=== PATIENT | female | born 1970 | race Caucasian/White ===

== ENCOUNTER → 2016-02-28 | Outpatient (CLI) | payer OTHER ==
[~2016-02-28] MED LIST: /ATOR40TA OR; /AUGM875TA OR; ALBU17IN INH; AMIT8CAP4 PO; ASPI325T OR; ASPI325T PO; ASPI81TA45 OR; B COTAB6 PO; COLA100C PO; COLACE PO; DOXE75CA2 PO; FLEXERIL PO; IPRASOL4 INH; KLON1TAB OR; KLON1TAB PO; LEVA750T PO; LEVO125T3 PO; LINZ290C PO; LIPI10TA PO; LISI-538 PO; LISI10TA4 PO; METH10TA2 PO; MIRA3350 PO; MORP15TA2 PO; MS CONTIN PO; MUCI600T34 PO; NICO14DI3 TD; NICO21DI4 TD; NICO7DIS4 TD; NYQUIL PO; OXYB10TA OR; OXYB10TA PO; OXYC-517 PO; OXYC15TA76 PO; PAXI20TA OR; PERCOCET PO; POTA20TA2 OR; PRIN10TA PO; PROAAER IN; PROM25TA3 PO; STOOTAB PO; SYNT125T OR; TESS200C OR; TIZA4TAB3 PO; TRAZ100T4 PO; TRAZ50TA2 PO; TYLETAB3 OR; VIBRYD PO; VIIB20TA PO; VITA500047 PO; ZOLP-187 PO; [UNRECOGNIZED DRUG - CODE] PO
--- NOTE | 2016-03-18 00:38 | ECWPNPC ---
PATIENT NAME: LORRIE CHAVEZ : 1970 GENDER: FEMALE VISIT DATE: 02/28/2016 DISCHARGE DATE: 02/28/16 1506 VISIT LOCKED DATE TIME: PHYSICIAN: ANÍBAL LANDA RESOURCE: ANÍBAL LANDA REASON FOR APPOINTMENT 1. CHRONIC PAIN HISTORY OF PRESENT ILLNESS HISTORY OF PRESENT ILLNESS: HERE FOR F/U AND MANAGEMENT OF CHRONIC GENERALIZED PAIN W HX OF POST STROKE SYNDROME.RATING PAIN LEVEL 8/10.REPORTS POOR QUALITY OF LIFE SINCE DECREASE IN NARCOTIC PAIN MEDICATION A FEW MONTHS AGO.FINDS IT DIFFICULT TO GET OUT OF BED AND SHE HAS BEEN IN BED MOST OF THE TIME.ASKING FOR INCREASE IN METHADONE.CHIEF AREA OF PAIN IS SHOULDERS ,CLAVICLE,AND NECK.GENERALLY HURTS ALL OVER WITH LEFT SIDE BEING WORSE. PAIN THE PATIENT DESCRIBES THE PAIN... THE PATIENT DESCRIBES THE PAIN... THE PATIENT DESCRIBES THE PAIN... THE PATIENT DESCRIBES THE PAIN... FALL RISK SCREENING: SCREENING :NO FALLS IN THE PAST YEAR CURRENT MEDICATIONS TAKING VENTOLIN HFA 108 (90 BASE) MCG/ACT AEROSOL SOLUTION 2 PUFFS NEEDED INHALATION EVERY 4 HRS TAKING ALBUTEROL-IPRATROPIUM 1 DOSE 1 SOLUTION INHALED EVERY 2 HOURS NEEDED TAKING ASPIRIN 325 MG TABLET 1 TABLET ORALLY ONCE A DAY TAKING ATORVASTATIN CALCIUM 10 MG TABLET 1 TABLET ORALLY ONCE A DAY TAKING KLONOPIN 1 MG TABLET 1 TABLET ORALLY DAILY TAKING SYNTHROID 125 MCG TABLET 1 TABLET ORALLY ONCE A DAY TAKING LINZESS 290 MCG CAPSULE 1 CAPSULE ORALLY ONCE A DAY TAKING OXYBUTYNIN CHLORIDE ER 10 MG TABLET EXTENDED RELEASE 24 HOUR 1 TABLET ORALLY ONCE A DAY TAKING STOOL SOFTENER 100 MG CAPSULE 1 CAPSULE NEEDED ORALLY ONCE A DAY TAKING TRAZODONE HCL 150 MG TABLET 1 TABLET AT BEDTIME ORALLY ONCE A DAY TAKING PROZAC 10 MG CAPSULE 1 CAPSULE IN THE MORNING ORALLY ONCE A DAY TAKING METHADONE HCL 10 MG TABLET 2 ORALLY Q8H TID MDD6 TAKING OXYCODONE HCL 5 MG TABLET 1-2 ORALLY Q8H PRN PAIN MDD3 NOT-TAKING MUCINEX 600 MG TABLET EXTENDED RELEASE 12 HOUR 1 TABLET NEEDED ORALLY TWICE DAILY NEEDED NOT-TAKING UNISOM 25 MG TABLET 1 TABLET AT BEDTIME NEEDED ORALLY ONCE A DAY NOT-TAKING LISINOPRIL 10 MG TABLET 1 TABLET ORALLY ONCE A DAY NOT-TAKING VIIBRYD 40 MG TABLET 1 TABLETS WITH FOOD ORALLY ONCE A DAY NOT-TAKING METHADONE HCL 10 MG TABLET 2 TABLET ORALLY 2 TAB Q6H MDD8 MEDICATION LIST REVIEWED AND RECONCILED WITH THE PATIENT PAST MEDICAL HISTORY ASTROCYTOMA STROKES 2008 TIAS [id number] OSTEO ARTHRITIS (DEGENERATIVE) DDD FIBROMYALGIA [place] CARPAL SOHA HYPERTENSION ANXIETY/DEPRESSION NUMEROUS HEAD TRAUMAS ALLERGIES VIIBRYD: MANIC BEHAVIOR: SIDE EFFECTS SOCIAL HISTORY GENERAL: TOBACCO USE ARE YOU A:NONSMOKER LEARNING BARRIERS / SPECIAL NEEDS ORIENTED TO PLAN OF CARE: PATIENT, PAIN MANAGEMENT PATIENT, ORIENTED TO PLAN OF CARE: PATIENT, PAIN MANAGEMENT PATIENT. NEW PATIENT PAIN DIARY TODAY'S VISITNOTES FROM 0-10, WHAT LEVEL IS YOUR PAIN TODAY?0 PAIN CLINIC PFS, CLERGY, PUBLIC HEALTH REFERRALS PFS REFERRAL NEEDED?NO CLERGY REFERRAL NEEDED?NO PUBLIC HEALTH REFERRAL NEEDED?NO WAS THE PROVIDER NOTIFIED OF ANY PERTINENT INFO?NO PFS REFERRAL NEEDED?NO CLERGY REFERRAL NEEDED?NO PUBLIC HEALTH REFERRAL NEEDED?NO WAS THE PROVIDER NOTIFIED OF ANY PERTINENT INFO?NO REVIEW OF SYSTEMS CONSTITUTIONAL: ANY CHANGE IN YOUR MEDICAL CONDITION? NO . CHILLS NO . FEVER NO . INFECTION: DO YOU HAVE NEW INFECTIONS? NO . DO YOU HAVE HISTORY OF MRSA? NO . MUSCULOSKELETAL: ANY NEW PATTERNS OF PAIN OR NUMBNESS? NO . GASTROENTEROLOGY: ANY NEW CHANGE IN BOWEL CONTROL? NO . GENITOURINARY: ANY NEW CHANGE IN BLADDER CONTROL? NO . IS THERE A CHANCE YOU COULD BE ? NO . HEMATOLOGY/LYMPH: DO YOU TAKE ANY BLOOD THINNERS? (FOR EXAMPLE- COUMADIN, PLAVIX, AGGRENOX, PLATEL, PRADAXA, OR XARELTO) NO . WHEN WAS YOUR LAST DOSE? DATE: TIME: . NEUROLOGY: HAVE YOU FALLEN IN THE PAST 6 MONTHS? NO . ANY NEW EXTREMITY NUMBNESS OR WEAKNESS? NO . CARDIOLOGY: DO YOU HAVE A PACEMAKER OR DEFIBRILLATOR? NO . RESPIRATORY: HAVE YOU BEEN SICK IN THE PAST WEEK? NO . FEVER NO . FLU LIKE SYMPTOMS? NO . COUGH NO . INTEGUMENTARY: DO YOU HAVE ANY RASHES OR OPEN SORES? NO . ALLERGIC/IMMUNO: ARE YOU ALLERGIC TO SHELLFISH OR IV DYE? NO . ANY NEW ALLERGIES? NO . PSYCHIATRIC: DO YOU HAVE THOUGHTS OF HURTING YOURSELF OR SOMEONE ELSE? NO . ARE YOU ABUSED, NEGLECTED, OR IN AN UNSAFE ENVIRONMENT? NO . ENDOCRINOLOGY: ARE YOU DIABETIC? NO . OTHER: DO YOU NEED ANY PRESCRIPTIONS? NO . IF YES, PLEASE LIST: ____ . ANY NEW PROBLEMS WITH YOUR MEDICATIONS? NO . WHEN DID YOU LAST EAT? ____ . WHEN DID YOU LAST DRINK? ____ . WHAT DID YOU LAST DRINK? ____ . NAME OF PERSON DRIVING YOU HOME? ____ . DO YOU HAVE ANY OTHER QUESTIONS OR CONCERNS NO . REVIEWED BY: PROVIDER: ANÍBAL FLORES . VITAL SIGNS WT 154 LBS, HT 70 IN, BMI 22.09 INDEX, BP 117/69 MM HG, HR 110 /MIN, RR 16 /MIN, TEMP 97.5 F, OXYGEN SAT % 94, NA INITIALS TL 1429. EXAMINATION GENERAL EXAMINATION: LUNGS:LUNG SOUNDS ARE CLEAR. HEART:HEART RATE REGULAR. MUSCULOSKELETAL:TENDER W PALPATION OVER CERVICAL AND L/S AXIS., MUSCLE STRENGTH TESTING 3/5 BILATERAL LOWER EXTREMITIES.. ASSESSMENTS CENTRAL PAIN SYNDROME - G89.0 (PRIMARY) CHRONIC PRESCRIPTION OPIATE USE - Z79.891 TREATMENT CENTRAL PAIN SYNDROME REFILL METHADONE HCL TABLET, 10 MG, 2, ORALLY, Q8H TID MDD6, 30 DAY(S), 180, REFILLS 0 NOTES: 12 LEAD EKG, ISTOP REGISTRY REVIEWED AND DEMNOSTRATES COMPLLIANCE. BRINGS IN MEDICATIONS WHICH IS APPROPRIATE FOR WHAT WAS DISPENSED. RECENT URINE TOXICOLOGY REVIEWED. NO UNAUTHORIZED MEDICATIONS. NO ILLICIT SUBSTANCES AND PRESCRIBED MEDICATIONS WERE PRESENT. , RISKS AND BENEFITS OF NARCOTIC/OPIOD MEDICATIONS WERE REVIEWED WITH PATIENT - THIS INCLUDES BUT IS NOT LIMITED TO RISK OF DEPENDANCE/DEVELOPMENT OF ADDICTION, MOOD DISTURBANCE AND DEPRESSION, OSTEOPOROSIS, HORMONAL AND LABIDAL CHANGES, RESPIRATORY DEPRESSION AND . PATIENT IS ADVISED NOT TO DRIVE WHILE ON THESE MEDICATIONS. PROCEDURE CODES FA211 ESTABILISHED PATIENT [facility] CHARGE FOLLOW UP 4 WEEKS ELECTRONICALLY SIGNED BY SANDRA HICKS ON 03/17/2016 AT 04:41 PM EST DISCLAIMER : THIS IS A VISIT SUMMARY EXTRACTED FROM THE [employer] CHART. IT IS NOT A COPY OF THE [employer] PROGRESS NOTE. MTDD
== END ==
LOC: M PAIN 14:20
PROVIDERS: ATTEND Nurse Practitioner Family
DX: Z09 Encounter for follow-up examination after completed treatment for conditions other than malignant neoplasm (principal); G89.29 Other chronic pain; G89.0 Central pain syndrome; I10 Essential (primary) hypertension; M19.90 Unspecified osteoarthritis, unspecified site; M51.9 Unspecified thoracic, thoracolumbar and lumbosacral intervertebral disc disorder; M79.7 Fibromyalgia; F32.9 Major depressive disorder, single episode, unspecified; F41.9 Anxiety disorder, unspecified; Z88.8 Allergy status to other drugs, medicaments and biological substances; Z79.82 Long term (current) use of aspirin; Z79.891 Long term (current) use of opiate analgesic; Z85.841 Personal history of malignant neoplasm of brain; Z87.820 Personal history of traumatic brain injury

== ENCOUNTER → 2016-03-27 | Outpatient (CLI) | payer OTHER ==
--- NOTE | 2016-04-03 02:08 | ECWPNPC ---
PATIENT NAME: LORRIE CHAVEZ : 1970 GENDER: FEMALE VISIT DATE: 03/27/2016 DISCHARGE DATE: 03/27/16 1507 VISIT LOCKED DATE TIME: PHYSICIAN: ANÍBAL LANDA RESOURCE: ANÍBAL LANDA REASON FOR APPOINTMENT 1. CHRONIC PAIN HISTORY OF PRESENT ILLNESS HISTORY OF PRESENT ILLNESS: HERE FOR F/U AND MANAGEMENT OF CHRONIC GENERALIZED PAIN W HX OF POST STROKE SYNDROME.RATING PAIN LEVEL 9/10.REPORTS POOR QUALITY OF LIFE SINCE DECREASE IN NARCOTIC PAIN MEDICATION A FEW MONTHS AGO.FINDS IT DIFFICULT TO GET OUT OF BED AND SHE HAS BEEN IN BED MOST OF THE TIME.CHIEF AREA OF PAIN IS SHOULDERS ,CLAVICLE,AND NECK.GENERALLY HURTS ALL OVER WITH LEFT SIDE BEING WORSE.HX OF LARGE OCCIPITAL TUMOR EXCISION ON RIGHT IN 1994.STATES SHE WAS DIAGNOSED WITH STROKE IN 1997. PAIN THE PATIENT DESCRIBES THE PAIN... THE PATIENT DESCRIBES THE PAIN... THE PATIENT DESCRIBES THE PAIN... THE PATIENT DESCRIBES THE PAIN... THE PATIENT DESCRIBES THE PAIN... FALL RISK SCREENING: SCREENING :NO FALLS IN THE PAST YEAR CURRENT MEDICATIONS TAKING VENTOLIN HFA 108 (90 BASE) MCG/ACT AEROSOL SOLUTION 2 PUFFS NEEDED INHALATION EVERY 4 HRS TAKING ALBUTEROL-IPRATROPIUM 1 DOSE 1 SOLUTION INHALED EVERY 2 HOURS NEEDED TAKING ASPIRIN 325 MG TABLET 1 TABLET ORALLY ONCE A DAY TAKING ATORVASTATIN CALCIUM 10 MG TABLET 1 TABLET ORALLY ONCE A DAY TAKING KLONOPIN 1 MG TABLET 1 TABLET ORALLY DAILY TAKING SYNTHROID 125 MCG TABLET 1 TABLET ORALLY ONCE A DAY TAKING LINZESS 290 MCG CAPSULE 1 CAPSULE ORALLY ONCE A DAY TAKING OXYBUTYNIN CHLORIDE ER 10 MG TABLET EXTENDED RELEASE 24 HOUR 1 TABLET ORALLY ONCE A DAY TAKING STOOL SOFTENER 100 MG CAPSULE 1 CAPSULE NEEDED ORALLY ONCE A DAY TAKING TRAZODONE HCL 150 MG TABLET 1 TABLET AT BEDTIME ORALLY ONCE A DAY TAKING PROZAC 20 MG CAPSULE 1 CAPSULE IN THE MORNING ORALLY ONCE A DAY TAKING METHADONE HCL 10 MG TABLET 2 ORALLY Q8H TID MDD6 NOT-TAKING OXYCODONE HCL 5 MG TABLET 1-2 ORALLY Q8H PRN PAIN MDD3 NOT-TAKING MUCINEX 600 MG TABLET EXTENDED RELEASE 12 HOUR 1 TABLET NEEDED ORALLY TWICE DAILY NEEDED NOT-TAKING UNISOM 25 MG TABLET 1 TABLET AT BEDTIME NEEDED ORALLY ONCE A DAY NOT-TAKING LISINOPRIL 10 MG TABLET 1 TABLET ORALLY ONCE A DAY NOT-TAKING VIIBRYD 40 MG TABLET 1 TABLETS WITH FOOD ORALLY ONCE A DAY NOT-TAKING METHADONE HCL 10 MG TABLET 2 TABLET ORALLY 2 TAB Q6H MDD8 MEDICATION LIST REVIEWED AND RECONCILED WITH THE PATIENT PAST MEDICAL HISTORY ASTROCYTOMA STROKES 2008 TIAS [id number] OSTEO ARTHRITIS (DEGENERATIVE) DDD FIBROMYALGIA [place] CARPAL SOHA HYPERTENSION ANXIETY/DEPRESSION NUMEROUS HEAD TRAUMAS ALLERGIES VIIBRYD: MANIC BEHAVIOR: SIDE EFFECTS SOCIAL HISTORY GENERAL: TOBACCO USE ARE YOU A:NONSMOKER LEARNING BARRIERS / SPECIAL NEEDS ORIENTED TO PLAN OF CARE: PATIENT, PAIN MANAGEMENT PATIENT, ORIENTED TO PLAN OF CARE: PATIENT, PAIN MANAGEMENT PATIENT. NEW PATIENT PAIN DIARY TODAY'S VISITNOTES FROM 0-10, WHAT LEVEL IS YOUR PAIN TODAY?0 PAIN CLINIC PFS, CLERGY, PUBLIC HEALTH REFERRALS PFS REFERRAL NEEDED?NO CLERGY REFERRAL NEEDED?NO PUBLIC HEALTH REFERRAL NEEDED?NO WAS THE PROVIDER NOTIFIED OF ANY PERTINENT INFO?NO PFS REFERRAL NEEDED?NO CLERGY REFERRAL NEEDED?NO PUBLIC HEALTH REFERRAL NEEDED?NO WAS THE PROVIDER NOTIFIED OF ANY PERTINENT INFO?NO REVIEW OF SYSTEMS CONSTITUTIONAL: ANY CHANGE IN YOUR MEDICAL CONDITION? NO . CHILLS NO . FEVER NO . INFECTION: DO YOU HAVE NEW INFECTIONS? NO . DO YOU HAVE HISTORY OF MRSA? NO . MUSCULOSKELETAL: ANY NEW PATTERNS OF PAIN OR NUMBNESS? YES PT REPORTS A GENERALIZED INCREASE IN HER PAIN LEVEL, AND HER HEELS HURTS BECAUSE SHE IS IN BED SO MUCH ALSO REPORTS A BURNING IN THE BACK OF HER HEAD . GASTROENTEROLOGY: ANY NEW CHANGE IN BOWEL CONTROL? NO . GENITOURINARY: ANY NEW CHANGE IN BLADDER CONTROL? NO . IS THERE A CHANCE YOU COULD BE ? NO . HEMATOLOGY/LYMPH: DO YOU TAKE ANY BLOOD THINNERS? (FOR EXAMPLE- COUMADIN, PLAVIX, AGGRENOX, PLATEL, PRADAXA, OR XARELTO) NO . WHEN WAS YOUR LAST DOSE? DATE: TIME: . NEUROLOGY: HAVE YOU FALLEN IN THE PAST 6 MONTHS? YES PT REPORTS SHE LOSES HER BALANCE A LOT AND STUMBLES . ANY NEW EXTREMITY NUMBNESS OR WEAKNESS? NO . CARDIOLOGY: DO YOU HAVE A PACEMAKER OR DEFIBRILLATOR? NO . RESPIRATORY: HAVE YOU BEEN SICK IN THE PAST WEEK? NO . FEVER NO . FLU LIKE SYMPTOMS? NO . COUGH NO . INTEGUMENTARY: DO YOU HAVE ANY RASHES OR OPEN SORES? NO . ALLERGIC/IMMUNO: ARE YOU ALLERGIC TO SHELLFISH OR IV DYE? NO . ANY NEW ALLERGIES? NO . PSYCHIATRIC: DO YOU HAVE THOUGHTS OF HURTING YOURSELF OR SOMEONE ELSE? NO . ARE YOU ABUSED, NEGLECTED, OR IN AN UNSAFE ENVIRONMENT? NO . ENDOCRINOLOGY: ARE YOU DIABETIC? NO . OTHER: DO YOU NEED ANY PRESCRIPTIONS? NO . IF YES, PLEASE LIST: ____ . ANY NEW PROBLEMS WITH YOUR MEDICATIONS? NO . WHEN DID YOU LAST EAT? ____ . WHEN DID YOU LAST DRINK? ____ . WHAT DID YOU LAST DRINK? ____ . NAME OF PERSON DRIVING YOU HOME? ____ . DO YOU HAVE ANY OTHER QUESTIONS OR CONCERNS YES PT WOULD LIKE TO GO BACK ON HYDROCODONE . REVIEWED BY: PROVIDER: ANÍBAL FLORES . VITAL SIGNS WT 159.8 LBS, HT 70 IN, BMI 22.93 INDEX, BP 118/65 MM HG, HR 70 /MIN, RR 16 /MIN, TEMP 97.7 F, OXYGEN SAT % 92, SAFE IN ENV? (Y/N) YES, NA INITIALS TL 1412, REVIEWED BY: EDWARD WEIGHED ON SCALE- TL. EXAMINATION GENERAL EXAMINATION: LUNGS:LUNG SOUNDS ARE CLEAR. HEART:HEART RATE REGULAR. MUSCULOSKELETAL:TENDER W PALPATION OVER CERVICAL AND L/S AXIS., MUSCLE STRENGTH TESTING 3/5 BILATERAL LOWER EXTREMITIES.. ASSESSMENTS CENTRAL PAIN SYNDROME - G89.0 (PRIMARY) CHRONIC PRESCRIPTION OPIATE USE - Z79.891 TREATMENT CENTRAL PAIN SYNDROME REFILL METHADONE HCL TABLET, 10 MG, 2, ORALLY, Q8H TID MDD6, 30 DAY(S), 180, REFILLS 0 REFILL OXYCODONE HCL TABLET, 5 MG, 1, ORALLY, Q6H PRN MDD4, 30 DAY(S), 120, REFILLS 0 PROCEDURE CODES FA211 ESTABILISHED PATIENT [facility] CHARGE FOLLOW UP 3 WEEKS ELECTRONICALLY SIGNED BY SANDRA HICKS ON 03/31/2016 AT 08:40 AM EST DISCLAIMER : THIS IS A VISIT SUMMARY EXTRACTED FROM THE [employer] CHART. IT IS NOT A COPY OF THE [employer] PROGRESS NOTE. [facility]
== END ==
LOC: M PAIN 14:00
PROVIDERS: ATTEND Nurse Practitioner Family
DX: Z09 Encounter for follow-up examination after completed treatment for conditions other than malignant neoplasm (principal); G89.0 Central pain syndrome; M19.90 Unspecified osteoarthritis, unspecified site; M51.9 Unspecified thoracic, thoracolumbar and lumbosacral intervertebral disc disorder; M79.7 Fibromyalgia; I10 Essential (primary) hypertension; F32.9 Major depressive disorder, single episode, unspecified; F41.9 Anxiety disorder, unspecified; Z88.8 Allergy status to other drugs, medicaments and biological substances; Z79.82 Long term (current) use of aspirin; Z79.891 Long term (current) use of opiate analgesic; Z79.899 Other long term (current) drug therapy; Z87.820 Personal history of traumatic brain injury; Z85.841 Personal history of malignant neoplasm of brain

== ENCOUNTER → 2016-04-22 | Outpatient (CLI) | payer OTHER | LOC: M PAIN 14:20 | PROVIDERS: ATTEND Nurse Practitioner Family | DX: Z09 Encounter for follow-up examination after completed treatment for conditions other than malignant neoplasm (principal); G89.29 Other chronic pain; G89.0 Central pain syndrome; M19.90 Unspecified osteoarthritis, unspecified site; M79.7 Fibromyalgia; I10 Essential (primary) hypertension; F41.9 Anxiety disorder, unspecified; F32.9 Major depressive disorder, single episode, unspecified; F17.200 Nicotine dependence, unspecified, uncomplicated; F11.20 Opioid dependence, uncomplicated; Z79.82 Long term (current) use of aspirin; Z79.891 Long term (current) use of opiate analgesic; Z79.899 Other long term (current) drug therapy; Z85.841 Personal history of malignant neoplasm of brain; Z86.73 Personal history of transient ischemic attack (TIA), and cerebral infarction without residual deficits; Z87.820 Personal history of traumatic brain injury ==

== ENCOUNTER → 2016-05-29 | Outpatient (CLI) | payer OTHER ==
[~2016-05-29] MED LIST changes: -COLA100C PO; +COLA100C3 PO
--- NOTE | 2016-05-29 16:58 | REP ---
MRI brain without contrast: History: History of brain tumor. Recent fall. Comparison MRI study is from November 22, 2010. Comparison CT brain study is from November 16, 2014. Technique: Axial and sagittal imaging planes are utilized for T1 and T2-weighted scans. Sequences include spin-echo, fast spin echo, FLAIR, and diffusion weighted sequences. MRI findings: The patient is status post right temporal craniotomy. No other bony calvarial defect is seen. No intraorbital abnormality is seen. There is mucosal thickening and a small quantity of fluid in the left maxillary sinus. There is mild mucosal thickening and fluid in the sphenoid sinuses as well. There is diffuse cerebral atrophy. This is unchanged. There is concordant ventricular enlargement. There is a focal well-circumscribed 1.8 cm area of encephalomalacia in the posterior temporal lobe on the right side consistent with postoperative change. There is no evidence of residual or recurrent mass. FLAIR images demonstrate periventricular white matter changes consistent with small vessel changes. These are unchanged when compared with the 2010 prior study as well. No extra-axial fluid collection is seen. Diffusion weighted scans show no evidence to suggest acute ischemia. There is no evidence of intracranial hemorrhage. Impression: Status post right temporal craniotomy with small stable area of encephalomalacia in the right temporal lobe. Diffuse atrophic change and some small vessel changes. No acute intracranial lesion. Signed by Rupert Cole MD 05/29/2016 06:01 P
== END ==
LOC: M RAD 14:53
PROVIDERS: ATTEND Nurse Practitioner Adult Health
DX: S09.90XD Unspecified injury of head, subsequent encounter (principal); X58.XXXD Exposure to other specified factors, subsequent encounter; Y99.8 Other external cause status

== ENCOUNTER → 2016-06-24 | Outpatient (CLI) | payer OTHER ==
--- NOTE | 2016-07-10 00:51 | ECWPNPC ---
PATIENT NAME: LORRIE CHAVEZ : 1970 GENDER: FEMALE VISIT DATE: 06/24/2016 DISCHARGE DATE: 06/24/16 1537 VISIT LOCKED DATE TIME: PHYSICIAN: ANÍBAL LANDA RESOURCE: ANÍBAL LANDA REASON FOR APPOINTMENT 1. CHRONIC PAIN HISTORY OF PRESENT ILLNESS HISTORY OF PRESENT ILLNESS: HERE FOR F/U AND MANAGEMENT OF CHRONIC GENERALIZED PAIN W HX OF POST STROKE SYNDROME.RATING PAIN LEVEL 4/10.REPORTS IMPROVED PAIN CONTROL AND MORE TIME OUT OF BED AND ACTIVE SINCE WE RESTARTED PAIN MEDICATION A FEW MONTHS AGO.CHIEF AREA OF PAIN IS SHOULDERS ,CLAVICLE,AND NECK.GENERALLY HURTS ALL OVER WITH LEFT SIDE BEING WORSE.HX OF LARGE OCCIPITAL TUMOR EXCISION ON RIGHT IN 1994.STATES SHE WAS DIAGNOSED WITH STROKE IN 1997.DENIES SIDE EFFECTS W MEDICATION.TODAY SHE IS DESCRIBING AN INCREASE IN LOW BACK PAIN ECSPECIALLY WHEN STANDING TO DO DISHES. PAIN THE PATIENT DESCRIBES THE PAIN... THE PATIENT DESCRIBES THE PAIN... THE PATIENT DESCRIBES THE PAIN... THE PATIENT DESCRIBES THE PAIN... THE PATIENT DESCRIBES THE PAIN... THE PATIENT DESCRIBES THE PAIN... THE PATIENT DESCRIBES THE PAIN... FALL RISK SCREENING: SCREENING :NO FALLS IN THE PAST YEAR CURRENT MEDICATIONS TAKING VENTOLIN HFA 108 (90 BASE) MCG/ACT AEROSOL SOLUTION 2 PUFFS NEEDED INHALATION EVERY 4 HRS TAKING ALBUTEROL-IPRATROPIUM 1 DOSE 1 SOLUTION INHALED EVERY 2 HOURS NEEDED TAKING ASPIRIN 325 MG TABLET 1 TABLET ORALLY ONCE A DAY TAKING ATORVASTATIN CALCIUM 10 MG TABLET 1 TABLET ORALLY ONCE A DAY TAKING KLONOPIN 1 MG TABLET 1 TABLET ORALLY DAILY TAKING SYNTHROID 125 MCG TABLET 1 TABLET ORALLY ONCE A DAY TAKING LINZESS 290 MCG CAPSULE 1 CAPSULE ORALLY ONCE A DAY TAKING OXYBUTYNIN CHLORIDE ER 10 MG TABLET EXTENDED RELEASE 24 HOUR 1 TABLET ORALLY ONCE A DAY TAKING STOOL SOFTENER 100 MG CAPSULE 1 CAPSULE NEEDED ORALLY ONCE A DAY TAKING TRAZODONE HCL 150 MG TABLET 1 TABLET AT BEDTIME ORALLY ONCE A DAY TAKING PROZAC 20 MG CAPSULE 1 CAPSULE IN THE MORNING ORALLY ONCE A DAY TAKING METHADONE HCL 10 MG TABLET 2 ORALLY Q8H TID MDD6 TAKING OXYCODONE HCL 5 MG TABLET 1 ORALLY Q6H PRN MDD4 NOT-TAKING MUCINEX 600 MG TABLET EXTENDED RELEASE 12 HOUR 1 TABLET NEEDED ORALLY TWICE DAILY NEEDED NOT-TAKING UNISOM 25 MG TABLET 1 TABLET AT BEDTIME NEEDED ORALLY ONCE A DAY NOT-TAKING LISINOPRIL 10 MG TABLET 1 TABLET ORALLY ONCE A DAY NOT-TAKING VIIBRYD 40 MG TABLET 1 TABLETS WITH FOOD ORALLY ONCE A DAY NOT-TAKING METHADONE HCL 10 MG TABLET 2 TABLET ORALLY 2 TAB Q6H MDD8 MEDICATION LIST REVIEWED AND RECONCILED WITH THE PATIENT PAST MEDICAL HISTORY ASTROCYTOMA STROKES 2008 TIAS [id number] OSTEO ARTHRITIS (DEGENERATIVE) DDD FIBROMYALGIA [place] CARPAL SOHA HYPERTENSION ANXIETY/DEPRESSION NUMEROUS HEAD TRAUMAS ALLERGIES VIIBRYD: MANIC BEHAVIOR: SIDE EFFECTS REVIEW OF SYSTEMS CONSTITUTIONAL: ANY CHANGE IN YOUR MEDICAL CONDITION? NO. PT STATES SHE STARTED TAKING GABAPENTIN WHICH GAVE PT SEVERE MIGRAINES. PT STOPPED GABAPENTIN. . CHILLS NO . FEVER NO . INFECTION: DO YOU HAVE NEW INFECTIONS? NO . DO YOU HAVE HISTORY OF MRSA? NO . MUSCULOSKELETAL: ANY NEW PATTERNS OF PAIN OR NUMBNESS? NO . GASTROENTEROLOGY: ANY NEW CHANGE IN BOWEL CONTROL? NO . GENITOURINARY: ANY NEW CHANGE IN BLADDER CONTROL? NO . IS THERE A CHANCE YOU COULD BE ? NO . HEMATOLOGY/LYMPH: DO YOU TAKE ANY BLOOD THINNERS? (FOR EXAMPLE- COUMADIN, PLAVIX, AGGRENOX, PLATEL, PRADAXA, OR XARELTO) NO . WHEN WAS YOUR LAST DOSE? DATE: TIME: . NEUROLOGY: HAVE YOU FALLEN IN THE PAST 6 MONTHS? YES, PT STATES SHE LOSES BALANCE FROM PREVIOUS STROKE . ANY NEW EXTREMITY NUMBNESS OR WEAKNESS? NO . CARDIOLOGY: DO YOU HAVE A PACEMAKER OR DEFIBRILLATOR? NO . RESPIRATORY: HAVE YOU BEEN SICK IN THE PAST WEEK? NO . FEVER NO . FLU LIKE SYMPTOMS? NO . COUGH NO . INTEGUMENTARY: DO YOU HAVE ANY RASHES OR OPEN SORES? NO . ALLERGIC/IMMUNO: ARE YOU ALLERGIC TO SHELLFISH OR IV DYE? NO . ANY NEW ALLERGIES? NO . PSYCHIATRIC: DO YOU HAVE THOUGHTS OF HURTING YOURSELF OR SOMEONE ELSE? NO . ARE YOU ABUSED, NEGLECTED, OR IN AN UNSAFE ENVIRONMENT? NO . ENDOCRINOLOGY: ARE YOU DIABETIC? NO . OTHER: DO YOU NEED ANY PRESCRIPTIONS? NO . IF YES, PLEASE LIST: ____ . ANY NEW PROBLEMS WITH YOUR MEDICATIONS? NO . WHEN DID YOU LAST EAT? ____ . WHEN DID YOU LAST DRINK? ____ . WHAT DID YOU LAST DRINK? ____ . NAME OF PERSON DRIVING YOU HOME? ____ . DO YOU HAVE ANY OTHER QUESTIONS OR CONCERNS NO . REVIEWED BY: PROVIDER: ANÍBAL FLORES . VITAL SIGNS WT 165.8 LBS, HT 70 IN, BMI 23.79 INDEX, BP 123/74 MM HG, HR 81 /MIN, RR 16 /MIN, TEMP 97.6 F, OXYGEN SAT % 96%, SAFE IN ENV? (Y/N) Y, NA INITIALS TL 1435, REVIEWED BY: EM. EXAMINATION GENERAL EXAMINATION: LUNGS:LUNG SOUNDS ARE CLEAR. HEART:HEART RATE REGULAR. MUSCULOSKELETAL:TENDER W PALPATION OVER CERVICAL AND L/S AXIS., MUSCLE STRENGTH TESTING 3/5 BILATERAL LOWER EXTREMITIES.. 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 BRINGS IN MEDICATIONS WHICH IS APPROPRIATE FOR WHAT WAS DISPENSED. RECENT URINE TOXICOLOGY REVIEWED. NO UNAUTHORIZED MEDICATIONS. NO ILLICIT SUBSTANCES AND PRESCRIBED MEDICATIONS WERE PRESENT. , RISKS AND BENEFITS OF NARCOTIC/OPIOD MEDICATIONS WERE REVIEWED WITH PATIENT - THIS INCLUDES BUT IS NOT LIMITED TO RISK OF DEPENDANCE/DEVELOPMENT OF ADDICTION, MOOD DISTURBANCE AND DEPRESSION, OSTEOPOROSIS, HORMONAL AND LABIDAL CHANGES, RESPIRATORY DEPRESSION AND . PATIENT IS ADVISED NOT TO DRIVE WHILE ON THESE MEDICATIONS.URINE FOR TOX TODAY. REFERRAL TO:[facility] REASON:PLEASE EVALUATE FOR MEDICAL MARIJUANA/DX POST STROKE-CENTRALPAIN SYNDROME/CHRONIC PAIN PROCEDURE CODES FA211 ESTABILISHED PATIENT [facility] FACILITY CHARGE DISPOSITION & COMMUNICATION FOLLOW UP 2 MONTHS ELECTRONICALLY SIGNED BY SANDRA HICKS ON 07/08/2016 AT 10:07 AM EDT DISCLAIMER : THIS IS A VISIT SUMMARY EXTRACTED FROM THE [employer] CHART. IT IS NOT A COPY OF THE [employer] PROGRESS NOTE. [facility]
== END ==
LOC: M PAIN 14:00
PROVIDERS: ATTEND Nurse Practitioner Family
DX: G89.0 Central pain syndrome (principal); M54.40 Lumbago with sciatica, unspecified side; I25.2 Old myocardial infarction; M19.90 Unspecified osteoarthritis, unspecified site; M51.9 Unspecified thoracic, thoracolumbar and lumbosacral intervertebral disc disorder; I10 Essential (primary) hypertension; F41.9 Anxiety disorder, unspecified; F32.9 Major depressive disorder, single episode, unspecified; Z88.8 Allergy status to other drugs, medicaments and biological substances; F11.20 Opioid dependence, uncomplicated; Z79.82 Long term (current) use of aspirin; Z79.891 Long term (current) use of opiate analgesic; Z79.899 Other long term (current) drug therapy; Z87.820 Personal history of traumatic brain injury

== ENCOUNTER → 2016-08-25 | Outpatient (CLI) | payer OTHER ==
[~2016-08-25] MED LIST changes: -COLA100C3 PO; +COLA100C5 PO; -LEVA750T PO; +LEVA750T7 PO; -LEVO125T3 PO; +LEVO125T4 PO; -MUCI600T34 PO; +MUCI600T37 PO; +TRAZ-136 PO; -TRAZ100T4 PO
--- NOTE | 2016-09-10 01:14 | ECWPNPC ---
PATIENT NAME: LORRIE CHAVEZ : 1970 GENDER: FEMALE VISIT DATE: 08/25/2016 DISCHARGE DATE: 08/25/16 1444 VISIT LOCKED DATE TIME: PHYSICIAN: ANÍBAL LANDA RESOURCE: ANÍBAL LANDA REASON FOR APPOINTMENT 1. FOLLOWUP HISTORY OF PRESENT ILLNESS HISTORY OF PRESENT ILLNESS: HERE FOR F/U AND MANAGEMENT OF CHRONIC GENERALIZED BODY PAIN.RATING PAIN VAS 6/10.RECENTLY STARTED ON MEDICAL MARIJUANA A FEW DAYS AGO.CURRENTLY USING METHADONE 10MG TWO TAB. TID AND OXYCODONE 5MG UP TO 4X DAILY .FEELS MEDICATION IS EFFECTIVE WITHOUT SIDE EFFECTS.RATING PAIN VAS 6/10. PAIN THE PATIENT DESCRIBES THE PAIN... FALL RISK SCREENING: SCREENING :NO FALLS IN THE PAST YEAR CURRENT MEDICATIONS TAKING VENTOLIN HFA 108 (90 BASE) MCG/ACT AEROSOL SOLUTION 2 PUFFS NEEDED INHALATION EVERY 4 HRS TAKING ALBUTEROL-IPRATROPIUM 1 DOSE 1 SOLUTION INHALED EVERY 2 HOURS NEEDED TAKING ASPIRIN 325 MG TABLET 1 TABLET ORALLY ONCE A DAY TAKING ATORVASTATIN CALCIUM 10 MG TABLET 1 TABLET ORALLY ONCE A DAY TAKING KLONOPIN 1 MG TABLET 1 TABLET ORALLY DAILY TAKING SYNTHROID 125 MCG TABLET 1 TABLET ORALLY ONCE A DAY TAKING LINZESS 290 MCG CAPSULE 1 CAPSULE ORALLY ONCE A DAY TAKING OXYBUTYNIN CHLORIDE ER 10 MG TABLET EXTENDED RELEASE 24 HOUR 1 TABLET ORALLY ONCE A DAY TAKING STOOL SOFTENER 100 MG CAPSULE 1 CAPSULE NEEDED ORALLY ONCE A DAY TAKING TRAZODONE HCL 150 MG TABLET 1 TABLET AT BEDTIME ORALLY ONCE A DAY TAKING PROZAC 20 MG CAPSULE 1 CAPSULE IN THE MORNING ORALLY ONCE A DAY TAKING METHADONE HCL 10 MG TABLET 2 ORALLY Q8H TID MDD6 TAKING OXYCODONE HCL 5 MG TABLET 1 ORALLY Q6H PRN MDD4 NOT-TAKING MUCINEX 600 MG TABLET EXTENDED RELEASE 12 HOUR 1 TABLET NEEDED ORALLY TWICE DAILY NEEDED NOT-TAKING UNISOM 25 MG TABLET 1 TABLET AT BEDTIME NEEDED ORALLY ONCE A DAY NOT-TAKING LISINOPRIL 10 MG TABLET 1 TABLET ORALLY ONCE A DAY NOT-TAKING VIIBRYD 40 MG TABLET 1 TABLETS WITH FOOD ORALLY ONCE A DAY NOT-TAKING METHADONE HCL 10 MG TABLET 2 TABLET ORALLY 2 TAB Q6H MDD8 MEDICATION LIST REVIEWED AND RECONCILED WITH THE PATIENT PAST MEDICAL HISTORY ASTROCYTOMA STROKES 2008 TIAS [id number] OSTEO ARTHRITIS (DEGENERATIVE) DDD FIBROMYALGIA [place] CARPAL SOHA HYPERTENSION ANXIETY/DEPRESSION NUMEROUS HEAD TRAUMAS ALLERGIES VIIBRYD: MANIC BEHAVIOR: SIDE EFFECTS SURGICAL HISTORY OSTEO CHONDROMA 1980 LEFT KNEE REPAIR D&C PARTIAL CRANIOTOMY RECONSRTUCTION OF LEFT ANKLE FOOT SURGERY 08/13/15 HOSPITALIZATION/MAJOR DIAGNOSTIC PROCEDURE MENINGITIS 1996 REVIEW OF SYSTEMS REVIEWED BY: PROVIDER: ANÍBAL FLORES . CONSTITUTIONAL: ANY CHANGE IN YOUR MEDICAL CONDITION? NO . CHILLS NO . FEVER NO . INFECTION: DO YOU HAVE NEW INFECTIONS? NO . DO YOU HAVE HISTORY OF MRSA? NO . MUSCULOSKELETAL: ANY NEW PATTERNS OF PAIN OR NUMBNESS? YES, LEFT CHEST WALL USED TO BE NUMB. PT STATES A FEW WEEKS AGO SHE STARTED HAVING A TUGGING FEELING ON LEFT CHEST WALL. . GASTROENTEROLOGY: ANY NEW CHANGE IN BOWEL CONTROL? NO . GENITOURINARY: ANY NEW CHANGE IN BLADDER CONTROL? NO . IS THERE A CHANCE YOU COULD BE ? NO . HEMATOLOGY/LYMPH: DO YOU TAKE ANY BLOOD THINNERS? (FOR EXAMPLE- COUMADIN, PLAVIX, AGGRENOX, PLATEL, PRADAXA, OR XARELTO) NO . WHEN WAS YOUR LAST DOSE? DATE: TIME: . NEUROLOGY: HAVE YOU FALLEN IN THE PAST 6 MONTHS? YES, PT STATES 3 MONTHS AGO PT GOT UP IN MIDDLE OF NIGHT IN THE DARK TO GO TO BATHROOM, PT STATES SHE FELL LANDING ON HEAD. MRI OF BRAIN DONE PT STATES NO CHANGES. . ANY NEW EXTREMITY NUMBNESS OR WEAKNESS? NO . CARDIOLOGY: DO YOU HAVE A PACEMAKER OR DEFIBRILLATOR? NO . RESPIRATORY: HAVE YOU BEEN SICK IN THE PAST WEEK? NO . FEVER NO . FLU LIKE SYMPTOMS? NO . COUGH NO . INTEGUMENTARY: DO YOU HAVE ANY RASHES OR OPEN SORES? NO . ALLERGIC/IMMUNO: ARE YOU ALLERGIC TO SHELLFISH OR IV DYE? NO . ANY NEW ALLERGIES? NO . PSYCHIATRIC: DO YOU HAVE THOUGHTS OF HURTING YOURSELF OR SOMEONE ELSE? NO . ARE YOU ABUSED, NEGLECTED, OR IN AN UNSAFE ENVIRONMENT? NO . ENDOCRINOLOGY: ARE YOU DIABETIC? NO . OTHER: DO YOU NEED ANY PRESCRIPTIONS? NO . IF YES, PLEASE LIST: ____ . ANY NEW PROBLEMS WITH YOUR MEDICATIONS? NO . WHEN DID YOU LAST EAT? ____ . WHEN DID YOU LAST DRINK? ____ . WHAT DID YOU LAST DRINK? ____ . NAME OF PERSON DRIVING YOU HOME? ____ . DO YOU HAVE ANY OTHER QUESTIONS OR CONCERNS NO . VITAL SIGNS WT 160.0 LBS, HT 70 IN, BMI 22.96 INDEX, BP 118/77 MM HG, HR 98 /MIN, RR 16 /MIN, TEMP 99.2 F, OXYGEN SAT % 95%, SAFE IN ENV? (Y/N) Y, NA INITIALS TL 1405, REVIEWED BY: NEAL. EXAMINATION GENERAL EXAMINATION: LUNGS:LUNG SOUNDS ARE CLEAR. HEART:HEART RATE REGULAR. MUSCULOSKELETAL:TENDER W PALPATION OVER CERVICAL AND L/S AXIS., MUSCLE STRENGTH TESTING 3/5 BILATERAL LOWER EXTREMITIES.. ASSESSMENTS CENTRAL PAIN SYNDROME - G89.0 (PRIMARY) CHRONIC PRESCRIPTION OPIATE USE - Z79.891 TREATMENT CENTRAL PAIN SYNDROME REFILL METHADONE HCL TABLET, 10 MG, 2, ORALLY, Q8H TID MDD6, 30 DAY(S), 180, REFILLS 0 REFILL OXYCODONE HCL TABLET, 5 MG, 1, ORALLY, Q6H PRN MDD4, 30 DAY(S), 120, REFILLS 0 NOTES: ISTOP REGISTRY REVIEWED AND DEMNOSTRATES COMPLLIANCE. BRINGS IN MEDICATIONS WHICH IS APPROPRIATE FOR WHAT WAS DISPENSED. RECENT URINE TOXICOLOGY REVIEWED. NO UNAUTHORIZED MEDICATIONS. NO ILLICIT SUBSTANCES AND PRESCRIBED MEDICATIONS WERE PRESENT. , RISKS AND BENEFITS OF NARCOTIC/OPIOD MEDICATIONS WERE REVIEWED WITH PATIENT - THIS INCLUDES BUT IS NOT LIMITED TO RISK OF DEPENDANCE/DEVELOPMENT OF ADDICTION, MOOD DISTURBANCE AND DEPRESSION, OSTEOPOROSIS, HORMONAL AND LABIDAL CHANGES, RESPIRATORY DEPRESSION AND . PATIENT IS ADVISED NOT TO DRIVE WHILE ON THESE MEDICATIONS. PROCEDURE CODES FA211 ESTABILISHED PATIENT [facility] CHARGE DISPOSITION & COMMUNICATION FOLLOW UP 2 MONTHS ELECTRONICALLY SIGNED BY SANDRA HICKS ON 09/09/2016 AT 09:54 AM EDT DISCLAIMER : THIS IS A VISIT SUMMARY EXTRACTED FROM THE [employer] CHART. IT IS NOT A COPY OF THE [employer] PROGRESS NOTE. MTDD
== END ==
LOC: M PAIN 14:00
PROVIDERS: ATTEND Nurse Practitioner Family
DX: G89.0 Central pain syndrome (principal); M79.7 Fibromyalgia; I10 Essential (primary) hypertension; F41.9 Anxiety disorder, unspecified; F32.9 Major depressive disorder, single episode, unspecified; I25.2 Old myocardial infarction; R07.89 Other chest pain; Z88.8 Allergy status to other drugs, medicaments and biological substances; Z79.82 Long term (current) use of aspirin; F11.20 Opioid dependence, uncomplicated; Z79.891 Long term (current) use of opiate analgesic; Z79.899 Other long term (current) drug therapy; Z87.820 Personal history of traumatic brain injury

== ENCOUNTER → 2016-10-28 | Outpatient (CLI) | payer OTHER ==
--- NOTE | 2016-11-08 23:47 | ECWPNPC ---
PATIENT NAME: LORRIE CHAVEZ : 1970 GENDER: FEMALE VISIT DATE: 10/28/2016 DISCHARGE DATE: 10/28/16 1528 VISIT LOCKED DATE TIME: PHYSICIAN: ANÍBAL LANDA RESOURCE: ANÍBAL LANDA REASON FOR APPOINTMENT 1. CHRONIC BODY PAIN HISTORY OF PRESENT ILLNESS HISTORY OF PRESENT ILLNESS: HERE FOR F/U AND MANAGEMENT OF CHRONIC GENERALIZED BODY PAIN.RATING PAIN VAS 6/10.RECENTLY STARTED ON MEDICAL MARIJUANA ONE MONTH AGO.CURRENTLY USING METHADONE 10MG TWO TAB. TID AND OXYCODONE 5MG UP TO 4X DAILY .FEELS MEDICATION IS EFFECTIVE WITHOUT SIDE EFFECTS.RATING PAIN VAS 6/10.CONTINUES TO USE MEDICAL MARIJUANA BUT IS HAVING TROUBLE AFFORDING. PAIN THE PATIENT DESCRIBES THE PAIN... THE PATIENT DESCRIBES THE PAIN... FALL RISK SCREENING: SCREENING :NO FALLS IN THE PAST YEAR CURRENT MEDICATIONS TAKING VENTOLIN HFA 108 (90 BASE) MCG/ACT AEROSOL SOLUTION 2 PUFFS NEEDED INHALATION EVERY 4 HRS TAKING ALBUTEROL-IPRATROPIUM 1 DOSE 1 SOLUTION INHALED EVERY 2 HOURS NEEDED TAKING ASPIRIN 325 MG TABLET 1 TABLET ORALLY ONCE A DAY TAKING ATORVASTATIN CALCIUM 10 MG TABLET 1 TABLET ORALLY ONCE A DAY TAKING KLONOPIN 1 MG TABLET 1 TABLET ORALLY DAILY TAKING SYNTHROID 125 MCG TABLET 1 TABLET ORALLY ONCE A DAY TAKING LINZESS 290 MCG CAPSULE 1 CAPSULE ORALLY ONCE A DAY TAKING OXYBUTYNIN CHLORIDE ER 10 MG TABLET EXTENDED RELEASE 24 HOUR 1 TABLET ORALLY ONCE A DAY TAKING STOOL SOFTENER 100 MG CAPSULE 1 CAPSULE NEEDED ORALLY ONCE A DAY TAKING TRAZODONE HCL 150 MG TABLET 1 TABLET AT BEDTIME ORALLY ONCE A DAY TAKING PROZAC 20 MG CAPSULE 1 CAPSULE IN THE MORNING ORALLY ONCE A DAY TAKING METHADONE HCL 10 MG TABLET 2 ORALLY Q8H TID MDD6 TAKING OXYCODONE HCL 5 MG TABLET 1 ORALLY Q6H PRN MDD4 NOT-TAKING MUCINEX 600 MG TABLET EXTENDED RELEASE 12 HOUR 1 TABLET NEEDED ORALLY TWICE DAILY NEEDED NOT-TAKING UNISOM 25 MG TABLET 1 TABLET AT BEDTIME NEEDED ORALLY ONCE A DAY NOT-TAKING LISINOPRIL 10 MG TABLET 1 TABLET ORALLY ONCE A DAY NOT-TAKING VIIBRYD 40 MG TABLET 1 TABLETS WITH FOOD ORALLY ONCE A DAY NOT-TAKING METHADONE HCL 10 MG TABLET 2 TABLET ORALLY 2 TAB Q6H MDD8 PAST MEDICAL HISTORY ASTROCYTOMA STROKES 2008 TIAS [id number] OSTEO ARTHRITIS (DEGENERATIVE) DDD FIBROMYALGIA [place] CARPAL SOHA HYPERTENSION ANXIETY/DEPRESSION NUMEROUS HEAD TRAUMAS ALLERGIES VIIBRYD: MANIC BEHAVIOR: SIDE EFFECTS SURGICAL HISTORY OSTEO CHONDROMA 1981 LEFT KNEE REPAIR D&C PARTIAL CRANIOTOMY RECONSRTUCTION OF LEFT ANKLE FOOT SURGERY 08/13/15 HOSPITALIZATION/MAJOR DIAGNOSTIC PROCEDURE MENINGITIS 1996 REVIEW OF SYSTEMS REVIEWED BY: PROVIDER: ANÍBAL FLORES . CONSTITUTIONAL: ANY CHANGE IN YOUR MEDICAL CONDITION? NO . CHILLS NO . FEVER NO . INFECTION: DO YOU HAVE NEW INFECTIONS? NO . DO YOU HAVE HISTORY OF MRSA? NO . MUSCULOSKELETAL: ANY NEW PATTERNS OF PAIN OR NUMBNESS? YES, PT STATES PAIN PATTERNS CHANGE REGULARLY, WORSE PAIN NOW IN TAILBONE. . GASTROENTEROLOGY: ANY NEW CHANGE IN BOWEL CONTROL? NO . GENITOURINARY: ANY NEW CHANGE IN BLADDER CONTROL? NO . IS THERE A CHANCE YOU COULD BE ? NO . HEMATOLOGY/LYMPH: DO YOU TAKE ANY BLOOD THINNERS? (FOR EXAMPLE- COUMADIN, PLAVIX, AGGRENOX, PLATEL, PRADAXA, OR XARELTO) NO . WHEN WAS YOUR LAST DOSE? DATE: TIME: . NEUROLOGY: HAVE YOU FALLEN IN THE PAST 6 MONTHS? YES, PT STATES SHE FELL FOR LOSS OF BALANCE, PT DENIES MAJOR INJURIED REQUIRING MEDICAL ATTENTION . ANY NEW EXTREMITY NUMBNESS OR WEAKNESS? NO . CARDIOLOGY: DO YOU HAVE A PACEMAKER OR DEFIBRILLATOR? NO . RESPIRATORY: HAVE YOU BEEN SICK IN THE PAST WEEK? NO . FEVER NO . FLU LIKE SYMPTOMS? NO . COUGH NO . INTEGUMENTARY: DO YOU HAVE ANY RASHES OR OPEN SORES? NO . ALLERGIC/IMMUNO: ARE YOU ALLERGIC TO SHELLFISH OR IV DYE? NO . ANY NEW ALLERGIES? NO . PSYCHIATRIC: DO YOU HAVE THOUGHTS OF HURTING YOURSELF OR SOMEONE ELSE? NO . ARE YOU ABUSED, NEGLECTED, OR IN AN UNSAFE ENVIRONMENT? NO . ENDOCRINOLOGY: ARE YOU DIABETIC? NO . OTHER: DO YOU NEED ANY PRESCRIPTIONS? NO . IF YES, PLEASE LIST: ____ . ANY NEW PROBLEMS WITH YOUR MEDICATIONS? NO . WHEN DID YOU LAST EAT? ____ . WHEN DID YOU LAST DRINK? ____ . WHAT DID YOU LAST DRINK? ____ . NAME OF PERSON DRIVING YOU HOME? ____ . DO YOU HAVE ANY OTHER QUESTIONS OR CONCERNS NO . VITAL SIGNS WT 160 LBS, HT 70 IN, BMI 22.96 INDEX, BP 125/70 MM HG, HR 98 /MIN, RR 16 /MIN, TEMP 97.3 F, OXYGEN SAT % 91%, NA INITIALS AW 1431, REVIEWED BY: EM. EXAMINATION GENERAL EXAMINATION: LUNGS:LUNG SOUNDS ARE CLEAR. HEART:HEART RATE REGULAR. MUSCULOSKELETAL:TENDER W PALPATION OVER CERVICAL AND L/S AXIS., MUSCLE STRENGTH TESTING 3/5 BILATERAL LOWER EXTREMITIES.. ASSESSMENTS CENTRAL PAIN SYNDROME - G89.0 (PRIMARY) CHRONIC PRESCRIPTION OPIATE USE - Z79.891 TREATMENT CENTRAL PAIN SYNDROME CONTINUE METHADONE HCL TABLET, 10 MG, 2, ORALLY, Q8H TID MDD6, 30 DAY(S), 180, REFILLS 0 CONTINUE OXYCODONE HCL TABLET, 5 MG, 1, ORALLY, Q6H PRN MDD4, 30 DAY(S), 120, REFILLS 0 NOTES: ISTOP REGISTRY REVIEWED [id number] AND DEMNOSTRATES COMPLLIANCE. BRINGS IN MEDICATIONS WHICH IS APPROPRIATE FOR WHAT WAS DISPENSED. RECENT URINE TOXICOLOGY REVIEWED. NO UNAUTHORIZED MEDICATIONS. NO ILLICIT SUBSTANCES AND PRESCRIBED MEDICATIONS WERE PRESENT. , RISKS AND BENEFITS OF NARCOTIC/OPIOD MEDICATIONS WERE REVIEWED WITH PATIENT - THIS INCLUDES BUT IS NOT LIMITED TO RISK OF DEPENDANCE/DEVELOPMENT OF ADDICTION, MOOD DISTURBANCE AND DEPRESSION, OSTEOPOROSIS, HORMONAL AND LABIDAL CHANGES, RESPIRATORY DEPRESSION AND . PATIENT IS ADVISED NOT TO DRIVE WHILE ON THESE MEDICATIONS. PROCEDURE CODES FA211 ESTABILISHED PATIENT [facility] CHARGE DISPOSITION & COMMUNICATION FOLLOW UP 2 MONTHS ELECTRONICALLY SIGNED BY SANDRA HICKS ON 11/08/2016 AT 06:42 PM EDT DISCLAIMER : THIS IS A VISIT SUMMARY EXTRACTED FROM THE [employer] CHART. IT IS NOT A COPY OF THE [employer] PROGRESS NOTE. MTDD
== END ==
LOC: M PAIN 14:15
PROVIDERS: ATTEND Nurse Practitioner Family
DX: G89.0 Central pain syndrome (principal); I25.2 Old myocardial infarction; M19.90 Unspecified osteoarthritis, unspecified site; I10 Essential (primary) hypertension; F41.9 Anxiety disorder, unspecified; F32.9 Major depressive disorder, single episode, unspecified; Z88.8 Allergy status to other drugs, medicaments and biological substances; Z79.82 Long term (current) use of aspirin; Z79.891 Long term (current) use of opiate analgesic; F11.20 Opioid dependence, uncomplicated

== ENCOUNTER → 2017-02-24 | Outpatient (CLI) | payer OTHER | LOC: M PAIN 14:30 | DX: G89.0 Central pain syndrome (principal); M19.90 Unspecified osteoarthritis, unspecified site; M79.7 Fibromyalgia; I10 Essential (primary) hypertension; F41.9 Anxiety disorder, unspecified; F32.9 Major depressive disorder, single episode, unspecified; F17.200 Nicotine dependence, unspecified, uncomplicated; Z79.82 Long term (current) use of aspirin; Z79.891 Long term (current) use of opiate analgesic; Z79.899 Other long term (current) drug therapy; Z86.73 Personal history of transient ischemic attack (TIA), and cerebral infarction without residual deficits | CPT/HCPCS: G0463 ==

== ENCOUNTER → 2017-04-20 | Outpatient (REF) | payer OTHER | LOC: M LAB REF 09:01 | DX: N39.0 Urinary tract infection, site not specified (principal) ==

== ENCOUNTER → 2017-04-26 | Outpatient (CLI) | payer OTHER | LOC: M PAIN 14:00 | DX: G89.0 Central pain syndrome (principal); M79.7 Fibromyalgia; I10 Essential (primary) hypertension; F41.9 Anxiety disorder, unspecified; F32.9 Major depressive disorder, single episode, unspecified; Z79.82 Long term (current) use of aspirin; Z79.891 Long term (current) use of opiate analgesic; Z79.899 Other long term (current) drug therapy; Z88.8 Allergy status to other drugs, medicaments and biological substances; Z86.73 Personal history of transient ischemic attack (TIA), and cerebral infarction without residual deficits | CPT/HCPCS: G0463 ==

== ENCOUNTER → 2017-05-17 | Outpatient (CLI) | payer OTHER | LOC: M PAIN 14:15 | DX: G89.0 Central pain syndrome (principal); I10 Essential (primary) hypertension; F41.9 Anxiety disorder, unspecified; F32.9 Major depressive disorder, single episode, unspecified; M19.90 Unspecified osteoarthritis, unspecified site; M79.7 Fibromyalgia; F17.200 Nicotine dependence, unspecified, uncomplicated; Z79.891 Long term (current) use of opiate analgesic; Z79.82 Long term (current) use of aspirin; Z79.899 Other long term (current) drug therapy; Z88.8 Allergy status to other drugs, medicaments and biological substances; Z86.73 Personal history of transient ischemic attack (TIA), and cerebral infarction without residual deficits | CPT/HCPCS: G0463 ==

== ENCOUNTER → 2017-07-29 | Outpatient (CLI) | payer OTHER | LOC: M PAIN 11:45 | DX: G89.0 Central pain syndrome (principal); M54.2 Cervicalgia; R29.898 Other symptoms and signs involving the musculoskeletal system; M25.511 Pain in right shoulder; M25.512 Pain in left shoulder; M19.90 Unspecified osteoarthritis, unspecified site; M79.7 Fibromyalgia; I10 Essential (primary) hypertension; F41.9 Anxiety disorder, unspecified; F32.9 Major depressive disorder, single episode, unspecified; F17.210 Nicotine dependence, cigarettes, uncomplicated; G56.03 Carpal tunnel syndrome, bilateral upper limbs; Z79.891 Long term (current) use of opiate analgesic; Z79.899 Other long term (current) drug therapy; Z79.82 Long term (current) use of aspirin; Z88.8 Allergy status to other drugs, medicaments and biological substances | CPT/HCPCS: G0463 ==

== ENCOUNTER → 2017-08-16 | Outpatient (CLI) | payer OTHER | LOC: M RAD 14:55 | DX: M47.812 Spondylosis without myelopathy or radiculopathy, cervical region (principal); M50.221 Other cervical disc displacement at C4-C5 level; G89.0 Central pain syndrome | CPT/HCPCS: 72141 ==

== ENCOUNTER → 2017-09-16 | Outpatient (CLI) | payer OTHER | LOC: M PAIN 13:15 | DX: G89.0 Central pain syndrome (principal); M50.20 Other cervical disc displacement, unspecified cervical region; M79.7 Fibromyalgia; I10 Essential (primary) hypertension; F41.9 Anxiety disorder, unspecified; F32.9 Major depressive disorder, single episode, unspecified; G56.03 Carpal tunnel syndrome, bilateral upper limbs; Z86.73 Personal history of transient ischemic attack (TIA), and cerebral infarction without residual deficits; M15.0 Primary generalized (osteo)arthritis; F17.210 Nicotine dependence, cigarettes, uncomplicated; Z79.82 Long term (current) use of aspirin; Z79.891 Long term (current) use of opiate analgesic; Z79.899 Other long term (current) drug therapy; Z88.8 Allergy status to other drugs, medicaments and biological substances | CPT/HCPCS: G0463 ==

== ENCOUNTER → 2017-10-12 | Outpatient (CLI) | payer OTHER ==
[~2017-10-12] MED LIST changes: -/ATOR40TA OR; -/AUGM875TA OR; -ALBU17IN INH; -AMIT8CAP4 PO; -ASPI325T OR; -ASPI325T PO; -ASPI81TA45 OR; -B COTAB6 PO; -COLA100C5 PO; -COLACE PO; -DOXE75CA2 PO; -FLEXERIL PO; -IPRASOL4 INH; +ISOVUE-M 300 61% 15ML VIAL (Q9967) As Ordered; -KLON1TAB OR; -KLON1TAB PO; -LEVA750T7 PO; -LEVO125T4 PO; +LIDOCAINE 1% SDV INJ 30 ML VIAL As Ordered; -LINZ290C PO; -LIPI10TA PO; -LISI-538 PO; -LISI10TA4 PO; -METH10TA2 PO; -MIRA3350 PO; -MORP15TA2 PO; -MS CONTIN PO; -MUCI600T37 PO; -NICO14DI3 TD; -NICO21DI4 TD; -NICO7DIS4 TD; -NYQUIL PO; -OXYB10TA OR; -OXYB10TA PO; -OXYC-517 PO; -OXYC15TA76 PO; -PAXI20TA OR; -PERCOCET PO; -POTA20TA2 OR; -PRIN10TA PO; -PROAAER IN; -PROM25TA3 PO; -STOOTAB PO; -SYNT125T OR; -TESS200C OR; -TIZA4TAB3 PO; -TRAZ-136 PO; -TRAZ50TA2 PO; -TYLETAB3 OR; -VIBRYD PO; -VIIB20TA PO; -VITA500047 PO; -ZOLP-187 PO; -[UNRECOGNIZED DRUG - CODE] PO; +diazePAM 5 MG TAB As Ordered; +diphenhydrAMINE 25 MG CAP As Ordered; +methylPREDNISolone SUSP 40 MG/ML (DEPO-medrol) VIAL (J1030) As Ordered
== END ==
LOC: M PAIN 11:00
DX: M50.10 Cervical disc disorder with radiculopathy, unspecified cervical region (principal); M79.7 Fibromyalgia; G56.03 Carpal tunnel syndrome, bilateral upper limbs; I10 Essential (primary) hypertension; F41.9 Anxiety disorder, unspecified; F32.9 Major depressive disorder, single episode, unspecified; Z86.73 Personal history of transient ischemic attack (TIA), and cerebral infarction without residual deficits; F17.210 Nicotine dependence, cigarettes, uncomplicated; Z79.82 Long term (current) use of aspirin; Z79.891 Long term (current) use of opiate analgesic; Z79.899 Other long term (current) drug therapy; Z88.8 Allergy status to other drugs, medicaments and biological substances
CPT/HCPCS: J1030

== ENCOUNTER → 2017-10-21 | Outpatient (CLI) | payer OTHER | LOC: M PAIN 13:15 | DX: G89.0 Central pain syndrome (principal); F32.9 Major depressive disorder, single episode, unspecified; F17.210 Nicotine dependence, cigarettes, uncomplicated; M79.7 Fibromyalgia; G56.03 Carpal tunnel syndrome, bilateral upper limbs; I10 Essential (primary) hypertension; F41.9 Anxiety disorder, unspecified; Z86.73 Personal history of transient ischemic attack (TIA), and cerebral infarction without residual deficits; Z79.891 Long term (current) use of opiate analgesic; Z88.8 Allergy status to other drugs, medicaments and biological substances; Z79.82 Long term (current) use of aspirin; Z79.899 Other long term (current) drug therapy | CPT/HCPCS: G0463 ==

== ENCOUNTER → 2017-11-12 | Outpatient (CLI) | payer OTHER | LOC: M PAIN 10:15 | DX: G89.0 Central pain syndrome (principal); M79.7 Fibromyalgia; I10 Essential (primary) hypertension; F41.9 Anxiety disorder, unspecified; F32.9 Major depressive disorder, single episode, unspecified; M19.90 Unspecified osteoarthritis, unspecified site; F17.200 Nicotine dependence, unspecified, uncomplicated; Z79.82 Long term (current) use of aspirin; Z79.891 Long term (current) use of opiate analgesic; Z79.899 Other long term (current) drug therapy; Z88.8 Allergy status to other drugs, medicaments and biological substances; Z86.73 Personal history of transient ischemic attack (TIA), and cerebral infarction without residual deficits; Z85.841 Personal history of malignant neoplasm of brain | CPT/HCPCS: G0463 ==

== ENCOUNTER 2017-12-03 13:50 | Emergency (ER) | payer OTHER | END 2017-12-03 15:36 | disposition left against medical advice (07) | LOC: M ED 13:50 | DX: S99.929A Unspecified injury of unspecified foot, initial encounter (principal); Z53.21 Procedure and treatment not carried out due to patient leaving prior to being seen by health care provider ==

== ENCOUNTER → 2017-12-10 | Outpatient (CLI) | payer OTHER | LOC: M PAIN 14:00 | DX: M50.20 Other cervical disc displacement, unspecified cervical region (principal); M19.90 Unspecified osteoarthritis, unspecified site; M79.7 Fibromyalgia; I10 Essential (primary) hypertension; F41.9 Anxiety disorder, unspecified; F32.9 Major depressive disorder, single episode, unspecified; Z72.0 Tobacco use; Z79.82 Long term (current) use of aspirin; Z79.891 Long term (current) use of opiate analgesic; Z79.899 Other long term (current) drug therapy; Z88.8 Allergy status to other drugs, medicaments and biological substances; Z87.820 Personal history of traumatic brain injury; Z86.79 Personal history of other diseases of the circulatory system | CPT/HCPCS: G0463 ==

== ENCOUNTER → 2017-12-20 | Outpatient (CLI) | payer OTHER ==
[2017-12-20 16:35] LABS: BASO # 0.1 10^3/uL (0.0-0.2); BASO % 1.4 % (0.0-1.0); EOS # 0.2 10^3/uL (0.0-0.50); EOS % 2.7 % (0.0-3.0); HEMATOCRIT 45.3 % (36.0-47.0); HEMOGLOBIN 14.8 g/dl (12.0-15.5); IMMATURE GRANULOCYTE % 0.5 % (0-3.0); LYMPH # 1.7 10^3/uL (1.5-4.5); LYMPH % 25.5 % (24.0-44.0); MEAN CORPUSCULAR HEMOGLOBIN 30.3 pg (27.0-33.0); MEAN CORPUSCULAR HGB CONC 32.7 g/dl (32.0-36.5); MEAN CORPUSCULAR VOLUME 92.8 fl (80.0-96.0); MONO # 0.3 10^3/uL (0.0-0.8); MONO % 4.6 % (0.0-5.0); NEUTROPHILS # 4.3 10^3/uL (1.8-7.7); NEUTROPHILS % 65.3 % (36.0-66.0); PLATELET COUNT, AUTOMATED 259 10^3/uL (150-450); RED BLOOD COUNT 4.88 10^6/uL (4.00-5.40); RED CELL DISTRIBUTION WIDTH 13.5 % (11.5-14.5); WHITE BLOOD COUNT 6.6 10^3/uL (4.0-10.0)
[2017-12-20 16:49] LABS: ALBUMIN 4.3 GM/DL (3.2-5.2); ALKALINE PHOSPHATASE 85 U/L (45-117); ALT/SGPT 21 U/L (12-78); ANION GAP 7 MEQ/L (8-16); AST/SGOT 16 U/L (7-37); BILIRUBIN,TOTAL 0.4 MG/DL (0.2-1.0); BLOOD UREA NITROGEN 15 MG/DL (7-18); CALCIUM LEVEL 9.7 MG/DL (8.5-10.1); CARBON DIOXIDE LEVEL 30 MEQ/L (21-32); CHLORIDE LEVEL 101 MEQ/L (98-107); CREATININE FOR GFR 0.94 MG/DL (0.55-1.30); GLOMERULAR FILTRATION RATE > 60.0 (>58); GLUCOSE, FASTING 111 MG/DL (70-100); POTASSIUM SERUM 4.3 MEQ/L (3.5-5.1); SODIUM LEVEL 138 MEQ/L (136-145); TOTAL PROTEIN 9.1 GM/DL (6.4-8.2)
[2017-12-20 16:59] LABS: INR 1.04; PROTHROMBIN TIME 13.8 SECONDS (12.1-14.4)
[2017-12-20 17:00] LABS: PARTIAL THROMBOPLASTIN TIME 26.5 SECONDS (25.4-37.6)
== END ==
LOC: M LAB 15:03
DX: Z01.818 Encounter for other preprocedural examination (principal); R91.8 Other nonspecific abnormal finding of lung field
CPT/HCPCS: 71046

== ENCOUNTER → 2017-12-30 | Outpatient (CLI) | payer OTHER | LOC: M PAIN 11:45 | DX: G89.29 Other chronic pain (principal); M50.10 Cervical disc disorder with radiculopathy, unspecified cervical region; M19.90 Unspecified osteoarthritis, unspecified site; M79.7 Fibromyalgia; I10 Essential (primary) hypertension; F41.9 Anxiety disorder, unspecified; F32.9 Major depressive disorder, single episode, unspecified; Z72.0 Tobacco use; Z79.82 Long term (current) use of aspirin; Z79.891 Long term (current) use of opiate analgesic; Z79.899 Other long term (current) drug therapy; Z88.8 Allergy status to other drugs, medicaments and biological substances; Z86.79 Personal history of other diseases of the circulatory system; Z86.73 Personal history of transient ischemic attack (TIA), and cerebral infarction without residual deficits | CPT/HCPCS: J1030 ==

== ENCOUNTER → 2018-01-10 | Outpatient (CLI) | payer OTHER ==
[~2018-01-10] MED LIST changes: +ISOVUE-370 76% 100ML VIAL (Q9967) As Ordered; -ISOVUE-M 300 61% 15ML VIAL (Q9967) As Ordered; -LIDOCAINE 1% SDV INJ 30 ML VIAL As Ordered; -diazePAM 5 MG TAB As Ordered; -diphenhydrAMINE 25 MG CAP As Ordered; -methylPREDNISolone SUSP 40 MG/ML (DEPO-medrol) VIAL (J1030) As Ordered
== END ==
LOC: M RAD 15:32
DX: J44.9 Chronic obstructive pulmonary disease, unspecified (principal); R91.8 Other nonspecific abnormal finding of lung field
CPT/HCPCS: Q9967

== ENCOUNTER → 2018-01-13 | Outpatient (CLI) | payer OTHER | LOC: M PAIN 13:30 | DX: G89.0 Central pain syndrome (principal); I10 Essential (primary) hypertension; F32.9 Major depressive disorder, single episode, unspecified; F41.9 Anxiety disorder, unspecified; M79.7 Fibromyalgia; M19.90 Unspecified osteoarthritis, unspecified site; F11.20 Opioid dependence, uncomplicated; Z72.0 Tobacco use; Z79.82 Long term (current) use of aspirin; Z79.891 Long term (current) use of opiate analgesic; Z79.899 Other long term (current) drug therapy; Z88.8 Allergy status to other drugs, medicaments and biological substances; Z87.820 Personal history of traumatic brain injury; Z85.841 Personal history of malignant neoplasm of brain | CPT/HCPCS: G0463 ==

== ENCOUNTER 2018-01-14 06:19 | Day surgery (SDC) | payer OTHER ==
[2018-01-14] MEDS: LR 1,000 ML IV (07:00)
[2018-01-14] MEDS ORDERED: ROCURONIUM BROMIDE 50 MG/5 ML VIAL As Ordered (08:02)
[2018-01-14] MEDS ORDERED: dexameTHASONE 4 MG/ML 1ML VIAL (J1100) As Ordered (08:02)
[2018-01-14] MEDS ORDERED: PROPOFOL 200 MG/20 ML VIAL As Ordered (08:02)
[2018-01-14] MEDS ORDERED: NEOSTIGMINE 10 MG/10 ML VIAL (J2710) As Ordered (08:02)
[2018-01-14] MEDS ORDERED: MIDAZOLAM INJ 2 MG/2 ML VIAL (J2250) As Ordered (08:02)
[2018-01-14] MEDS ORDERED: fentaNYL 250 MCG/5 ML INJECTION (J3010) As Ordered (08:02)
[2018-01-14] MEDS ORDERED: GLYCOPYRROLATE INJ 0.2 MG/ML 2 ML VIAL As Ordered (08:02)
[2018-01-14] MEDS ORDERED: LIDOCAINE 2% INJ 100 MG/5 ML SDV (FOR ANES.) As Ordered (08:02)
[2018-01-14] MEDS ORDERED: ONDANSETRON 4MG/2ML VIAL (J2405) As Ordered (08:02)
[2018-01-14] MEDS: LIDOCAINE W/EPINEPHRINE 1% 20ML VIAL As Ordered (08:09)
[2018-01-14] MEDS ORDERED: ePHEDrine SULFATE 25 MG/5 ML(5MG/ML) SYRINGE As Ordered (08:14)
[2018-01-14] MEDS ORDERED: PHENYLephrine HCL 500 MCG/5 ML (100MCG/ML) SYRINGE (J2370) As Ordered (08:14)
[2018-01-14] MEDS ORDERED: LR 1,000 ML IV ×2 (08:30)
[2018-01-14] MEDS ORDERED: ONDANSETRON 4MG/2ML VIAL (J2405) IV (08:30)
[2018-01-14] MEDS ORDERED: fentaNYL 100 MCG/2 ML INJECTION (J3010) IV (08:30)
[2018-01-14] MEDS ORDERED: NORCO, ANEXSIA 5/325MG TABLET (HYDROcodone/ACETAMINOPHEN) PO (08:30)
== END 2018-01-14 09:52 | disposition home or self-care (01) ==
LOC: M SDC 06:19
DX: K02.9 Dental caries, unspecified (principal); E05.00 Thyrotoxicosis with diffuse goiter without thyrotoxic crisis or storm; I12.9 Hypertensive chronic kidney disease with stage 1 through stage 4 chronic kidney disease, or unspecified chronic kidney disease; E03.9 Hypothyroidism, unspecified; E78.49 Other hyperlipidemia; M79.7 Fibromyalgia; G89.4 Chronic pain syndrome; K58.1 Irritable bowel syndrome with constipation; K21.9 Gastro-esophageal reflux disease without esophagitis; M15.0 Primary generalized (osteo)arthritis; M51.36 Other intervertebral disc degeneration, lumbar region; I49.9 Cardiac arrhythmia, unspecified; N18.3 Chronic kidney disease, stage 3 (moderate); E78.00 Pure hypercholesterolemia, unspecified; R01.1 Cardiac murmur, unspecified; R29.898 Other symptoms and signs involving the musculoskeletal system; F41.9 Anxiety disorder, unspecified; F32.9 Major depressive disorder, single episode, unspecified; G40.909 Epilepsy, unspecified, not intractable, without status epilepticus; J45.909 Unspecified asthma, uncomplicated; G93.41 Metabolic encephalopathy; N32.81 Overactive bladder; R32 Unspecified urinary incontinence; R91.1 Solitary pulmonary nodule; Z79.899 Other long term (current) drug therapy; Z79.82 Long term (current) use of aspirin; Z86.73 Personal history of transient ischemic attack (TIA), and cerebral infarction without residual deficits; Z85.841 Personal history of malignant neoplasm of brain; Z72.0 Tobacco use; Z78.0 Asymptomatic menopausal state; Z92.3 Personal history of irradiation
CPT/HCPCS: D9223

== ENCOUNTER → 2018-01-31 | Outpatient (CLI) | payer OTHER ==
[~2018-01-31] MED LIST changes: +/ATOR40TA OR; +/AUGM875TA OR; +ALBU17IN INH; +AMIT8CAP4 PO; +ASPI325T OR; +ASPI325T PO; +ASPI81TA45 OR; +B COTAB6 PO; +BUPIVACAINE HCL 0.25% 10 ML VIAL As Ordered ONE; +BUPIVACAINE HCL 0.25% 30 ML VIAL As Ordered ONE; +COLA100C5 PO; +COLACE PO; +DOXE75CA2 PO; +FLEXERIL PO; +IPRA0.00 INH; -ISOVUE-370 76% 100ML VIAL (Q9967) As Ordered; +KLON1TAB OR; +KLON1TAB PO; +LEVA750T7 PO; +LEVO125T4 PO; +LINZ290C PO; +LIPI10TA PO; +LISI-538 PO; +LISI10TA4 PO; +METH10TA2 PO; +MIRA3350 PO; +MORP15TA2 PO; +MS CONTIN PO; +MUCI600T37 PO; +NICO14DI3 TD; +NICO21DI4 TD; +NICO7DIS4 TD; +NYQUIL PO; +OXYB10TA OR; +OXYB10TA PO; +OXYC-517 PO; +OXYC15TA76 PO; +PARO1TAB33 PO; +PAXI20TA OR; +PERCOCET PO; +POTA20TA2 OR; +PRIN10TA PO; +PROAAER IN; +PROM25TA PO; +PROM25TA3 PO; +SOMA350T PO; +STOOTAB PO; +SYNT125T OR; +TESS200C OR; +TIZA4TAB3 PO; +TRAZ-163 PO; +TRAZ50TA2 PO; +TRIAMCINOLONE ACETONIDE SUSP 40 MG/ML VIAL (J3301) As Ordered ONE; +TYLETAB3 OR; +VENTAER INH; +VIBRYD PO; +VIIB20TA PO; +VITA500047 PO; +ZOLP-187 PO; +[UNRECOGNIZED DRUG - CODE] PO; +diazePAM 5 MG TAB As Ordered ONE; +diphenhydrAMINE 25 MG CAP As Ordered ONE
--- NOTE | 2018-02-15 23:34 | ECWPNPC ---
PATIENT NAME: LORRIE CHAVEZ : 1970 GENDER: FEMALE VISIT DATE: 01/31/2018 DISCHARGE DATE: 01/31/18 1543 VISIT LOCKED DATE TIME: PHYSICIAN: DOROTHY SQUIRES MD RESOURCE: DOROTHY SQUIRES MD REASON FOR APPOINTMENT 1. TPI HISTORY OF PRESENT ILLNESS HISTORY OF PRESENT ILLNESS: PAIN THE PATIENT DESCRIBES THE PAIN... FALL RISK SCREENING: SCREENING :NO FALLS IN THE PAST YEAR CURRENT MEDICATIONS TAKING VENTOLIN HFA 108 (90 BASE) MCG/ACT AEROSOL SOLUTION 2 PUFFS NEEDED INHALATION EVERY 4 HRS, NOTES: 0800 TAKING ALBUTEROL-IPRATROPIUM 1 DOSE 1 SOLUTION INHALED EVERY 2 HOURS NEEDED, NOTES: 1230 TAKING ASPIRIN 325 MG TABLET 1 TABLET ORALLY ONCE A DAY, NOTES: 01/30/18 1000 TAKING ATORVASTATIN CALCIUM 10 MG TABLET 1 TABLET ORALLY ONCE A DAY, NOTES: 01/30/18 1000 TAKING SYNTHROID 125 MCG TABLET 1 TABLET ORALLY ONCE A DAY, NOTES: 01/30/18 1000 TAKING LINZESS 290 MCG CAPSULE 1 CAPSULE ORALLY ONCE A DAY, NOTES: 01/30/18 1000 TAKING OXYBUTYNIN CHLORIDE ER 10 MG TABLET EXTENDED RELEASE 24 HOUR 1 TABLET ORALLY ONCE A DAY, NOTES: 01/30/18 1000 TAKING MELATONIN 3 MG TABLET 2 CAPSULE IN THE EVENING NEEDED WITH FOOD ORALLY ONCE A DAY, NOTES: COUPLE DAYS AGO TAKING KLONOPIN 1 MG TABLET 1 TABLET ORALLY DAILY PRN, NOTES: 01/30/18 2100 TAKING MUCINEX 600 MG TABLET EXTENDED RELEASE 12 HOUR 1 TABLET NEEDED ORALLY TWICE DAILY NEEDED, NOTES: WEEKS AGO TAKING UNISOM 25 MG TABLET 1 TABLET AT BEDTIME NEEDED ORALLY ONCE A DAY, NOTES: 01/30/18 2100 TAKING PAXIL 30 MG TABLET 1 TABLET IN THE MORNING ORALLY ONCE A DAY, NOTES: 01/31/16 1000 TAKING PROMETHAZINE HCL 25 MG TABLET 1 TABLET NEEDED ORALLY EVERY 12 HRS, NOTES: COUPLE DAYS AGO TAKING OXYCODONE HCL 5 MG TABLET 1 ORALLY Q6H PRN MDD4, NOTES: 1000 TAKING SOMA 350 MG TABLET 1 TABLET NEEDED ORALLY AT NIGHT NEEDED FOR SEVERE PAIN, NOTES: 01/30/18 1800 TAKING METHADONE HCL 10 MG TABLET 2 ORALLY 2 TAB Q8H MDD6, NOTES: 1000 NOT-TAKING PROCHLORPERAZINE MALEATE 10 MG TABLET 1 TABLET ORALLY NEEDED ONCE PER DAY FOR NAUSEA #15 TAB SHOULD LAST 30 DAYS MEDICATION LIST REVIEWED AND RECONCILED WITH THE PATIENT PAST MEDICAL HISTORY ASTROCYTOMA STROKES 2008 TIAS [id number] OSTEO ARTHRITIS (DEGENERATIVE) DDD FIBROMYALGIA [place] CARPAL SOHA HYPERTENSION ANXIETY/DEPRESSION NUMEROUS HEAD TRAUMAS BROKEN TEETH ALLERGIES VIIBRYD: MANIC BEHAVIOR: SIDE EFFECTS LYRICA: LOSS OF BALANCE: SIDE EFFECTS GABAPENTIN: LOSS OF BALANCE: SIDE EFFECTS BUSPAR: LOSS OF BALANCE: SIDE EFFECTS SURGICAL HISTORY OSTEO CHONDROMA 1981 LEFT KNEE REPAIR D&C PARTIAL CRANIOTOMY RECONSRTUCTION OF LEFT ANKLE HARDWARE REMOVED FROM LEFT ANKLE 08/13/15 UPPER TEETH REMOVAL 12/2017 FAMILY HISTORY FATHER: , DIAGNOSED WITH HEART DISEASE, OTHER MOTHER: ALIVE, DIAGNOSED WITH DIABETES, STROKE 3 SON(S) - HEALTHY. [id number] DEPENDING ON HER WT1 SON AFIB. SOCIAL HISTORY GENERAL: TOBACCO USE ARE YOU A:CURRENT SMOKER ARE YOU INTERESTED IN QUITTING?THINKING ABOUT QUITTING PATIENT STATES THAT SHE WANTS TO QUIT BUT "JUST CAN'T". STATES NICOTINE PATCHES DON'T WORK. STATES SHE HAS CUT DOWN. IS NOT INTERESTED IN QUIT SKMOKING CLASSES. WANTS MEDS TO STOP_ _WILL DISCUSS WITH PCP COUNSELED THE PATIENT ON SMOKING CESSATION, EDUCATION [id number]/17/2018 PATIENT COUNSELED ON THE DANGERS OF TOBACCO USE AND URGED TO QUIT:01/31/2018 ALCOHOL SCREENING DID YOU HAVE A DRINK CONTAINING ALCOHOL IN THE PAST YEAR?NO POINTS0 INTERPRETATIONNEGATIVE RECREATIONAL DRUG USE DRUG USE?NO CAFFEINE CAFFEINE USE?YES HOW OFTEN AND HOW MUCH? 1 POT OF COFFEE AND 6 SODA/DAY LATTER DAY [id number] BUDDHIST LANGUAGE LANGUAGES SPOKEN:WOLOF LEARNING BARRIERS / SPECIAL NEEDS CHANGE FROM LAST VISIT? PT STATES THAT SHE FELL AT HOME, GETTING OUT OF BED IN MIDDLE OF NIGHT, JAMMED NECK. BARRIERS TO LEARNING?YES COMMENTS HAS TROULBLE REMEMBER THINGS AT TIMES DUE TO NEIL TUMOR, STROKE AND TIA ALONG WITH MENINGITIS HEARING IMPAIRED?NO VISION IMPAIRED?YES :CORRECTIVE LENSES COGNITIVELY IMPAIRED?YES HAS TROUBLE REMEMBERING THINGS AT TIMES STATED ABOVE READINESS TO LEARN?YES LEARNING PREFERENCES?NO LEARNING CAPABILITIES PRESENT?YES EMOTIONAL BARRIERS?NO SPECIAL DEVICES?NO SALES MANAGER [place] NEEDED?NO DOMESTIC VIOLENCE DO YOU FEEL SAFE IN YOUR ENVIRONMENT?YES NEW PATIENT PAIN DIARY TODAY'S VISITNOTES FROM 0-10, WHAT LEVEL IS YOUR PAIN TODAY?9 PAIN CLINIC PFS, CLERGY, PUBLIC HEALTH REFERRALS PFS REFERRAL NEEDED?NO CLERGY REFERRAL NEEDED?NO PUBLIC HEALTH REFERRAL NEEDED?NO WAS THE PROVIDER NOTIFIED OF ANY PERTINENT INFO? N/A HAS THE PATIENT BEEN EDUCATED REGARDING HIS/HER PLAN OF CARE?YES HAS THE PATIENT BEEN EDUCATED REGARDING PAIN, THE RISK FOR PAIN, THE IMPORTANCE OF EFFECTIVE PAIN MANAGEMENT, AND THE PAIN ASSESSMENT PROCESS?YES ADVANCE DIRECTIVE ADVANCE DIRECTIVE DISCUSSED WITH PATIENT:YES HCP - SHERITA SHARPE 10/12/17 1150 REVIEWED WITH PT. RYAN WITH PT 11/12/17 1044 BVREVIEWED WITH PATIENT 12/10/17 1418 JS01/13/18 1354 REVIEWED WITH PT. RYAN WITH PATIENT 01/31/18 1412 JS. HOSPITALIZATION/MAJOR DIAGNOSTIC PROCEDURE MENINGITIS 1997 CVA 2008 SURGERIES PNEUMONIA REVIEW OF SYSTEMS REVIEWED BY: PROVIDER: . CONSTITUTIONAL: ANY CHANGE IN YOUR MEDICAL CONDITION? YES, STATES SURGERY AT THE END OF DECEMBER, UPPER TEETH REMOVED . CHILLS NO . FEVER NO . INFECTION: DO YOU HAVE NEW INFECTIONS? NO . DO YOU HAVE HISTORY OF MRSA? NO . MUSCULOSKELETAL: ANY NEW PATTERNS OF PAIN OR NUMBNESS? YES, STATES WORSENING ON PAIN IN MID-BACK THAT IS CONSTANT . GASTROENTEROLOGY: ANY NEW CHANGE IN BOWEL CONTROL? NO . GENITOURINARY: ANY NEW CHANGE IN BLADDER CONTROL? NO . IS THERE A CHANCE YOU COULD BE ? NO . HEMATOLOGY/LYMPH: DO YOU TAKE ANY BLOOD THINNERS? (FOR EXAMPLE- COUMADIN, PLAVIX, AGGRENOX, PLATEL, PRADAXA, OR XARELTO) NO . WHEN WAS YOUR LAST DOSE? DATE: TIME: . NEUROLOGY: HAVE YOU FALLEN IN THE PAST 6 MONTHS? NO . ANY NEW EXTREMITY NUMBNESS OR WEAKNESS? NO . CARDIOLOGY: DO YOU HAVE A PACEMAKER OR DEFIBRILLATOR? NO . RESPIRATORY: HAVE YOU BEEN SICK IN THE PAST WEEK? NO . FEVER NO . FLU LIKE SYMPTOMS? NO . COUGH NO . INTEGUMENTARY: DO YOU HAVE ANY RASHES OR OPEN SORES? YES, STATES STITCHES TO UPPER GUM LINE IN MOUTH, TEETH REMOVED A COUPLE OF WEEKS AGO . ALLERGIC/IMMUNO: ARE YOU ALLERGIC TO SHELLFISH OR IV DYE? NO . ANY NEW ALLERGIES? NO . PSYCHIATRIC: DO YOU HAVE THOUGHTS OF HURTING YOURSELF OR SOMEONE ELSE? NO . ARE YOU ABUSED, NEGLECTED, OR IN AN UNSAFE ENVIRONMENT? NO . ENDOCRINOLOGY: ARE YOU DIABETIC? NO . OTHER: DO YOU NEED ANY PRESCRIPTIONS? NO . IF YES, PLEASE LIST: ____ . ANY NEW PROBLEMS WITH YOUR MEDICATIONS? NO . WHEN DID YOU LAST EAT? ____01/30/18 2100 . WHEN DID YOU LAST DRINK? ____01/31/18 1000 . WHAT DID YOU LAST DRINK? ____WATER . NAME OF PERSON DRIVING YOU HOME? ____HARKRAIG WHITE . DO YOU HAVE ANY OTHER QUESTIONS OR CONCERNS NO . VITAL SIGNS WT 163.4 LBS, HT 70 IN, BMI 23.44 INDEX, BP 125/71 MM HG, HR 107 /MIN, RR 16 /MIN, TEMP 97.4 F, OXYGEN SAT % 94%, SAFE IN ENV? (Y/N) YES, NA INITIALS GA 13:43, REVIEWED BY: TOMY. ASSESSMENTS MYALGIA, OTHER SITE - M79.18 (PRIMARY) PROCEDURES PN TRIGGER POINT INJECTION WITH STEROIDS PRE PROCEDURE DIAGNOSIS 1. MYALGIA 2. PAIN AT RIGHT NECK AREA AND BILATERAL THORACIC AREA POST PROCEDURE DIAGNOSIS 1. MYALGIA 2. PAIN AT RIGHT NECK AREA AND BILATERAL THORACIC AREA PROCEDURE TRIGGER POINT INJECTION AT RIGHT NECK AREA AND BILATERAL THORACIC AREA SURGEON DR. DOROTHY SQUIRES FELLED SEAM OPERATOR NONE ANESTHESIA LOCAL PRE PROCEDURE NOTE THE PATIENT HAS A HISTORY OF CHRONIC PAIN AT THE RIGHT NECK AREA AND RIGHT AND LEFT THORACIC AREA. I EVALUATE THE PATIENT AND REVIEWED THE CHART. THERE IS EVIDENCE OF BANDS OF TISSUE WITH RESTRICTION OF MOVEMENT AND PRESENCE OF TRIGGER POINT AT THE AFFECTED AREA. I WENT OVER THE RISKS, ALTERNATIVES, AND BENEFITS ASSOCIATED WITH THIS PROCEDURE. THE PATIENT WOULD LIKE TO PROCEED AND GIVE CONSENT TO PERFORMED THE PROCEDURE. THE PATIENT DENIES UNEXPLAINABLE WEIGHT LOSS, FEVER, CHILLS, OR NEW CHANGES IN URINARY OR BOWEL CONTROL DESCRIPTION OF PROCEDURE THE PATIENT WAS BROUGHT TO THE PROCEDURE ROOM AND PLACED IN THE SITTING POSITION. THE AREA WAS CLEANED WITH ALCOHOL. THE PROCEDURE WAS DONE USING ASEPTIC STERILE TECHNIQUE. I CHECKED LATERALITY AND THE LEVEL WHERE THE PROCEDURE WAS GOING TO BE PERFORMED WITH THE PATIENT AND THE SUPPORTING STAFF AT THE MOMENT OF THE TIME OUT IN THE PROCEDURE ROOM. USING A 25-GAUGE NEEDLE, TRIGGER POINTS WERE INJECTED AT THE RIGHT NECK AREA AND RIGHT AND LEFT THORACIC AREA WITH A TOTAL OF 40 ML OF BUPIVACAINE 0.25% AND KENALOG 40 MG. THERE WAS NO EVIDENCE OF BLOOD, PARESTHESIA OR CEREBROSPINAL FLUID DURING THE PROCEDURE. THE PATIENT WAS SENT TO THE RECOVERY ROOM. THE PATIENT WAS MOVING THE EXTREMITIES AND DOING WELL. THERE WAS NO COMPLICATION DURING THE PROCEDURE POST PROCEDURE NOTE THE PATIENT WILL BE SEEN IN A FOLLOW UP IN THE NEXT FEW WEEKS. INSTRUCTIONS WERE GIVEN, QUESTIONS WERE ANSWERED, AND THE PATIENT EXPRESSED UNDERSTANDING AND AGREES WITH THE PLAN. I, JOHN VALLES, DOCUMENTED THE ABOVE INFORMATION ACTING A SCRIBE FOR DR. SQUIRES. I HAVE REVIEWED THE ABOVE DOCUMENT, WRITTEN BY JOHN VALLES SCRIBE AND I VERIFY THAT IT IS ACCURATE. PROCEDURE CODES 09327 INJECT TRIGGER POINTS 3/> DISPOSITION & COMMUNICATION FOLLOW UP 3 WEEKS ELECTRONICALLY SIGNED BY DOROTHY SQUIRES MD, MD ON 02/15/2018 AT 07:25 PM EST DISCLAIMER : THIS IS A VISIT SUMMARY EXTRACTED FROM THE [employer] CHART. IT IS NOT A COPY OF THE [employer] PROGRESS NOTE. FANNIE
== END ==
LOC: M PAIN 13:30
PROVIDERS: ATTEND Anesthesiology
DX: M79.18 Myalgia, other site (principal); M19.90 Unspecified osteoarthritis, unspecified site; M79.7 Fibromyalgia; G56.03 Carpal tunnel syndrome, bilateral upper limbs; I10 Essential (primary) hypertension; F41.9 Anxiety disorder, unspecified; F32.9 Major depressive disorder, single episode, unspecified; F17.210 Nicotine dependence, cigarettes, uncomplicated; Z86.73 Personal history of transient ischemic attack (TIA), and cerebral infarction without residual deficits; Z79.82 Long term (current) use of aspirin; Z79.891 Long term (current) use of opiate analgesic; Z79.899 Other long term (current) drug therapy; Z88.8 Allergy status to other drugs, medicaments and biological substances
CPT/HCPCS: 20553; J3301

== ENCOUNTER → 2018-03-22 | Outpatient (CLI) | payer OTHER ==
[~2018-03-22] MED LIST changes: -BUPIVACAINE HCL 0.25% 10 ML VIAL As Ordered ONE; -BUPIVACAINE HCL 0.25% 30 ML VIAL As Ordered ONE; -PROM25TA PO; +PROM25TA12 PO; -TRIAMCINOLONE ACETONIDE SUSP 40 MG/ML VIAL (J3301) As Ordered ONE; -diazePAM 5 MG TAB As Ordered ONE; -diphenhydrAMINE 25 MG CAP As Ordered ONE
--- NOTE | 2018-04-07 00:21 | ECWPNPC ---
PATIENT NAME: LORRIE CHAVEZ : 1970 GENDER: FEMALE VISIT DATE: 03/22/2018 DISCHARGE DATE: 03/22/18 1555 VISIT LOCKED DATE TIME: PHYSICIAN: ANÍBAL LANDA RESOURCE: ANÍBAL LANDA REASON FOR APPOINTMENT 1. POST TPI HISTORY OF PRESENT ILLNESS HISTORY OF PRESENT ILLNESS: HERE FOR POST PROCEDURE F/U.HAD TPI ON 01-31-18.REPORTING NO IMPROVEMENT IN PAIN POST PROCEDURE.RATING PAIN VAS 9/10.DISCUSSED MEDICATION AND TREATMENT OPTIONS. PAIN THE PATIENT DESCRIBES THE PAIN... THE PATIENT DESCRIBES THE PAIN... FALL RISK SCREENING: SCREENING :NO FALLS IN THE PAST YEAR CURRENT MEDICATIONS TAKING VENTOLIN HFA 108 (90 BASE) MCG/ACT AEROSOL SOLUTION 2 PUFFS NEEDED INHALATION EVERY 4 HRS, NOTES: 0800 TAKING ALBUTEROL-IPRATROPIUM 1 DOSE 1 SOLUTION INHALED EVERY 2 HOURS NEEDED, NOTES: 1230 TAKING ASPIRIN 325 MG TABLET 1 TABLET ORALLY ONCE A DAY, NOTES: 01/30/18 1000 TAKING ATORVASTATIN CALCIUM 10 MG TABLET 1 TABLET ORALLY ONCE A DAY, NOTES: 01/30/18 1000 TAKING SYNTHROID 125 MCG TABLET 1 TABLET ORALLY ONCE A DAY, NOTES: 01/30/18 1000 TAKING LINZESS 290 MCG CAPSULE 1 CAPSULE ORALLY ONCE A DAY, NOTES: 01/30/18 1000 TAKING OXYBUTYNIN CHLORIDE ER 10 MG TABLET EXTENDED RELEASE 24 HOUR 1 TABLET ORALLY ONCE A DAY, NOTES: 01/30/18 1000 TAKING KLONOPIN 1 MG TABLET 1 TABLET ORALLY DAILY PRN, NOTES: 01/30/18 2100 TAKING MUCINEX 600 MG TABLET EXTENDED RELEASE 12 HOUR 1 TABLET NEEDED ORALLY TWICE DAILY NEEDED, NOTES: WEEKS AGO TAKING UNISOM 25 MG TABLET 1 TABLET AT BEDTIME NEEDED ORALLY ONCE A DAY, NOTES: 01/30/18 2100 TAKING PAXIL 30 MG TABLET 1 TABLET IN THE MORNING ORALLY ONCE A DAY, NOTES: 01/31/16 1000 TAKING PROMETHAZINE HCL 25 MG TABLET 1 TABLET NEEDED ORALLY EVERY 12 HRS, NOTES: COUPLE DAYS AGO TAKING OXYCODONE HCL 5 MG TABLET 1 ORALLY Q6H PRN MDD4, NOTES: 1000 TAKING SOMA 350 MG TABLET 1 TABLET NEEDED ORALLY AT NIGHT NEEDED FOR SEVERE PAIN, NOTES: 01/30/18 1800 TAKING METHADONE HCL 10 MG TABLET 2 ORALLY 2 TAB Q8H MDD6, NOTES: 1000 NOT-TAKING MELATONIN 3 MG TABLET 2 CAPSULE IN THE EVENING NEEDED WITH FOOD ORALLY ONCE A DAY, NOTES: COUPLE DAYS AGO NOT-TAKING PROCHLORPERAZINE MALEATE 10 MG TABLET 1 TABLET ORALLY NEEDED ONCE PER DAY FOR NAUSEA #15 TAB SHOULD LAST 30 DAYS MEDICATION LIST REVIEWED AND RECONCILED WITH THE PATIENT PAST MEDICAL HISTORY ASTROCYTOMA STROKES 2008 TIAS [id number] OSTEO ARTHRITIS (DEGENERATIVE) DDD FIBROMYALGIA [place] CARPAL SOHA HYPERTENSION ANXIETY/DEPRESSION NUMEROUS HEAD TRAUMAS BROKEN TEETH ALLERGIES [id number]: MANIC BEHAVIOR: SIDE EFFECTS LYRICA: LOSS OF BALANCE: SIDE EFFECTS GABAPENTIN: LOSS OF BALANCE: SIDE EFFECTS BUSPAR: LOSS OF BALANCE: SIDE EFFECTS SURGICAL HISTORY OSTEO CHONDROMA 1980 LEFT KNEE REPAIR D&C PARTIAL CRANIOTOMY RECONSRTUCTION OF LEFT ANKLE HARDWARE REMOVED FROM LEFT ANKLE 08/13/15 UPPER TEETH REMOVAL 12/2017 FAMILY HISTORY FATHER: , DIAGNOSED WITH HEART DISEASE, OTHER MOTHER: ALIVE, DIAGNOSED WITH DIABETES, STROKE 3 SON(S) - HEALTHY. [id number] DEPENDING ON HER WT1 SON AFIB. SOCIAL HISTORY GENERAL: TOBACCO USE ARE YOU A:CURRENT SMOKER ARE YOU INTERESTED IN QUITTING?THINKING ABOUT QUITTING PATIENT STATES THAT SHE WANTS TO QUIT BUT "JUST CAN'T". STATES NICOTINE PATCHES DON'T WORK. STATES SHE HAS CUT DOWN. IS NOT INTERESTED IN QUIT SKMOKING CLASSES. WANTS MEDS TO STOP_ _WILL DISCUSS WITH PCP, PER PT, PRIMARY SAYS SHE IS UNABLE TO TAKE CHANTIX R/T SEIZURE HISTORY. COUNSELED THE PATIENT ON SMOKING CESSATION, EDUCATION [id number]/05/2019 HOW MANY CIGARETTES A DAY DO YOU SMOKE?11-20 PATIENT COUNSELED ON THE DANGERS OF TOBACCO USE AND URGED TO QUIT:03/22/2018 ALCOHOL SCREENING DID YOU HAVE A DRINK CONTAINING ALCOHOL IN THE PAST YEAR?NO POINTS0 INTERPRETATIONNEGATIVE RECREATIONAL DRUG USE DRUG USE?NO CAFFEINE CAFFEINE USE?YES HOW OFTEN AND HOW MUCH? 1 POT OF COFFEE AND 6 SODA/DAY CHRISTIAN [id number] SCIENTOLOGY LANGUAGE LANGUAGES SPOKEN:MALTESE LEARNING BARRIERS / SPECIAL NEEDS CHANGE FROM LAST VISIT? PT STATES THAT SHE FELL AT HOME, GETTING OUT OF BED IN MIDDLE OF NIGHT, JAMMED NECK. BARRIERS TO LEARNING?YES COMMENTS HAS TROULBLE REMEMBER THINGS AT TIMES DUE TO NEIL TUMOR, STROKE AND TIA ALONG WITH MENINGITIS HEARING IMPAIRED?NO VISION IMPAIRED?YES :CORRECTIVE LENSES COGNITIVELY IMPAIRED?YES HAS TROUBLE REMEMBERING THINGS AT TIMES STATED ABOVE READINESS TO LEARN?YES LEARNING PREFERENCES?NO LEARNING CAPABILITIES PRESENT?YES EMOTIONAL BARRIERS?NO SPECIAL DEVICES?NO CRUSHER SCREEN REPAIRER NEEDED?NO DOMESTIC VIOLENCE DO YOU FEEL SAFE IN YOUR ENVIRONMENT?YES NEW PATIENT PAIN DIARY TODAY'S VISITNOTES FROM 0-10, WHAT LEVEL IS YOUR PAIN TODAY?9 PAIN CLINIC PFS, CLERGY, PUBLIC HEALTH REFERRALS PFS REFERRAL NEEDED?NO CLERGY REFERRAL NEEDED?NO PUBLIC HEALTH REFERRAL NEEDED?NO WAS THE PROVIDER NOTIFIED OF ANY PERTINENT INFO? N/A HAS THE PATIENT BEEN EDUCATED REGARDING HIS/HER PLAN OF CARE?YES HAS THE PATIENT BEEN EDUCATED REGARDING PAIN, THE RISK FOR PAIN, THE IMPORTANCE OF EFFECTIVE PAIN MANAGEMENT, AND THE PAIN ASSESSMENT PROCESS?YES ADVANCE DIRECTIVE ADVANCE DIRECTIVE DISCUSSED WITH PATIENT:YES HCP - SHERITA SHARPE 10/12/17 1150 REVIEWED WITH PT. BELENIEWED WITH PT 11/12/17 1044 BVREVIEWED WITH PATIENT 12/10/17 1418 JS01/13/18 1354 REVIEWED WITH PT. ADREVIEWED WITH PATIENT 01/31/18 1412 JSREVIEWED WITH PATIENT 03/22/18 1515 LAS. HOSPITALIZATION/MAJOR DIAGNOSTIC PROCEDURE MENINGITIS 1996 CVA 2007 SURGERIES PNEUMONIA REVIEW OF SYSTEMS REVIEWED BY: PROVIDER: ANÍBAL FLORES . CONSTITUTIONAL: ANY CHANGE IN YOUR MEDICAL CONDITION? NO . CHILLS NO . FEVER NO . INFECTION: DO YOU HAVE NEW INFECTIONS? NO . DO YOU HAVE HISTORY OF MRSA? NO . MUSCULOSKELETAL: ANY NEW PATTERNS OF PAIN OR NUMBNESS? YES PT REPORTS THAT LATELY HER BALANCE/SHAKINESS HAS INCREASED OVER THE PAST WEEK. . GASTROENTEROLOGY: ANY NEW CHANGE IN BOWEL CONTROL? NO . GENITOURINARY: ANY NEW CHANGE IN BLADDER CONTROL? NO . IS THERE A CHANCE YOU COULD BE ? NO . HEMATOLOGY/LYMPH: DO YOU TAKE ANY BLOOD THINNERS? (FOR EXAMPLE- COUMADIN, PLAVIX, AGGRENOX, PLATEL, PRADAXA, OR XARELTO) NO . WHEN WAS YOUR LAST DOSE? DATE: TIME: . NEUROLOGY: HAVE YOU FALLEN IN THE PAST 12 MONTHS? NO . ANY NEW EXTREMITY NUMBNESS OR WEAKNESS? YES PT REPORTS INCREASE IN PAIN/NUMBNESS IN HER LEFT LEG, FEELS IT IS STROKE RELATED. . CARDIOLOGY: DO YOU HAVE A PACEMAKER OR DEFIBRILLATOR? NO . RESPIRATORY: HAVE YOU BEEN SICK IN THE PAST WEEK? NO . FEVER NO . FLU LIKE SYMPTOMS? NO . COUGH NO . INTEGUMENTARY: DO YOU HAVE ANY RASHES OR OPEN SORES? NO . ALLERGIC/IMMUNO: ARE YOU ALLERGIC TO IV DYE? NO . ANY NEW ALLERGIES? NO . PSYCHIATRIC: DO YOU HAVE THOUGHTS OF HURTING YOURSELF OR SOMEONE ELSE? NO . ARE YOU ABUSED, NEGLECTED, OR IN AN UNSAFE ENVIRONMENT? NO . ENDOCRINOLOGY: ARE YOU DIABETIC? NO . OTHER: DO YOU NEED ANY PRESCRIPTIONS? YES . IF YES, PLEASE LIST: ____WILL NEED METHADONE, OXYCODONE, SOMA IN A WEEK. . ANY NEW PROBLEMS WITH YOUR MEDICATIONS? NO . WHEN DID YOU LAST EAT? ____ . WHEN DID YOU LAST DRINK? ____ . WHAT DID YOU LAST DRINK? ____ . NAME OF PERSON DRIVING YOU HOME? ____ . DO YOU HAVE ANY OTHER QUESTIONS OR CONCERNS NO . VITAL SIGNS WT 158 LBS, HT 70 IN, BMI 22.67 INDEX, BP 128/78 MM HG, HR 94 /MIN, RR 16 /MIN, TEMP 98.7 F, OXYGEN SAT % 94%, SAFE IN ENV? (Y/N) YES, NA INITIALS IL 14:53, REVIEWED BY: JENNIFFER. EXAMINATION GENERAL EXAMINATION: LUNGS:LUNG SOUNDS ARE CLEAR . HEART:HEART RATE REGULAR . MUSCULOSKELETAL:*, MUSCLE STRENGTH TESTING 5/5 BILATERAL UPPER EXTREMITIES. . CERVICAL+ FOR PAIN WITH PALPATION OF CERVICAL SPINE. + FOR PAIN WITH PALPATION OF CERVICAL PARASPINALS. . DIAGNOSTIC TESTS REVIEWEDCERVICAL MRI -08/16/17. ASSESSMENTS CERVICALGIA - M54.2 (PRIMARY) CENTRAL PAIN SYNDROME - G89.0 TREATMENT CERVICALGIA REFILL OXYCODONE HCL TABLET, 5 MG, 1, ORALLY, Q6H PRN MDD4, 30 DAY(S), 120, REFILLS 0, NOTES: 1000 REFILL SOMA TABLET, 350 MG, 1 TABLET NEEDED, ORALLY, AT NIGHT NEEDED FOR SEVERE PAIN, 30 DAY(S), 30, REFILLS 3, NOTES: 01/30/18 1800 REFILL METHADONE HCL TABLET, 10 MG, 2, ORALLY, 2 TAB Q8H MDD6, 30 DAY(S), 180, REFILLS 0, NOTES: 1000 NOTES: FAUSTINO, ISTOP REGISTRY REVIEWED AND DEMONSTRATES COMPLLIANCE. BRINGS IN MEDICATIONS WHICH IS APPROPRIATE FOR WHAT WAS DISPENSED. RECENT URINE TOXICOLOGY REVIEWED. NO UNAUTHORIZED MEDICATIONS. NO ILLICIT SUBSTANCES AND PRESCRIBED MEDICATIONS WERE PRESENT. , RISKS AND BENEFITS OF NARCOTIC/OPIOD MEDICATIONS WERE REVIEWED WITH PATIENT - THIS INCLUDES BUT IS NOT LIMITED TO RISK OF DEPENDANCE/DEVELOPMENT OF ADDICTION, MOOD DISTURBANCE AND DEPRESSION, OSTEOPOROSIS, HORMONAL AND LABIDAL CHANGES, RESPIRATORY DEPRESSION AND . PATIENT IS ADVISED NOT TO DRIVE OR DRINK ALCOHOL WHILE ON THESE MEDICATIONS. DISPOSITION & COMMUNICATION FOLLOW UP POST (REASON: FAUSTINO) ELECTRONICALLY SIGNED BY SANDRA RED ON 04/06/2018 AT 01:34 PM EST DISCLAIMER : THIS IS A VISIT SUMMARY EXTRACTED FROM THE [employer] CHART. IT IS NOT A COPY OF THE [employer] PROGRESS NOTE. FANNIE
== END ==
LOC: M PAIN 14:30
PROVIDERS: ATTEND Nurse Practitioner Family
DX: G89.0 Central pain syndrome (principal); M54.2 Cervicalgia; M79.7 Fibromyalgia; I10 Essential (primary) hypertension; F41.9 Anxiety disorder, unspecified; G56.03 Carpal tunnel syndrome, bilateral upper limbs; F17.210 Nicotine dependence, cigarettes, uncomplicated; F32.9 Major depressive disorder, single episode, unspecified; Z86.73 Personal history of transient ischemic attack (TIA), and cerebral infarction without residual deficits; Z79.82 Long term (current) use of aspirin; Z79.891 Long term (current) use of opiate analgesic; Z79.899 Other long term (current) drug therapy; Z88.8 Allergy status to other drugs, medicaments and biological substances

== ENCOUNTER → 2018-03-31 | Outpatient (CLI) | payer OTHER ==
[~2018-03-31] MED LIST changes: +ISOVUE-M 300 61% 15ML VIAL (Q9967) As Ordered ONE; +LIDOCAINE 1% SDV INJ 30 ML VIAL As Ordered ONE; +diazePAM 5 MG TAB As Ordered ONE; +diphenhydrAMINE 25 MG CAP As Ordered ONE; +methylPREDNISolone SUSP 40 MG/ML (DEPO-medrol) VIAL (J1030) As Ordered ONE
--- NOTE | 2018-04-01 11:52 | REP ---
C-ARM VIEWS CERVICAL SPINE: CLINICAL HISTORY: Pain. Three C-arm views cervical spine region performed during injection by Dr. Mccray. A needle is seen at the C7 level. Contrast is injected. 14 seconds fluoroscopy time utilized. Electronically Signed by Juliocesar Mcmillan MD 04/01/2018 04:00 P
--- NOTE | 2018-04-18 00:20 | ECWPNPC ---
PATIENT NAME: LORRIE CHAVEZ : 1970 GENDER: FEMALE VISIT DATE: 03/31/2018 DISCHARGE DATE: 03/31/18 1600 VISIT LOCKED DATE TIME: PHYSICIAN: DOROTHY SQUIRES MD RESOURCE: DOROTHY SQUIRES MD REASON FOR APPOINTMENT 1. FAUSTINO HISTORY OF PRESENT ILLNESS HISTORY OF PRESENT ILLNESS: PAIN THE PATIENT DESCRIBES THE PAIN... FALL RISK SCREENING: SCREENING : NO FALLS IN THE PAST YEAR. CURRENT MEDICATIONS TAKING VENTOLIN HFA 108 (90 BASE) MCG/ACT AEROSOL SOLUTION 2 PUFFS NEEDED INHALATION EVERY 4 HRS, NOTES: FEW DAYS AGO TAKING ALBUTEROL-IPRATROPIUM 1 DOSE 1 SOLUTION INHALED EVERY 2 HOURS NEEDED, NOTES: COUPLE WEEKS AGO TAKING ASPIRIN 325 MG TABLET 1 TABLET ORALLY ONCE A DAY, NOTES: 03/30/18 TAKING ATORVASTATIN CALCIUM 10 MG TABLET 1 TABLET ORALLY ONCE A DAY, NOTES: 2 DAYS AGO TAKING SYNTHROID 125 MCG TABLET 1 TABLET ORALLY ONCE A DAY, NOTES: 03/30/18 AM TAKING LINZESS 290 MCG CAPSULE 1 CAPSULE ORALLY ONCE A DAY, NOTES: A WEEK AGO TAKING OXYBUTYNIN CHLORIDE ER 10 MG TABLET EXTENDED RELEASE 24 HOUR 1 TABLET ORALLY ONCE A DAY, NOTES: A COUPLE DAYS AGO TAKING KLONOPIN 1 MG TABLET 1 TABLET ORALLY DAILY PRN, NOTES: 03/30/18 TAKING MUCINEX 600 MG TABLET EXTENDED RELEASE 12 HOUR 1 TABLET NEEDED ORALLY TWICE DAILY NEEDED, NOTES: WEEKS AGO TAKING UNISOM 25 MG TABLET 1 TABLET AT BEDTIME NEEDED ORALLY ONCE A DAY, NOTES: 3-4 DAYS AGO TAKING PAXIL 30 MG TABLET 1 TABLET IN THE MORNING ORALLY ONCE A DAY, NOTES: 03/30/18 AM TAKING PROMETHAZINE HCL 25 MG TABLET 1 TABLET NEEDED ORALLY EVERY 12 HRS, NOTES: 03/30/18 TAKING OXYCODONE HCL 5 MG TABLET 1 ORALLY Q6H PRN MDD4, NOTES: 03/30/18 TAKING METHADONE HCL 10 MG TABLET 2 ORALLY 2 TAB Q8H MDD6, NOTES: 03/31/18 1100 NOT-TAKING SOMA 350 MG TABLET 1 TABLET NEEDED ORALLY AT NIGHT NEEDED FOR SEVERE PAIN NOT-TAKING MELATONIN 3 MG TABLET 2 CAPSULE IN THE EVENING NEEDED WITH FOOD ORALLY ONCE A DAY, NOTES: COUPLE DAYS AGO NOT-TAKING PROCHLORPERAZINE MALEATE 10 MG TABLET 1 TABLET ORALLY NEEDED ONCE PER DAY FOR NAUSEA #15 TAB SHOULD LAST 30 DAYS MEDICATION LIST REVIEWED AND RECONCILED WITH THE PATIENT PAST MEDICAL HISTORY ASTROCYTOMA STROKES 2008 TIAS [id number] OSTEO ARTHRITIS (DEGENERATIVE) DDD FIBROMYALGIA [place] CARPAL SOHA HYPERTENSION ANXIETY/DEPRESSION NUMEROUS HEAD TRAUMAS BROKEN TEETH ALLERGIES VIIBRYD: MANIC BEHAVIOR: SIDE EFFECTS LYRICA: LOSS OF BALANCE: SIDE EFFECTS GABAPENTIN: LOSS OF BALANCE: SIDE EFFECTS BUSPAR: LOSS OF BALANCE: SIDE EFFECTS SURGICAL HISTORY OSTEO CHONDROMA 1981 LEFT KNEE REPAIR D&C PARTIAL CRANIOTOMY RECONSRTUCTION OF LEFT ANKLE HARDWARE REMOVED FROM LEFT ANKLE 08/13/15 UPPER TEETH REMOVAL 12/2017 FAMILY HISTORY FATHER: , DIAGNOSED WITH HEART DISEASE, OTHER MOTHER: ALIVE, DIAGNOSED WITH DIABETES, STROKE 3 SON(S) - HEALTHY. GMTTED-[id number] DEPENDING ON HER WT1 SON AFIB. SOCIAL HISTORY GENERAL: TOBACCO USE ARE YOU A:CURRENT SMOKER ARE YOU INTERESTED IN QUITTING?THINKING ABOUT QUITTING PATIENT STATES THAT SHE WANTS TO QUIT BUT "JUST CAN'T". STATES NICOTINE PATCHES DON'T WORK. STATES SHE HAS CUT DOWN. IS NOT INTERESTED IN QUIT SKMOKING CLASSES. WANTS MEDS TO STOP_ _WILL DISCUSS WITH PCP, PER PT, PRIMARY SAYS SHE IS UNABLE TO TAKE CHANTIX R/T SEIZURE HISTORY. COUNSELED THE PATIENT ON SMOKING CESSATION, EDUCATION [id number]/05/2019 HOW MANY CIGARETTES A DAY DO YOU SMOKE?11-20 PATIENT COUNSELED ON THE DANGERS OF TOBACCO USE AND URGED TO QUIT:03/22/2018 ALCOHOL SCREENING DID YOU HAVE A DRINK CONTAINING ALCOHOL IN THE PAST YEAR?NO POINTS0 INTERPRETATIONNEGATIVE RECREATIONAL DRUG USE DRUG USE?NO CAFFEINE CAFFEINE USE?YES HOW OFTEN AND HOW MUCH? 1 POT OF COFFEE AND 6 SODA/DAY CONGREGATION [id number] SABIANISM LANGUAGE LANGUAGES SPOKEN:THAI LEARNING BARRIERS / SPECIAL NEEDS CHANGE FROM LAST VISIT? PT STATES THAT SHE FELL AT HOME, GETTING OUT OF BED IN MIDDLE OF NIGHT, JAMMED NECK. BARRIERS TO LEARNING?YES COMMENTS HAS TROULBLE REMEMBER THINGS AT TIMES DUE TO NEIL TUMOR, STROKE AND TIA ALONG WITH MENINGITIS HEARING IMPAIRED?NO VISION IMPAIRED?YES :CORRECTIVE LENSES COGNITIVELY IMPAIRED?YES HAS TROUBLE REMEMBERING THINGS AT TIMES STATED ABOVE READINESS TO LEARN?YES LEARNING PREFERENCES?NO LEARNING CAPABILITIES PRESENT?YES EMOTIONAL BARRIERS?NO SPECIAL DEVICES?NO CUSTOM CLOTHIER NEEDED?NO DOMESTIC VIOLENCE DO YOU FEEL SAFE IN YOUR ENVIRONMENT?YES NEW PATIENT PAIN DIARY TODAY'S VISITNOTES FROM 0-10, WHAT LEVEL IS YOUR PAIN TODAY?9 PAIN CLINIC PFS, CLERGY, PUBLIC HEALTH REFERRALS PFS REFERRAL NEEDED?NO CLERGY REFERRAL NEEDED?NO PUBLIC HEALTH REFERRAL NEEDED?NO WAS THE PROVIDER NOTIFIED OF ANY PERTINENT INFO? N/A HAS THE PATIENT BEEN EDUCATED REGARDING HIS/HER PLAN OF CARE?YES HAS THE PATIENT BEEN EDUCATED REGARDING PAIN, THE RISK FOR PAIN, THE IMPORTANCE OF EFFECTIVE PAIN MANAGEMENT, AND THE PAIN ASSESSMENT PROCESS?YES ADVANCE DIRECTIVE ADVANCE DIRECTIVE DISCUSSED WITH PATIENT:YES HCP - SHERITA SHARPE 10/12/17 1150 REVIEWED WITH PT. HARLAND WITH PT 11/12/17 1044 BVREVIEWED WITH PATIENT 12/10/17 1418 JS01/13/18 1354 REVIEWED WITH PT. HARLAND WITH PATIENT 01/31/18 1412 JSREVIEWED WITH PT 03/31/18 1417 BVREVIEWED WITH PATIENT 03/22/18 1515 LAS. HOSPITALIZATION/MAJOR DIAGNOSTIC PROCEDURE MENINGITIS 1996 CVA 2007 SURGERIES PNEUMONIA REVIEW OF SYSTEMS REVIEWED BY: PROVIDER: . CONSTITUTIONAL: ANY CHANGE IN YOUR MEDICAL CONDITION? NO . CHILLS NO . FEVER NO . INFECTION: DO YOU HAVE NEW INFECTIONS? NO . DO YOU HAVE HISTORY OF MRSA? NO . MUSCULOSKELETAL: ANY NEW PATTERNS OF PAIN OR NUMBNESS? NO . GASTROENTEROLOGY: ANY NEW CHANGE IN BOWEL CONTROL? NO . GENITOURINARY: ANY NEW CHANGE IN BLADDER CONTROL? NO . IS THERE A CHANCE YOU COULD BE ? NO . HEMATOLOGY/LYMPH: DO YOU TAKE ANY BLOOD THINNERS? (FOR EXAMPLE- COUMADIN, PLAVIX, AGGRENOX, PLATEL, PRADAXA, OR XARELTO) NO . WHEN WAS YOUR LAST DOSE? DATE: TIME: . NEUROLOGY: HAVE YOU FALLEN IN THE PAST 12 MONTHS? NO . ANY NEW EXTREMITY NUMBNESS OR WEAKNESS? NO . CARDIOLOGY: DO YOU HAVE A PACEMAKER OR DEFIBRILLATOR? NO . RESPIRATORY: HAVE YOU BEEN SICK IN THE PAST WEEK? NO . FEVER NO . FLU LIKE SYMPTOMS? NO . COUGH NO . INTEGUMENTARY: DO YOU HAVE ANY RASHES OR OPEN SORES? NO . ALLERGIC/IMMUNO: ARE YOU ALLERGIC TO IV DYE? NO . ANY NEW ALLERGIES? NO . PSYCHIATRIC: DO YOU HAVE THOUGHTS OF HURTING YOURSELF OR SOMEONE ELSE? NO . ARE YOU ABUSED, NEGLECTED, OR IN AN UNSAFE ENVIRONMENT? NO . ENDOCRINOLOGY: ARE YOU DIABETIC? NO . OTHER: DO YOU NEED ANY PRESCRIPTIONS? NO . IF YES, PLEASE LIST: ____ . ANY NEW PROBLEMS WITH YOUR MEDICATIONS? NO . WHEN DID YOU LAST EAT? ____ . WHEN DID YOU LAST DRINK? ____ . WHAT DID YOU LAST DRINK? ____ . NAME OF PERSON DRIVING YOU HOME? ____ . DO YOU HAVE ANY OTHER QUESTIONS OR CONCERNS NO . VITAL SIGNS WT 158 LBS, HT 70 IN, BMI 22.67 INDEX, BP 122/65 MM HG, HR 86 /MIN, RR 16 /MIN, TEMP 99.1 F, OXYGEN SAT % 97%, NA INITIALS SC 14:11, REVIEWED BY: BV. ASSESSMENTS CERVICAL DISC DISORDER WITH RADICULOPATHY OF CERVICAL REGION - M50.10 (PRIMARY) PROCEDURES PN CERVICAL EPIDURAL PRE PROCEDURE DIAGNOSIS CERVICAL DISC DISORDER WITH RADICULOPATHY POST PROCEDURE DIAGNOSIS CERVICAL DISC DISORDER WITH RADICULOPATHY PROCEDURE CERVICAL EPIDURAL STEROID INJECTION UNDER FLUOROSCOPIC GUIDANCE SURGEON DR. DOROTHY SQUIRES DESIGN TECHNICIAN NONE ANESTHESIA LOCAL PRE PROCEDURE NOTE THE PATIENT HAS A HISTORY OF CHRONIC CERVICAL PAIN. I EVALUATE THE PATIENT AND REVIEWED THE CHART. I WENT OVER THE RISKS, ALTERNATIVES, AND BENEFITS ASSOCIATED WITH THIS PROCEDURE. THE PATIENT WOULD LIKE TO PROCEED AND GIVE CONSENT TO PERFORMED THE PROCEDURE. THE PATIENT DENIES UNEXPLAINABLE WEIGHT LOSS, FEVER, CHILLS, OR NEW CHANGES IN URINARY OR BOWEL CONTROL DESCRIPTION OF PROCEDURE THE PATIENT WAS BROUGHT TO THE PROCEDURE ROOM AND PLACED IN THE PRONE POSITION. THE CERVICOTHORACIC AREA WAS CLEANED WITH BETADINE SOLUTION AND DRAPED ASEPTICALLY. THE PROCEDURE WAS DONE UNDER STERILE CONDITIONS. I CHECKED LATERALITY AND THE LEVEL WHERE THE PROCEDURE WAS GOING TO BE PERFORMED WITH THE PATIENT AND THE SUPPORTING STAFF AT THE MOMENT OF THE TIME OUT IN THE PROCEDURE ROOM. UNDER FLUOROSCOPIC GUIDANCE, THE TARGET WAS SELECTED AT THE INTERLAMINAR LEVEL OF C7-T1. LIDOCAINE WAS USED TO NUMB THE SKIN AND THE SUBCUTANEOUS TISSUE BELOW IT. EPIDURAL TUOHY NEEDLE 17-GAUGE WAS ADVANCED UNDER FLUOROSCOPIC GUIDANCE AND FOLLOWING PATIENT FEEDBACK UNTIL THE EPIDURAL SPACE WAS REACHED 6 CM DEEP INTO THE SKIN BY THE LOSS OF RESISTANCE TECHNIQUE. ISOVUE M DYE 30%, 0.25 ML, WAS INJECTED SHOWING ADEQUATE SPREAD OF THE DYE. THEN, A SOLUTION OF 3 ML OF NORMAL SALINE WITH DEPO-MEDROL 60 MG WAS INJECTED SLOWLY FOLLOWING PATIENT FEEDBACK. THERE WAS NO EVIDENCE OF BLOOD, PARESTHESIA OR CEREBROSPINAL FLUID DURING THE PROCEDURE. THE PATIENT WAS SENT TO THE RECOVERY ROOM. THE PATIENT WAS MOVING THE EXTREMITIES AND DOING WELL. THERE WAS NO COMPLICATION DURING THE PROCEDURE. FLUOROSCOPY TIME WAS 14 SECONDS POST PROCEDURE NOTE THE PATIENT WILL BE SEEN IN A FOLLOW UP IN THE NEXT FEW WEEKS. INSTRUCTIONS WERE GIVEN, QUESTIONS WERE ANSWERED, AND THE PATIENT EXPRESSED UNDERSTANDING AND AGREES WITH THE PLAN. I, JOHN VALLES, DOCUMENTED THE ABOVE INFORMATION ACTING A SCRIBE FOR DR. SQUIRES. I HAVE REVIEWED THE ABOVE DOCUMENT, WRITTEN BY JOHN ORDOÑEZIBTera AND I VERIFY THAT IT IS ACCURATE. DIAGNOSTIC IMAGING [facility] FLUORO GUIDE SPINE INJECTION (PAIN)[id number] PROCEDURE CODES 6045F RADXPS IN END [id number] PXD [id number] CERVICAL/THORACIC W/ IMAGING DISPOSITION & COMMUNICATION FOLLOW UP 3 WEEKS ELECTRONICALLY SIGNED BY DOROTHY SQUIRES MD, MD ON 04/17/2018 AT 01:28 PM EST DISCLAIMER : THIS IS A VISIT SUMMARY EXTRACTED FROM THE [employer] CHART. IT IS NOT A COPY OF THE [employer] PROGRESS NOTE. MTDD
== END ==
LOC: M PAIN 13:45
PROVIDERS: ATTEND Anesthesiology
DX: G89.29 Other chronic pain (principal); M50.10 Cervical disc disorder with radiculopathy, unspecified cervical region; M19.90 Unspecified osteoarthritis, unspecified site; M79.7 Fibromyalgia; I10 Essential (primary) hypertension; F41.9 Anxiety disorder, unspecified; F32.9 Major depressive disorder, single episode, unspecified; F17.210 Nicotine dependence, cigarettes, uncomplicated; Z79.82 Long term (current) use of aspirin; Z79.891 Long term (current) use of opiate analgesic; Z79.899 Other long term (current) drug therapy; Z88.8 Allergy status to other drugs, medicaments and biological substances; Z86.73 Personal history of transient ischemic attack (TIA), and cerebral infarction without residual deficits
CPT/HCPCS: 62321; J1030; Q9967

== ENCOUNTER → 2018-04-19 | Outpatient (CLI) | payer OTHER ==
[~2018-04-19] MED LIST changes: -ISOVUE-M 300 61% 15ML VIAL (Q9967) As Ordered ONE; -LIDOCAINE 1% SDV INJ 30 ML VIAL As Ordered ONE; -diazePAM 5 MG TAB As Ordered ONE; -diphenhydrAMINE 25 MG CAP As Ordered ONE; -methylPREDNISolone SUSP 40 MG/ML (DEPO-medrol) VIAL (J1030) As Ordered ONE
--- NOTE | 2018-05-04 01:44 | ECWPNPC ---
PATIENT NAME: LORRIE CHAVEZ : 1970 GENDER: FEMALE VISIT DATE: 04/19/2018 DISCHARGE DATE: 04/19/18 1555 VISIT LOCKED DATE TIME: PHYSICIAN: ANÍBAL LANDA RESOURCE: ANÍBAL LANDA REASON FOR APPOINTMENT 1. POST FAUSTINO HISTORY OF PRESENT ILLNESS HISTORY OF PRESENT ILLNESS: HERE FOR POST PROCEDURE F/U.HAD FAUSTINO 03/31/18.REPORTING SIGNIFICANT REDUCTION IN PAIN FOR 3 WEEKS POST PROCEDURE THEN PAIN ABRUPTLY RETURNED TO BASELINE.RATING PAIN VAS 8/10. PAIN THE PATIENT DESCRIBES THE PAIN... FALL RISK SCREENING: SCREENING : NO FALLS IN THE PAST YEAR. CURRENT MEDICATIONS TAKING VENTOLIN HFA 108 (90 BASE) MCG/ACT AEROSOL SOLUTION 2 PUFFS NEEDED INHALATION EVERY 4 HRS TAKING ALBUTEROL-IPRATROPIUM 1 DOSE 1 SOLUTION INHALED EVERY 2 HOURS NEEDED TAKING ASPIRIN 325 MG TABLET 1 TABLET ORALLY ONCE A DAY TAKING ATORVASTATIN CALCIUM 10 MG TABLET 1 TABLET ORALLY ONCE A DAY TAKING SYNTHROID 125 MCG TABLET 1 TABLET ORALLY ONCE A DAY TAKING LINZESS 290 MCG CAPSULE 1 CAPSULE ORALLY ONCE A DAY TAKING OXYBUTYNIN CHLORIDE ER 10 MG TABLET EXTENDED RELEASE 24 HOUR 1 TABLET ORALLY ONCE A DAY TAKING KLONOPIN 1 MG TABLET 1 TABLET ORALLY DAILY PRN TAKING MUCINEX 600 MG TABLET EXTENDED RELEASE 12 HOUR 1 TABLET NEEDED ORALLY TWICE DAILY NEEDED TAKING UNISOM 25 MG TABLET 1 TABLET AT BEDTIME NEEDED ORALLY ONCE A DAY TAKING PAXIL 30 MG TABLET 1 TABLET IN THE MORNING ORALLY ONCE A DAY TAKING PROMETHAZINE HCL 25 MG TABLET 1 TABLET NEEDED ORALLY EVERY 12 HRS TAKING OXYCODONE HCL 5 MG TABLET 1 ORALLY Q6H PRN MDD4 TAKING METHADONE HCL 10 MG TABLET 2 ORALLY 2 TAB Q8H MDD6 NOT-TAKING SOMA 350 MG TABLET 1 TABLET NEEDED ORALLY AT NIGHT NEEDED FOR SEVERE PAIN, NOTES: NOT TAKING NOT-TAKING MELATONIN 3 MG TABLET 2 CAPSULE IN THE EVENING NEEDED WITH FOOD ORALLY ONCE A DAY, NOTES: COUPLE DAYS AGO NOT-TAKING PROCHLORPERAZINE MALEATE 10 MG TABLET 1 TABLET ORALLY NEEDED ONCE PER DAY FOR NAUSEA #15 TAB SHOULD LAST 30 DAYS MEDICATION LIST REVIEWED AND RECONCILED WITH THE PATIENT PAST MEDICAL HISTORY ASTROCYTOMA STROKES 2008 TIAS [id number] OSTEO ARTHRITIS (DEGENERATIVE) DDD FIBROMYALGIA [place] CARPAL SOHA HYPERTENSION ANXIETY/DEPRESSION NUMEROUS HEAD TRAUMAS BROKEN TEETH ALLERGIES [id number]: MANIC BEHAVIOR - SIDE EFFECTS LYRICA: LOSS OF BALANCE - SIDE EFFECTS GABAPENTIN: LOSS OF BALANCE - SIDE EFFECTS BUSPAR: LOSS OF BALANCE - SIDE EFFECTS SURGICAL HISTORY OSTEO CHONDROMA 1981 LEFT KNEE REPAIR D&C PARTIAL CRANIOTOMY RECONSRTUCTION OF LEFT ANKLE HARDWARE REMOVED FROM LEFT ANKLE 08/13/15 UPPER TEETH REMOVAL 12/2017 FAMILY HISTORY FATHER: , DIAGNOSED WITH HEART DISEASE, OTHER MOTHER: ALIVE, DIABETES, STROKE 3 SON(S) - HEALTHY. [id number] DEPENDING ON HER WT1 SON AFIB. SOCIAL HISTORY GENERAL: TOBACCO USE ARE YOU A:CURRENT SMOKER ARE YOU INTERESTED IN QUITTING?THINKING ABOUT QUITTING STATES SHE IS DOWN TO HALF A PACK A DAY. COUNSELED THE PATIENT ON SMOKING CESSATION, EDUCATION [id number]/05/2019 HOW MANY CIGARETTES A DAY DO YOU SMOKE?6-10 PATIENT COUNSELED ON THE DANGERS OF TOBACCO USE AND URGED TO QUIT:04/19/2018 ALCOHOL SCREENING DID YOU HAVE A DRINK CONTAINING ALCOHOL IN THE PAST YEAR?NO POINTS0 INTERPRETATIONNEGATIVE RECREATIONAL DRUG USE DRUG USE?NO CAFFEINE CAFFEINE USE?YES HOW OFTEN AND HOW MUCH? 1 POT OF COFFEE AND 6 SODA/DAY LATTER DAY [id number] LATTER-DAY LANGUAGE LANGUAGES SPOKEN:PALAUAN LEARNING BARRIERS / SPECIAL NEEDS CHANGE FROM LAST VISIT? PT STATES THAT SHE FELL AT HOME, GETTING OUT OF BED IN MIDDLE OF NIGHT, JAMMED NECK. BARRIERS TO LEARNING?YES COMMENTS HAS TROULBLE REMEMBER THINGS AT TIMES DUE TO NEIL TUMOR, STROKE AND TIA ALONG WITH MENINGITIS HEARING IMPAIRED?NO VISION IMPAIRED?YES :CORRECTIVE LENSES COGNITIVELY IMPAIRED?YES HAS TROUBLE REMEMBERING THINGS AT TIMES STATED ABOVE READINESS TO LEARN?YES LEARNING PREFERENCES?NO LEARNING CAPABILITIES PRESENT?YES EMOTIONAL BARRIERS?NO SPECIAL DEVICES?NO DISABILITY SPECIALIST NEEDED?NO DOMESTIC VIOLENCE DO YOU FEEL SAFE IN YOUR ENVIRONMENT?YES NEW PATIENT PAIN DIARY TODAY'S VISITNOTES FROM 0-10, WHAT LEVEL IS YOUR PAIN TODAY?9 PAIN CLINIC PFS, CLERGY, PUBLIC HEALTH REFERRALS PFS REFERRAL NEEDED?NO CLERGY REFERRAL NEEDED?NO PUBLIC HEALTH REFERRAL NEEDED?NO WAS THE PROVIDER NOTIFIED OF ANY PERTINENT INFO? N/A HAS THE PATIENT BEEN EDUCATED REGARDING HIS/HER PLAN OF CARE?YES HAS THE PATIENT BEEN EDUCATED REGARDING PAIN, THE RISK FOR PAIN, THE IMPORTANCE OF EFFECTIVE PAIN MANAGEMENT, AND THE PAIN ASSESSMENT PROCESS?YES ADVANCE DIRECTIVE ADVANCE DIRECTIVE DISCUSSED WITH PATIENT:YES HCP - SHERITA SHARPE 10/12/17 1150 REVIEWED WITH PT. IRAIDAWED WITH PT 11/12/17 1044 BVREVIEWED WITH PATIENT 12/10/17 1418 JS01/13/18 1354 REVIEWED WITH PT. RYAN WITH PATIENT 01/31/18 1412 JSREVIEWED WITH PATIENT 04/19/18 1518 JSREVIEWED WITH PT 03/31/18 1417 BVREVIEWED WITH PATIENT 03/22/18 1515 LAS. HOSPITALIZATION/MAJOR DIAGNOSTIC PROCEDURE MENINGITIS 1996 CVA 2008 SURGERIES PNEUMONIA REVIEW OF SYSTEMS REVIEWED BY: PROVIDER: ANÍBAL FLORES . CONSTITUTIONAL: ANY CHANGE IN YOUR MEDICAL CONDITION? NO . CHILLS NO . FEVER NO . INFECTION: DO YOU HAVE NEW INFECTIONS? NO . DO YOU HAVE HISTORY OF MRSA? NO . MUSCULOSKELETAL: ANY NEW PATTERNS OF PAIN OR NUMBNESS? YES, STATES NECK PAIN IS STARTING TO COME BACK . GASTROENTEROLOGY: ANY NEW CHANGE IN BOWEL CONTROL? NO . GENITOURINARY: ANY NEW CHANGE IN BLADDER CONTROL? NO . IS THERE A CHANCE YOU COULD BE ? NO . HEMATOLOGY/LYMPH: DO YOU TAKE ANY BLOOD THINNERS? (FOR EXAMPLE- COUMADIN, PLAVIX, AGGRENOX, PLATEL, PRADAXA, OR XARELTO) NO . WHEN WAS YOUR LAST DOSE? DATE: TIME: . NEUROLOGY: HAVE YOU FALLEN IN THE PAST 12 MONTHS? NO . ANY NEW EXTREMITY NUMBNESS OR WEAKNESS? NO . CARDIOLOGY: DO YOU HAVE A PACEMAKER OR DEFIBRILLATOR? NO . RESPIRATORY: HAVE YOU BEEN SICK IN THE PAST WEEK? NO . FEVER NO . FLU LIKE SYMPTOMS? NO . COUGH NO . INTEGUMENTARY: DO YOU HAVE ANY RASHES OR OPEN SORES? NO . ALLERGIC/IMMUNO: ARE YOU ALLERGIC TO IV DYE? NO . ANY NEW ALLERGIES? NO . PSYCHIATRIC: DO YOU HAVE THOUGHTS OF HURTING YOURSELF OR SOMEONE ELSE? NO . ARE YOU ABUSED, NEGLECTED, OR IN AN UNSAFE ENVIRONMENT? NO . ENDOCRINOLOGY: ARE YOU DIABETIC? NO . OTHER: DO YOU NEED ANY PRESCRIPTIONS? YES . IF YES, PLEASE LIST: ____METHADONE, OXYCODONE . ANY NEW PROBLEMS WITH YOUR MEDICATIONS? PATIENT IS NO LONGER TAKING THE SOMA AT ANOTHER DOCTOR'S REQUEST . WHEN DID YOU LAST EAT? ____ . WHEN DID YOU LAST DRINK? ____ . WHAT DID YOU LAST DRINK? ____ . NAME OF PERSON DRIVING YOU HOME? ____ . DO YOU HAVE ANY OTHER QUESTIONS OR CONCERNS NO . VITAL SIGNS WT 158 LBS, HT 70 IN, BMI 22.67 INDEX, BP 152/88 MM HG, HR 91 /MIN, RR 16 /MIN, TEMP 97.2 F, OXYGEN SAT % 96%, SAFE IN ENV? (Y/N) YES, NA INITIALS AW 1503, REVIEWED BY: TOMY. EXAMINATION GENERAL EXAMINATION: LUNGS:LUNG SOUNDS ARE CLEAR . HEART:HEART RATE REGULAR . MUSCULOSKELETAL:*, MUSCLE STRENGTH TESTING 5/5 BILATERAL UPPER EXTREMITIES. . CERVICAL+ FOR PAIN WITH PALPATION OF CERVICAL SPINE. + FOR PAIN WITH PALPATION OF CERVICAL PARASPINALS. . DIAGNOSTIC TESTS REVIEWEDCERVICAL MRI -08/16/17. ASSESSMENTS CERVICALGIA - M54.2 (PRIMARY) CENTRAL PAIN SYNDROME - G89.0 TREATMENT CERVICALGIA STOP SOMA TABLET, 350 MG, 1 TABLET NEEDED, ORALLY, AT NIGHT NEEDED FOR SEVERE PAIN, NOTES: NOT TAKING REFILL METHADONE HCL TABLET, 10 MG, 2, ORALLY, 2 TAB Q8H MDD6, 30 DAY(S), 180, REFILLS 0 REFILL OXYCODONE HCL TABLET, 5 MG, 1, ORALLY, Q6H PRN MDD4, 30 DAY(S), 120, REFILLS 0 NOTES: C7/T1 FAUSTINO, ISTOP REGISTRY REVIEWED AND DEMONSTRATES COMPLLIANCE. BRINGS IN MEDICATIONS WHICH IS APPROPRIATE FOR WHAT WAS DISPENSED. RECENT URINE TOXICOLOGY REVIEWED. NO UNAUTHORIZED MEDICATIONS. NO ILLICIT SUBSTANCES AND PRESCRIBED MEDICATIONS WERE PRESENT. , RISKS AND BENEFITS OF NARCOTIC/OPIOD MEDICATIONS WERE REVIEWED WITH PATIENT - THIS INCLUDES BUT IS NOT LIMITED TO RISK OF DEPENDANCE/DEVELOPMENT OF ADDICTION, MOOD DISTURBANCE AND DEPRESSION, OSTEOPOROSIS, HORMONAL AND LABIDAL CHANGES, RESPIRATORY DEPRESSION AND . PATIENT IS ADVISED NOT TO DRIVE OR DRINK ALCOHOL WHILE ON THESE MEDICATIONS, [facility] NARCOTIC AGREEMENT WAS UPDATED REVIEWED AND SIGNED TODAY BY THE PATIENT. SEE ATTACHED DOCUMENT FOR FULL DETAILS; SPECIFIC ISSUES WERE REVIEWED: 1) KEEP PAIN MEDS IN THEIR ORIGINAL BOTTLES AND ANY WEEKLY PLANNERS ARE TO BE BROUGHT TO THE PAIN CENTER AT EVERY VISIT. 2) THE PATIENT IS NOT TO INCREASE DOSING OR TIMING OF THEIR PAIN MEDICATION WITHOUT SPECIFIC DIRECTION OF THEIR PAIN CENTERPROVIDER (NOT ER OR OTHER PROVIDERS). 3) ALL PAIN MEDS ARE TO BE KEPT SECURED, IN A LOCKED BOX. 4) NO PAIN MEDS ARE TO BE SHARED WITH ANY OTHER PERSON FOR ANY REASON. 5) NO PAIN MEDS MAY BE TAKEN FROM ANY FRIENDS OR RELATIVES FOR ANY REASON 6) NO MEDS OR SUBSTANCES WHICH ARE NOT LEGAL ARE TO BE USED- NO MARIJUANA, NO COCAINE, AMPHETAMINES, HEROIN, OR OTHERS ARE EVER TO BE USED. 7)URINE TESTING IS DONE TO ACCOUNT FOR MEDS AND SUBSTANCES BEING TAKEN AND WILL BE DONE RANDOMLY.. PROCEDURE CODES FA211 ESTABILISHED PATIENT [facility] CHARGE DISPOSITION & COMMUNICATION FOLLOW UP POST (REASON: C7/T1 FAUSTINO) ELECTRONICALLY SIGNED BY SANDRA RED ON 05/03/2018 AT 08:48 AM EDT DISCLAIMER : THIS IS A VISIT SUMMARY EXTRACTED FROM THE [employer] CHART. IT IS NOT A COPY OF THE [employer] PROGRESS NOTE. FANNIE
== END ==
LOC: M PAIN 14:45
PROVIDERS: ATTEND Nurse Practitioner Family
DX: M54.2 Cervicalgia (principal); G89.0 Central pain syndrome; Z85.841 Personal history of malignant neoplasm of brain; Z86.73 Personal history of transient ischemic attack (TIA), and cerebral infarction without residual deficits; M19.90 Unspecified osteoarthritis, unspecified site; M79.7 Fibromyalgia; G56.03 Carpal tunnel syndrome, bilateral upper limbs; I10 Essential (primary) hypertension; Z86.59 Personal history of other mental and behavioral disorders; Z87.828 Personal history of other (healed) physical injury and trauma; F17.210 Nicotine dependence, cigarettes, uncomplicated; Z88.8 Allergy status to other drugs, medicaments and biological substances; Z86.19 Personal history of other infectious and parasitic diseases; Z79.82 Long term (current) use of aspirin; Z79.891 Long term (current) use of opiate analgesic; Z79.899 Other long term (current) drug therapy

== ENCOUNTER → 2018-05-25 | Outpatient (CLI) | payer OTHER ==
[~2018-05-25] MED LIST changes: -/ATOR40TA OR; +ASPI-1 PO; -ASPI325T PO; +ISOVUE-M 300 61% 15ML VIAL (Q9967) As Ordered ONE; +LIDOCAINE 1% SDV INJ 30 ML VIAL As Ordered ONE; +LIPI1TAB2 OR; +OXYC1TAB23 PO; -PERCOCET PO; +diazePAM 5 MG TAB As Ordered ONE; +diphenhydrAMINE 25 MG CAP As Ordered ONE; +methylPREDNISolone SUSP 40 MG/ML (DEPO-medrol) VIAL (J1030) As Ordered ONE
--- NOTE | 2018-06-13 00:56 | ECWPNPC ---
PATIENT NAME: LORRIE CHAVEZ : 1970 GENDER: FEMALE VISIT DATE: 05/25/2018 DISCHARGE DATE: 05/25/18 1503 VISIT LOCKED DATE TIME: PHYSICIAN: DOROTHY SQUIRES MD RESOURCE: DOROTHY SQUIRES MD REASON FOR APPOINTMENT 1. PT IS ILL- HAD A FOLLOW UP HISTORY OF PRESENT ILLNESS HISTORY OF PRESENT ILLNESS: PAIN THE PATIENT DESCRIBES THE PAIN... 48 YEAR OLD FEMALE PATIENT WITH A HISTORY OF CHRONIC NECK PAIN. THE PATIENT DESCRIBES THE PAIN ACHING, BURNING, SORE, TENDER, SHARP, STABBING, SHOOTING, AND CONTINUOUS WITH A PAIN SCORE OF 7-10/10 DEPENDING ON PHYSICAL ACTIVITY. THE PATIENT SAYS HER PAIN STARTS IN HER NECK AND RADIATES DOWN HER RIGHT ARM. THE PATIENT HAS RECEIVED CERVICAL EPIDURAL STEROID INJECTIONS IN THE PAST AND REPORTS HAVING ADEQUATE PAIN RELIEF. THE PATIENT SAYS THAT SHE HAS HAD FEVERS AND A PRODUCTIVE COUGH RECENTLY. PATIENT DENIES UNEXPLAINABLE WEIGHT LOSS, CHILLS, NEW CHANGES ON HER URINARY OR BOWEL CONTROL. FALL RISK SCREENING: SCREENING :NO FALLS REPORTED IN THE LAST YEAR CURRENT MEDICATIONS TAKING VENTOLIN HFA 108 (90 BASE) MCG/ACT AEROSOL SOLUTION 2 PUFFS NEEDED INHALATION EVERY 4 HRS, NOTES: 05/24/18 PM TAKING ALBUTEROL-IPRATROPIUM 1 DOSE 1 SOLUTION INHALED EVERY 2 HOURS NEEDED, NOTES: 05/24/18 TAKING ASPIRIN 325 MG TABLET 1 TABLET ORALLY ONCE A DAY, NOTES: 05/24/18 TAKING ATORVASTATIN CALCIUM 10 MG TABLET 1 TABLET ORALLY ONCE A DAY, NOTES: 05/24/18 PM TAKING SYNTHROID 125 MCG TABLET 1 TABLET ORALLY ONCE A DAY, NOTES: 05/24/18 AM TAKING LINZESS 290 MCG CAPSULE 1 CAPSULE ORALLY ONCE A DAY, NOTES: 05/24/18 AM TAKING OXYBUTYNIN CHLORIDE ER 10 MG TABLET EXTENDED RELEASE 24 HOUR 1 TABLET ORALLY ONCE A DAY, NOTES: 05/24/18 AM TAKING KLONOPIN 1 MG TABLET 1 TABLET ORALLY DAILY PRN, NOTES: 3 DAYS AGO TAKING MUCINEX 600 MG TABLET EXTENDED RELEASE 12 HOUR 1 TABLET NEEDED ORALLY TWICE DAILY NEEDED, NOTES: NONE RECENT TAKING UNISOM 25 MG TABLET 1 TABLET AT BEDTIME NEEDED ORALLY ONCE A DAY, NOTES: 05/24/18 PM TAKING PAXIL 40 MG TABLET 1 TABLET IN THE MORNING ORALLY ONCE A DAY, NOTES: 05/24/18 AM TAKING PROMETHAZINE HCL 25 MG TABLET 1 TABLET NEEDED ORALLY EVERY 12 HRS, NOTES: 05/24/18 PM TAKING METHADONE HCL 10 MG TABLET 2 ORALLY 2 TAB Q8H MDD6, NOTES: 05/24/18 PM TAKING OXYCODONE HCL 5 MG TABLET 1 ORALLY Q6H PRN MDD4, NOTES: 05/24/18 PM TAKING TRAZODONE HCL 100 MG TABLET 2 TABLET AT BEDTIME ORALLY ONCE A DAY, NOTES: 2-3 DAYS AGO NOT-TAKING MELATONIN 3 MG TABLET 2 CAPSULE IN THE EVENING NEEDED WITH FOOD ORALLY ONCE A DAY, NOTES: COUPLE DAYS AGO NOT-TAKING PROCHLORPERAZINE MALEATE 10 MG TABLET 1 TABLET ORALLY NEEDED ONCE PER DAY FOR NAUSEA #15 TAB SHOULD LAST 30 DAYS MEDICATION LIST REVIEWED AND RECONCILED WITH THE PATIENT PAST MEDICAL HISTORY ASTROCYTOMA STROKES 2008 TIAS [id number] OSTEO ARTHRITIS (DEGENERATIVE) DDD FIBROMYALGIA [place] CARPAL SOHA HYPERTENSION ANXIETY/DEPRESSION NUMEROUS HEAD TRAUMAS BROKEN TEETH ALLERGIES VIIBRYD: MANIC BEHAVIOR - SIDE EFFECTS LYRICA: LOSS OF BALANCE - SIDE EFFECTS GABAPENTIN: LOSS OF BALANCE - SIDE EFFECTS BUSPAR: LOSS OF BALANCE - SIDE EFFECTS SURGICAL HISTORY OSTEO CHONDROMA 1981 LEFT KNEE REPAIR D&C PARTIAL CRANIOTOMY RECONSRTUCTION OF LEFT ANKLE HARDWARE REMOVED FROM LEFT ANKLE 08/13/15 UPPER TEETH REMOVAL 12/2017 FAMILY HISTORY FATHER: , DIAGNOSED WITH HEART DISEASE, OTHER MOTHER: ALIVE, DIABETES, STROKE 3 SON(S) - HEALTHY. FATHER-PARKINSON\NMOM-DIABETIC DEPENDING ON HER WT\N1 SON AFIB. SOCIAL HISTORY GENERAL: TOBACCO USE ARE YOU A:CURRENT SMOKER ARE YOU INTERESTED IN QUITTING?THINKING ABOUT QUITTING STATES SHE IS DOWN TO HALF A PACK A DAY. COUNSELED THE PATIENT ON SMOKING CESSATION, EDUCATION [id number]/05/2019 HOW MANY CIGARETTES A DAY DO YOU SMOKE?6-10 PATIENT COUNSELED ON THE DANGERS OF TOBACCO USE AND URGED TO QUIT:04/19/2018 LATEX QUESTIONNAIRE LATEX ALLERGY : HAVE YOU EVER DEVELOPED ANY TYPE OF REACTION AFTER HANDLING LATEX PRODUCTS SUCH RUBBER GLOVES, CONDOMS, DIAPHRAGMS, BALLOONS, SOCKS, OR UNDERWEAR?NO LATEX ALLERGY : HAVE YOU EVER DEVELOPED ANY TYPE OF REACTION DURING OR AFTER DENTAL APPOINTMENT, VAGINAL/RECTAL EXAMINATION, SURGICAL PROCEDURE, OR ANY OTHER EXPOSURE?NO LATEX RISK : HAVE YOU EVER HAD ANY DIFFICULTY BREATHING OR HIVES AFTER EATING OR HANDLING ANY FRUITS, OR VEGETABLES; SUCH KIWI, BANANAS, STONE FRUITS, OR CHESTNUTSNO LATEX RISK : DO YOU HAVE A PREVIOUS PERSONAL HISTORY OF MORE THAN NINE SURGERIES, SPINA BIFIDA, OR REPEATED CATHERTIZATIONS? NO LATEX RISK : ARE YOU FREQUENTLY EXPOSED TO LATEX PRODUCTS IN YOUR OCCUPATION?NO DATE ASKED : 05/25/2018 ALCOHOL SCREENING DID YOU HAVE A DRINK CONTAINING ALCOHOL IN THE PAST YEAR?NO POINTS0 INTERPRETATIONNEGATIVE RECREATIONAL DRUG USE DRUG USE?NO CAFFEINE CAFFEINE USE?YES HOW OFTEN AND HOW MUCH? 1 POT OF COFFEE AND 6 SODA/DAY ANGLICAN [id number] MOSQUE LANGUAGE LANGUAGES SPOKEN:NEPALI LEARNING BARRIERS / SPECIAL NEEDS CHANGE FROM LAST VISIT? PT STATES THAT SHE FELL AT HOME, GETTING OUT OF BED IN MIDDLE OF NIGHT, JAMMED NECK. BARRIERS TO LEARNING?YES COMMENTS HAS TROULBLE REMEMBER THINGS AT TIMES DUE TO NEIL TUMOR, STROKE AND TIA ALONG WITH MENINGITIS HEARING IMPAIRED?NO VISION IMPAIRED?YES :CORRECTIVE LENSES COGNITIVELY IMPAIRED?YES HAS TROUBLE REMEMBERING THINGS AT TIMES STATED ABOVE READINESS TO LEARN?YES LEARNING PREFERENCES?NO LEARNING CAPABILITIES PRESENT?YES EMOTIONAL BARRIERS?NO SPECIAL DEVICES?NO ZOOLOGY TECHNICAL OFFICER NEEDED?NO DOMESTIC VIOLENCE DO YOU FEEL SAFE IN YOUR ENVIRONMENT?YES NEW PATIENT PAIN DIARY TODAY'S VISITNOTES FROM 0-10, WHAT LEVEL IS YOUR PAIN TODAY?9 PAIN CLINIC PFS, CLERGY, PUBLIC HEALTH REFERRALS PFS REFERRAL NEEDED?NO CLERGY REFERRAL NEEDED?NO PUBLIC HEALTH REFERRAL NEEDED?NO WAS THE PROVIDER NOTIFIED OF ANY PERTINENT INFO? N/A HAS THE PATIENT BEEN EDUCATED REGARDING HIS/HER PLAN OF CARE?YES HAS THE PATIENT BEEN EDUCATED REGARDING PAIN, THE RISK FOR PAIN, THE IMPORTANCE OF EFFECTIVE PAIN MANAGEMENT, AND THE PAIN ASSESSMENT PROCESS?YES ADVANCE DIRECTIVE ADVANCE DIRECTIVE DISCUSSED WITH PATIENT:YES HCP - SHERITA SHARPE 10/12/17 1150 REVIEWED WITH PT. ADREVIEWED WITH PT 11/12/17 1044 BVREVIEWED WITH PATIENT 12/10/17 1418 JS01/13/18 1354 REVIEWED WITH PT. ADREVIEWED WITH PATIENT 01/31/18 1412 JSREVIEWED WITH PATIENT 04/19/18 1518 JSREVEIWED WITH PATIENT 05/25/18 1326 BVREVIEWED WITH PT 03/31/18 1417 BVREVIEWED WITH PATIENT 03/22/18 1515 LAS. HOSPITALIZATION/MAJOR DIAGNOSTIC PROCEDURE MENINGITIS 1996 CVA 2008 SURGERIES PNEUMONIA REVIEW OF SYSTEMS REVIEWED BY: PROVIDER: DOROTHY SQUIRES MD . CONSTITUTIONAL: ANY CHANGE IN YOUR MEDICAL CONDITION? NO . CHILLS NO . FEVER NO . INFECTION: DO YOU HAVE NEW INFECTIONS? NO . DO YOU HAVE HISTORY OF MRSA? NO . MUSCULOSKELETAL: ANY NEW PATTERNS OF PAIN OR NUMBNESS? YES, PT STATES INCREASED PAIN IN NECK OVER THE PAST COUPLE WEEKS . GASTROENTEROLOGY: ANY NEW CHANGE IN BOWEL CONTROL? NO . GENITOURINARY: ANY NEW CHANGE IN BLADDER CONTROL? NO . IS THERE A CHANCE YOU COULD BE ? NO . HEMATOLOGY/LYMPH: DO YOU TAKE ANY BLOOD THINNERS? (FOR EXAMPLE- COUMADIN, PLAVIX, AGGRENOX, PLATEL, PRADAXA, OR XARELTO) NO . WHEN WAS YOUR LAST DOSE? DATE: TIME: . NEUROLOGY: HAVE YOU FALLEN IN THE PAST 12 MONTHS? NO . ANY NEW EXTREMITY NUMBNESS OR WEAKNESS? NO . CARDIOLOGY: DO YOU HAVE A PACEMAKER OR DEFIBRILLATOR? NO . RESPIRATORY: HAVE YOU BEEN SICK IN THE PAST WEEK? NO . FEVER NO . FLU LIKE SYMPTOMS? NO . COUGH NO . INTEGUMENTARY: DO YOU HAVE ANY RASHES OR OPEN SORES? NO . ALLERGIC/IMMUNO: ARE YOU ALLERGIC TO IV DYE? NO . ANY NEW ALLERGIES? NO . PSYCHIATRIC: DO YOU HAVE THOUGHTS OF HURTING YOURSELF OR SOMEONE ELSE? NO . ARE YOU ABUSED, NEGLECTED, OR IN AN UNSAFE ENVIRONMENT? NO . ENDOCRINOLOGY: ARE YOU DIABETIC? NO . OTHER: DO YOU NEED ANY PRESCRIPTIONS? NO . IF YES, PLEASE LIST: ____ . ANY NEW PROBLEMS WITH YOUR MEDICATIONS? NO . WHEN DID YOU LAST EAT? YES, 05/24/18 PM . WHEN DID YOU LAST DRINK? 05/25/18 1200 . WHAT DID YOU LAST DRINK? WATER . NAME OF PERSON DRIVING YOU HOME? SHERITA SHARPE . DO YOU HAVE ANY OTHER QUESTIONS OR CONCERNS NO . VITAL SIGNS WT 158.8 LBS, HT 70 IN, BMI 22.78 INDEX, BP 104/70 MM HG, HR 93 /MIN, RR 16 /MIN, TEMP 98.0 F, OXYGEN SAT % 95%, NA INITIALS AW 1310, REVIEWED BY: BV. EXAMINATION GENERAL EXAMINATION: PATIENT IS ALERT O X 3 AND COOPERATIVE. PATIENT HAS A PRODUCTIVE COUGH. RIGHT ARM IS WEAKER AT EXTENSION AND FLEXION. MRI OF THE CERVICAL SPINE DONE ON 08/16/2017 SHOWS BULGING DISCS AT MULTIPLE LEVELS. ASSESSMENTS CERVICAL DISC DISORDER WITH RADICULOPATHY OF CERVICAL REGION - M50.10 (PRIMARY) TREATMENT CERVICAL DISC DISORDER WITH RADICULOPATHY OF CERVICAL REGION CLINICAL NOTES: WE DISCUSSED SEVERAL ISSUES WITH MRS. CHAVEZ'S PAIN MANAGEMENT CASE. THE PATIENT HAS SYMPTOMS OF A RESPIRATORY ILLNESS SO SHE WILL FOLLOW THIS UP WITH HER PRIMARY CARE PHYSICIAN. THE PATIENT MAY BE BOOKED FOR A CERVICAL EPIDURAL STEROID INJECTION AFTER SHE IS FEELING BETTER AND IS PHYSICALLY UP TO THE INJECTION. INSTRUCTIONS WERE GIVEN, QUESTIONS WERE ANSWERED, PATIENT REPORTS UNDERSTANDING AND AGREES WITH THE PLAN. I, JOHN VALLES, DOCUMENTED THE ABOVE INFORMATION ACTING A SCRIBE FOR DR. SQUIRES. I HAVE REVIEWED THE ABOVE DOCUMENT, WRITTEN BY JOHN ORDOÑEZIBTera AND I VERIFY THAT IT IS ACCURATE. . DIAGNOSTIC IMAGING [facility] GUIDE SPINE INJECTION (PAIN)[id number] PROCEDURE CODES G8427 CURRENT MEDS W/DOSAGES DOCUMENTED G8730 PAIN ASSESS POS TOOL F/U PLAN DOC FA211 ESTABILISHED PATIENT [facility]AC[facility] CHARGE DISPOSITION & COMMUNICATION FOLLOW UP 3 WEEKS ELECTRONICALLY SIGNED BY DOROTHY SQUIRES MD, ON 06/12/2018 AT 06:59 PM EDT DISCLAIMER : THIS IS A VISIT SUMMARY EXTRACTED FROM THE [employer] CHART. IT IS NOT A COPY OF THE [employer] PROGRESS NOTE. MTDD
== END ==
LOC: M PAIN 13:00
PROVIDERS: ATTEND Anesthesiology
DX: M50.10 Cervical disc disorder with radiculopathy, unspecified cervical region (principal); G89.29 Other chronic pain; M19.90 Unspecified osteoarthritis, unspecified site; M79.7 Fibromyalgia; I10 Essential (primary) hypertension; F32.9 Major depressive disorder, single episode, unspecified; F41.9 Anxiety disorder, unspecified; F17.210 Nicotine dependence, cigarettes, uncomplicated; Z79.82 Long term (current) use of aspirin; Z79.891 Long term (current) use of opiate analgesic; Z79.899 Other long term (current) drug therapy; Z88.8 Allergy status to other drugs, medicaments and biological substances; Z86.73 Personal history of transient ischemic attack (TIA), and cerebral infarction without residual deficits

== ENCOUNTER → 2018-08-16 | Outpatient (CLI) | payer OTHER ==
--- NOTE | 2018-08-16 17:35 | REP ---
C-ARM VIEWS CERVICAL SPINE: CLINICAL HISTORY: Pain. Two C-ARM views of the lower cervical spine region were performed during injection by Dr. Mccray. Needle was seen at the C7 level and contrast is injected. 9 seconds of fluoroscopy time was utilized. Electronically Signed by Juliocesar Mcmillan MD 08/17/2018 04:16 P
--- NOTE | 2018-08-26 00:55 | ECWPNPC ---
PATIENT NAME: LORRIE CHAVEZ : 1970 GENDER: FEMALE VISIT DATE: 08/16/2018 DISCHARGE DATE: 08/16/18 1329 VISIT LOCKED DATE TIME: PHYSICIAN: DOROTHY SQUIRES MD RESOURCE: DOROTHY SQUIRES MD REASON FOR APPOINTMENT 1. CERVICAL EPIDURAL STEROID INJECTION HISTORY OF PRESENT ILLNESS HISTORY OF PRESENT ILLNESS: PAIN THE PATIENT DESCRIBES THE PAIN... FALL RISK SCREENING: SCREENING :NO FALLS REPORTED IN THE LAST YEAR CURRENT MEDICATIONS TAKING VENTOLIN HFA 108 (90 BASE) MCG/ACT AEROSOL SOLUTION 2 PUFFS NEEDED INHALATION EVERY 4 HRS, NOTES: NONE RECENT TAKING ALBUTEROL-IPRATROPIUM 1 DOSE 1 SOLUTION INHALED EVERY 2 HOURS NEEDED, NOTES: NONE RECENT TAKING ASPIRIN 325 MG TABLET 1 TABLET ORALLY ONCE A DAY, NOTES: 08/16 799 TAKING ATORVASTATIN CALCIUM 10 MG TABLET 1 TABLET ORALLY ONCE A DAY, NOTES: 08/15 1899 TAKING SYNTHROID 125 MCG TABLET 1 TABLET ORALLY ONCE A DAY, NOTES: 08/16 799 TAKING LINZESS 290 MCG CAPSULE 1 CAPSULE ORALLY ONCE A DAY, NOTES: 1 WEEK AGO TAKING OXYBUTYNIN CHLORIDE ER 10 MG TABLET EXTENDED RELEASE 24 HOUR 1 TABLET ORALLY ONCE A DAY, NOTES: 08/16 799 TAKING KLONOPIN 1 MG TABLET 1 TABLET ORALLY DAILY PRN, NOTES: NONE RECENT TAKING MUCINEX 600 MG TABLET EXTENDED RELEASE 12 HOUR 1 TABLET NEEDED ORALLY TWICE DAILY NEEDED, NOTES: NONE RECENT TAKING UNISOM 25 MG TABLET 1 TABLET AT BEDTIME NEEDED ORALLY ONCE A DAY, NOTES: 1 WEEK AGO TAKING PAXIL 40 MG TABLET 1 TABLET IN THE MORNING ORALLY ONCE A DAY, NOTES: 08/16 799 TAKING PROMETHAZINE HCL 25 MG TABLET 1 TABLET NEEDED ORALLY EVERY 12 HRS, NOTES: 1 WEEK AGO TAKING TRAZODONE HCL 100 MG TABLET 2 TABLET AT BEDTIME ORALLY ONCE A DAY, NOTES: 08/15 TAB 0 TAKING METHADONE HCL 10 MG TABLET 2 ORALLY 2 TAB Q8H MDD6, NOTES: 08/17 799 TAKING OXYCODONE HCL 5 MG TABLET 1 ORALLY Q6H PRN MDD4, NOTES: 08/15 2129 NOT-TAKING PROCHLORPERAZINE MALEATE 10 MG TABLET 1 TABLET ORALLY NEEDED ONCE PER DAY FOR NAUSEA #15 TAB SHOULD LAST 30 DAYS NOT-TAKING MELATONIN 3 MG TABLET 2 CAPSULE IN THE EVENING NEEDED WITH FOOD ORALLY ONCE A DAY MEDICATION LIST REVIEWED AND RECONCILED WITH THE PATIENT PAST MEDICAL HISTORY ASTROCYTOMA STROKES 2008 TIAS [id number] OSTEO ARTHRITIS (DEGENERATIVE) DDD FIBROMYALGIA [place] CARPAL SOHA HYPERTENSION ANXIETY/DEPRESSION NUMEROUS HEAD TRAUMAS BROKEN TEETH FLU-TYPE A MENINGITIS-TYPE B ALLERGIES VIIBRYD: MANIC BEHAVIOR - SIDE EFFECTS LYRICA: LOSS OF BALANCE - SIDE EFFECTS GABAPENTIN: LOSS OF BALANCE - SIDE EFFECTS BUSPAR: LOSS OF BALANCE - SIDE EFFECTS SURGICAL HISTORY OSTEO CHONDROMA 1981 LEFT KNEE REPAIR D&C PARTIAL CRANIOTOMY RECONSRTUCTION OF LEFT ANKLE HARDWARE REMOVED FROM LEFT ANKLE 08/13/15 UPPER TEETH REMOVAL 12/2017 FAMILY HISTORY FATHER: , DIAGNOSED WITH HEART DISEASE, OTHER MOTHER: ALIVE, DIABETES, STROKE 3 SON(S) - HEALTHY. FATHER-PARKINSON\NMOM-DIABETIC DEPENDING ON HER WT\N1 SON AFIB. SOCIAL HISTORY GENERAL: TOBACCO USE ARE YOU A:CURRENT SMOKER ARE YOU INTERESTED IN QUITTING?THINKING ABOUT QUITTING STATES SHE IS DOWN TO HALF A PACK A DAY. COUNSELED THE PATIENT ON SMOKING CESSATION, EDUCATION [id number]/02/2019 HOW MANY CIGARETTES A DAY DO YOU SMOKE?6-10 PATIENT COUNSELED ON THE DANGERS OF TOBACCO USE AND URGED TO QUIT:08/16/2018 EDUCATION LEVEL OF EDUCATION:NOT FINISHED HIGH SCHOOL GED LANGUAGE LANGUAGES SPOKEN:BULGARIAN DOMESTIC VIOLENCE DO YOU FEEL SAFE IN YOUR ENVIRONMENT?YES NEW PATIENT PAIN DIARY TODAY'S VISITNOTES RECREATIONAL DRUG USE DRUG USE?NO LEARNING BARRIERS / SPECIAL NEEDS CHANGE FROM LAST VISIT? PT STATES THAT SHE FELL AT HOME, GETTING OUT OF BED IN MIDDLE OF NIGHT, JAMMED NECK. BARRIERS TO LEARNING?YES COMMENTS HAS TROULBLE REMEMBER THINGS AT TIMES DUE TO NEIL TUMOR, STROKE AND TIA ALONG WITH MENINGITIS HEARING IMPAIRED?NO VISION IMPAIRED?YES :CORRECTIVE LENSES COGNITIVELY IMPAIRED?YES HAS TROUBLE REMEMBERING THINGS AT TIMES STATED ABOVE READINESS TO LEARN?YES LEARNING PREFERENCES?NO LEARNING CAPABILITIES PRESENT?YES EMOTIONAL BARRIERS?NO SPECIAL DEVICES?YES :CANE, WALKER, OTHER ASSISTANCE OF ANOTHER PERSON, NEEDED FINANCIAL SUPERVISOR NEEDED?NO PAIN CLINIC PFS, CLERGY, PUBLIC HEALTH REFERRALS PFS REFERRAL NEEDED?NO CLERGY REFERRAL NEEDED?NO PUBLIC HEALTH REFERRAL NEEDED?NO WAS THE PROVIDER NOTIFIED OF ANY PERTINENT INFO? N/A HAS THE PATIENT BEEN EDUCATED REGARDING HIS/HER PLAN OF CARE?YES HAS THE PATIENT BEEN EDUCATED REGARDING PAIN, THE RISK FOR PAIN, THE IMPORTANCE OF EFFECTIVE PAIN MANAGEMENT, AND THE PAIN ASSESSMENT PROCESS?YES LATEX QUESTIONNAIRE LATEX ALLERGY : HAVE YOU EVER DEVELOPED ANY TYPE OF REACTION AFTER HANDLING LATEX PRODUCTS SUCH RUBBER GLOVES, CONDOMS, DIAPHRAGMS, BALLOONS, SOCKS, OR UNDERWEAR?NO LATEX ALLERGY : HAVE YOU EVER DEVELOPED ANY TYPE OF REACTION DURING OR AFTER DENTAL APPOINTMENT, VAGINAL/RECTAL EXAMINATION, SURGICAL PROCEDURE, OR ANY OTHER EXPOSURE?NO LATEX RISK : HAVE YOU EVER HAD ANY DIFFICULTY BREATHING OR HIVES AFTER EATING OR HANDLING ANY FRUITS, OR VEGETABLES; SUCH KIWI, BANANAS, STONE FRUITS, OR CHESTNUTSNO LATEX RISK : DO YOU HAVE A PREVIOUS PERSONAL HISTORY OF MORE THAN NINE SURGERIES, SPINA BIFIDA, OR REPEATED CATHERTIZATIONS? NO LATEX RISK : ARE YOU FREQUENTLY EXPOSED TO LATEX PRODUCTS IN YOUR OCCUPATION?NO DATE ASKED : 05/25/2018 CAFFEINE CAFFEINE USE?YES HOW OFTEN AND HOW MUCH? 1 POT OF COFFEE AND 6 SODA/DAY ADVANCE DIRECTIVE ADVANCE DIRECTIVE DISCUSSED WITH PATIENT:YES HCP - SHERITA SHARPE ISLAM [id number] ALCOHOL SCREENING DID YOU HAVE A DRINK CONTAINING ALCOHOL IN THE PAST YEAR?NO POINTS0 INTERPRETATIONNEGATIVE 10/12/17 1150 REVIEWED WITH PT. ADREVIEWED WITH PT 11/12/17 1044 BVREVIEWED WITH PATIENT 12/10/17 1418 JS01/13/18 1354 REVIEWED WITH PT. ADREVIEWED WITH PATIENT 01/31/18 1412 JSREVIEWED WITH PT. 08/16/18 ADREVIEWED WITH PATIENT 04/19/18 1518 JSREVEIWED WITH PATIENT 05/25/18 1326 BVREVIEWED WITH PT 03/31/18 1417 BVREVIEWED WITH PATIENT 03/22/18 1515 LAS. HOSPITALIZATION/MAJOR DIAGNOSTIC PROCEDURE MENINGITIS 1996 CVA 2008 SURGERIES PNEUMONIA REVIEW OF SYSTEMS REVIEWED BY: PROVIDER: . CONSTITUTIONAL: ANY CHANGE IN YOUR MEDICAL CONDITION? NO . CHILLS NO . FEVER NO . INFECTION: DO YOU HAVE NEW INFECTIONS? NO . DO YOU HAVE HISTORY OF MRSA? NO . MUSCULOSKELETAL: ANY NEW PATTERNS OF PAIN OR NUMBNESS? YES, PAIN HAS INCREASED SINCE FALLING X 2 LAST WEEK . GASTROENTEROLOGY: ANY NEW CHANGE IN BOWEL CONTROL? NO . GENITOURINARY: ANY NEW CHANGE IN BLADDER CONTROL? NO . IS THERE A CHANCE YOU COULD BE ? NO . HEMATOLOGY/LYMPH: DO YOU TAKE ANY BLOOD THINNERS? (FOR EXAMPLE- COUMADIN, PLAVIX, AGGRENOX, PLATEL, PRADAXA, OR XARELTO) NO . WHEN WAS YOUR LAST DOSE? DATE: TIME: . NEUROLOGY: HAVE YOU FALLEN IN THE PAST 12 MONTHS? YES, X 2 LAST WEEK-ONCE DOWN THE STAIRS AND ONCE OUT OF A CHAIR . ANY NEW EXTREMITY NUMBNESS OR WEAKNESS? NO . CARDIOLOGY: DO YOU HAVE A PACEMAKER OR DEFIBRILLATOR? NO . RESPIRATORY: HAVE YOU BEEN SICK IN THE PAST WEEK? NO . FEVER NO . FLU LIKE SYMPTOMS? NO . COUGH NO . INTEGUMENTARY: DO YOU HAVE ANY RASHES OR OPEN SORES? NO . ALLERGIC/IMMUNO: ARE YOU ALLERGIC TO IV DYE? NO . ANY NEW ALLERGIES? NO . PSYCHIATRIC: DO YOU HAVE THOUGHTS OF HURTING YOURSELF OR SOMEONE ELSE? NO . ARE YOU ABUSED, NEGLECTED, OR IN AN UNSAFE ENVIRONMENT? NO . ENDOCRINOLOGY: ARE YOU DIABETIC? NO . OTHER: DO YOU NEED ANY PRESCRIPTIONS? NO . IF YES, PLEASE LIST: ____ . ANY NEW PROBLEMS WITH YOUR MEDICATIONS? NO . WHEN DID YOU LAST EAT? 08/16 1999 . WHEN DID YOU LAST DRINK? 08/16 899 . WHAT DID YOU LAST DRINK? BLACK COFFEE(DR. SQUIRES AWARE) . NAME OF PERSON DRIVING YOU HOME? O.J. . DO YOU HAVE ANY OTHER QUESTIONS OR CONCERNS NO PT. HAS NOT HAD ANY VACCINES IN THE PAST 30 DAYS . VITAL SIGNS WT 151.2 LBS, HT 70 IN, BMI 21.69 INDEX, BP 133/62 MM HG, HR 100 /MIN, RR 16 /MIN, TEMP 98.7 F, OXYGEN SAT % 92-95%, SAFE IN ENV? (Y/N) Y, NA INITIALS [place] , REVIEWED BY: AD. ASSESSMENTS CERVICAL DISC DISORDER WITH RADICULOPATHY OF CERVICAL REGION - M50.10 (PRIMARY) PROCEDURES PN CERVICAL EPIDURAL PRE PROCEDURE DIAGNOSIS CERVICAL DISC DISORDER WITH RADICULOPATHY POST PROCEDURE DIAGNOSIS CERVICAL DISC DISORDER WITH RADICULOPATHY PROCEDURE CERVICAL EPIDURAL STEROID INJECTION UNDER FLUOROSCOPIC GUIDANCE SURGEON DR. DOROTHY SQUIRES SWIMMING PROFESSOR NONE ANESTHESIA LOCAL PRE PROCEDURE NOTE THE PATIENT HAS A HISTORY OF CHRONIC CERVICAL PAIN. I EVALUATE THE PATIENT AND REVIEWED THE CHART. I WENT OVER THE RISKS, ALTERNATIVES, AND BENEFITS ASSOCIATED WITH THIS PROCEDURE. THE PATIENT WOULD LIKE TO PROCEED AND GIVE CONSENT TO PERFORMED THE PROCEDURE. THE PATIENT DENIES UNEXPLAINABLE WEIGHT LOSS, FEVER, CHILLS, OR NEW CHANGES IN URINARY OR BOWEL CONTROL DESCRIPTION OF PROCEDURE THE PATIENT WAS BROUGHT TO THE PROCEDURE ROOM AND PLACED IN THE PRONE POSITION. THE CERVICOTHORACIC AREA WAS CLEANED WITH BETADINE SOLUTION AND DRAPED ASEPTICALLY. THE PROCEDURE WAS DONE UNDER STERILE CONDITIONS. I CHECKED LATERALITY AND THE LEVEL WHERE THE PROCEDURE WAS GOING TO BE PERFORMED WITH THE PATIENT AND THE SUPPORTING STAFF AT THE MOMENT OF THE TIME OUT IN THE PROCEDURE ROOM. UNDER FLUOROSCOPIC GUIDANCE, THE TARGET WAS SELECTED AT THE INTERLAMINAR LEVEL OF C7-T1. LIDOCAINE WAS USED TO NUMB THE SKIN AND THE SUBCUTANEOUS TISSUE BELOW IT. EPIDURAL TUOHY NEEDLE 17-GAUGE WAS ADVANCED UNDER FLUOROSCOPIC GUIDANCE AND FOLLOWING PATIENT FEEDBACK UNTIL THE EPIDURAL SPACE WAS REACHED 6 CM DEEP INTO THE SKIN BY THE LOSS OF RESISTANCE TECHNIQUE. ISOVUE M DYE 30%, 0.25 ML, WAS INJECTED SHOWING ADEQUATE SPREAD OF THE DYE. THEN, A SOLUTION OF 3 ML OF NORMAL SALINE WITH DEPO-MEDROL 60 MG WAS INJECTED SLOWLY FOLLOWING PATIENT FEEDBACK. THERE WAS NO EVIDENCE OF BLOOD, PARESTHESIA OR CEREBROSPINAL FLUID DURING THE PROCEDURE. THE PATIENT WAS SENT TO THE RECOVERY ROOM. THE PATIENT WAS MOVING THE EXTREMITIES AND DOING WELL. THERE WAS NO COMPLICATION DURING THE PROCEDURE. FLUOROSCOPY TIME WAS 9 SECONDS POST PROCEDURE NOTE THE PATIENT WILL BE SEEN IN A FOLLOW UP IN THE NEXT FEW WEEKS. INSTRUCTIONS WERE GIVEN, QUESTIONS WERE ANSWERED, AND THE PATIENT EXPRESSED UNDERSTANDING AND AGREES WITH THE PLAN. I, JOHN VALLES, DOCUMENTED THE ABOVE INFORMATION ACTING A SCRIBE FOR DR. SQUIRES. I HAVE REVIEWED THE ABOVE DOCUMENT, WRITTEN BY JOHN JOHNSON AND I VERIFY THAT IT IS ACCURATE. DIAGNOSTIC IMAGING [facility] FLUORO GUIDE SPINE INJECTION (PAIN)[id number] PROCEDURE CODES 6045F RADXPS IN END [id number] PXD [id number] CERVICAL/THORACIC W/ IMAGING DISPOSITION & COMMUNICATION FOLLOW UP 3 WEEKS ELECTRONICALLY SIGNED BY DOROTHY SQUIRES MD, MD ON 08/25/2018 AT 01:47 PM EDT DISCLAIMER : THIS IS A VISIT SUMMARY EXTRACTED FROM THE [employer] CHART. IT IS NOT A COPY OF THE [employer] PROGRESS NOTE. MTDD
== END ==
LOC: M PAIN 10:45
PROVIDERS: ATTEND Anesthesiology
DX: M50.10 Cervical disc disorder with radiculopathy, unspecified cervical region (principal); M79.7 Fibromyalgia; G56.03 Carpal tunnel syndrome, bilateral upper limbs; I10 Essential (primary) hypertension; F41.9 Anxiety disorder, unspecified; D32.9 Benign neoplasm of meninges, unspecified; F17.210 Nicotine dependence, cigarettes, uncomplicated; Z86.73 Personal history of transient ischemic attack (TIA), and cerebral infarction without residual deficits; Z79.82 Long term (current) use of aspirin; Z79.891 Long term (current) use of opiate analgesic; Z79.899 Other long term (current) drug therapy; Z88.8 Allergy status to other drugs, medicaments and biological substances
CPT/HCPCS: 62321; J1030; Q9967

== ENCOUNTER → 2018-08-24 | Outpatient (CLI) | payer OTHER ==
[~2018-08-24] MED LIST changes: -ISOVUE-M 300 61% 15ML VIAL (Q9967) As Ordered ONE; -LIDOCAINE 1% SDV INJ 30 ML VIAL As Ordered ONE; -diazePAM 5 MG TAB As Ordered ONE; -diphenhydrAMINE 25 MG CAP As Ordered ONE; -methylPREDNISolone SUSP 40 MG/ML (DEPO-medrol) VIAL (J1030) As Ordered ONE
--- NOTE | 2018-09-06 02:39 | ECWPNPC ---
PATIENT NAME: LORRIE CHAVEZ : 1970 GENDER: FEMALE VISIT DATE: 08/24/2018 DISCHARGE DATE: 08/24/18 1510 VISIT LOCKED DATE TIME: PHYSICIAN: ANÍBAL LANDA RESOURCE: ANÍBAL LANDA REASON FOR APPOINTMENT 1. POST FAUSTINO HISTORY OF PRESENT ILLNESS HISTORY OF PRESENT ILLNESS: HERE FOR F/U OF CHRONIC GENERALIZED BACK PAIN.HAD FAUSTINO ON08/16/18.REPORTING SOME IMPROVEMENT POST PROCEDURE.RATING PAIN VAS 9/10. PAIN THE PATIENT DESCRIBES THE PAIN... FALL RISK SCREENING: SCREENING :NO FALLS REPORTED IN THE LAST YEAR CURRENT MEDICATIONS TAKING VENTOLIN HFA 108 (90 BASE) MCG/ACT AEROSOL SOLUTION 2 PUFFS NEEDED INHALATION EVERY 4 HRS TAKING ALBUTEROL-IPRATROPIUM 1 DOSE 1 SOLUTION INHALED EVERY 2 HOURS NEEDED TAKING ASPIRIN 325 MG TABLET 1 TABLET ORALLY ONCE A DAY TAKING ATORVASTATIN CALCIUM 10 MG TABLET 1 TABLET ORALLY ONCE A DAY TAKING SYNTHROID 125 MCG TABLET 1 TABLET ORALLY ONCE A DAY TAKING LINZESS 290 MCG CAPSULE 1 CAPSULE ORALLY ONCE A DAY TAKING OXYBUTYNIN CHLORIDE ER 10 MG TABLET EXTENDED RELEASE 24 HOUR 1 TABLET ORALLY ONCE A DAY TAKING KLONOPIN 1 MG TABLET 1 TABLET ORALLY DAILY PRN TAKING MUCINEX 600 MG TABLET EXTENDED RELEASE 12 HOUR 1 TABLET NEEDED ORALLY TWICE DAILY NEEDED TAKING UNISOM 25 MG TABLET 1 TABLET AT BEDTIME NEEDED ORALLY ONCE A DAY TAKING PAXIL 40 MG TABLET 1 TABLET IN THE MORNING ORALLY ONCE A DAY TAKING PROMETHAZINE HCL 25 MG TABLET 1 TABLET NEEDED ORALLY EVERY 12 HRS TAKING TRAZODONE HCL 100 MG TABLET 2 TABLET AT BEDTIME ORALLY ONCE A DAY TAKING METHADONE HCL 10 MG TABLET 2 ORALLY 2 TAB Q8H MDD6 TAKING OXYCODONE HCL 5 MG TABLET 1 ORALLY Q6H PRN MDD4 NOT-TAKING PROCHLORPERAZINE MALEATE 10 MG TABLET 1 TABLET ORALLY NEEDED ONCE PER DAY FOR NAUSEA #15 TAB SHOULD LAST 30 DAYS NOT-TAKING MELATONIN 3 MG TABLET 2 CAPSULE IN THE EVENING NEEDED WITH FOOD ORALLY ONCE A DAY MEDICATION LIST REVIEWED AND RECONCILED WITH THE PATIENT PAST MEDICAL HISTORY ASTROCYTOMA STROKES 2008 TIAS [id number] OSTEO ARTHRITIS (DEGENERATIVE) DDD FIBROMYALGIA [place] CARPAL SOHA HYPERTENSION ANXIETY/DEPRESSION NUMEROUS HEAD TRAUMAS BROKEN TEETH FLU-TYPE A MENINGITIS-TYPE B ALLERGIES VIIBRYD: MANIC BEHAVIOR - SIDE EFFECTS LYRICA: LOSS OF BALANCE - SIDE EFFECTS GABAPENTIN: LOSS OF BALANCE - SIDE EFFECTS BUSPAR: LOSS OF BALANCE - SIDE EFFECTS SURGICAL HISTORY OSTEO CHONDROMA 1981 LEFT KNEE REPAIR D&C PARTIAL CRANIOTOMY RECONSRTUCTION OF LEFT ANKLE HARDWARE REMOVED FROM LEFT ANKLE 08/13/15 UPPER TEETH REMOVAL 12/2017 FAMILY HISTORY FATHER: , DIAGNOSED WITH HEART DISEASE, OTHER MOTHER: ALIVE, DIABETES, STROKE 3 SON(S) - HEALTHY. FATHER-PARKINSON\NMOM-DIABETIC DEPENDING ON HER WT\N1 SON AFIB. SOCIAL HISTORY GENERAL: TOBACCO USE ARE YOU A:CURRENT SMOKER ARE YOU INTERESTED IN QUITTING?THINKING ABOUT QUITTING STATES SHE IS DOWN TO HALF A PACK A DAY. COUNSELED THE PATIENT ON SMOKING CESSATION, EDUCATION [id number]/10/2019 HOW MANY CIGARETTES A DAY DO YOU SMOKE?6- PATIENT COUNSELED ON THE DANGERS OF TOBACCO USE AND URGED TO QUIT:08/16/2018 EDUCATION LEVEL OF EDUCATION:NOT FINISHED HIGH SCHOOL GED LANGUAGE LANGUAGES SPOKEN:SERBIAN DOMESTIC VIOLENCE DO YOU FEEL SAFE IN YOUR ENVIRONMENT?YES NEW PATIENT PAIN DIARY TODAY'S VISITNOTES RECREATIONAL DRUG USE DRUG USE?NO LEARNING BARRIERS / SPECIAL NEEDS CHANGE FROM LAST VISIT? PT STATES THAT SHE FELL AT HOME, GETTING OUT OF BED IN MIDDLE OF NIGHT, JAMMED NECK. BARRIERS TO LEARNING?YES COMMENTS HAS TROULBLE REMEMBER THINGS AT TIMES DUE TO NEIL TUMOR, STROKE AND TIA ALONG WITH MENINGITIS HEARING IMPAIRED?NO VISION IMPAIRED?YES :CORRECTIVE LENSES COGNITIVELY IMPAIRED?YES HAS TROUBLE REMEMBERING THINGS AT TIMES STATED ABOVE READINESS TO LEARN?YES LEARNING PREFERENCES?NO LEARNING CAPABILITIES PRESENT?YES EMOTIONAL BARRIERS?NO SPECIAL DEVICES?YES :CANE, WALKER, OTHER ASSISTANCE OF ANOTHER PERSON, NEEDED FIELD TALENT QUALIFICATION SPECIALIST NEEDED?NO PAIN CLINIC PFS, CLERGY, PUBLIC HEALTH REFERRALS PFS REFERRAL NEEDED?NO CLERGY REFERRAL NEEDED?NO PUBLIC HEALTH REFERRAL NEEDED?NO WAS THE PROVIDER NOTIFIED OF ANY PERTINENT INFO? N/A HAS THE PATIENT BEEN EDUCATED REGARDING HIS/HER PLAN OF CARE?YES HAS THE PATIENT BEEN EDUCATED REGARDING PAIN, THE RISK FOR PAIN, THE IMPORTANCE OF EFFECTIVE PAIN MANAGEMENT, AND THE PAIN ASSESSMENT PROCESS?YES LATEX QUESTIONNAIRE LATEX ALLERGY : HAVE YOU EVER DEVELOPED ANY TYPE OF REACTION AFTER HANDLING LATEX PRODUCTS SUCH RUBBER GLOVES, CONDOMS, DIAPHRAGMS, BALLOONS, SOCKS, OR UNDERWEAR?NO LATEX ALLERGY : HAVE YOU EVER DEVELOPED ANY TYPE OF REACTION DURING OR AFTER DENTAL APPOINTMENT, VAGINAL/RECTAL EXAMINATION, SURGICAL PROCEDURE, OR ANY OTHER EXPOSURE?NO LATEX RISK : HAVE YOU EVER HAD ANY DIFFICULTY BREATHING OR HIVES AFTER EATING OR HANDLING ANY FRUITS, OR VEGETABLES; SUCH KIWI, BANANAS, STONE FRUITS, OR CHESTNUTSNO LATEX RISK : DO YOU HAVE A PREVIOUS PERSONAL HISTORY OF MORE THAN NINE SURGERIES, SPINA BIFIDA, OR REPEATED CATHERIZATIONS? NO LATEX RISK : ARE YOU FREQUENTLY EXPOSED TO LATEX PRODUCTS IN YOUR OCCUPATION?NO DATE ASKED : 05/25/2018 CAFFEINE CAFFEINE USE?YES HOW OFTEN AND HOW MUCH? 1 POT OF COFFEE AND 6 SODA/DAY ADVANCE DIRECTIVE ADVANCE DIRECTIVE DISCUSSED WITH PATIENT:YES HCP - SHERITA SHARPE HINDUISM [id number] QUAKER ALCOHOL SCREENING DID YOU HAVE A DRINK CONTAINING ALCOHOL IN THE PAST YEAR?NO POINTS0 INTERPRETATIONNEGATIVE 10/12/17 1150 REVIEWED WITH PT. ADREVIEWED WITH PT 11/12/17 1044 BVREVIEWED WITH PATIENT 12/10/17 1418 JS01/13/18 1354 REVIEWED WITH PT. ADREVIEWED WITH PATIENT 01/31/18 1412 JSREVIEWED WITH PT. 08/16/18 ADREVIEWED WITH PATIENT 04/19/18 1518 JSREVEIWED WITH PATIENT 05/25/18 1326 BVREVIEWED WITH PT 03/31/18 1417 BVREVIEWED WITH PATIENT 03/22/18 1515 LAS. HOSPITALIZATION/MAJOR DIAGNOSTIC PROCEDURE MENINGITIS 1996 CVA 2008 SURGERIES PNEUMONIA REVIEW OF SYSTEMS REVIEWED BY: PROVIDER: ANÍBAL FLORES . CONSTITUTIONAL: ANY CHANGE IN YOUR MEDICAL CONDITION? NO . CHILLS NO . FEVER NO . INFECTION: DO YOU HAVE NEW INFECTIONS? NO . DO YOU HAVE HISTORY OF MRSA? NO . MUSCULOSKELETAL: ANY NEW PATTERNS OF PAIN OR NUMBNESS? YES, UPPER BACK PAIN . GASTROENTEROLOGY: ANY NEW CHANGE IN BOWEL CONTROL? NO . GENITOURINARY: ANY NEW CHANGE IN BLADDER CONTROL? NO . IS THERE A CHANCE YOU COULD BE ? NO . HEMATOLOGY/LYMPH: DO YOU TAKE ANY BLOOD THINNERS? (FOR EXAMPLE- COUMADIN, PLAVIX, AGGRENOX, PLATEL, PRADAXA, OR XARELTO) NO . WHEN WAS YOUR LAST DOSE? DATE: TIME: . NEUROLOGY: HAVE YOU FALLEN IN THE PAST 12 MONTHS? YES, FELL X2 LAST WEEK FELL WHILE POWER WENT OUT, COULN'D SEE AND FELL . ANY NEW EXTREMITY NUMBNESS OR WEAKNESS? NO . CARDIOLOGY: DO YOU HAVE A PACEMAKER OR DEFIBRILLATOR? NO . RESPIRATORY: HAVE YOU BEEN SICK IN THE PAST WEEK? NO . FEVER NO . FLU LIKE SYMPTOMS? NO . COUGH NO . INTEGUMENTARY: DO YOU HAVE ANY RASHES OR OPEN SORES? NO . ALLERGIC/IMMUNO: ARE YOU ALLERGIC TO IV DYE? NO . ANY NEW ALLERGIES? NO . PSYCHIATRIC: DO YOU HAVE THOUGHTS OF HURTING YOURSELF OR SOMEONE ELSE? NO . ARE YOU ABUSED, NEGLECTED, OR IN AN UNSAFE ENVIRONMENT? NO . ENDOCRINOLOGY: ARE YOU DIABETIC? NO . OTHER: DO YOU NEED ANY PRESCRIPTIONS? NO . IF YES, PLEASE LIST: ____ . ANY NEW PROBLEMS WITH YOUR MEDICATIONS? NO . WHEN DID YOU LAST EAT? ____ . WHEN DID YOU LAST DRINK? ____ . WHAT DID YOU LAST DRINK? ____ . NAME OF PERSON DRIVING YOU HOME? ____ . DO YOU HAVE ANY OTHER QUESTIONS OR CONCERNS NO . VITAL SIGNS WT 151.2 LBS, HT 70 IN, BMI 21.69 INDEX, BP 121/84 MM HG, HR 63 /MIN, RR 16 /MIN, TEMP 97.6 F, OXYGEN SAT % 92%, NA INITIALS AW 1411, REVIEWED BY: EM. EXAMINATION GENERAL EXAMINATION: GENERALAWAKE,ALERT ,PLEAASANT . PSYCHAFFECT NORMAL . LUNGS:LUNG MARTINEZ ARE CLEAR TO AUSCULTATION BILATERALLY. GOOD MOVEMENT OF AIR . HEART:S1, S2 IN A REGULAR RATE AND RHYTHM. NO SIGNIFICANT MURMURS, RUBS OR GALLOPS NOTED . ASSESSMENTS CERVICAL DISC DISORDER WITH RADICULOPATHY OF CERVICAL REGION - M50.10 (PRIMARY) TREATMENT CERVICAL DISC DISORDER WITH RADICULOPATHY OF CERVICAL REGION REFILL METHADONE HCL TABLET, 10 MG, 2, ORALLY, 2 TAB Q8H MDD6, 30 DAY(S), 180, REFILLS 0 REFILL OXYCODONE HCL TABLET, 5 MG, 1, ORALLY, Q6H PRN MDD4, 30 DAY(S), 120, REFILLS 0 NOTES: ISTOP REGISTRY REVIEWED AND DEMONSTRATES COMPLLIANCE. (REF # ) BRINGS IN MEDICATIONS WHICH IS APPROPRIATE FOR WHAT WAS DISPENSED. RECENT URINE TOXICOLOGY REVIEWED. NO UNAUTHORIZED MEDICATIONS. NO ILLICIT SUBSTANCES AND PRESCRIBED MEDICATIONS WERE PRESENT. , RISKS AND BENEFITS OF NARCOTIC/OPIOD MEDICATIONS WERE REVIEWED WITH PATIENT - THIS INCLUDES BUT IS NOT LIMITED TO RISK OF DEPENDANCE/DEVELOPMENT OF ADDICTION, MOOD DISTURBANCE AND DEPRESSION, OSTEOPOROSIS, HORMONAL AND LABIDAL CHANGES, RESPIRATORY DEPRESSION AND . PATIENT IS ADVISED NOT TO DRIVE OR DRINK ALCOHOL WHILE ON THESE MEDICATIONS. PROCEDURE CODES [id number] ESTABILISHED PATIENT [facility] CHARGE DISPOSITION & COMMUNICATION FOLLOW UP 6 WEEKS ELECTRONICALLY SIGNED BY SANDRA RED ON 09/05/2018 AT 10:55 AM EDT DISCLAIMER : THIS IS A VISIT SUMMARY EXTRACTED FROM THE [employer] CHART. IT IS NOT A COPY OF THE [employer] PROGRESS NOTE. FANNIE
== END ==
LOC: M PAIN 13:30
PROVIDERS: ATTEND Nurse Practitioner Family
DX: M50.10 Cervical disc disorder with radiculopathy, unspecified cervical region (principal); M79.7 Fibromyalgia; M19.90 Unspecified osteoarthritis, unspecified site; I10 Essential (primary) hypertension; F41.9 Anxiety disorder, unspecified; F32.9 Major depressive disorder, single episode, unspecified; F17.210 Nicotine dependence, cigarettes, uncomplicated; Z79.891 Long term (current) use of opiate analgesic; Z79.899 Other long term (current) drug therapy; Z79.82 Long term (current) use of aspirin; Z88.8 Allergy status to other drugs, medicaments and biological substances

== ENCOUNTER → 2018-10-04 | Outpatient (CLI) | payer OTHER ==
[~2018-10-04] MED LIST changes: -OXYB10TA PO; +OXYB10TA2 PO
--- NOTE | 2018-10-26 02:37 | ECWPNPC ---
PATIENT NAME: LORRIE CHAVEZ : 1970 GENDER: FEMALE VISIT DATE: 10/04/2018 DISCHARGE DATE: 10/04/18 1441 VISIT LOCKED DATE TIME: PHYSICIAN: ANÍBAL LANDA RESOURCE: ANÍBAL LANDA REASON FOR APPOINTMENT 1. 6 WEEKS HISTORY OF PRESENT ILLNESS HISTORY OF PRESENT ILLNESS: HERE FOR F/U OF CHRONIC GENERALIZED PAIN.SHE IS VERY TREMULOUS TODAY.HAS HAD CHRONIC BALANCE ISSUES SINCE CVA MANY YEARS AGO.HX OF FREQUENT FALLS AT HOME,LAST FALL 2 WEEKS AGO.REPORTING INCREASE IN GENERALIZED PAIN SINCE FALL.DOESNT REMEBER FALLING AND MAY HAVE LOC PROR TO.RATING PAIN VAS 8-10/10VAS. PAIN THE PATIENT DESCRIBES THE PAIN... FALL RISK SCREENING: SCREENING :NO FALLS REPORTED IN THE LAST YEAR CURRENT MEDICATIONS TAKING VENTOLIN HFA 108 (90 BASE) MCG/ACT AEROSOL SOLUTION 2 PUFFS NEEDED INHALATION EVERY 4 HRS TAKING ALBUTEROL-IPRATROPIUM 1 DOSE 1 SOLUTION INHALED EVERY 2 HOURS NEEDED TAKING ASPIRIN 325 MG TABLET 1 TABLET ORALLY ONCE A DAY TAKING ATORVASTATIN CALCIUM 10 MG TABLET 1 TABLET ORALLY ONCE A DAY TAKING SYNTHROID 125 MCG TABLET 1 TABLET ORALLY ONCE A DAY TAKING LINZESS 290 MCG CAPSULE 1 CAPSULE ORALLY ONCE A DAY TAKING OXYBUTYNIN CHLORIDE ER 10 MG TABLET EXTENDED RELEASE 24 HOUR 1 TABLET ORALLY ONCE A DAY TAKING KLONOPIN 1 MG TABLET 1 TABLET ORALLY DAILY PRN TAKING MUCINEX 600 MG TABLET EXTENDED RELEASE 12 HOUR 1 TABLET NEEDED ORALLY TWICE DAILY NEEDED TAKING UNISOM 25 MG TABLET 1 TABLET AT BEDTIME NEEDED ORALLY ONCE A DAY TAKING PAXIL 40 MG TABLET 1 TABLET IN THE MORNING ORALLY ONCE A DAY TAKING PROMETHAZINE HCL 25 MG TABLET 1 TABLET NEEDED ORALLY EVERY 12 HRS TAKING TRAZODONE HCL 100 MG TABLET 2 TABLET AT BEDTIME ORALLY ONCE A DAY TAKING METHADONE HCL 10 MG TABLET 2 ORALLY 2 TAB Q8H MDD6 TAKING OXYCODONE HCL 5 MG TABLET 1 ORALLY Q6H PRN MDD4 TAKING MENTHOL (TOPICAL ANALGESIC) 7.5 % (ROLL) MISCELLANEOUS 1 APPLICATION TO AFFECTED AREA NEEDED EXTERNALLY THREE TIMES A DAY NOT-TAKING PROCHLORPERAZINE MALEATE 10 MG TABLET 1 TABLET ORALLY NEEDED ONCE PER DAY FOR NAUSEA #15 TAB SHOULD LAST 30 DAYS NOT-TAKING MELATONIN 3 MG TABLET 2 CAPSULE IN THE EVENING NEEDED WITH FOOD ORALLY ONCE A DAY MEDICATION LIST REVIEWED AND RECONCILED WITH THE PATIENT PAST MEDICAL HISTORY ASTROCYTOMA STROKES 2008 TIAS [id number] OSTEO ARTHRITIS (DEGENERATIVE) DDD FIBROMYALGIA [place] CARPAL SOHA HYPERTENSION ANXIETY/DEPRESSION NUMEROUS HEAD TRAUMAS BROKEN TEETH FLU-TYPE A MENINGITIS-TYPE B ALLERGIES VIIBRYD: MANIC BEHAVIOR - SIDE EFFECTS LYRICA: LOSS OF BALANCE - SIDE EFFECTS GABAPENTIN: LOSS OF BALANCE - SIDE EFFECTS BUSPAR: LOSS OF BALANCE - SIDE EFFECTS SURGICAL HISTORY OSTEO CHONDROMA 1981 LEFT KNEE REPAIR D&C PARTIAL CRANIOTOMY RECONSRTUCTION OF LEFT ANKLE HARDWARE REMOVED FROM LEFT ANKLE 08/13/15 UPPER TEETH REMOVAL 12/2017 FAMILY HISTORY FATHER: , DIAGNOSED WITH UNSPECIFIED HEART DISEASE, OTHER SPECIFIED CONDITIONS INFLUENCING HEALTH STATUS MOTHER: ALIVE, DIABETES, UNSPECIFIED CEREBRAL ARTERY OCCLUSION WITH CEREBRAL INFARCTION 3 SON(S) - HEALTHY. FATHER-PARKINSON\NMOM-DIABETIC DEPENDING ON HER WT\N1 SON AFIB. SOCIAL HISTORY GENERAL: TOBACCO USE ARE YOU A:CURRENT SMOKER HOW MANY CIGARETTES A DAY DO YOU SMOKE?6-10 ARE YOU INTERESTED IN QUITTING?THINKING ABOUT QUITTING STATES SHE IS DOWN TO HALF A PACK A DAY. PATIENT COUNSELED ON THE DANGERS OF TOBACCO USE AND URGED TO QUIT:08/16/2018 COUNSELED THE PATIENT ON SMOKING CESSATION, EDUCATION [id number]/10/2019 EDUCATION LEVEL OF EDUCATION:NOT FINISHED HIGH SCHOOL GED LANGUAGE LANGUAGES SPOKEN:BENGAL[place] DOMESTIC VIOLENCE DO YOU FEEL SAFE IN YOUR ENVIRONMENT?YES NEW PATIENT PAIN DIARY TODAY'S VISITNOTES RECREATIONAL DRUG USE DRUG USE?NO LEARNING BARRIERS / SPECIAL NEEDS CHANGE FROM LAST VISIT? PT STATES THAT SHE FELL AT HOME, GETTING OUT OF BED IN MIDDLE OF NIGHT, JAMMED NECK. BARRIERS TO LEARNING?YES COMMENTS HAS TROULBLE REMEMBER THINGS AT TIMES DUE TO NEIL TUMOR, STROKE AND TIA ALONG WITH MENINGITIS HEARING IMPAIRED?NO VISION IMPAIRED?YES COGNITIVELY IMPAIRED?YES HAS TROUBLE REMEMBERING THINGS AT TIMES STATED ABOVE :CORRECTIVE LENSES READINESS TO LEARN?YES LEARNING PREFERENCES?NO LEARNING CAPABILITIES PRESENT?YES EMOTIONAL BARRIERS?NO SPECIAL DEVICES?YES :CANE, WALKER, OTHER ASSISTANCE OF ANOTHER PERSON, NEEDED OYSTER CULTIVATOR NEEDED?NO PAIN CLINIC PFS, CLERGY, PUBLIC HEALTH REFERRALS PFS REFERRAL NEEDED?NO CLERGY REFERRAL NEEDED?NO PUBLIC HEALTH REFERRAL NEEDED?NO WAS THE PROVIDER NOTIFIED OF ANY PERTINENT INFO? N/A HAS THE PATIENT BEEN EDUCATED REGARDING HIS/HER PLAN OF CARE?YES HAS THE PATIENT BEEN EDUCATED REGARDING PAIN, THE RISK FOR PAIN, THE IMPORTANCE OF EFFECTIVE PAIN MANAGEMENT, AND THE PAIN ASSESSMENT PROCESS?YES LATEX QUESTIONNAIRE LATEX ALLERGY : HAVE YOU EVER DEVELOPED ANY TYPE OF REACTION AFTER HANDLING LATEX PRODUCTS SUCH RUBBER GLOVES, CONDOMS, DIAPHRAGMS, BALLOONS, SOCKS, OR UNDERWEAR?NO LATEX ALLERGY : HAVE YOU EVER DEVELOPED ANY TYPE OF REACTION DURING OR AFTER DENTAL APPOINTMENT, VAGINAL/RECTAL EXAMINATION, SURGICAL PROCEDURE, OR ANY OTHER EXPOSURE?NO DATE ASKED : 05/25/2018 LATEX RISK : HAVE YOU EVER HAD ANY DIFFICULTY BREATHING OR HIVES AFTER EATING OR HANDLING ANY FRUITS, OR VEGETABLES; SUCH KIWI, BANANAS, STONE FRUITS, OR CHESTNUTSNO LATEX RISK : DO YOU HAVE A PREVIOUS PERSONAL HISTORY OF MORE THAN NINE SURGERIES, SPINA BIFIDA, OR REPEATED CATHERIZATIONS? NO LATEX RISK : ARE YOU FREQUENTLY EXPOSED TO LATEX PRODUCTS IN YOUR OCCUPATION?NO CAFFEINE CAFFEINE USE?YES HOW OFTEN AND HOW MUCH? 1 POT OF COFFEE AND 6 SODA/DAY ADVANCE DIRECTIVE ADVANCE DIRECTIVE DISCUSSED WITH PATIENT:YES HCP - SHERITA SHARPE AMISH [address] ALCOHOL SCREENING DID YOU HAVE A DRINK CONTAINING ALCOHOL IN THE PAST YEAR?NO POINTS0 INTERPRETATIONNEGATIVE 10/12/17 1150 REVIEWED WITH PT. ADREVIEWED WITH PT 11/12/17 1044 BVREVIEWED WITH PATIENT 12/10/17 1418 JS01/13/18 1354 REVIEWED WITH PT. ADREVIEWED WITH PATIENT 01/31/18 1412 JSREVIEWED WITH PT. 08/16/18 ADREVIEWED WITH PATIENT 04/19/18 1518 JSREVEIWED WITH PATIENT 05/25/18 1326 BVREVIEWED WITH PT 03/31/18 1417 BVREVIEWED WITH PATIENT 03/22/18 1515 LAS. HOSPITALIZATION/MAJOR DIAGNOSTIC PROCEDURE MENINGITIS 1996 CVA 2008 SURGERIES PNEUMONIA REVIEW OF SYSTEMS REVIEWED BY: PROVIDER: ANÍBAL FLORES . CONSTITUTIONAL: ANY CHANGE IN YOUR MEDICAL CONDITION? NO . CHILLS NO . FEVER NO . INFECTION: DO YOU HAVE NEW INFECTIONS? NO . DO YOU HAVE HISTORY OF MRSA? NO . MUSCULOSKELETAL: ANY NEW PATTERNS OF PAIN OR NUMBNESS? YES - PAIN WORSE. . GASTROENTEROLOGY: ANY NEW CHANGE IN BOWEL CONTROL? NO . GENITOURINARY: ANY NEW CHANGE IN BLADDER CONTROL? NO . IS THERE A CHANCE YOU COULD BE ? NO . HEMATOLOGY/LYMPH: DO YOU TAKE ANY BLOOD THINNERS? (FOR EXAMPLE- COUMADIN, PLAVIX, AGGRENOX, PLATEL, PRADAXA, OR XARELTO) NO . WHEN WAS YOUR LAST DOSE? DATE: TIME: . NEUROLOGY: HAVE YOU FALLEN IN THE PAST 12 MONTHS? YES - TWICE RECENTLY . ANY NEW EXTREMITY NUMBNESS OR WEAKNESS? NO . CARDIOLOGY: DO YOU HAVE A PACEMAKER OR DEFIBRILLATOR? NO . RESPIRATORY: HAVE YOU BEEN SICK IN THE PAST WEEK? NO . FEVER NO . FLU LIKE SYMPTOMS? NO . COUGH NO . INTEGUMENTARY: DO YOU HAVE ANY RASHES OR OPEN SORES? NO . ALLERGIC/IMMUNO: ARE YOU ALLERGIC TO IV DYE? NO . ANY NEW ALLERGIES? NO . PSYCHIATRIC: DO YOU HAVE THOUGHTS OF HURTING YOURSELF OR SOMEONE ELSE? NO . ARE YOU ABUSED, NEGLECTED, OR IN AN UNSAFE ENVIRONMENT? NO . ENDOCRINOLOGY: ARE YOU DIABETIC? NO . OTHER: DO YOU NEED ANY PRESCRIPTIONS? YES - BIOFREEZE, OXYCODONE, METHADONE . IF YES, PLEASE LIST: ____ . ANY NEW PROBLEMS WITH YOUR MEDICATIONS? NO . WHEN DID YOU LAST EAT? ____ . WHEN DID YOU LAST DRINK? ____ . WHAT DID YOU LAST DRINK? ____ . NAME OF PERSON DRIVING YOU HOME? ____ . DO YOU HAVE ANY OTHER QUESTIONS OR CONCERNS NO . VITAL SIGNS WT 160.8 LBS, HT 70 IN, BMI 23.07 INDEX, BP 124/81 MM HG, HR 80 /MIN, RR 16 /MIN, TEMP 97.5 F, OXYGEN SAT % 94%, NA INITIALS AW 1337, REVIEWED BY: JANNET. EXAMINATION GENERAL EXAMINATION: LUNGS:LUNG SOUNDS ARE CLEAR . HEART:HEART RATE REGULAR . MUSCULOSKELETAL:*, MUSCLE STRENGTH TESTING 5/5 BILATERAL UPPER EXTREMITIES. . CERVICAL+ FOR PAIN WITH PALPATION OF CERVICAL SPINE. + FOR PAIN WITH PALPATION OF CERVICAL PARASPINALS. . DIAGNOSTIC TESTS REVIEWEDCERVICAL MRI -08/16/17. ASSESSMENTS CERVICAL DISC DISORDER WITH RADICULOPATHY OF CERVICAL REGION - M50.10 (PRIMARY) NEUROPATHY - G62.9 TREATMENT CERVICAL DISC DISORDER WITH RADICULOPATHY OF CERVICAL REGION START TIZANIDINE HCL TABLET, 4 MG, 1 TABLET NEEDED, ORALLY, THREE TIMES A DAY IF NEEDED FOR MUSCLE SPASM PAIN IN NECK, 30 DAYS, 45, REFILLS 1 NOTES: ISTOP REGISTRY REVIEWED AND DEMONSTRATES COMPLLIANCE. DID NOT BRING IN MEDICATION TODAY. RECENT URINE TOXICOLOGY REVIEWED. NO UNAUTHORIZED MEDICATIONS. NO ILLICIT SUBSTANCES AND PRESCRIBED MEDICATIONS WERE PRESENT. URINE TOX TODAY, RISKS AND BENEFITS OF NARCOTIC/OPIOD MEDICATIONS WERE REVIEWED WITH PATIENT - THIS INCLUDES BUT IS NOT LIMITED TO RISK OF DEPENDANCE/DEVELOPMENT OF ADDICTION, MOOD DISTURBANCE AND DEPRESSION, OSTEOPOROSIS, HORMONAL AND LABIDAL CHANGES, RESPIRATORY DEPRESSION AND . PATIENT IS ADVISED NOT TO DRIVE OR DRINK ALCOHOL WHILE ON THESE MEDICATIONS. REFERRAL TO:[facility] REASON:TREMORS,NEUROPATHY HX OF STROKE-FREQUENT FALLS ?SEIZURES PREVENTIVE MEDICINE PAIN CLINIC TEACHING: MEDITATION TIZANIDINE INFORMATION PRINTED AND REVIEWED WITH PATIENT 10/04/18 1424 NLJ. PROCEDURE CODES FA211 ESTABILISHED PATIENT [facility] CHARGE DISPOSITION & COMMUNICATION FOLLOW UP 10/12/18 830 AM NURSING MED COUNT/2/MOS F/U ANÍBAL (REASON: MED MGMNT) ELECTRONICALLY SIGNED BY SANDRA RED ON 10/24/2018 AT 04:00 PM EDT DISCLAIMER : THIS IS A VISIT SUMMARY EXTRACTED FROM THE [employer] CHART. IT IS NOT A COPY OF THE [employer] PROGRESS NOTE. PRATIKD
== END ==
LOC: M PAIN 13:15
PROVIDERS: ATTEND Nurse Practitioner Family
DX: M50.10 Cervical disc disorder with radiculopathy, unspecified cervical region (principal); G62.9 Polyneuropathy, unspecified; G89.29 Other chronic pain; M79.7 Fibromyalgia; I10 Essential (primary) hypertension; Z86.59 Personal history of other mental and behavioral disorders; Z86.73 Personal history of transient ischemic attack (TIA), and cerebral infarction without residual deficits; F17.210 Nicotine dependence, cigarettes, uncomplicated; Z88.8 Allergy status to other drugs, medicaments and biological substances; Z91.81 History of falling; Z79.82 Long term (current) use of aspirin; Z79.891 Long term (current) use of opiate analgesic; Z79.899 Other long term (current) drug therapy

== ENCOUNTER → 2018-10-12 | Outpatient (CLI) | payer OTHER | LOC: M PAIN 13:00 | PROVIDERS: ATTEND Nurse Practitioner Family | DX: M50.10 Cervical disc disorder with radiculopathy, unspecified cervical region (principal); Z53.21 Procedure and treatment not carried out due to patient leaving prior to being seen by health care provider ==

== ENCOUNTER → 2018-12-08 | Outpatient (CLI) | payer OTHER ==
--- NOTE | 2018-12-21 02:30 | ECWPNPC ---
PATIENT NAME: LORRIE CHAVEZ : 1970 GENDER: FEMALE VISIT DATE: 12/08/2018 DISCHARGE DATE: 12/08/18 1518 VISIT LOCKED DATE TIME: PHYSICIAN: ANÍBAL LANDA RESOURCE: ANÍBAL LANDA REASON FOR APPOINTMENT 1. MED MGMT HISTORY OF PRESENT ILLNESS HISTORY OF PRESENT ILLNESS: HERE FOR F/U OF CHRONIC NECK AND LBP.HISTORY OF FREQUENT FALLING.REPORTING INCREASE IN NECK PAIN AND HEADACHES.WILL BE SEEING NEUROLOGY PER OUR REFERRAL NEXT WEEK.RATING PAIN VAS 6-7/10.TIZANIDINE STARTED AT LAST VISIT IS CAUSING SIDE EFECTS OF ANXIETY AND YU INSTRUCTED HER TO STOP THAT TODAY. PAIN THE PATIENT DESCRIBES THE PAIN... FALL RISK SCREENING: SCREENING :NO FALLS REPORTED IN THE LAST YEAR CURRENT MEDICATIONS TAKING TIZANIDINE HCL 4 MG TABLET 1 TABLET NEEDED ORALLY THREE TIMES A DAY IF NEEDED FOR MUSCLE SPASM PAIN IN NECK TAKING METHADONE HCL 10 MG TABLET 2 ORALLY 2 TAB Q8H MDD6 TAKING OXYCODONE HCL 5 MG TABLET 1 ORALLY Q6H PRN MDD4 TAKING VENTOLIN HFA 108 (90 BASE) MCG/ACT AEROSOL SOLUTION 2 PUFFS NEEDED INHALATION EVERY 4 HRS TAKING ALBUTEROL-IPRATROPIUM 1 DOSE 1 SOLUTION INHALED EVERY 2 HOURS NEEDED, NOTES: WHEN NEEDED TAKING ASPIRIN 325 MG TABLET 1 TABLET ORALLY ONCE A DAY TAKING ATORVASTATIN CALCIUM 10 MG TABLET 1 TABLET ORALLY ONCE A DAY TAKING SYNTHROID 125 MCG TABLET 1 TABLET ORALLY ONCE A DAY TAKING LINZESS 290 MCG CAPSULE 1 CAPSULE ORALLY ONCE A DAY TAKING OXYBUTYNIN CHLORIDE ER 10 MG TABLET EXTENDED RELEASE 24 HOUR 1 TABLET ORALLY ONCE A DAY TAKING KLONOPIN 1 MG TABLET 1 TABLET ORALLY DAILY PRN TAKING MUCINEX 600 MG TABLET EXTENDED RELEASE 12 HOUR 1 TABLET NEEDED ORALLY TWICE DAILY NEEDED TAKING UNISOM 25 MG TABLET 1 TABLET AT BEDTIME NEEDED ORALLY ONCE A DAY TAKING PAXIL 40 MG TABLET 1 TABLET IN THE MORNING ORALLY ONCE A DAY TAKING PROMETHAZINE HCL 25 MG TABLET 1 TABLET NEEDED ORALLY EVERY 12 HRS TAKING TRAZODONE HCL 100 MG TABLET 2 TABLET AT BEDTIME ORALLY ONCE A DAY TAKING MENTHOL (TOPICAL ANALGESIC) 7.5 % (ROLL) MISCELLANEOUS 1 APPLICATION TO AFFECTED AREA NEEDED EXTERNALLY THREE TIMES A DAY TAKING PROCHLORPERAZINE MALEATE 10 MG TABLET 1 TABLET ORALLY NEEDED ONCE PER DAY FOR NAUSEA #15 TAB SHOULD LAST 30 DAYS NOT-TAKING MELATONIN 3 MG TABLET 2 CAPSULE IN THE EVENING NEEDED WITH FOOD ORALLY ONCE A DAY MEDICATION LIST REVIEWED AND RECONCILED WITH THE PATIENT PAST MEDICAL HISTORY ASTROCYTOMA STROKES 2008 TIAS [id number] OSTEO ARTHRITIS (DEGENERATIVE) DDD FIBROMYALGIA [place] CARPAL SOHA HYPERTENSION ANXIETY/DEPRESSION NUMEROUS HEAD TRAUMAS BROKEN TEETH FLU-TYPE A MENINGITIS-TYPE B COPD ALLERGIES VIIBRYD: MANIC BEHAVIOR - SIDE EFFECTS LYRICA: LOSS OF BALANCE - SIDE EFFECTS GABAPENTIN: LOSS OF BALANCE - SIDE EFFECTS BUSPAR: LOSS OF BALANCE - SIDE EFFECTS SURGICAL HISTORY OSTEO CHONDROMA 1981 LEFT KNEE REPAIR D&C PARTIAL CRANIOTOMY RECONSRTUCTION OF LEFT ANKLE HARDWARE REMOVED FROM LEFT ANKLE 08/13/15 UPPER TEETH REMOVAL 12/2017 FAMILY HISTORY FATHER: , DIAGNOSED WITH UNSPECIFIED HEART DISEASE, OTHER SPECIFIED CONDITIONS INFLUENCING HEALTH STATUS MOTHER: ALIVE, DIABETES, UNSPECIFIED CEREBRAL ARTERY OCCLUSION WITH CEREBRAL INFARCTION 3 SON(S) - HEALTHY. FATHER-PARKINSON\NMOM-DIABETIC DEPENDING ON HER WT\N1 SON AFIB. SOCIAL HISTORY GENERAL: TOBACCO USE ARE YOU A:CURRENT SMOKER ARE YOU INTERESTED IN QUITTING?THINKING ABOUT QUITTING STATES SHE IS DOWN TO HALF A PACK A DAY. COUNSELED THE PATIENT ON SMOKING CESSATION, EDUCATION [id number]/10/2019 HOW MANY CIGARETTES A DAY DO YOU SMOKE?6-10 PATIENT COUNSELED ON THE DANGERS OF TOBACCO USE AND URGED TO QUIT:08/16/2018 EDUCATION LEVEL OF EDUCATION:NOT FINISHED HIGH SCHOOL GED LANGUAGE LANGUAGES SPOKEN:[place]URKISH DOMESTIC VIOLENCE DO YOU FEEL SAFE IN YOUR ENVIRONMENT?YES NEW PATIENT PAIN DIARY TODAY'S VISITNOTES RECREATIONAL DRUG USE DRUG USE?NO LEARNING BARRIERS / SPECIAL NEEDS CHANGE FROM LAST VISIT? PT STATES THAT SHE FELL AT HOME, GETTING OUT OF BED IN MIDDLE OF NIGHT, JAMMED NECK. BARRIERS TO LEARNING?YES COMMENTS HAS TROULBLE REMEMBER THINGS AT TIMES DUE TO NEIL TUMOR, STROKE AND TIA ALONG WITH MENINGITIS HEARING IMPAIRED?NO VISION IMPAIRED?YES COGNITIVELY IMPAIRED?YES HAS TROUBLE REMEMBERING THINGS AT TIMES STATED ABOVE :CORRECTIVE LENSES READINESS TO LEARN?YES LEARNING PREFERENCES?NO LEARNING CAPABILITIES PRESENT?YES EMOTIONAL BARRIERS?NO SPECIAL DEVICES?YES :CANE, WALKER, OTHER ASSISTANCE OF ANOTHER PERSON, NEEDED MAITRE D' NEEDED?NO PAIN CLINIC PFS, CLERGY, PUBLIC HEALTH REFERRALS PFS REFERRAL NEEDED?NO CLERGY REFERRAL NEEDED?NO PUBLIC HEALTH REFERRAL NEEDED?NO WAS THE PROVIDER NOTIFIED OF ANY PERTINENT INFO? N/A HAS THE PATIENT BEEN EDUCATED REGARDING HIS/HER PLAN OF CARE?YES HAS THE PATIENT BEEN EDUCATED REGARDING PAIN, THE RISK FOR PAIN, THE IMPORTANCE OF EFFECTIVE PAIN MANAGEMENT, AND THE PAIN ASSESSMENT PROCESS?YES LATEX QUESTIONNAIRE LATEX ALLERGY : HAVE YOU EVER DEVELOPED ANY TYPE OF REACTION AFTER HANDLING LATEX PRODUCTS SUCH RUBBER GLOVES, CONDOMS, DIAPHRAGMS, BALLOONS, SOCKS, OR UNDERWEAR?NO LATEX ALLERGY : HAVE YOU EVER DEVELOPED ANY TYPE OF REACTION DURING OR AFTER DENTAL APPOINTMENT, VAGINAL/RECTAL EXAMINATION, SURGICAL PROCEDURE, OR ANY OTHER EXPOSURE?NO LATEX RISK : HAVE YOU EVER HAD ANY DIFFICULTY BREATHING OR HIVES AFTER EATING OR HANDLING ANY FRUITS, OR VEGETABLES; SUCH KIWI, BANANAS, STONE FRUITS, OR CHESTNUTSNO LATEX RISK : DO YOU HAVE A PREVIOUS PERSONAL HISTORY OF MORE THAN NINE SURGERIES, SPINA BIFIDA, OR REPEATED CATHERIZATIONS? NO LATEX RISK : ARE YOU FREQUENTLY EXPOSED TO LATEX PRODUCTS IN YOUR OCCUPATION?NO DATE ASKED : 05/25/2018 CAFFEINE CAFFEINE USE?YES HOW OFTEN AND HOW MUCH? 1 POT OF COFFEE AND 6 SODA/DAY ADVANCE DIRECTIVE ADVANCE DIRECTIVE DISCUSSED WITH PATIENT:YES HCP - SHERITA SHARPE [id number] [place] [id number] ALCOHOL SCREENING DID YOU HAVE A DRINK CONTAINING ALCOHOL IN THE PAST YEAR?NO POINTS0 INTERPRETATIONNEGATIVE 10/12/17 1150 REVIEWED WITH PT. BELENIEWED WITH PT 11/12/17 1044 BVREVIEWED WITH PATIENT 12/10/17 1418 JS01/13/18 1354 REVIEWED WITH PT. ADREVIEWED WITH PATIENT 01/31/18 1412 JSREVIEWED WITH PT. 08/16/18 ADREVIEWED WITH PATIENT 04/19/18 1518 JSREVEIWED WITH PATIENT 05/25/18 1326 BVREVIEWED WITH PT 03/31/18 1417 BVREVIEWED WITH PATIENT 03/22/18 1515 LAS. HOSPITALIZATION/MAJOR DIAGNOSTIC PROCEDURE MENINGITIS 1996 CVA 2008 SURGERIES PNEUMONIA REVIEW OF SYSTEMS REVIEWED BY: PROVIDER: ANÍBAL FLORES . CONSTITUTIONAL: ANY CHANGE IN YOUR MEDICAL CONDITION? YES DX OF COPD . CHILLS NO . FEVER NO . INFECTION: DO YOU HAVE NEW INFECTIONS? NO . DO YOU HAVE HISTORY OF MRSA? NO . MUSCULOSKELETAL: ANY NEW PATTERNS OF PAIN OR NUMBNESS? YES . GASTROENTEROLOGY: ANY NEW CHANGE IN BOWEL CONTROL? NO . GENITOURINARY: ANY NEW CHANGE IN BLADDER CONTROL? NO . IS THERE A CHANCE YOU COULD BE ? NO . HEMATOLOGY/LYMPH: DO YOU TAKE ANY BLOOD THINNERS? (FOR EXAMPLE- COUMADIN, PLAVIX, AGGRENOX, PLATEL, PRADAXA, OR XARELTO) NO . WHEN WAS YOUR LAST DOSE? DATE: TIME: . NEUROLOGY: HAVE YOU FALLEN IN THE PAST 12 MONTHS? YES . ANY NEW EXTREMITY NUMBNESS OR WEAKNESS? NO . CARDIOLOGY: DO YOU HAVE A PACEMAKER OR DEFIBRILLATOR? NO . RESPIRATORY: HAVE YOU BEEN SICK IN THE PAST WEEK? NO . FEVER NO . FLU LIKE SYMPTOMS? NO . COUGH NO . INTEGUMENTARY: DO YOU HAVE ANY RASHES OR OPEN SORES? NO . ALLERGIC/IMMUNO: ARE YOU ALLERGIC TO IV DYE? NO . ANY NEW ALLERGIES? NO . PSYCHIATRIC: DO YOU HAVE THOUGHTS OF HURTING YOURSELF OR SOMEONE ELSE? NO . ARE YOU ABUSED, NEGLECTED, OR IN AN UNSAFE ENVIRONMENT? NO . ENDOCRINOLOGY: ARE YOU DIABETIC? NO . OTHER: DO YOU NEED ANY PRESCRIPTIONS? NO . IF YES, PLEASE LIST: ____ . ANY NEW PROBLEMS WITH YOUR MEDICATIONS? NO . WHEN DID YOU LAST EAT? ____ . WHEN DID YOU LAST DRINK? ____ . WHAT DID YOU LAST DRINK? ____ . NAME OF PERSON DRIVING YOU HOME? ____ . DO YOU HAVE ANY OTHER QUESTIONS OR CONCERNS NO . VITAL SIGNS WT 154 LBS, HT 70 IN, BMI 22.09 INDEX, BP 115/66 MM HG, HR 77 /MIN, RR 16 /MIN, TEMP 99.3 F, OXYGEN SAT % 95%, SAFE IN ENV? (Y/N) YES, NA INITIALS SC 14:28, REVIEWED BY: KG. EXAMINATION GENERAL EXAMINATION: GENERAL AWAKE,ALERT ,PLEASANT . PSYCH AFFECT NORMAL . LUNGS: LUNG MARTINEZ ARE CLEAR TO AUSCULTATION BILATERALLY. GOOD MOVEMENT OF AIR . HEART: S1, S2 IN A REGULAR RATE AND RHYTHM. NO SIGNIFICANT MURMURS, RUBS OR GALLOPS NOTED . ASSESSMENTS CENTRAL PAIN SYNDROME - G89.0 (PRIMARY) TREATMENT CENTRAL PAIN SYNDROME CONTINUE METHADONE HCL TABLET, 10 MG, 2, ORALLY, 2 TAB Q8H MDD6 STOP TIZANIDINE HCL TABLET, 4 MG, 1 TABLET NEEDED, ORALLY, THREE TIMES A DAY IF NEEDED FOR MUSCLE SPASM PAIN IN NECK CONTINUE OXYCODONE HCL TABLET, 5 MG, 1, ORALLY, Q6H PRN MDD4 NOTES: ISTOP REGISTRY REVIEWED AND DEMONSTRATES COMPLLIANCE. BRINGS IN MEDICATIONS WHICH IS APPROPRIATE FOR WHAT WAS DISPENSED. RECENT URINE TOXICOLOGY REVIEWED. NO UNAUTHORIZED MEDICATIONS. NO ILLICIT SUBSTANCES AND PRESCRIBED MEDICATIONS WERE PRESENT. , RISKS OF NARCOTIC/OPIOD MEDICATIONS INCLUDES BUT IS NOT LIMITED TO RISK OF DEPENDANCE/DEVELOPMENT OF ADDICTION, MOOD DISTURBANCE AND DEPRESSION, OSTEOPOROSIS, HORMONAL AND LABIDAL CHANGES, RESPIRATORY DEPRESSION AND . PATIENT IS ADVISED NOT TO DRIVE OR DRINK ALCOHOL WHILE ON THESE MEDICATIONS. PROCEDURE CODES FA211 ESTABILISHED PATIENT [facility] CHARGE DISPOSITION & COMMUNICATION FOLLOW UP 4-6WKS F/U ELECTRONICALLY SIGNED BY SANDRA RED ON 12/20/2018 AT 03:51 PM EST DISCLAIMER : THIS IS A VISIT SUMMARY EXTRACTED FROM THE [employer] CHART. IT IS NOT A COPY OF THE [employer] PROGRESS NOTE. FANNIE
== END ==
LOC: M PAIN 14:15
PROVIDERS: ATTEND Nurse Practitioner Family
DX: G89.0 Central pain syndrome (principal); G89.29 Other chronic pain; Z86.73 Personal history of transient ischemic attack (TIA), and cerebral infarction without residual deficits; M79.7 Fibromyalgia; I10 Essential (primary) hypertension; Z86.59 Personal history of other mental and behavioral disorders; J44.9 Chronic obstructive pulmonary disease, unspecified; F17.210 Nicotine dependence, cigarettes, uncomplicated; Z88.8 Allergy status to other drugs, medicaments and biological substances; Z79.891 Long term (current) use of opiate analgesic; Z79.899 Other long term (current) drug therapy

== ENCOUNTER → 2019-01-19 | Outpatient (CLI) | payer OTHER ==
[~2019-01-19] MED LIST changes: +CLON0.5T2 PO; +INCR1INH INH; +PARO40TA2 PO; +PRED10TA2 PO; +TIZA4TAB4 PO
--- NOTE | 2019-02-07 04:12 | ECWPNPC ---
PATIENT NAME: LORRIE CHAVEZ : 1970 GENDER: FEMALE VISIT DATE: 01/19/2019 DISCHARGE DATE: 01/19/19 1521 VISIT LOCKED DATE TIME: PHYSICIAN: ANÍBAL LANDA RESOURCE: ANÍBAL LANDA REASON FOR APPOINTMENT 1. CHRONIC PAIN HISTORY OF PRESENT ILLNESS HISTORY OF PRESENT ILLNESS: HERE FOR F/U OF CHRONIC GENERALIZED BACK PAIN.RATING PAIN VAS 7/10.DIDNT GO TO NEUROLOGY PER OUR REFERRAL .STATES SHE DIDNT FEEL LIKE IT.I HAD SENT HER THERE DUE TO HER HX OF FREQUENT FALLING.ABNORMAL UTOX IS REVIEWED.HYDROCODONE IS PRESENT IN URINE AND SHE IS NOT PRESCRIBED THIS.STATES SHE HAD OLD PRESCRIPTION AT HOME AND TOOK SOME FOR TOOTH PAIN.INFORMED HER THIS WAS A VIOLATION OF OUR NARCOTIC AGREEMENT.I TOLD HER THAT WE WOULD BE REPEATING UTOX AND IF ABNORMAL IN FUTURE WE WOULD BE DISCONTINUING NARCOTIC MEDICATION. PAIN THE PATIENT DESCRIBES THE PAIN... FALL RISK SCREENING: SCREENING :NO FALLS REPORTED IN THE LAST YEAR CURRENT MEDICATIONS TAKING VENTOLIN HFA 108 (90 BASE) MCG/ACT AEROSOL SOLUTION 2 PUFFS NEEDED INHALATION EVERY 4 HRS TAKING ALBUTEROL-IPRATROPIUM 1 DOSE 1 SOLUTION INHALED EVERY 2 HOURS NEEDED, NOTES: WHEN NEEDED TAKING ASPIRIN 325 MG TABLET 1 TABLET ORALLY ONCE A DAY TAKING ATORVASTATIN CALCIUM 10 MG TABLET 1 TABLET ORALLY ONCE A DAY TAKING SYNTHROID 125 MCG TABLET 1 TABLET ORALLY ONCE A DAY TAKING LINZESS 290 MCG CAPSULE 1 CAPSULE ORALLY ONCE A DAY TAKING OXYBUTYNIN CHLORIDE ER 10 MG TABLET EXTENDED RELEASE 24 HOUR 1 TABLET ORALLY ONCE A DAY TAKING KLONOPIN 1 MG TABLET 1 TABLET ORALLY DAILY PRN TAKING MUCINEX 600 MG TABLET EXTENDED RELEASE 12 HOUR 1 TABLET NEEDED ORALLY TWICE DAILY NEEDED TAKING UNISOM 25 MG TABLET 1 TABLET AT BEDTIME NEEDED ORALLY ONCE A DAY TAKING PAXIL 40 MG TABLET 1 TABLET IN THE MORNING ORALLY ONCE A DAY TAKING PROMETHAZINE HCL 25 MG TABLET 1 TABLET NEEDED ORALLY EVERY 12 HRS TAKING TRAZODONE HCL 100 MG TABLET 2 TABLET AT BEDTIME ORALLY ONCE A DAY TAKING MENTHOL (TOPICAL ANALGESIC) 7.5 % (ROLL) MISCELLANEOUS 1 APPLICATION TO AFFECTED AREA NEEDED EXTERNALLY THREE TIMES A DAY TAKING METHADONE HCL 10 MG TABLET 2 ORALLY 2 TAB Q8H MDD6 TAKING OXYCODONE HCL 5 MG TABLET 1 ORALLY Q6H PRN MDD4 TAKING TIZANIDINE HCL 4 MG TABLET 1 TABLET NEEDED ORALLY THREE TIMES A DAY IF NEEDED FOR MUSCLE SPASM PAIN IN NECK NOT-TAKING PROCHLORPERAZINE MALEATE 10 MG TABLET 1 TABLET ORALLY NEEDED ONCE PER DAY FOR NAUSEA #15 TAB SHOULD LAST 30 DAYS NOT-TAKING MELATONIN 3 MG TABLET 2 CAPSULE IN THE EVENING NEEDED WITH FOOD ORALLY ONCE A DAY MEDICATION LIST REVIEWED AND RECONCILED WITH THE PATIENT PAST MEDICAL HISTORY ASTROCYTOMA STROKES 2008 TIAS [id number] OSTEO ARTHRITIS (DEGENERATIVE) DDD FIBROMYALGIA [place] CARPAL SOHA HYPERTENSION ANXIETY/DEPRESSION NUMEROUS HEAD TRAUMAS BROKEN TEETH FLU-TYPE A MENINGITIS-TYPE B COPD ALLERGIES [id number]: MANIC BEHAVIOR - SIDE EFFECTS LYRICA: LOSS OF BALANCE - SIDE EFFECTS GABAPENTIN: LOSS OF BALANCE - SIDE EFFECTS BUSPAR: LOSS OF BALANCE - SIDE EFFECTS SURGICAL HISTORY OSTEO CHONDROMA 1981 LEFT KNEE REPAIR D&C PARTIAL CRANIOTOMY RECONSRTUCTION OF LEFT ANKLE HARDWARE REMOVED FROM LEFT ANKLE 08/13/15 UPPER TEETH REMOVAL 12/2017 FAMILY HISTORY FATHER: , DIAGNOSED WITH UNSPECIFIED HEART DISEASE, OTHER SPECIFIED CONDITIONS INFLUENCING HEALTH STATUS MOTHER: ALIVE, DIABETES, UNSPECIFIED CEREBRAL ARTERY OCCLUSION WITH CEREBRAL INFARCTION 3 SON(S) - HEALTHY. FATHER-PARKINSON\NMOM-DIABETIC DEPENDING ON HER WT\N1 SON AFIB. SOCIAL HISTORY GENERAL: TOBACCO USE ARE YOU A:CURRENT SMOKER ARE YOU INTERESTED IN QUITTING?THINKING ABOUT QUITTING STATES SHE IS DOWN TO HALF A PACK A DAY. COUNSELED THE PATIENT ON SMOKING CESSATION, EDUCATION [id number]/05/2019 HOW MANY CIGARETTES A DAY DO YOU SMOKE?6-10 PATIENT COUNSELED ON THE DANGERS OF TOBACCO USE AND URGED TO QUIT:01/19/2019 EDUCATION LEVEL OF EDUCATION:NOT FINISHED HIGH SCHOOL GED LANGUAGE LANGUAGES SPOKEN:GREENLANDIC DOMESTIC VIOLENCE DO YOU FEEL SAFE IN YOUR ENVIRONMENT?YES NEW PATIENT PAIN DIARY TODAY'S VISITNOTES RECREATIONAL DRUG USE DRUG USE?NO LEARNING BARRIERS / SPECIAL NEEDS CHANGE FROM LAST VISIT? PT STATES THAT SHE FELL AT HOME, GETTING OUT OF BED IN MIDDLE OF NIGHT, JAMMED NECK. BARRIERS TO LEARNING?YES COMMENTS HAS TROULBLE REMEMBER THINGS AT TIMES DUE TO NEIL TUMOR, STROKE AND TIA ALONG WITH MENINGITIS HEARING IMPAIRED?NO VISION IMPAIRED?YES COGNITIVELY IMPAIRED?YES HAS TROUBLE REMEMBERING THINGS AT TIMES STATED ABOVE :CORRECTIVE LENSES READINESS TO LEARN?YES LEARNING PREFERENCES?NO LEARNING CAPABILITIES PRESENT?YES EMOTIONAL BARRIERS?NO SPECIAL DEVICES?YES :CANE, WALKER, OTHER ASSISTANCE OF ANOTHER PERSON, NEEDED LONGWALL SHEARER OPERATOR NEEDED?NO PAIN CLINIC PFS, CLERGY, PUBLIC HEALTH REFERRALS PFS REFERRAL NEEDED?NO CLERGY REFERRAL NEEDED?NO PUBLIC HEALTH REFERRAL NEEDED?NO WAS THE PROVIDER NOTIFIED OF ANY PERTINENT INFO? N/A HAS THE PATIENT BEEN EDUCATED REGARDING HIS/HER PLAN OF CARE?YES HAS THE PATIENT BEEN EDUCATED REGARDING PAIN, THE RISK FOR PAIN, THE IMPORTANCE OF EFFECTIVE PAIN MANAGEMENT, AND THE PAIN ASSESSMENT PROCESS?YES LATEX QUESTIONNAIRE LATEX ALLERGY : HAVE YOU EVER DEVELOPED ANY TYPE OF REACTION AFTER HANDLING LATEX PRODUCTS SUCH RUBBER GLOVES, CONDOMS, DIAPHRAGMS, BALLOONS, SOCKS, OR UNDERWEAR?NO LATEX ALLERGY : HAVE YOU EVER DEVELOPED ANY TYPE OF REACTION DURING OR AFTER DENTAL APPOINTMENT, VAGINAL/RECTAL EXAMINATION, SURGICAL PROCEDURE, OR ANY OTHER EXPOSURE?NO LATEX RISK : HAVE YOU EVER HAD ANY DIFFICULTY BREATHING OR HIVES AFTER EATING OR HANDLING ANY FRUITS, OR VEGETABLES; SUCH KIWI, BANANAS, STONE FRUITS, OR CHESTNUTSNO LATEX RISK : DO YOU HAVE A PREVIOUS PERSONAL HISTORY OF MORE THAN NINE SURGERIES, SPINA BIFIDA, OR REPEATED CATHERIZATIONS? NO LATEX RISK : ARE YOU FREQUENTLY EXPOSED TO LATEX PRODUCTS IN YOUR OCCUPATION?NO DATE ASKED : 05/25/2018 CAFFEINE CAFFEINE USE?YES HOW OFTEN AND HOW MUCH? 1 POT OF COFFEE AND 6 SODA/DAY ADVANCE DIRECTIVE ADVANCE DIRECTIVE DISCUSSED WITH PATIENT:YES HCP - SHERITA SHARPE [id number] [place] [address] ALCOHOL SCREENING DID YOU HAVE A DRINK CONTAINING ALCOHOL IN THE PAST YEAR?NO POINTS0 INTERPRETATIONNEGATIVE 10/12/17 1150 REVIEWED WITH PT. ADREVIEWED WITH PT 11/12/17 1044 BVREVIEWED WITH PATIENT 12/10/17 1418 JS01/13/18 1354 REVIEWED WITH PT. ADREVIEWED WITH PATIENT 01/31/18 1412 JSREVIEWED WITH PT. 08/16/18 ADREVIEWED WITH PATIENT 04/19/18 1518 JSREVEIWED WITH PATIENT 05/25/18 1326 BVREVIEWED WITH PT 03/31/18 1417 BVREVIEWED WITH PATIENT 03/22/18 1515 LASREVIEWED WITH PATIENT 01/19/19 1449 JS. HOSPITALIZATION/MAJOR DIAGNOSTIC PROCEDURE MENINGITIS 1996 CVA 2008 SURGERIES PNEUMONIA REVIEW OF SYSTEMS REVIEWED BY: PROVIDER: ANÍBAL FLORES . CONSTITUTIONAL: ANY CHANGE IN YOUR MEDICAL CONDITION? NO . CHILLS NO . FEVER NO . INFECTION: DO YOU HAVE NEW INFECTIONS? NO . DO YOU HAVE HISTORY OF MRSA? NO . MUSCULOSKELETAL: ANY NEW PATTERNS OF PAIN OR NUMBNESS? NO . GASTROENTEROLOGY: ANY NEW CHANGE IN BOWEL CONTROL? NO . GENITOURINARY: ANY NEW CHANGE IN BLADDER CONTROL? NO . IS THERE A CHANCE YOU COULD BE ? NO . HEMATOLOGY/LYMPH: DO YOU TAKE ANY BLOOD THINNERS? (FOR EXAMPLE- COUMADIN, PLAVIX, AGGRENOX, PLATEL, PRADAXA, OR XARELTO) NO . WHEN WAS YOUR LAST DOSE? DATE: TIME: . NEUROLOGY: HAVE YOU FALLEN IN THE PAST 12 MONTHS? YES, STATES PRIOR TO LAST VISIT, DISCUSSED A PREVIOUS VISIT . ANY NEW EXTREMITY NUMBNESS OR WEAKNESS? NO . CARDIOLOGY: DO YOU HAVE A PACEMAKER OR DEFIBRILLATOR? NO . RESPIRATORY: HAVE YOU BEEN SICK IN THE PAST WEEK? NO . FEVER NO . FLU LIKE SYMPTOMS? NO . COUGH NO . INTEGUMENTARY: DO YOU HAVE ANY RASHES OR OPEN SORES? NO . ALLERGIC/IMMUNO: ARE YOU ALLERGIC TO IV DYE? NO . ANY NEW ALLERGIES? NO . PSYCHIATRIC: DO YOU HAVE THOUGHTS OF HURTING YOURSELF OR SOMEONE ELSE? NO . ARE YOU ABUSED, NEGLECTED, OR IN AN UNSAFE ENVIRONMENT? NO . ENDOCRINOLOGY: ARE YOU DIABETIC? NO . OTHER: DO YOU NEED ANY PRESCRIPTIONS? YES, STATES LATER IN THE MONTH . IF YES, PLEASE LIST: ____ . ANY NEW PROBLEMS WITH YOUR MEDICATIONS? NO . WHEN DID YOU LAST EAT? ____ . WHEN DID YOU LAST DRINK? ____ . WHAT DID YOU LAST DRINK? ____ . NAME OF PERSON DRIVING YOU HOME? ____ . DO YOU HAVE ANY OTHER QUESTIONS OR CONCERNS YES, WOULD LIKE TO DISCUSS INJECTIONS FOR THE NECK, POSSIBLY AN EPIDURAL . VITAL SIGNS WT 156.4 LBS, HT 70 IN, BMI 22.44 INDEX, BP 122/61 MM HG, HR 78 /MIN, RR 16 /MIN, TEMP 99.0 F, OXYGEN SAT % 92%, SAFE IN ENV? (Y/N) YES, NA INITIALS TN 14:41, REVIEWED BY: TOMY. EXAMINATION GENERAL EXAMINATION: GENERAL AWAKE,ALERT ,PLEASANT . PSYCH AFFECT NORMAL . LUNGS: LUNG MARTINEZ ARE CLEAR TO AUSCULTATION BILATERALLY. GOOD MOVEMENT OF AIR . HEART: S1, S2 IN A REGULAR RATE AND RHYTHM. NO SIGNIFICANT MURMURS, RUBS OR GALLOPS NOTED . ASSESSMENTS CENTRAL PAIN SYNDROME - G89.0 (PRIMARY) TREATMENT CENTRAL PAIN SYNDROME REFILL METHADONE HCL TABLET, 10 MG, 2, ORALLY, 2 TAB Q8H MDD6, 30 DAYS, 180, REFILLS 0 REFILL OXYCODONE HCL TABLET, 5 MG, 1, ORALLY, Q6H PRN MDD4, 30 DAYS, 120, REFILLS 0 CONTINUE TIZANIDINE HCL TABLET, 4 MG, 1 TABLET NEEDED, ORALLY, THREE TIMES A DAY IF NEEDED FOR MUSCLE SPASM PAIN IN NECK NOTES: ISTOP REGISTRY REVIEWED AND DEMONSTRATES COMPLLIANCE. BRINGS IN MEDICATIONS WHICH IS APPROPRIATE FOR WHAT WAS DISPENSED. RECENT URINE TOXICOLOGY REVIEWED. SHOWING POSITIVE FOR HYDROCODONE WHICH PATIENT STATES SHE WAS TAKING FOR TOOTH PAIN, RISKS OF NARCOTIC/OPIOD MEDICATIONS INCLUDES BUT IS NOT LIMITED TO RISK OF DEPENDANCE/DEVELOPMENT OF ADDICTION, MOOD DISTURBANCE AND DEPRESSION, OSTEOPOROSIS, HORMONAL AND LABIDAL CHANGES, RESPIRATORY DEPRESSION AND . PATIENT IS ADVISED NOT TO DRIVE OR DRINK ALCOHOL WHILE ON THESE MEDICATIONS. PROCEDURE CODES FA211 ESTABILISHED PATIENT LOCATED WITHIN [facility] CHARGE DISPOSITION & COMMUNICATION FOLLOW UP 4-6 WKS ELECTRONICALLY SIGNED BY SANDRA RED ON 02/06/2019 AT 01:36 PM EST DISCLAIMER : THIS IS A VISIT SUMMARY EXTRACTED FROM THE [employer] CHART. IT IS NOT A COPY OF THE [employer] PROGRESS NOTE. FANNIE
== END ==
LOC: M PAIN 14:15
PROVIDERS: ATTEND Nurse Practitioner Family
DX: G89.0 Central pain syndrome (principal); G89.29 Other chronic pain; Z86.73 Personal history of transient ischemic attack (TIA), and cerebral infarction without residual deficits; M79.7 Fibromyalgia; I10 Essential (primary) hypertension; Z86.59 Personal history of other mental and behavioral disorders; J44.9 Chronic obstructive pulmonary disease, unspecified; F17.210 Nicotine dependence, cigarettes, uncomplicated; Z88.8 Allergy status to other drugs, medicaments and biological substances; Z79.82 Long term (current) use of aspirin; Z79.891 Long term (current) use of opiate analgesic; Z79.899 Other long term (current) drug therapy

== ENCOUNTER 2019-02-01 10:10 | Inpatient (IN) | payer OTHER ==
[~2019-02-01] VITALS: Ht 177.8 cm; Wt 68.0 kg
[2019-02-01] MEDS: LEVOTHYROXINE 125MCG TABLET (0.125MG) PO SCH (06:00)
[~2019-02-01 10:10] MED LIST changes: -CLON0.5T2 PO; -INCR1INH INH; -PARO40TA2 PO; -TIZA4TAB4 PO
[2019-02-01] MEDS ORDERED: methylPREDNISolone INJ 125 MG/2 ML VIAL (J2930) IV ONE (10:30)
[2019-02-01] MEDS ORDERED: TRAZ-163 PO (10:32)
[2019-02-01] MEDS ORDERED: INCR1INH INH (10:32)
[2019-02-01] MEDS ORDERED: TIZA4TAB4 PO (10:32)
[2019-02-01] MEDS ORDERED: NS 1,000 ML IV ONE (10:45)
[2019-02-01 10:48] LABS: VENOUS BASE EXCESS 7.4 (-2.0-2.0); VENOUS HCO3 33.3 MEQ/L (23.0-27.0); VENOUS O2 SATURATION 74.5 % (60.0-80.0); VENOUS PARTIAL PRESSURE CO2 51.2 mmHg (38.0-50.0); VENOUS PARTIAL PRESSURE O2 39.2 mmHg (30.0-50.0); VENOUS PH 7.431 UNITS (7.330-7.430); VENOUS STANDARD HCO3 30.5 MEQ/L; VENOUS TOTAL CO2 34.9 MEQ/L (24.0-28.0)
[2019-02-01 10:53] LABS: BASO % 0.3 % (0.0-1.0); HEMATOCRIT 46.6 % (36.0-47.0); LYMPH # 0.4 10^3/uL (1.5-5.0); LYMPH % 4.4 % (24.0-44.0); MEAN CORPUSCULAR HEMOGLOBIN 29.1 pg (27.0-33.0); MEAN CORPUSCULAR HGB CONC 32.2 g/dl (32.0-36.5); MEAN CORPUSCULAR VOLUME 90.5 fl (80.0-96.0); MONO # 0.3 10^3/uL (0.0-0.8); MONO % 3.3 % (0.0-5.0); NEUTROPHILS # 8.4 10^3/uL (1.5-8.5); NEUTROPHILS % 90.9 % (36.0-66.0); PLATELET COUNT, AUTOMATED 171 10^3/uL (150-450); RED BLOOD COUNT 5.15 10^6/uL (4.00-5.40); WHITE BLOOD COUNT 9.3 10^3/uL (4.0-10.0)
[2019-02-01] MEDS: IPRATROPIUM 0.5MG/ALBUTEROL 2.5MG INH SOL UD 3ML (DUONEB)(J7620) NEB PRN ×2 (10:53→12:33)
[2019-02-01] MEDS ORDERED: LevoFLOXacin IV 750 MG in IV 1 EA IV ONE (11:00)
[2019-02-01 11:10] LABS: INR 1.18; PROTHROMBIN TIME 14.7 SECONDS (11.8-14.0)
--- NOTE | 2019-02-01 11:21 | REP ---
Single view chest: 02/01/2019. Indication: Dyspnea. Comparison: 1 hour earlier. Findings: Compared to the most recent study and considering differences of technique, there are no significant changes. Increased interstitial markings and prominent vascularity are present. Possible superimposed basilar air space consolidations are considered. Cardiomediastinal silhouette is unchanged. Impression: Essentially stable examination compared to 1 hour earlier. Electronically Signed by Bk Box DO 02/01/2019 11:13 A
[2019-02-01 12:04] LABS: ALBUMIN 3.5 GM/DL (3.2-5.2); ALT/SGPT 24 U/L (12-78); BILIRUBIN,DIRECT 0.5 MG/DL (0.0-0.2); BILIRUBIN,TOTAL 1.1 MG/DL (0.2-1.0); BLOOD UREA NITROGEN 11 MG/DL (7-18); CALCIUM LEVEL 8.6 MG/DL (8.5-10.1); CARBON DIOXIDE LEVEL 33 MEQ/L (21-32); CHLORIDE LEVEL 88 MEQ/L (98-107); CK-MB VALUE MASS 2.6 NG/ML (<3.6); CPK CREATINE PHOSPHOKINASE 267 U/L (26-192); CREATININE FOR GFR 0.91 MG/DL (0.55-1.30); GLOMERULAR FILTRATION RATE > 60.0 (>58); GLUCOSE, FASTING 127 MG/DL (70-100); MB/CK RELATIVE INDEX 0.97 (< OR =4); NT-PRO BNP 40713 PG/ML (<125); SODIUM LEVEL 131 MEQ/L (136-145); TOTAL PROTEIN 8.7 GM/DL (6.4-8.2); TROPONIN I 0.11 NG/ML (< 0.10)
[2019-02-01] MEDS ORDERED: ISOVUE-370 76% 100ML VIAL (Q9967) As Ordered ONE (13:01)
--- NOTE | 2019-02-01 14:07 | REP ---
CT ANGIOGRAM OF THE CHEST: TECHNIQUE: Axial contrast enhanced images from the thoracic inlet to the upper abdomen using 100 mL Isovue 370 intravenous contrast material with multiplanar reformations. Comparison 01/10/2018. There is no CT evidence of pulmonary embolism. There is no thoracic aortic aneurysm or dissection. Heart is normal in size. There is no mediastinal, hilar, or chest wall lymphadenopathy. There is no pleural or pericardial effusion. Diffuse interstitial infiltrates are seen bilaterally, more so in throughout the left lung than the right. Visualized upper abdominal structures appear grossly unremarkable. IMPRESSION: Diffuse bilateral interstitial infiltrates left greater than right. No cardiomegaly or pulmonary embolism. Electronically Signed by Juliocesar Mcmillan MD 02/01/2019 08:01 P
[2019-02-01] MEDS ORDERED: MAALOX 30 ML SUSP *UDC PO PRN (14:45)
[2019-02-01] MEDS ORDERED: MOM 30ML SUSPENSION UDC PO PRN (14:45)
[2019-02-01] MEDS ORDERED: ACETAMINOPHEN TAB 650MG DOSE (2X325MG) PO PRN (14:45)
[2019-02-01] MEDS ORDERED: IPRATROPIUM 0.5MG/ALBUTEROL 2.5MG INH SOL UD 3ML (DUONEB)(J7620) NEB PRN (14:45)
[2019-02-01] MEDS ORDERED: CLON0.5T2 PO (14:48)
[2019-02-01] MEDS ORDERED: PARO40TA2 PO (14:48)
[2019-02-01] MEDS ORDERED: cefTRIAXone SOD 1 GM in D5W MINI-BAG PLUS 50 ML IV ONE (15:00)
[2019-02-01] MEDS ORDERED: POTASSIUM CHLORIDE 10 MEQ SR TABLET PO ONE (15:00)
[2019-02-01] MEDS ORDERED: ALBUTEROL 90 MCG/ACT 8GM HFA INHALER INH PRN (15:00)
--- NOTE | 2019-02-01 15:09 | HPEPDOC ---
[facility] Medical History & Physical Date of Admission Feb 01, 2019 Date of Service: Feb 01, 2019 History and Physical Chief complaint: Fever, cough and shortness of breath History of present illness: This is a 48-year-old female with past medical history of pain syndrome, history of brain tumor status post craniotomy, TIA, History of asthma, questionable COPD, history of hypothyroidism, on medications, presented to the emergency department because she has not been feeling well for the last couple of days and today she was having progressive cough and low-grade fever. The patient stated that her cough was progressive worsening to the extent that it was causing her having bilateral pain under her ribs. The patient states that she had such severe bouts of cough that she had to vomit couple of times. Patient denies any diarrhea. The patient denies any chest pain except for the discomfort in bilateral sides underneath the ribs while she is having these bouts of cost. Patient denies any loss of consciousness. Patient denies any syncopal episode. The patient denies any travel outside the country. Patient denies any sick contacts. In the ED, the patient got a chest x-ray which showed that the patient was having possible pulmonary congestion and an infective etiology could not be ruled out and for that reason, a CTA was done in the ER which showed that the patient was having bilateral interstitial pneumonias. The patient was also slightly hypoxic and later was started on 2 L of oxygen and is saturating 94. P atient was given 125 of Solu-Medrol along with that one dose of Levaquin was given in the ER. Family history. Noncontributory Social history. Smokes a pack per day for the last 15 years. No alcohol use. No recreational drug use Past medical history : Brain tumor, status post craniotomy, history of Graves' disease, history of fibromyalgia and chronic pain syndrome, history of asthma and COPD., History of seizure disorder, but the patient is not on any medication., History of TIA. Past surgical history: Left ankle reconstruction, dilatation and curettage, craniotomy, Review of systems. Pertinent positive findings as per HPI and is negative PHYSICAL EXAMINATION: General: The patient is awake, alert, oriented x3, sitting up in the bed in no apparent distress. Head and Neck Exam: Extraocular muscles intact. Pupils equally round and reactive to light. Mucous membranes are moist. Neck is supple. There is no jugular venous distention (JVD). Cardiovascular: S1 and S2, regular rate. No real edema Respiratory: The patient has bilateral expiratory wheezing with few rales on the right lower Abdomen: Soft. Positive bowel sounds. Nontender. No organomegaly. Genitourinary: Deferred Musculoskeletal: Clubbing of the fingernails, no cyanosis was noted. No pedal edema Central Nervous System (OPHTHALMIC SURGEON): No focal deficit. Power is 5/5 in all extremities. Medications reviewed Radiology reviewed Assessment and plan This is a 48-year-old female who has been admitted for possible interstitial pneumonia, likely related to a viral etiology with superimposed bacterial infection. Currently presenting with hypoxic respiratory failure. Start on 2 L and IV antibiotics. The patient was also found to have elevated BNP of 20,000. 1. Hypoxic respiratory failure. Likely secondary to interstitial pneumonia versus heart failure. We will treat the underlying cause . Continue supplemental oxygen to maintain saturation about 92 2. Viral Interstitial pneumonia. Viral PCR shows rhinovirus. The patient got us CTA which shows interstitial pneumonia, which could be viral. It could be a superimposed bacterial infection as well. The patient was given Levaquin in the ER and will be started on Rocephin and azithromycin. The patient will be getting a vaginal urine antigen, pneumococcal urine antigen and sputum culture. Lactate is normal and pro-calcitonin has been ordered. Will continue supplemental oxygen to maintain saturation about 92. Dual nebs will be continued along with that steroids 40 mg of Solu-Medrol will be continued. Supportive care 3. Elevated BNP. The patient hasn't had a 2-D echo done in 2010 which showed grade 1 diastolic failure. EF was normal at that time. Currently, the BNP is elevated. The patient does not look in any volume overload and on BMP has a low chloride as well. We will avoid giving any Lasix at this time. Repeat 2-D echo has been ordered. We will continue to monitor. 4. Elevated troponins. The troponin is 0.1. Could be because of the marked mismatch and elevated BNP. CTA did not show any pulmonary embolism but because of diffuse bilateral interstitial infiltrates could be leading to some ventricular strain, especially on the right side resulting in spelling of troponins and BNP. We will continue to trend her troponins and EKG. Initial EKG did not show us any ST interval changes. Sinus rhythm. We'll continue telemetry monitoring. Also, the patient is not complaining of any chest pain at this time 5.Astrocytoma: s/p craniotomy 6. Chronic pain syndrome. Will continue home medication not contraindicated. 7. Active smoking. We'll continue nicotine patch and counseled in detail regarding smoke cessation. DVT and GI prophylaxis Disposition unknown at this time The patient is high risk because of hypoxia and pneumonia and expected length of stay is greater than 2 midnights. Vital Signs Vital Signs Date Time Temp Pulse Resp B/P (MAP) Pulse Ox O2 Delivery O2 Flow Rate FiO2 02/01/19 10:27 Room Air 02/01/19 10:25 100.6 02/01/19 10:25 94 2.0 02/01/19 10:20 98 20 120/61 Laboratory Data Labs 24H Laboratory Tests 2 02/01/19 10:23: Immature Granulocyte % (Auto) 1.1, Neutrophils (%) (Auto) 90.9H, Lymphocytes (%) (Auto) 4.4L, Monocytes (%) (Auto) 3.3, Eosinophils (%) (Auto) 0.0, Basophils (%) (Auto) 0.3, Neutrophils # (Auto) 8.4, Lymphocytes # (Auto) 0.4L, Monocytes # (Auto) 0.3, Eosinophils # (Auto) 0.0, Basophils # (Auto) 0.0, Nucleated Red Blood Cells % (auto) 0.0, Prothrombin Time 14.7H, Prothromb Time International Ratio 1.18, Anion Gap 10, Glomerular Filtration Rate > 60.0, Lactic Acid Level 1.5, Calcium Level 8.6, Total Bilirubin 1.1H, Direct Bilirubin 0.5H, Aspartate Amino Transf (AST/SGOT) 28, Alanine Aminotransferase (ALT/SGPT) 24, Alkaline Phosphatase 70, Total Creatine Kinase 267H, Creatine Kinase MB 2.6, Creatine Kinase MB Relative Index 0.97, Troponin I 0.11H, LI-Qcs-L-Type Natriuretic Peptide 25015J, Total Protein 8.7H, Albumin 3.5, Albumin/Globulin Ratio 0.67L, Thyroid Stimulating Hormone (TSH) 11.600H 02/01/19 10:33: Blood Gas Bicarbonate Standard 30.5, Venous Blood pH 7.431H, Venous Blood Partial Pressure CO2 51.2H, Venous Blood Partial Pressure O2 39.2, Venous Blood Total Carbon Dioxide 34.9H, Venous Blood HCO3 33.3H, Venous Blood Oxygen Saturation 74.5, Venous Blood Base Excess 7.4H CBC/BMP Laboratory Tests 02/01/19 10:23 Microbiology Microbiology 02/01/19 Blood Culture, Received Pending 02/01/19 Respiratory Virus Panel (PCR) ([facility]) - Final, Complete Respiratory Syncytial Virus 02/01/19 Blood Culture, Received Pending Home Medications Scheduled Aspirin (Aspirin) 325 Mg Tab, 325 MG PO DAILY Atorvastatin Calcium (Lipitor) 10 Mg Tab, 10 MG PO DAILY Levothyroxine Sodium (Levothyroxine Sodium) 125 Mcg Tab, 125 MCG PO QAM Linaclotide (Linzess) 290 Mcg Cap, 290 MCG PO DAILY Methadone HCl (Methadone HCl) 10 Mg Tab, 20 MG PO Q6HP 10-20MG NEEDED Oxybutynin Chloride (Oxybutynin Chloride ER) 10 Mg Tab, 10 MG PO DAILY Paroxetine HCl (Paroxetine HCl) 40 Mg Tablet, 40 MG PO DAILY Tizanidine HCl (Tizanidine HCl) 4 Mg Tablet, 4 MG PO DAILY Trazodone HCl (Trazodone HCl) 100 Mg Tablet, 200 MG PO QHS Umeclidinium Palisade (Incruse Ellipta) 62.5 Mcg Blst.w.dev, 1 PUFF INH DAILY Scheduled PRN Albuterol Sulfate (Ventolin Hfa) 108 Mcg/Act Aer, 2 PUFFS INH Q4H PRN for SOB/WHEEZING Clonazepam (Clonazepam) 0.5 Mg Tablet, 0.5 MG PO BID PRN for ANXIETY Ipratropium/Albuterol Sulfate (Iprat-Albut 0.5-3(2.5) mg/3 ml) 1 Eleazar Eleazar, 1 ELEAZAR INH Q2HP PRN for SOB/WHEEZING Oxycodone HCl (Oxycodone HCl) 5 Mg Tab, 1-2 TABS PO BID PRN for PAIN TAKES BETWEEN METHADONE DOSING FOR BREAKTHROUGH PAIN Promethazine HCl (Promethazine HCl) 25 Mg Tab, 25 MG PO DAILYPRN PRN for NAUSEA Allergies Coded Allergies: No Known Allergies (Unverified , 02/01/19) A-FIB/CHADSVASC A-FIB History Current/History of A-Fib/PAF?: No ANNETTE ERNST MD Feb 01, 2019 15:09
[2019-02-01] MEDS: HEPARIN SOD (PORCINE) 5000 UNITS/ML VIAL SC SCH ×2 (15:15→21:15)
--- NOTE | 2019-02-01 15:36 | ECGEPIP ---
[facility] - ED Test Date: 2019-02-01 Pat Name: LORRIE CHAVEZ Department: Room: - Gender: Female Rose Grader: JMichael : 1970 Requested By: Yanira Mathis Order Number: [id number] Reading MD: Yanira Mathis Measurements Intervals [place] Rate: 91 P: 58 MT: 153 QRS: 66 QRSD: 99 T: 49 QT: 368 QTc: 454 Interpretive Statements SINUS RHYTHM NONSPECIFIC T-WAVE ABNORMALITY INCREASED RATE 12/20/17 Electronically Signed on 02-01-2019 15:35:53 EST by Yanira Mathis
[2019-02-01 15:40] VITALS: BP 119/79
[2019-02-01 15:58] LABS: CK-MB VALUE MASS 3.4 NG/ML (<3.6); FREE T3 0.9 PG/ML (2.2-4.0); FREE T4 0.97 NG/DL (0.76-1.46); MB/CK RELATIVE INDEX 1.17 (< OR =4); TROPONIN I 0.08 NG/ML (< 0.10)
[2019-02-01] MEDS: METHADONE 10 MG TAB (S0109) PO PRN (16:16)
[2019-02-01] MEDS: ASPIRIN 325 MG TAB PO SCH (16:17)
[2019-02-01] MEDS: ATORVASTATIN 10 MG TAB PO SCH (16:17)
[2019-02-01] MEDS: oxyBUTYnin *DITROPAN XL* 5 MG TABCR PO SCH (16:17)
[2019-02-01] MEDS: clonazePAM 0.5 MG TAB PO PRN (16:25)
[2019-02-01] MEDS: AZITHROMYCIN INJ 500 MG, VIAL MATE ADAPTER 1 EACH in D5W 250 ML IV SCH (16:25)
[2019-02-01 20:37] VITALS: BP 118/67
[2019-02-01] MEDS: IPRATROPIUM 0.5MG/ALBUTEROL 2.5MG INH SOL UD 3ML (DUONEB)(J7620) NEB SCH (20:55)
[2019-02-01] MEDS: DOCUSATE SODIUM 100 MG CAP PO SCH (21:15)
[2019-02-01] MEDS: ONDANSETRON 4MG/2ML VIAL (J2405) IV PRN (21:15)
[2019-02-01] MEDS: traZODone 100 MG TAB PO SCH (21:15)
[2019-02-01] MEDS ORDERED: NICOTINE 14 MG/24 HR TRANSDERMAL TD PRN (21:30)
[2019-02-01 22:00] VITALS: BP 107/56
[2019-02-02] VITALS (18 sets, daily range): BP systolic 70–120; BP diastolic 43–77; O2SAT 96
[2019-02-02] MEDS: IPRATROPIUM 0.5MG/ALBUTEROL 2.5MG INH SOL UD 3ML (DUONEB)(J7620) NEB SCH ×4 (03:02→21:15)
[2019-02-02] MEDS: HEPARIN SOD (PORCINE) 5000 UNITS/ML VIAL SC SCH ×3 (06:06→21:04)
[2019-02-02] MEDS: LEVOTHYROXINE 125MCG TABLET (0.125MG) PO SCH (06:08)
[2019-02-02 06:10] LABS: HEMATOCRIT 46.7 % (36.0-47.0); HEMOGLOBIN 14.6 g/dl (12.0-15.5); MEAN CORPUSCULAR HEMOGLOBIN 28.7 pg (27.0-33.0); MEAN CORPUSCULAR HGB CONC 31.3 g/dl (32.0-36.5); MEAN CORPUSCULAR VOLUME 91.7 fl (80.0-96.0); PLATELET COUNT, AUTOMATED 190 10^3/uL (150-450); RED BLOOD COUNT 5.09 10^6/uL (4.00-5.40); WHITE BLOOD COUNT 8.9 10^3/uL (4.0-10.0)
[2019-02-02] MEDS ORDERED: NS 1,000 ML IV ONE ×3 (06:30→11:15)
[2019-02-02 06:55] LABS: ALBUMIN 3.2 GM/DL (3.2-5.2); BILIRUBIN,TOTAL 0.6 MG/DL (0.2-1.0); CALCIUM LEVEL 8.6 MG/DL (8.5-10.1); CREATININE FOR GFR 1.38 MG/DL (0.55-1.30); GLOMERULAR FILTRATION RATE 43.3 (>58); POTASSIUM SERUM 3.4 MEQ/L (3.5-5.1)
[2019-02-02 07:59] LABS: ABG BASE EXCESS 3.3 (-2.0-2.0); ABG HCO3 30.2 MEQ/L (22.0-26.0); ABG O2 SATURATION 94.6 % (95.0-99.0); ABG PARTIAL PRESSURE CO2 56.7 mmHg (35.0-45.0); ABG PARTIAL PRESSURE O2 81.3 mmHg (75.0-100.0); ABG STANDARD HCO3 27.3 MEQ/L (22.0-26.0); ABG pH (ARTERIAL) 7.345 UNITS (7.350-7.450)
[2019-02-02 08:44] LABS: CK-MB VALUE MASS 3.7 NG/ML (<3.6); CPK CREATINE PHOSPHOKINASE 197 U/L (26-192); MB/CK RELATIVE INDEX 1.88 (< OR =4); TROPONIN I < 0.02 NG/ML (< 0.10)
[2019-02-02] MEDS: DOCUSATE SODIUM 100 MG CAP PO SCH ×2 (08:57→21:03)
[2019-02-02] MEDS: oxyBUTYnin *DITROPAN XL* 5 MG TABCR PO SCH (08:57)
[2019-02-02] MEDS: ATORVASTATIN 10 MG TAB PO SCH (08:57)
[2019-02-02] MEDS: ASPIRIN 325 MG TAB PO SCH (08:58)
[2019-02-02 09:02] LABS: MAGNESIUM LEVEL 2.4 MG/DL (1.8-2.4)
[2019-02-02] MEDS: METHADONE 10 MG TAB (S0109) PO PRN ×2 (09:50→16:37)
[2019-02-02] MEDS: methylPREDNISolone INJ 40 MG/1 ML VIAL (J2920) IV SCH (11:16)
[2019-02-02 13:26] LABS: ABG BASE EXCESS 3.8 (-2.0-2.0); ABG HCO3 30.3 MEQ/L (22.0-26.0); ABG O2 SATURATION 95.9 % (95.0-99.0); ABG PARTIAL PRESSURE CO2 54.9 mmHg (35.0-45.0); ABG STANDARD HCO3 27.8 MEQ/L (22.0-26.0)
[2019-02-02] MEDS: cefTRIAXone SOD 1 GM in D5W MINI-BAG PLUS 50 ML IV SCH (14:00)
[2019-02-02] MEDS: guaiFENesin ER 600 MG TAB PO SCH ×2 (14:01→21:03)
--- NOTE | 2019-02-02 15:07 | IPNPDOC ---
Date Seen The patient was seen on 02/02/19. Progress Note SUBJECTIVE: Patient was seen and examined this morning after being transferred to the ICU due to declining respiratory status. She states that she continues to feel some chest congestion and does not feel like she can cough up the mucus from her chest. She also states she is having some shortness of breath while lying in bed. She states her skin and lips feel very dry and that she feels hungry. OBJECTIVE PHYSICAL EXAMINATION: VITAL SIGNS: Please see below. GENERAL: Alert, lying in bed on nasal cannula in mild respiratory distress. HEENT: Normocephalic, atraumatic, EOMI, dry mucous membranes NECK: Supple, trachea midline, no lymphadenopathy, no JVD CARDIOVASCULAR: Regular rate and rhythm, normal S1 and S2. No murmurs, rubs, or gallops RESPIRATORY: Clear to auscultation bilaterally with equal air entry bilaterally. No wheezing, rhonchi, or rales. ABDOMEN: Soft, nontender, nondistended, bowel sounds present, no masses or hepatosplenomegaly appreciated EXTREMITIES: No cyanosis or edema. Clubbing noticed on bilateral fingernails. Pulses 2+/4 in bilateral upper and lower extremities SKIN: Cool and dry, somewhat pale. NEUROLOGIC: Alert and oriented 3 to person, place and time. Strength and sensation intact bilaterally. No focal deficits appreciated PSYCHIATRIC: Mood and affect appropriate LABORATORY DATA, IMAGING STUDIES, MICROBIOLOGY: Please see below. ASSESSMENT AND PLAN: 48-year-old female with past medical history of chronic pain syndrome, history of brain tumor status post craniotomy, TIA, history of asthma, questionable COPD, history of hypothyroidism, who is admitted to the hospital for treatment of hypoxic respiratory failure likely secondary to viral interstitial pneumonia with possible superimposed bacterial infection. #Hypoxic respiratory failure secondary to viral interstitial pneumonia, possible superimposed bacterial pneumonia Patient transferred to ICU this morning due to declining respiratory status. Patient currently on Vapotherm with saturations above 90% #Viral interstitial pneumonia. Respiratory PCR positive for RSV, CTA significant for interstitial pneumonia. Possible superimposed bacterial infection. Patient on antibiotic coverage with Rocephin and azithromycin, day #2 of 7. Urine antigen testing for Streptococcus and Legionella pending. Sputum culture pending. Blood cultures 2 pending. Continue treatment with DuoNeb's, Solu-Medrol, Mucinex, and Acapella. # Elevated BNP. Patient does not appear clinically fluid overloaded Possibly elevated due to right ventricular strain from bilateral interstitial infiltrates, CTA negative for PE Troponins slightly elevated on admission, trending down. EKG stable. Echocardiogram pending # Elevated troponins. On admission, troponin 0.1, now less than 0.02. Possibly related to right ventricular strain from the lateral interstitial infiltrates. Patient denies any chest pain #Astrocytoma - s/p craniotomy #Chronic pain syndrome - continue home medications # Current smoker Nicotine patch while inpatient DVT prophylaxis: Heparin DISPOSITION: ICU pending clinical improvement VS, I&O, 24H, Fishbone Vital Signs/I&O Vital Signs Date Time Temp Pulse Resp B/P (MAP) Pulse Ox O2 Delivery O2 Flow Rate FiO2 02/02/19 14:00 75 21 91/51 (64) 92 HVNI-Vapotherm 30.0 50 02/02/19 12:00 98.9 I&O- Last 24 Hours up to 6 AM 02/02/19 06:00 Intake Total 1070 ml Output Total 400 ml Balance 670 ml Laboratory Data 24H LABS Laboratory Tests 2 02/01/19 15:07: Total Creatine Kinase 290H, Creatine Kinase MB 3.4, Creatine Kinase MB Relative Index 1.17, Troponin I 0.08#, Procalcitonin 1.16, Free Thyroxine 0.97, Free Triiodothyronine 0.9L 02/01/19 16:40: Bedside Glucose (Misc Panel) 161H 02/01/19 21:21: Bedside Glucose (Misc Panel) 115H 02/02/19 05:25: 02/02/19 05:29: Nucleated Red Blood Cells % (auto) 0.0, Anion Gap 7L, Glomerular Filtration Rate 43.3L, Calcium Level 8.6, Total Bilirubin 0.6, Aspartate Amino Transf (AST/SGOT) 29, Alanine Aminotransferase (ALT/SGPT) 21, Alkaline Phosphatase 66, Total Protein 9.0H, Albumin 3.2, Albumin/Globulin Ratio 0.55L 02/02/19 07:43: Blood Gas Bicarbonate Standard 27.3H, Arterial Blood pH 7.345L, Arterial Blood Partial Pressure CO2 56.7H, Arterial Blood Partial Pressure O2 81.3, Arterial Blood Total CO2 32.0H, Arterial Blood HCO3 30.2H, Arterial Blood Base Excess 3.3H, Arterial Blood Oxygen Saturation 94.6L 02/02/19 07:52: Lactic Acid Level 1.5, Magnesium Level 2.4, Total Creatine Kinase 197H, Creatine Kinase MB 3.7H, Creatine Kinase MB Relative Index 1.88, Troponin I < 0.02# 02/02/19 13:10: Blood Gas Bicarbonate Standard 27.8H, Arterial Blood pH 7.360, Arterial Blood Partial Pressure CO2 54.9H, Arterial Blood Partial Pressure O2 89.0, Arterial Blood Total CO2 32.0H, Arterial Blood HCO3 30.3H, Arterial Blood Base Excess 3.8H, Arterial Blood Oxygen Saturation 95.9 CBC/BMP Laboratory Tests 02/02/19 05:29 Microbiology Microbiology 02/01/19 Blood Culture, Received Pending 02/01/19 Blood Culture - Preliminary, Resulted No growth after 24 hours . All specim... 02/01/19 Respiratory Virus Panel (PCR) ([facility]) - Final, Complete Respiratory Syncytial Virus 02/01/19 Blood Culture - Preliminary, Resulted No growth after 24 hours . All specim... GME ATTESTATION GME ATTESTATION My faculty preceptor for this patient encounter was physically present during the encounter and was fully available. All aspects of the patient interview, examination, medical decision making process, and medical care plan development were reviewed and approved by the faculty preceptor. The faculty preceptor is aware and concurs with the plan as stated in the body of this note and will attest to such by his/her cosignature. ATTENDING NOTE Patient was seen and examined by me this morning with the residents. Agree with the above assessment and plan PETRA GUTIERREZ D.O. Feb 02, 2019 15:07 ANNETTE ERNST MD Feb 03, 2019 10:54
[2019-02-02] MEDS: AZITHROMYCIN INJ 500 MG, VIAL MATE ADAPTER 1 EACH in D5W 250 ML IV SCH (16:37)
[2019-02-02] MEDS: traZODone 100 MG TAB PO SCH (21:04)
[2019-02-02] MEDS: ONDANSETRON 4MG/2ML VIAL (J2405) IV PRN (21:04)
[2019-02-02] MEDS: clonazePAM 0.5 MG TAB PO PRN (21:09)
[2019-02-03] VITALS (13 sets, daily range): BP systolic 99–131; BP diastolic 55–88; O2SAT 93–95
[2019-02-03] MEDS: IPRATROPIUM 0.5MG/ALBUTEROL 2.5MG INH SOL UD 3ML (DUONEB)(J7620) NEB SCH ×2 (01:58→07:26)
[2019-02-03 04:45] LABS: HEMATOCRIT 36.6 % (36.0-47.0); MEAN CORPUSCULAR HEMOGLOBIN 28.6 pg (27.0-33.0); MEAN CORPUSCULAR HGB CONC 30.6 g/dl (32.0-36.5); MEAN CORPUSCULAR VOLUME 93.6 fl (80.0-96.0); PLATELET COUNT, AUTOMATED 148 10^3/uL (150-450); RED BLOOD COUNT 3.91 10^6/uL (4.00-5.40); WHITE BLOOD COUNT 5.7 10^3/uL (4.0-10.0)
[2019-02-03 05:04] LABS: HEMOGLOBIN 11.2 g/dl (12.0-15.5)
[2019-02-03 05:09] LABS: BLOOD UREA NITROGEN 19 MG/DL (7-18); CALCIUM LEVEL 8.1 MG/DL (8.5-10.1); CARBON DIOXIDE LEVEL 33 MEQ/L (21-32); CHLORIDE LEVEL 101 MEQ/L (98-107); CREATININE FOR GFR 0.71 MG/DL (0.55-1.30); GLOMERULAR FILTRATION RATE > 60.0 (>58); GLUCOSE, FASTING 76 MG/DL (70-100); MAGNESIUM LEVEL 2.6 MG/DL (1.8-2.4); POTASSIUM SERUM 3.8 MEQ/L (3.5-5.1); SODIUM LEVEL 141 MEQ/L (136-145)
[2019-02-03] MEDS: HEPARIN SOD (PORCINE) 5000 UNITS/ML VIAL SC SCH ×3 (05:56→20:06)
[2019-02-03] MEDS: LEVOTHYROXINE 125MCG TABLET (0.125MG) PO SCH (05:56)
[2019-02-03] MEDS: METHADONE 10 MG TAB (S0109) PO PRN ×3 (06:24→18:31)
[2019-02-03] MEDS: TIOTROPIUM INHALER/CAPSULE (SPIRIVA) INH SCH (08:00)
[2019-02-03] MEDS: guaiFENesin ER 600 MG TAB PO SCH ×2 (08:25→20:06)
[2019-02-03] MEDS: ASPIRIN 325 MG TAB PO SCH (08:25)
[2019-02-03] MEDS: DOCUSATE SODIUM 100 MG CAP PO SCH ×2 (08:25→20:05)
[2019-02-03] MEDS: ATORVASTATIN 10 MG TAB PO SCH (08:25)
[2019-02-03] MEDS: oxyBUTYnin *DITROPAN XL* 5 MG TABCR PO SCH (08:25)
--- NOTE | 2019-02-03 09:17 | ECGEPIP ---
[facility] Test Date: 2019-02-03 Pat Name: LORRIE CHAVEZ Department: Room: [place] [address] Gender: Female Radio Dispatcher: ANDRÉS : 1970 Requested By: PETRA GUTIERREZ D.O. Order Number: [id number] Reading MD: Ryne Coleman Measurements Intervals [place] Rate: 72 P: 73 MA: 171 QRS: 73 QRSD: 88 T: 62 QT: 387 QTc: 425 Interpretive Statements SINUS RHYTHM WITH FREQUENT VENTRICULAR PREMATURE COMPLEXES NONSPECIFIC T-WAVE ABNORMALITY Similar to tracing done 02-01-19 but with ventricular ectopy Electronically Signed on 02-03-2019 9:17:46 EST by Ryne Coleman
--- NOTE | 2019-02-03 10:50 | IPNPDOC ---
Date Seen The patient was seen on 02/03/19. Progress Note SUBJECTIVE: Patient was seen and examined this morning laying comfortably in bed. She states she feels better than yesterday but still feels somewhat dry and dehydrated. She states she feels some improvement in her breathing and she is able to bring up some mucus this morning. She feels the chest congestion is starting to improve. She denies any chest pain or palpitations. OBJECTIVE PHYSICAL EXAMINATION: VITAL SIGNS: Please see below. GENERAL: Alert, lying in bed on Vapotherm in no acute respiratory distress. HEENT: Normocephalic, atraumatic, EOMI, dry mucous membranes NECK: Supple, trachea midline, no lymphadenopathy, no JVD CARDIOVASCULAR: Regular rate and rhythm, normal S1 and S2. No murmurs, rubs, or gallops RESPIRATORY: Clear to auscultation bilaterally with equal air entry bilaterally. No wheezing, rhonchi, or rales. ABDOMEN: Soft, nontender, nondistended, bowel sounds present, no masses or hepatosplenomegaly appreciated EXTREMITIES: No cyanosis or edema. Clubbing noticed on bilateral fingernails. Pulses 2+/4 in bilateral upper and lower extremities SKIN: Cool and dry NEUROLOGIC: Alert and oriented 3 to person, place and time. Strength and sensation intact bilaterally. No focal deficits appreciated PSYCHIATRIC: Mood and affect appropriate TELEMETRY MONITORING: Sinus rhythm with frequency PVCs LABORATORY DATA, IMAGING STUDIES, MICROBIOLOGY: Please see below. ASSESSMENT AND PLAN: 48-year-old female with past medical history of chronic pain syndrome, history of brain tumor status post craniotomy, TIA, history of asthma, questionable COPD, history of hypothyroidism, who is admitted to the hospital for treatment of hypoxic respiratory failure likely secondary to viral interstitial pneumonia with possible superimposed bacterial infection. #Hypoxic respiratory failure secondary to viral interstitial pneumonia, possible superimposed bacterial pneumonia Respiratory status appears stable, patient transferred to PCU this morning Titrate oxygen therapy to maintain saturations above 88% #Viral interstitial pneumonia. Respiratory PCR positive for RSV, CTA significant for interstitial pneumonia. Possible superimposed bacterial infection. Patient on antibiotic coverage with Rocephin and azithromycin, day #3 of 7. Urine antigen testing for Streptococcus and Legionella pending. Sputum culture pending. Blood cultures 2 pending. Continue treatment with DuoNeb's, Solu-Medrol, Mucinex, and Acapella. #acute exacerbation of COPD 2/2 pneumonia -continue solumedrol for acute exacerbation -continue home inhalers # Elevated BNP Patient does not appear clinically fluid overloaded Possibly elevated due to right ventricular strain from bilateral interstitial infiltrates, CTA negative for PE Troponin slightly elevated on admission, trending down. EKG stable. Echocardiogram pending # Elevated troponin. On admission, troponin 0.1, down to less than 0.02. Possibly related to right ventricular strain from the lateral interstitial infiltrates. Patient denies any chest pain #Astrocytoma - s/p craniotomy #Chronic pain syndrome - continue home medications # Current smoker Nicotine patch while inpatient DVT prophylaxis: Heparin DISPOSITION: PCU pending improvement of respiratory status VS, I&O, 24H, Fishbone Vital Signs/I&O Vital Signs Date Time Temp Pulse Resp B/P (MAP) Pulse Ox O2 Delivery O2 Flow Rate FiO2 02/03/19 08:00 30.0 02/03/19 08:00 97.0 81 22 131/74 (93) 100 02/03/19 08:00 HVNI-Vapotherm 50 I&O- Last 24 Hours up to 6 AM 02/03/19 06:00 Intake Total 4085 ml Output Total 1800 ml Balance 2285 ml Laboratory Data 24H LABS Laboratory Tests 2 02/02/19 13:10: Blood Gas Bicarbonate Standard 27.8H, Arterial Blood pH 7.360, Arterial Blood Partial Pressure CO2 54.9H, Arterial Blood Partial Pressure O2 89.0, Arterial Blood Total CO2 32.0H, Arterial Blood HCO3 30.3H, Arterial Blood Base Excess 3.8H, Arterial Blood Oxygen Saturation 95.9 02/03/19 04:07: Nucleated Red Blood Cells % (auto) 0.0, Anion Gap 7L, Glomerular Filtration Rate > 60.0, Calcium Level 8.1L, Magnesium Level 2.6H CBC/BMP Laboratory Tests 02/03/19 04:07 Microbiology Microbiology 02/01/19 Blood Culture - Preliminary, Resulted No growth after 24 hours . All specim... 02/01/19 Blood Culture - Preliminary, Resulted No growth after 24 hours . All specim... 02/01/19 Respiratory Virus Panel (PCR) ([facility]) - Final, Complete Respiratory Syncytial Virus 02/01/19 Blood Culture - Preliminary, Resulted No growth after 24 hours . All specim... GME ATTESTATION GME ATTESTATION My faculty preceptor for this patient encounter was physically present during the encounter and was fully available. All aspects of the patient interview, examination, medical decision making process, and medical care plan development were reviewed and approved by the faculty preceptor. The faculty preceptor is aware and concurs with the plan as stated in the body of this note and will attest to such by his/her cosignature. ATTENDING NOTE Patient was seen and examined by me this morning with the residents. Agree with the above assessment and plan PETRA GUTIERREZ D.O. Feb 03, 2019 10:50 ANNETTE ERNST MD Feb 03, 2019 10:57
[2019-02-03] MEDS: methylPREDNISolone INJ 40 MG/1 ML VIAL (J2920) IV SCH (10:51)
[2019-02-03 10:56] LABS: NT-PRO BNP 3660 PG/ML (<125)
[2019-02-03] MEDS: clonazePAM 0.5 MG TAB PO PRN ×2 (12:09→20:05)
[2019-02-03] MEDS: LEVALBUTEROL 1.25 MG/0.5 ML CONCENTRATE NEB INH PRN ×2 (12:15→13:54)
[2019-02-03] MEDS: cefTRIAXone SOD 1 GM in D5W MINI-BAG PLUS 50 ML IV SCH (14:16)
[2019-02-03] MEDS: AZITHROMYCIN INJ 500 MG, VIAL MATE ADAPTER 1 EACH in D5W 250 ML IV SCH (16:06)
[2019-02-03] MEDS: traZODone 100 MG TAB PO SCH (20:05)
[2019-02-04] VITALS (15 sets, daily range): BP systolic 114–144; BP diastolic 68–86; O2SAT 90–98
[2019-02-04] MEDS: LEVOTHYROXINE 125MCG TABLET (0.125MG) PO SCH (06:27)
[2019-02-04] MEDS: HEPARIN SOD (PORCINE) 5000 UNITS/ML VIAL SC SCH ×3 (06:27→21:53)
[2019-02-04] MEDS: METHADONE 10 MG TAB (S0109) PO PRN ×4 (06:36→20:32)
[2019-02-04 07:40] LABS: HEMATOCRIT 36.7 % (36.0-47.0); HEMOGLOBIN 11.5 g/dl (12.0-15.5); MEAN CORPUSCULAR HEMOGLOBIN 29.2 pg (27.0-33.0); MEAN CORPUSCULAR HGB CONC 31.3 g/dl (32.0-36.5); MEAN CORPUSCULAR VOLUME 93.1 fl (80.0-96.0); PLATELET COUNT, AUTOMATED 154 10^3/uL (150-450); RED BLOOD COUNT 3.94 10^6/uL (4.00-5.40); WHITE BLOOD COUNT 4.3 10^3/uL (4.0-10.0)
[2019-02-04 08:02] LABS: ATYPICAL LYMPH 1 % (0-5); LYMPHOCYTES 34 % (16-44); MONOCYTES 4 % (0-5); NEUTROPHILS 61 % (28-66)
[2019-02-04 08:04] LABS: PLATELET ESTIMATE NORMAL (NORMAL)
[2019-02-04] MEDS: TIOTROPIUM INHALER/CAPSULE (SPIRIVA) INH SCH (08:04)
[2019-02-04 08:05] LABS: ANISOCYTOSIS 1+; HYPOCHROMASIA 1+
[2019-02-04 08:33] LABS: BLOOD UREA NITROGEN 12 MG/DL (7-18); CALCIUM LEVEL 8.3 MG/DL (8.5-10.1); CARBON DIOXIDE LEVEL 35 MEQ/L (21-32); CHLORIDE LEVEL 99 MEQ/L (98-107); CREATININE FOR GFR 0.65 MG/DL (0.55-1.30); GLOMERULAR FILTRATION RATE > 60.0 (>58); GLUCOSE, FASTING 88 MG/DL (70-100); MAGNESIUM LEVEL 2.5 MG/DL (1.8-2.4); POTASSIUM SERUM 2.8 MEQ/L (3.5-5.1); SODIUM LEVEL 140 MEQ/L (136-145)
[2019-02-04] MEDS ORDERED: POTASSIUM CHLORIDE 10 MEQ SR TABLET PO ONE ×2 (08:45→09:45)
--- NOTE | 2019-02-04 09:17 | IPNPDOC ---
Date Seen The patient was seen on 02/04/19. Progress Note SUBJECTIVE: Patient was seen and examined this morning laying comfortably in bed. She states she feels like her breathing is a little bit improved today and her chest feels less congested. She states she is still not bringing up much. When she coughs. Chest reports some aching pain along her back where her lower ribs are. This bothers her most when she is coughing. She denies any palpitations. OBJECTIVE PHYSICAL EXAMINATION: VITAL SIGNS: Please see below. GENERAL: Alert, lying in bed on Vapotherm in no acute respiratory distress. HEENT: Normocephalic, atraumatic, EOMI, dry mucous membranes NECK: Supple, trachea midline, no lymphadenopathy, no JVD CARDIOVASCULAR: Regular rate and rhythm, normal S1 and S2. No murmurs, rubs, or gallops RESPIRATORY: Clear to auscultation bilaterally with equal air entry bilaterally. No wheezing, rhonchi, or rales. ABDOMEN: Soft, nontender, nondistended, bowel sounds present, no masses or hepatosplenomegaly appreciated EXTREMITIES: No cyanosis or edema. Clubbing noticed on bilateral fingernails. Pulses 2+/4 in bilateral upper and lower extremities SKIN: Cool and dry NEUROLOGIC: Alert and oriented 3 to person, place and time. Strength and sensa tion intact bilaterally. No focal deficits appreciated PSYCHIATRIC: Mood and affect appropriate TELEMETRY MONITORING: Sinus rhythm with frequency PVCs LABORATORY DATA, IMAGING STUDIES, MICROBIOLOGY: Please see below. ASSESSMENT AND PLAN: 48-year-old female with past medical history of chronic joseluis n syndrome, history of brain tumor status post craniotomy, TIA, history of asthma, questionable COPD, history of hypothyroidism, who is admitted to the hospital for treatment of hypoxic respiratory failure likely secondary to viral interstitial pneumonia with possible superimposed bacterial infection. #Hypoxic respiratory failure secondary to viral interstitial pneumonia, possible superimposed bacterial pneumonia Continued to require Vapotherm yesterday and overnight. Will try to titrate down on this today. Titrate oxygen therapy to maintain saturations above 88% #Viral interstitial pneumonia. Respiratory PCR positive for RSV, CTA significant for interstitial pneumonia. Possible superimposed bacterial infection. Patient on antibiotic coverage with Rocephin and azithromycin, day #4 of 7. Urine antigen testing for Streptococcus and Legionella pending. Sputum culture appears contaminated. Blood cultures 2 negative at 48 hrs. Continue treatment with DuoNeb's, Solu-Medrol, Mucinex, and Acapella. #acute exacerbation of COPD 2/2 pneumonia -continue solumedrol for acute exacerbation -continue home inhalers # Elevated BNP Patient does not appear clinically fluid overloaded Possibly elevated due to right ventricular strain from bilateral interstitial infiltrates, CTA negative for PE Troponin slightly elevated on admission, trending down. EKG stable. Echocardiogram pending # Elevated troponin. On admission, troponin 0.1, down to less than 0.02. Possibly related to right ventricular strain from the lateral interstitial infiltrates. Patient denies any chest pain #Astrocytoma - s/p craniotomy #Chronic pain syndrome - continue home medications # Current smoker Nicotine patch while inpatient DVT prophylaxis: Heparin DISPOSITION: PCU pending improvement of respiratory status VS, I&O, 24H, Fishbone Vital Signs/I&O Vital Signs Date Time Temp Pulse Resp B/P (MAP) Pulse Ox O2 Delivery O2 Flow Rate FiO2 02/04/19 08:09 94 HVNI-Vapotherm 28.0 50 02/04/19 08:00 97.6 56 18 123/68 (86) I&O- Last 24 Hours up to 6 AM 02/04/19 06:00 Intake Total 1430 ml Output Total 1450 ml Balance -20 ml Laboratory Data 24H LABS Laboratory Tests 2 02/04/19 07:26: Nucleated Red Blood Cells % (auto) 0.0, Neutrophils 61, Lymphocytes (Manual) 34, Monocytes (Manual) 4, Atypical Lymphocytes 1, Hypochromasia 1+, Anisocytosis 1+, Platelet Estimate NORMAL, Anion Gap 6L, Glomerular Filtration Rate > 60.0, Calcium Level 8.3L, Magnesium Level 2.5H CBC/BMP Laboratory Tests 02/04/19 07:26 Microbiology Microbiology 02/03/19 Gram Stain - Final, Complete 02/03/19 Sputum Culture - Final, Complete 02/01/19 Blood Culture - Preliminary, Resulted No Growth after 48 hours. All Specime... 02/01/19 Blood Culture - Preliminary, Resulted No Growth after 48 hours. All Specime... 02/01/19 Respiratory Virus Panel (PCR) ([facility]) - Final, Complete Respiratory Syncytial Virus 02/01/19 Blood Culture - Preliminary, Resulted No Growth after 48 hours. All Specime... GME ATTESTATION GME ATTESTATION My faculty preceptor for this patient encounter was physically present during the encounter and was fully available. All aspects of the patient interview, examination, medical decision making process, and medical care plan development were reviewed and approved by the faculty preceptor. The faculty preceptor is aware and concurs with the plan as stated in the body of this note and will attest to such by his/her cosignature. ATTENDING NOTE Patient was seen and examined by me this morning with the residents. Agree with the above assessment and plan PETRA GUTIERREZ D.O. Feb 04, 2019 09:17 ANNETTE ERNST MD Feb 04, 2019 15:44
[2019-02-04] MEDS: oxyBUTYnin *DITROPAN XL* 5 MG TABCR PO SCH (09:23)
[2019-02-04] MEDS: ASPIRIN 325 MG TAB PO SCH (09:24)
[2019-02-04] MEDS: DOCUSATE SODIUM 100 MG CAP PO SCH ×2 (09:24→20:25)
[2019-02-04] MEDS: ATORVASTATIN 10 MG TAB PO SCH (09:25)
[2019-02-04] MEDS: guaiFENesin ER 600 MG TAB PO SCH ×2 (09:25→20:25)
[2019-02-04] MEDS: KCL 10MEQ/100ML SWI (KRUN) 10 MEQ in IV 1 EA IV SCH ×2 (09:26→10:47)
[2019-02-04] MEDS: methylPREDNISolone INJ 40 MG/1 ML VIAL (J2920) IV SCH (10:47)
--- NOTE | 2019-02-04 12:48 | REP ---
REASON: History of pneumonia. COMPARISON: The latest prior 02/01/2019. The technique utilized in obtaining the radiograph has magnified the cardiac silhouette and accentuated the interstitial markings. The cardiomediastinal silhouette and lung jones are unchanged. Note is again made of increased interstitial markings status quo and with possible bibasilar patchy opacities suggestive of pneumonia or asymmetric edema. This needs to be correlated clinically. IMPRESSION:No significant change from the prior exam with findings as described above. Electronically Signed by Sarabjit Redd DO 02/04/2019 01:24 P
[2019-02-04] MEDS ORDERED: SLF 3 ML SYR IV PRN (14:45)
[2019-02-04] MEDS: cefTRIAXone SOD 1 GM in D5W MINI-BAG PLUS 50 ML IV SCH (15:37)
[2019-02-04] MEDS: AZITHROMYCIN INJ 500 MG, VIAL MATE ADAPTER 1 EACH in D5W 250 ML IV SCH (18:00)
[2019-02-04] MEDS: traZODone 100 MG TAB PO SCH (20:26)
[2019-02-04] MEDS: clonazePAM 0.5 MG TAB PO PRN (20:26)
[2019-02-04] MEDS: SLF 3 ML SYR IV SCH (20:36)
[2019-02-04] MEDS: LEVALBUTEROL 1.25 MG/0.5 ML CONCENTRATE NEB INH PRN (20:38)
[2019-02-05] VITALS (15 sets, daily range): BP systolic 125–149; BP diastolic 71–90; O2SAT 85–95
[2019-02-05 05:34] LABS: HEMATOCRIT 39.8 % (36.0-47.0); HEMOGLOBIN 12.6 g/dl (12.0-15.5); MEAN CORPUSCULAR HGB CONC 31.7 g/dl (32.0-36.5); MEAN CORPUSCULAR VOLUME 91.5 fl (80.0-96.0); PLATELET COUNT, AUTOMATED 179 10^3/uL (150-450); RED BLOOD COUNT 4.35 10^6/uL (4.00-5.40); WHITE BLOOD COUNT 5.4 10^3/uL (4.0-10.0)
[2019-02-05 05:54] LABS: BLOOD UREA NITROGEN 9 MG/DL (7-18); CALCIUM LEVEL 8.5 MG/DL (8.5-10.1); CARBON DIOXIDE LEVEL 34 MEQ/L (21-32); CHLORIDE LEVEL 98 MEQ/L (98-107); CREATININE FOR GFR 0.68 MG/DL (0.55-1.30); GLOMERULAR FILTRATION RATE > 60.0 (>58); GLUCOSE, FASTING 80 MG/DL (70-100); POTASSIUM SERUM 3.5 MEQ/L (3.5-5.1); SODIUM LEVEL 138 MEQ/L (136-145)
[2019-02-05] MEDS: LEVOTHYROXINE 125MCG TABLET (0.125MG) PO SCH (06:00)
[2019-02-05] MEDS: HEPARIN SOD (PORCINE) 5000 UNITS/ML VIAL SC SCH ×3 (06:01→21:02)
[2019-02-05] MEDS: SLF 3 ML SYR IV SCH ×3 (06:01→22:00)
[2019-02-05] MEDS: METHADONE 10 MG TAB (S0109) PO PRN ×3 (06:13→18:20)
[2019-02-05] MEDS: TIOTROPIUM INHALER/CAPSULE (SPIRIVA) INH SCH (07:20)
[2019-02-05] MEDS: LEVALBUTEROL 1.25 MG/0.5 ML CONCENTRATE NEB INH PRN (07:21)
--- NOTE | 2019-02-05 07:50 | IPNPDOC ---
Text Note Date of Service The patient was seen on 02/05/19. NOTE Patient was seen and examined this morning .She is comfortabe but continues on high flow which is being titrated . She states she feels like her breathing is a little bit improved today PHYSICAL EXAMINATION: GENERAL: Alert, lying in bed on Vapotherm in no acute respiratory distress. HEENT: Normocephalic, atraumatic, EOMI, dry mucous membranes NECK: Supple, trachea midline, no lymphadenopathy, no JVD CARDIOVASCULAR: Regular rate and rhythm, normal S1 and S2. No murmurs, rubs, or gallops RESPIRATORY: Clear to auscultation bilaterally with equal air entry bilaterally. No wheezing, rhonchi, or rales. ABDOMEN: Soft, nontender, nondistended, bowel sounds present, no masses or hepatosplenomegaly appreciated EXTREMITIES: No cyanosis or edema. Clubbing noticed on bilateral fingernails. Pulses 2+/4 in bilateral upper and lower extremities NEUROLOGIC: Alert and oriented 3 to person, place and time. Strength and sensation intact bilaterally. No focal deficits appreciated PSYCHIATRIC: Mood and affect appropriate TELEMETRY MONITORING: Sinus rhythm with frequency PVCs ASSESSMENT AND PLAN: 48-year-old female with past medical history of chronic pain syndrome, history of brain tumor status post craniotomy, TIA, history of asthma, COPD, history of hypothyroidism, who is admitted to the hospital for treatment of hypoxic respiratory failure likely secondary to viral interstitial pneumonia with possible superimposed bacterial infection has been continued on antibiotics with Rocephin and azithromycin day 3 today. The patient has had PCR positive for RSV. The patient had interstitial bilateral infiltrates on CAT scan and was initially hypoxic and hypercapnic for that reason was initially put in ICU on high flow nasal cannula, but with her improvement. She has been stepped down to PCU. She continues to be on high flow nasal cannula and that has been titrated down. She also continues to be on 40 of Solu-Medrol for possible COPD exacerbation. She is optimized on inhalers for her discharge with LAMA and LABA. Currently pending improvement and being off the high flow nasal cannula. 1. Hypoxic respiratory failure: Secondary to viral interstitial pneumonia, pos sible superimposed bacterial pneumonia. Continued to require Vapotherm yesterday and overnight. Will try to titrate down on this today. Titrate oxygen therapy to maintain saturations above 88 2. Viral interstitial pneumonia. Respiratory PCR positive for RSV, CTA significant for interstitial pneumonia. Possible superimposed bacterial infection. Patient on antibiotic coverage with Rocephin and azithromycin, day #3 of 5. Urine antigen testing for Streptococcus and Legionella pending. Sputum culture appears contaminated. Blood cultures 2 negative at 48 hrs. Continue treatment with DuoNeb's, Solu-Medrol, Mucinex, and Acapella. 3 Acute exacerbation of COPD 2/2 pneumonia: continue solumedrol for acute exacerbation . continue home inhalers 4. Elevated BNP . Patient does not appear clinically fluid overloaded. Possibly elevated due to right ventricular strain from bilateral interstitial infil trates, CTA negative for PE Troponin slightly elevated on admission, trending down. EKG stable. Echocardiogram pending. Also BNP has down trended from 40,000 to 3000 5. Elevated troponin. On admission, troponin 0.1, down to less than 0.02. Possibly related to right ventricular strain from the lateral interstitial infiltrates. Patient denies any chest pain. Will require outpatient cardiology follow-up with possible stress test 6. Astrocytoma: s/p craniotomy 7. Chronic pain syndrome: continue home medications 8. Current smoker: Nicotine patch while inpatient DVT prophylaxis: Heparin DISPOSITION: Likely discharge within the next 48 hours once she is off the high flow and saturating well. VS,Fishbone, I+O VS, Fishbone, I+O Laboratory Tests 02/04/19 14:00 02/05/19 04:55 Vital Signs Date Time Temp Pulse Resp B/P (MAP) Pulse Ox O2 Delivery O2 Flow Rate FiO2 02/05/19 04:00 4.0 02/05/19 04:00 97.0 77 18 131/73 (92) 93 High Flow Cannula 02/04/19 14:00 40 I&O- Last 24 Hours up to 6 AM 02/05/19 06:00 Intake Total 1250 ml Output Total 2600 ml Balance -1350 ml ANNETTE ERNST MD Feb 05, 2019 07:50
[2019-02-05] MEDS: ASPIRIN 325 MG TAB PO SCH (08:40)
[2019-02-05] MEDS: ATORVASTATIN 10 MG TAB PO SCH (08:41)
[2019-02-05] MEDS: guaiFENesin ER 600 MG TAB PO SCH ×2 (08:41→20:48)
[2019-02-05] MEDS: oxyBUTYnin *DITROPAN XL* 5 MG TABCR PO SCH (08:41)
[2019-02-05] MEDS: DOCUSATE SODIUM 100 MG CAP PO SCH ×2 (08:41→20:49)
[2019-02-05] MEDS: clonazePAM 0.5 MG TAB PO PRN ×2 (08:41→20:49)
--- NOTE | 2019-02-05 11:03 | ECHO ---
DATE OF PROCEDURE: 02/02/2019 DATE OF : 1970 AGE: 48 REFERRING PROVIDER: Dr. Adeel Wynne PATIENT LOCATION: Room 3205 REASON FOR THE STUDY: Heart failure, unspecified. 2-D MEASUREMENTS: IVS: 0.75 cm LV: 4.3 cm LVPW: 0.86 cm LA: 2.8 cm Aorta: 3.1 cm IVS: 2.1 cm DOPPLER MEASUREMENTS: Peak velocity across the aortic valve: 1.3 m/s Peak velocity across the LVOT: 0.71 m/s Mitral E: 1.1 Mitral A: 0.92 Ratio: 1.2 Maximum tricuspid valve velocity: 2.1 m/s 2-D COMMENTS: 1. Normal left ventricular size and wall thickness with a low normal global left ventricular systolic function. The estimated left ventricular systolic ejection fraction is about 50-55%. 2. Normal left atrium. 3. The right atrium and right ventricle were not well visualized. 4. Normal aortic root. 5. A small pericardial effusion was noted, no evidence of cardiac tamponade. 6. Mildly calcified aortic valve with normal leaflet excursion. Mildly calcified mitral annulus with normal anterior mitral valve leaflet motion. Normal tricuspid valve noted in limited views. The pulmonic valve and proximal pulmonary artery branches were not well visualized. 7. There was a small color flow jet at the level of sinus of Valsalva that may represent a patent foramen ovale/PFO. DOPPLER: Detects moderate mitral regurgitation and mild tricuspid regurgitation. The calculated pulmonary artery systolic pressure was normal. Abnormal relaxation pattern was noted across the mitral valve annulus consistent with features of grade 2 left ventricular diastolic dysfunction. IMPRESSION: 1. Low normal global left ventricular systolic function. There were features of left ventricular diastolic dysfunction, grade 2. 2. Aortic valve sclerosis without stenosis or aortic radiation. 3. Mitral annulus calcification with probably moderate mitral regurgitation. 4. Mild tricuspid regurgitation with a normal calculated pulmonary artery systolic pressure. 5. A small pericardial effusion was noted, no evidence of cardiac tamponade. 6. There are features of elevated central venous pressure, the inferior vena cava was mildly enlarged. 7. Possible patent foramen ovale/PFO. MTDD
[2019-02-05] MEDS: methylPREDNISolone INJ 40 MG/1 ML VIAL (J2920) IV SCH (12:16)
[2019-02-05] MEDS: cefTRIAXone SOD 1 GM in D5W MINI-BAG PLUS 50 ML IV SCH (14:57)
[2019-02-05] MEDS: AZITHROMYCIN INJ 500 MG, VIAL MATE ADAPTER 1 EACH in D5W 250 ML IV SCH (18:20)
[2019-02-05] MEDS: traZODone 100 MG TAB PO SCH (20:49)
[2019-02-06] VITALS (19 sets, daily range): BP systolic 102–158; BP diastolic 55–94; O2SAT 85–95
[2019-02-06] MEDS: LEVALBUTEROL 1.25 MG/0.5 ML CONCENTRATE NEB INH PRN (00:23)
[2019-02-06 05:28] LABS: HEMATOCRIT 40.9 % (36.0-47.0); MEAN CORPUSCULAR HGB CONC 31.8 g/dl (32.0-36.5); MEAN CORPUSCULAR VOLUME 91.3 fl (80.0-96.0); PLATELET COUNT, AUTOMATED 183 10^3/uL (150-450); RED BLOOD COUNT 4.48 10^6/uL (4.00-5.40); WHITE BLOOD COUNT 5.8 10^3/uL (4.0-10.0)
[2019-02-06 05:46] LABS: BLOOD UREA NITROGEN 9 MG/DL (7-18); CALCIUM LEVEL 9.4 MG/DL (8.5-10.1); CARBON DIOXIDE LEVEL 39 MEQ/L (21-32); CHLORIDE LEVEL 95 MEQ/L (98-107); CREATININE FOR GFR 0.75 MG/DL (0.55-1.30); GLOMERULAR FILTRATION RATE > 60.0 (>58); GLUCOSE, FASTING 88 MG/DL (70-100); POTASSIUM SERUM 3.4 MEQ/L (3.5-5.1); SODIUM LEVEL 139 MEQ/L (136-145)
[2019-02-06] MEDS: METHADONE 10 MG TAB (S0109) PO PRN ×3 (06:17→21:12)
[2019-02-06] MEDS: LEVOTHYROXINE 125MCG TABLET (0.125MG) PO SCH (06:17)
[2019-02-06] MEDS: SLF 3 ML SYR IV SCH ×3 (06:18→21:11)
[2019-02-06] MEDS: HEPARIN SOD (PORCINE) 5000 UNITS/ML VIAL SC SCH ×3 (06:18→21:11)
[2019-02-06] MEDS ORDERED: POTASSIUM CHLORIDE 10 MEQ SR TABLET PO ONE (07:30)
[2019-02-06] MEDS: TIOTROPIUM INHALER/CAPSULE (SPIRIVA) INH SCH (07:51)
[2019-02-06] MEDS: ASPIRIN 325 MG TAB PO SCH (07:56)
[2019-02-06] MEDS: DOCUSATE SODIUM 100 MG CAP PO SCH ×2 (07:57→21:12)
[2019-02-06] MEDS: guaiFENesin ER 600 MG TAB PO SCH ×2 (07:57→21:12)
[2019-02-06] MEDS: oxyBUTYnin *DITROPAN XL* 5 MG TABCR PO SCH (07:57)
[2019-02-06] MEDS: ATORVASTATIN 10 MG TAB PO SCH (07:57)
--- NOTE | 2019-02-06 11:12 | IPNPDOC ---
Date Seen The patient was seen on 02/06/19. Progress Note SUBJECTIVE: Patient was seen and examined this morning laying comfortably in bed. She states she feels like her breathing is a little bit improved today and her chest feels less congested. She states she is still not bringing up much. When she coughs. Chest reports some aching pain along her back where her lower ribs are. This bothers her most when she is coughing. She denies any palpitations. OBJECTIVE PHYSICAL EXAMINATION: VITAL SIGNS: Please see below. GENERAL: Alert, sitting up in bed in no acute respiratory distress. HEENT: Normocephalic, atraumatic, EOMI, dry mucous membranes NECK: Supple, trachea midline, no lymphadenopathy, no JVD CARDIOVASCULAR: Regular rate and rhythm, normal S1 and S2. No murmurs, rubs, or gallops RESPIRATORY: Clear to auscultation bilaterally with mild expiratory wheezing. No rhonchi, or rales. ABDOMEN: Soft, nontender, nondistended, bowel sounds present, no masses or hepatosplenomegaly appreciated EXTREMITIES: No cyanosis or edema. Clubbing noticed on bilateral fingernails. Pulses 2+/4 in bilateral upper and lower extremities NEUROLOGIC: Alert and oriented 3 to person, place and time. Strength and sensation intact bilaterally. No focal deficits appreciated PSYCHIATRIC: Mood and affect appropriate TELEMETRY MONITORING: Sinus rhythm with frequency PVCs LABORATORY DATA, IMAGING STUDIES, MICROBIOLOGY: Please see below. ECHOCARDIOGRAM: 1. Low normal global left ventricular systolic function. There were features of left ventricular diastolic dysfunction, grade 2. 2. Aortic valve sclerosis without stenosis or aortic radiation. 3. Mitral annulus calcification with probably moderate mitral regurgitation. 4. Mild tricuspid regurgitation with a normal calculated pulmonary artery systolic pressure. 5. A small pericardial effusion was noted, no evidence of cardiac tamponade. 6. There are features of elevated central venous pressure, the inferior vena cava was mildly enlarged. 7. Possible patent foramen ovale/PFO. ASSESSMENT AND PLAN: 48-year-old female with past medical history of chronic pain syndrome, history of brain tumor status post craniotomy, TIA, history of asthma, questionable COPD, history of hypothyroidism, who is admitted to the hospital for treatment of hypoxic respiratory failure likely secondary to viral interstitial pneumonia with possible superimposed bacterial infection. #Hypoxic respiratory failure secondary to viral interstitial pneumonia, COPD exacerbation, and possible superimposed bacterial pneumonia Currently on high flow nasal cannula. Titrate oxygen therapy to maintain saturations above 88% -at baseline does not require supplemental oxygen, goal is to be on room air for discharge #Viral interstitial pneumonia. Respiratory PCR positive for RSV, CTA significant for interstitial pneumonia. Possible superimposed bacterial infection. Patient on antibiotic coverage with Rocephin and azithromycin, day #4 of 7. Urine antigen testing for Streptococcus and Legionella pending. Sputum culture appears contaminated. Blood cultures 2 negative at 48 hrs. Continue treatment with DuoNeb's, Solu-Medrol, Mucinex, and Acapella. #acute exacerbation of COPD 2/2 pneumonia -continue solumedrol for acute exacerbation -continue home inhalers # Elevated BNP Patient does not appear clinically fluid overloaded Possibly elevated due to right ventricular strain from bilateral interstitial infiltrates, CTA negative for PE Troponin slightly elevated on admission, trending down. EKG stable. Echocardiogram results above # Elevated troponin. On admission, troponin 0.1, down to less than 0.02. Possibly related to right ventricular strain from the lateral interstitial infiltrates. Patient denies any chest pain -suggest f/u outpatient for possible stress #Astrocytoma - s/p craniotomy #Chronic pain syndrome - continue home medications # Current smoker Nicotine patch while inpatient DVT prophylaxis: Heparin DISPOSITION: pending titrating off supplemental oxygen, possible d/c in the next 24-48 hrs ATTENDING NOTE I have personally evaluated and examined the patient. Discussed with residents/student regarding plan of care and agree with the above assessment and plan. VS, I&O, 24H, Fishbone Vital Signs/I&O Vital Signs Date Time Temp Pulse Resp B/P (MAP) Pulse Ox O2 Delivery O2 Flow Rate FiO2 02/06/19 09:00 91 Nasal Cannula 5.0 02/06/19 08:00 98.0 79 18 133/74 (93) 02/04/19 14:00 40 I&O- Last 24 Hours up to 6 AM 02/06/19 06:00 Intake Total 1010 ml Output Total 2400 ml Balance -1390 ml Laboratory Data 24H LABS Laboratory Tests 2 02/06/19 05:08: Nucleated Red Blood Cells % (auto) 0.0, Anion Gap 5L, Glomerular Filtration Rate > 60.0, Calcium Level 9.4 CBC/BMP Laboratory Tests 02/06/19 05:08 Microbiology Microbiology 02/03/19 Gram Stain - Final, Complete 02/03/19 Sputum Culture - Final, Complete 02/01/19 Blood Culture - Preliminary, Resulted No Growth after 72 hours. All specime... 02/01/19 Blood Culture - Final, Complete NO GROWTH AFTER 5 DAYS 02/01/19 Respiratory Virus Panel (PCR) ([facility]) - Final, Complete Respiratory Syncytial Virus 02/01/19 Blood Culture - Final, Complete NO GROWTH AFTER 5 DAYS PETRA GUTIERREZ D.O. Feb 06, 2019 11:12 JANIS DIAMOND MD Feb 06, 2019 16:43
[2019-02-06] MEDS: methylPREDNISolone INJ 40 MG/1 ML VIAL (J2920) IV SCH (11:55)
[2019-02-06] MEDS: cefTRIAXone SOD 1 GM in D5W MINI-BAG PLUS 50 ML IV SCH (14:45)
[2019-02-06] MEDS: AZITHROMYCIN INJ 500 MG, VIAL MATE ADAPTER 1 EACH in D5W 250 ML IV SCH (17:01)
[2019-02-06] MEDS: traZODone 100 MG TAB PO SCH (21:11)
[2019-02-07] VITALS (22 sets, daily range): BP systolic 105–134; BP diastolic 59–89; O2SAT 82–98
[2019-02-07 00:10] LABS: BODY FLUID CULTURE Not indicated. (.); LEGIONELLA ANTIGEN URINE Negative (Negative); ORGANISM ID Not indicated. (.); SPECIMEN SOURCE Urine (.); URINE STREP PNEUMONIAE ANTIGEN Negative (Negative)
[2019-02-07 05:13] LABS: HEMATOCRIT 40.2 % (36.0-47.0); HEMOGLOBIN 12.8 g/dl (12.0-15.5); MEAN CORPUSCULAR HGB CONC 31.8 g/dl (32.0-36.5); PLATELET COUNT, AUTOMATED 192 10^3/uL (150-450); RED BLOOD COUNT 4.42 10^6/uL (4.00-5.40); WHITE BLOOD COUNT 5.9 10^3/uL (4.0-10.0)
[2019-02-07 05:24] LABS: BLOOD UREA NITROGEN 10 MG/DL (7-18); CALCIUM LEVEL 9.3 MG/DL (8.5-10.1); CARBON DIOXIDE LEVEL 35 MEQ/L (21-32); CHLORIDE LEVEL 97 MEQ/L (98-107); CREATININE FOR GFR 0.72 MG/DL (0.55-1.30); GLOMERULAR FILTRATION RATE > 60.0 (>58); GLUCOSE, FASTING 94 MG/DL (70-100); SODIUM LEVEL 135 MEQ/L (136-145)
[2019-02-07] MEDS: LEVOTHYROXINE 125MCG TABLET (0.125MG) PO SCH (05:30)
[2019-02-07] MEDS: HEPARIN SOD (PORCINE) 5000 UNITS/ML VIAL SC SCH ×3 (05:31→21:04)
[2019-02-07] MEDS: SLF 3 ML SYR IV SCH ×3 (05:31→21:05)
[2019-02-07] MEDS: METHADONE 10 MG TAB (S0109) PO PRN ×3 (05:33→21:04)
[2019-02-07] MEDS: TIOTROPIUM INHALER/CAPSULE (SPIRIVA) INH SCH (08:55)
[2019-02-07] MEDS: guaiFENesin ER 600 MG TAB PO SCH ×2 (09:04→21:04)
[2019-02-07] MEDS: oxyBUTYnin *DITROPAN XL* 5 MG TABCR PO SCH (09:04)
[2019-02-07] MEDS: ASPIRIN 325 MG TAB PO SCH (09:04)
[2019-02-07] MEDS: ATORVASTATIN 10 MG TAB PO SCH (09:04)
[2019-02-07] MEDS: DOCUSATE SODIUM 100 MG CAP PO SCH ×2 (09:04→21:04)
[2019-02-07] MEDS: clonazePAM 0.5 MG TAB PO PRN (09:05)
[2019-02-07] MEDS ORDERED: SENNA 8.6 MG TAB (SENOKOT) PO PRN (09:45)
--- NOTE | 2019-02-07 09:53 | IPNPDOC ---
Date Seen The patient was seen on 02/07/19. Progress Note SUBJECTIVE: Patient was seen and examined this morning laying comfortably in bed. . She states she feels her breathing is much improved. She denies any current congestion in her chest. She also states her cough is improving and she does not feel like she has much mucus left to cough up. OBJECTIVE PHYSICAL EXAMINATION: VITAL SIGNS: Please see below. GENERAL: Alert, sitting up in bed in no acute respiratory distress. HEENT: Normocephalic, atraumatic, EOMI, moist mucous membranes NECK: Supple, trachea midline, no lymphadenopathy, no JVD CARDIOVASCULAR: Regular rate and rhythm, normal S1 and S2. No murmurs, rubs, or gallops RESPIRATORY: Clear to auscultation bilaterally with mild expiratory wheezing. No rhonchi, or rales. ABDOMEN: Soft, nontender, nondistended, bowel sounds present, no masses or hepatosplenomegaly appreciated EXTREMITIES: No cyanosis or edema. Clubbing noticed on bilateral fingernails. Pulses 2+/4 in bilateral upper and lower extremities NEUROLOGIC: Alert and oriented 3 to person, place and time. Strength and sensation intact bilaterally. No focal deficits appreciated PSYCHIATRIC: Mood and affect appropriate TELEMETRY MONITORING: Sinus rhythm with frequency PVCs LABORATORY DATA, IMAGING STUDIES, MICROBIOLOGY: Please see below. ECHOCARDIOGRAM: 1. Low normal global left ventricular systolic function. There were features of left ventricular diastolic dysfunction, grade 2. 2. Aortic valve sclerosis without stenosis or aortic radiation. 3. Mitral annulus calcification with probably moderate mitral regurgitation. 4. Mild tricuspid regurgitation with a normal calculated pulmonary artery systolic pressure. 5. A small pericardial effusion was noted, no evidence of cardiac tamponade. 6. There are features of elevated central venous pressure, the inferior vena cava was mildly enlarged. 7. Possible patent foramen ovale/PFO. ASSESSMENT AND PLAN: 48-year-old female with past medical history of chronic pain syndrome, history of brain tumor status post craniotomy, TIA, history of asthma, questionable COPD, history of hypothyroidism, who is admitted to the hospital for treatment of hypoxic respiratory failure likely secondary to viral interstitial pneumonia with possible superimposed bacterial infection. #Hypoxic respiratory failure secondary to viral interstitial pneumonia, COPD exacerbation, and possible superimposed bacterial pneumonia Currently on high flow nasal cannula. Titrate oxygen therapy to maintain saturations above 88% -at baseline does not require supplemental oxygen, goal is to be on room air for discharge #Viral interstitial pneumonia. Respiratory PCR positive for RSV, CTA significant for interstitial pneumonia. Possible superimposed bacterial infection. Patient on antibiotic coverage with Rocephin and azithromycin, day #7 of 7. Urine antigen testing for Streptococcus and Legionella pending. Sputum culture appears contaminated. Blood cultures 2 negative at 48 hrs. Continue treatment with DuoNeb's, Solu-Medrol, Mucinex, and Acapella. #acute exacerbation of COPD 2/2 pneumonia -continue solumedrol for acute exacerbation -continue home inhalers # Elevated BNP Patient does not appear clinically fluid overloaded Possibly elevated due to right ventricular strain from bilateral interstitial infiltrates, CTA negative for PE Troponin slightly elevated on admission, trending down. EKG stable. Echocardiogram results above # Elevated troponin. On admission, troponin 0.1, down to less than 0.02. Possibly related to right ventricular strain from the lateral interstitial infiltrates. Patient denies any chest pain -suggest f/u outpatient for possible stress test #Astrocytoma - s/p craniotomy #Chronic pain syndrome - continue home medications # Current smoker Nicotine patch while inpatient DVT prophylaxis: Heparin DISPOSITION: pending titrating off supplemental oxygen, possible d/c in the next 24-48 hrs ATTENDING NOTE I have personally evaluated and examined the patient. Discussed with resident/student regarding plan of care and agree with the above assessment and plan. VS, I&O, 24H, Fishbone Vital Signs/I&O Vital Signs Date Time Temp Pulse Resp B/P (MAP) Pulse Ox O2 Delivery O2 Flow Rate FiO2 02/07/19 09:00 91 Nasal Cannula 6.0 02/07/19 08:00 97.5 88 16 134/67 (89) 02/04/19 14:00 40 I&O- Last 24 Hours up to 6 AM 02/07/19 05:59 Intake Total 1410 ml Output Total 3450 ml Balance -2040 ml Laboratory Data 24H LABS Laboratory Tests 2 02/07/19 04:46: Nucleated Red Blood Cells % (auto) 0.0, Anion Gap 3L, Glomerular Filtration Rate > 60.0, Calcium Level 9.3 CBC/BMP Laboratory Tests 02/07/19 04:46 Microbiology Microbiology 02/03/19 Gram Stain - Final, Complete 02/03/19 Sputum Culture - Final, Complete 02/01/19 Blood Culture - Final, Complete NO GROWTH AFTER 5 DAYS 02/01/19 Blood Culture - Final, Complete NO GROWTH AFTER 5 DAYS 02/01/19 Respiratory Virus Panel (PCR) (CHRISTOPHER) - Final, Complete Respiratory Syncytial Virus 02/01/19 Blood Culture - Final, Complete NO GROWTH AFTER 5 DAYS PETRA GUTIERREZ D.O. Feb 07, 2019 09:53 JANIS DIAMOND MD Feb 07, 2019 14:22
[2019-02-07] MEDS: tiZANidine 4 MG TAB PO SCH (11:43)
[2019-02-07] MEDS: oxyCODONE 5MG TAB PO PRN (11:44)
[2019-02-07] MEDS: methylPREDNISolone INJ 40 MG/1 ML VIAL (J2920) IV SCH (11:44)
[2019-02-07] MEDS: LEVALBUTEROL 1.25 MG/0.5 ML CONCENTRATE NEB INH PRN ×3 (12:42→21:08)
[2019-02-07] MEDS: cefTRIAXone SOD 1 GM in D5W MINI-BAG PLUS 50 ML IV SCH (14:55)
[2019-02-07] MEDS: AZITHROMYCIN INJ 500 MG, VIAL MATE ADAPTER 1 EACH in D5W 250 ML IV SCH (17:07)
[2019-02-07] MEDS: traZODone 100 MG TAB PO SCH (21:05)
[2019-02-08] VITALS (14 sets, daily range): BP systolic 112–144; BP diastolic 56–78; O2SAT 89–97
[2019-02-08] MEDS: LEVOTHYROXINE 125MCG TABLET (0.125MG) PO SCH (05:13)
[2019-02-08] MEDS: SLF 3 ML SYR IV SCH ×3 (05:13→21:09)
[2019-02-08] MEDS: HEPARIN SOD (PORCINE) 5000 UNITS/ML VIAL SC SCH ×3 (05:13→21:08)
[2019-02-08 05:50] LABS: HEMATOCRIT 40.6 % (36.0-47.0); HEMOGLOBIN 12.8 g/dl (12.0-15.5); MEAN CORPUSCULAR HEMOGLOBIN 29.2 pg (27.0-33.0); MEAN CORPUSCULAR HGB CONC 31.5 g/dl (32.0-36.5); MEAN CORPUSCULAR VOLUME 92.5 fl (80.0-96.0); PLATELET COUNT, AUTOMATED 186 10^3/uL (150-450); RED BLOOD COUNT 4.39 10^6/uL (4.00-5.40); WHITE BLOOD COUNT 7.4 10^3/uL (4.0-10.0)
[2019-02-08 06:21] LABS: BLOOD UREA NITROGEN 16 MG/DL (7-18); CALCIUM LEVEL 8.7 MG/DL (8.5-10.1); CARBON DIOXIDE LEVEL 34 MEQ/L (21-32); CHLORIDE LEVEL 98 MEQ/L (98-107); CREATININE FOR GFR 0.82 MG/DL (0.55-1.30); GLOMERULAR FILTRATION RATE > 60.0 (>58); GLUCOSE, FASTING 80 MG/DL (70-100); SODIUM LEVEL 137 MEQ/L (136-145)
[2019-02-08] MEDS: LEVALBUTEROL 1.25 MG/0.5 ML CONCENTRATE NEB INH PRN ×3 (07:43→20:21)
[2019-02-08] MEDS: TIOTROPIUM INHALER/CAPSULE (SPIRIVA) INH SCH (07:43)
[2019-02-08] MEDS: DOCUSATE SODIUM 100 MG CAP PO SCH ×2 (08:21→21:09)
[2019-02-08] MEDS: LINZESS 290 MCG PO SCH (08:22)
[2019-02-08] MEDS: ASPIRIN 325 MG TAB PO SCH (08:22)
[2019-02-08] MEDS: oxyBUTYnin *DITROPAN XL* 5 MG TABCR PO SCH (08:22)
[2019-02-08] MEDS: guaiFENesin ER 600 MG TAB PO SCH ×2 (08:22→21:09)
[2019-02-08] MEDS: tiZANidine 4 MG TAB PO SCH (08:22)
[2019-02-08] MEDS: ATORVASTATIN 10 MG TAB PO SCH (08:22)
[2019-02-08] MEDS: METHADONE 10 MG TAB (S0109) PO PRN ×3 (08:28→21:09)
[2019-02-08] MEDS: predniSONE 20 MG TAB PO SCH (09:00)
--- NOTE | 2019-02-08 09:22 | IPNPDOC ---
Date Seen The patient was seen on 02/08/19. Progress Note SUBJECTIVE: Patient was seen and examined this morning laying comfortably in bed. She is frustrated still that she is here and would like to go home. She states she is coughing but it is non productive and she does still feel some congestion in her chest which is improved. Pt did have a family member bring in her Linzess from home to help her constipation as she states nothing else works for her. OBJECTIVE PHYSICAL EXAMINATION: VITAL SIGNS: Please see below. GENERAL: Alert, sitting up in bed in no acute respiratory distress. HEENT: Normocephalic, atraumatic, EOMI, moist mucous membranes NECK: Supple, trachea midline, no lymphadenopathy, no JVD CARDIOVASCULAR: Regular rate and rhythm, normal S1 and S2. No murmurs, rubs, or gallops RESPIRATORY: Clear to auscultation bilaterally with mild expiratory wheezing. No rhonchi, or rales. ABDOMEN: Soft, nontender, nondistended, bowel sounds present, no masses or hepatosplenomegaly appreciated EXTREMITIES: No cyanosis or edema. Clubbing noticed on bilateral fingernails. Pulses 2+/4 in bilateral upper and lower extremities NEUROLOGIC: Alert and oriented 3 to person, place and time. Strength and sensation intact bilaterally. No focal deficits appreciated PSYCHIATRIC: Mood and affect appropriate LABORATORY DATA, IMAGING STUDIES, MICROBIOLOGY: Please see below. ECHOCARDIOGRAM: 1. Low normal global left ventricular systolic function. There were features of left ventricular diastolic dysfunction, grade 2. 2. Aortic valve sclerosis without stenosis or aortic radiation. 3. Mitral annulus calcification with probably moderate mitral regurgitation. 4. Mild tricuspid regurgitation with a normal calculated pulmonary artery syst olic pressure. 5. A small pericardial effusion was noted, no evidence of cardiac tamponade. 6. There are features of elevated central venous pressure, the inferior vena cava was mildly enlarged. 7. Possible patent foramen ovale/PFO. ASSESSMENT AND PLAN: 48-year-old female with past medical history of chronic pain syndrome, history of brain tumor status post craniotomy, TIA, history of asthma, questionable COPD, history of hypothyroidism, who is admitted to the hospital for treatment of hypoxic respiratory failure likely secondary to viral interstitial pneumonia with possible superimposed bacterial infection. #Hypoxic respiratory failure secondary to viral interstitial pneumonia, COPD exacerbation, and possible superimposed bacterial pneumonia Currently on high flow nasal cannula. Titrate oxygen therapy to maintain saturations above 88% -at baseline does not require supplemental oxygen, goal is to be on room air for discharge #Viral interstitial pneumonia. Respiratory PCR positive for RSV, CTA significant for interstitial pneumonia. Possible superimposed bacterial infection. s/p antibiotics with Rocephin and azithromycin for 7 day course Urine antigen testing for Streptococcus and Legionella negative. Sputum culture appears contaminated. Blood cultures 2 negative Continue treatment with DuoNeb's, Prednisone, Mucinex, and Acapella. Added inhaled acetylcysteine today #acute exacerbation of COPD 2/2 pneumonia -switched to oral prednisone today from solumedrol, will start to taper down her steroids. -continue home inhalers # Elevated BNP Patient does not appear clinically fluid overloaded Possibly elevated due to right ventricular strain from bilateral interstitial infiltrates, CTA negative for PE Troponin slightly elevated on admission, trending down. EKG stable. Echocardiogram results above # Elevated troponin. On admission, troponin 0.1, down to less than 0.02. Possibly related to right ventricular strain from the lateral interstitial infiltrates. Patient denies any chest pain -suggest f/u outpatient for possible stress test #Astrocytoma - s/p craniotomy #Chronic pain syndrome - continue home medications # Current smoker Nicotine patch while inpatient DVT prophylaxis: Heparin DISPOSITION: pending titrating off supplemental oxygen, possible d/c in the next 24-48 hrs ATTENDING NOTE I have personally evaluated and examined the patient. Discussed with resident/student regarding plan of care and agree with the above assessment and plan. VS, I&O, 24H, Fishbone Vital Signs/I&O Vital Signs Date Time Temp Pulse Resp B/P (MAP) Pulse Ox O2 Delivery O2 Flow Rate FiO2 02/08/19 08:00 98.1 84 18 119/68 (85) 96 High Flow Cannula 4.0 02/04/19 14:00 40 I&O- Last 24 Hours up to 6 AM 02/08/19 06:00 Intake Total 600 ml Output Total 1450 ml Balance -850 ml Laboratory Data 24H LABS Laboratory Tests 2 02/08/19 05:19: Nucleated Red Blood Cells % (auto) 0.0, Anion Gap 5L, Glomerular Filtration Rate > 60.0, Calcium Level 8.7 CBC/BMP Laboratory Tests 02/08/19 05:19 Microbiology Microbiology 02/03/19 Gram Stain - Final, Complete 02/03/19 Sputum Culture - Final, Complete 02/01/19 Blood Culture - Final, Complete NO GROWTH AFTER 5 DAYS 02/01/19 Blood Culture - Final, Complete NO GROWTH AFTER 5 DAYS 02/01/19 Respiratory Virus Panel (PCR) (CHRISTOPHER) - Final, Complete Respiratory Syncytial Virus 02/01/19 Blood Culture - Final, Complete NO GROWTH AFTER 5 DAYS PETRA GUTIERREZ D.O. Feb 08, 2019 09:22 JANIS DIAMOND MD Feb 08, 2019 10:38
[2019-02-08] MEDS: ACETYLCYSTEINE 20% 4 ML VIAL (200MG/ML) INH SCH ×2 (11:21→20:21)
[2019-02-08] MEDS: oxyCODONE 5MG TAB PO PRN (11:54)
[2019-02-08] MEDS: traZODone 100 MG TAB PO SCH (21:09)
[2019-02-08] MEDS: clonazePAM 0.5 MG TAB PO PRN (21:58)
[2019-02-09] VITALS: BP 114/60
[2019-02-09 04:00] VITALS: BP 115/62
[2019-02-09 04:52] LABS: HEMATOCRIT 38.3 % (36.0-47.0); HEMOGLOBIN 12.3 g/dl (12.0-15.5); MEAN CORPUSCULAR HEMOGLOBIN 29.1 pg (27.0-33.0); MEAN CORPUSCULAR HGB CONC 32.1 g/dl (32.0-36.5); MEAN CORPUSCULAR VOLUME 90.8 fl (80.0-96.0); PLATELET COUNT, AUTOMATED 212 10^3/uL (150-450); RED BLOOD COUNT 4.22 10^6/uL (4.00-5.40); WHITE BLOOD COUNT 7.2 10^3/uL (4.0-10.0)
[2019-02-09 05:22] LABS: BLOOD UREA NITROGEN 14 MG/DL (7-18); CALCIUM LEVEL 8.9 MG/DL (8.5-10.1); CARBON DIOXIDE LEVEL 30 MEQ/L (21-32); CHLORIDE LEVEL 100 MEQ/L (98-107); CREATININE FOR GFR 0.78 MG/DL (0.55-1.30); GLOMERULAR FILTRATION RATE > 60.0 (>58); GLUCOSE, FASTING 99 MG/DL (70-100); POTASSIUM SERUM 3.6 MEQ/L (3.5-5.1); SODIUM LEVEL 137 MEQ/L (136-145)
[2019-02-09] MEDS: HEPARIN SOD (PORCINE) 5000 UNITS/ML VIAL SC SCH (06:39)
[2019-02-09] MEDS: LEVOTHYROXINE 125MCG TABLET (0.125MG) PO SCH (06:39)
[2019-02-09] MEDS: SLF 3 ML SYR IV SCH (06:40)
[2019-02-09] MEDS: METHADONE 10 MG TAB (S0109) PO PRN (06:40)
[2019-02-09] MEDS: LEVALBUTEROL 1.25 MG/0.5 ML CONCENTRATE NEB INH PRN (07:22)
[2019-02-09] MEDS: TIOTROPIUM INHALER/CAPSULE (SPIRIVA) INH SCH (07:22)
[2019-02-09] MEDS: ACETYLCYSTEINE 20% 4 ML VIAL (200MG/ML) INH SCH (07:23)
[2019-02-09 08:00] VITALS: BP 99/63
[2019-02-09] MEDS: ASPIRIN 325 MG TAB PO SCH (08:08)
[2019-02-09] MEDS: LINZESS 290 MCG PO SCH (08:09)
[2019-02-09] MEDS: oxyBUTYnin *DITROPAN XL* 5 MG TABCR PO SCH (08:09)
[2019-02-09] MEDS: tiZANidine 4 MG TAB PO SCH (08:09)
[2019-02-09] MEDS: ATORVASTATIN 10 MG TAB PO SCH (08:09)
[2019-02-09] MEDS: predniSONE 20 MG TAB PO SCH (08:09)
[2019-02-09] MEDS: guaiFENesin ER 600 MG TAB PO SCH (08:09)
[2019-02-09] MEDS: DOCUSATE SODIUM 100 MG CAP PO SCH (08:10)
[2019-02-09] MEDS ORDERED: oxyCODONE 5MG TAB PO PRN (08:30)
[2019-02-09] MEDS ORDERED: PRED10TA2 PO (11:17)
--- NOTE | 2019-02-09 11:54 | IPNPDOC ---
Date Seen The patient was seen on 02/09/19. Progress Note Patient continues to request to go home today, was able to titrate O2 down to 1- 2L but unable to wean off completely and patient remains hypoxic without oxygen. Suspect that she will need oxygen for a period of time until lung function recovers in setting of Pneumonia with underlying COPD. Nursing assessment walk test indicate 86% at rest and requires 2L NC to bring up to 91-92%. Lowest O2 upon 250 feet ambulation was 82%, average 84-85% and requires 2L O2 NC to recover back to 91% after 1 min 30 seconds. Will discharge patient with 2L continuous home O2 with portability. VS, I&O, 24H, Fishbone Vital Signs/I&O Vital Signs Date Time Temp Pulse Resp B/P (MAP) Pulse Ox O2 Delivery O2 Flow Rate FiO2 02/09/19 08:00 2.0 02/09/19 08:00 97.1 76 14 99/63 (75) 91 Room Air 02/04/19 14:00 40 I&O- Last 24 Hours up to 6 AM 02/09/19 06:00 Intake Total 780 ml Output Total 1800 ml Balance -1020 ml Laboratory Data 24H LABS Laboratory Tests 2 02/09/19 04:16: Nucleated Red Blood Cells % (auto) 0.0, Anion Gap 7L, Glomerular Filtration Rate > 60.0, Calcium Level 8.9 CBC/BMP Laboratory Tests 02/09/19 04:16 Microbiology Microbiology 02/03/19 Gram Stain - Final, Complete 02/03/19 Sputum Culture - Final, Complete 02/01/19 Blood Culture - Final, Complete NO GROWTH AFTER 5 DAYS 02/01/19 Blood Culture - Final, Complete NO GROWTH AFTER 5 DAYS 02/01/19 Respiratory Virus Panel (PCR) (CHRISTOPHER) - Final, Complete Respiratory Syncytial Virus 02/01/19 Blood Culture - Final, Complete NO GROWTH AFTER 5 DAYS JANIS DIAMOND MD Feb 09, 2019 11:54
[2019-02-09 12:00] VITALS: BP 99/57
--- NOTE | 2019-02-09 12:05 | DS.PDOC ---
Discharge Summary General Date of Admission Feb 01, 2019 at 14:31 Date of Discharge 02/09/2019 Attending Physician: JANIS DIAMOND MD Discharge Summary PROCEDURES PERFORMED DURING STAY: None. ADMITTING DIAGNOSES: 1. Hypoxic respiratory failure. 2. Bilateral interstitial pneumonia. 3. Elevated BNP. 4. Elevated troponin. 5. Hx of astrocytoma 6. Chronic pain syndrome. 7. hypothyroidism 8. Active smoker DISCHARGE DIAGNOSES: 1. Hypoxic respiratory failure 2/2 interstitial pneumonia 2. Bilateral interstitial pneumonia 2/2 RSV vs bacterial 3. COPD exacerbation 2/2 RSV 4. Elevated BNP, improved 5. Elevated troponin, improved 6. Hx of astrocytoma 7. Chronic pain syndrome. 8. hypothyroidism 9. Active smoker COMPLICATIONS/CHIEF COMPLAINT: Pneumonia,Sirs. HISTORY OF PRESENT ILLNESS: 48-year-old female with past medical history of pain syndrome, history of brain tumor status post craniotomy, TIA, History of asthma, COPD, history of hypothyroidism, on medications, presented to the emergency department because she has not been feeling well for the last couple of days and today she was having progressive cough and low-grade fever. The patient stated that her cough was progressive worsening to the extent that it was causing her having bilateral pain under her ribs. The patient states that she had such severe bouts of cough that she had to vomit couple of times. Patient denies any diarrhea. The patient denies any chest pain except for the discomfort in bilateral sides underneath the ribs while she is having these bouts of cost. Patient denies any loss of consciousness. Patient denies any syncopal episode. The patient denies any travel outside the country. Patient denies any sick contacts. In the ED, the patient got a chest x-ray which showed that the patient was having possible pulmonary congestion and an infective etiology could not be ruled out and for that reason, a CTA was done in the ER which showed that the patient was having bilateral interstitial pneumonias. The patient was also slightly hypoxic and later was started on 2 L of oxygen and is saturating 94. Patient was given 125 of Solu-Medrol along with that one dose of Levaquin was given in the ER. HOSPITAL COURSE: The patient was admitted to the hospital and started on IV antibiotics for possible bacterial pneumonia with Rocephin and azithromycin. She was also continued on IV steroids and DuoNeb's for her COPD exacerbation. Respiratory panel was positive for RSV infection. Urine antigens for Legionella and Streptococcus pneumoniae were negative. Sputum cultures were obtained and resulted as contaminated with normal respiratory kandy. Blood cultures were negative. Patient was continued on supplemental oxygen. Echocardiogram was ordered due to an elevated BNP on admission and was found to show a low normal ejection fraction and a grade 2 diastolic dysfunction. The patient did not appear to be fluid overloaded on examination. Patient was also noted to have an elevated troponin level, which was repeated and trended downwards. The patient initially had increasing shortness of breath and was transferred to the ICU for closer monitoring and started on Vapotherm for supplemental oxygen therapy. The patient's respiratory status started to improve and she was transferred to PCU for continued on Vapotherm while titrating down on her oxygen requirements. The patient was able to be slowly titrated down to high flow nasal cannula and subsequently to regular nasal cannula at 2 L. The patient reported subjective improvement in shortness of breath but continued to require oxygen supplement ation at rest, which she does not normally use at home. Elevated discharge, the patient was found to have an oxygen saturation of 86% on room air at rest and required 2 L nasal cannula to obtain an oxygen saturation of 91-92% at rest. During ambulation, the patient was found to have an oxygen saturation of 82-85% while walking 250 feet and required 2 L via nasal cannula for 1 minute and 30 seconds to recover to an oxygen saturation of 91%. The patient was given a prescription for home oxygen while her respiratory status continues to recover at home. She was referred to the pulmonology clinic to follow up outpatient for further evaluation and treatment of her her COPD. The patient was also di scharged home on a prednisone taper to complete the treatment of her COPD exacerbation. She will continue to use her home DuoNeb's for any increased symptoms while she continues to recover from her viral infection. On the day of discharge, the patient was found to be stable to discharge home on home oxygen supplementation. DISCHARGE MEDICATIONS: Please see below. ALLERGIES: Please see below. PHYSICAL EXAMINATION ON DISCHARGE: VITAL SIGNS: Please see below. GENERAL: Alert, sitting up in bed in no acute respiratory distress. HEENT: Normocephalic, atraumatic, EOMI, moist mucous membranes NECK: Supple, trachea midline, no lymphadenopathy, no JVD CARDIOVASCULAR: Regular rate and rhythm, normal S1 and S2. No murmurs, rubs, or gallops RESPIRATORY: Clear to auscultation bilaterally with mild expiratory wheezing. No rhonchi, or rales. ABDOMEN: Soft, nontender, nondistended, bowel sounds present, no masses or hepatosplenomegaly appreciated EXTREMITIES: No cyanosis or edema. Clubbing noticed on bilateral fingernails. Pulses 2+/4 in bilateral upper and lower extremities SKIN: Warm, dry NEUROLOGIC: Alert and oriented 3 to person, place and time. Strength and sensation intact bilaterally. No focal deficits appreciated PSYCHIATRIC: Mood and affect appropriate LABORATORY DATA: Please see below. IMAGING: (impression per radiologist report) CXR 02/01: Increased interstitial markings and prominent vascularity are present. Possible superimposed basilar air space consolidations are considered. CTA chest 02/01: Diffuse bilateral interstitial infiltrates left greater than right. No cardiomegaly or pulmonary embolism. CXR 02/04: No significant change from the prior exam with findings as described above. ECHOCARDIOGRAM: 1. Low normal global left ventricular systolic function. There were features of left ventricular diastolic dysfunction, grade 2. 2. Aortic valve sclerosis without stenosis or aortic radiation. 3. Mitral annulus calcification with probably moderate mitral regurgitation. 4. Mild tricuspid regurgitation with a normal calculated pulmonary artery systolic pressure. 5. A small pericardial effusion was noted, no evidence of cardiac tamponade. 6. There are features of elevated central venous pressure, the inferior vena cava was mildly enlarged. 7. Possible patent foramen ovale/PFO. PROGNOSIS: Fair ACTIVITY: As tolerated. DIET: Low sodium (less than 2 grams/day) DISCHARGE PLAN: Home with supplemental oxygen DISPOSITION: Home DISCHARGE INSTRUCTIONS: 1. Follow-up with your PCP in 7-10 days 2. Follow up with Pulmonary Medicine at their soonest availability 3. Please use supplemental oxygen at home as instructed until you are futher evaluated by your outpatient providers. 4. If your symptoms return or your condition worsens, please call your PCP or return to the ED for further evaluation. ITEMS TO FOLLOWUP ON ON OUTPATIENT: 1. RSV pneumonia 2. COPD, discharged on home oxygen to be weaned off as she continues to recover 3. Elevated troponin on admission, consider stress test and cardiology follow up 4. Echocardiogram showing low-normal LV function with EF 50-55% and grade 2 diastolic dysfunction DISCHARGE CONDITION: Stable. TIME SPENT ON DISCHARGE: 35 minutes. Vital Signs/I&Os Vital Signs Date Time Temp Pulse Resp B/P (MAP) Pulse Ox O2 Delivery O2 Flow Rate FiO2 02/09/19 08:00 2.0 02/09/19 08:00 97.1 76 14 99/63 (75) 91 Room Air 02/04/19 14:00 40 I&O- Last 24 Hours up to 6 AM 02/09/19 06:00 Intake Total 780 ml Output Total 1800 ml Balance -1020 ml Laboratory Data Labs 24H Laboratory Tests 2 02/09/19 04:16: Nucleated Red Blood Cells % (auto) 0.0, Anion Gap 7L, Glomerular Filtration Rate > 60.0, Calcium Level 8.9 CBC/BMP Laboratory Tests 02/09/19 04:16 Microbiology Microbiology 02/03/19 Gram Stain - Final, Complete 02/03/19 Sputum Culture - Final, Complete 02/01/19 Blood Culture - Final, Complete NO GROWTH AFTER 5 DAYS 02/01/19 Blood Culture - Final, Complete NO GROWTH AFTER 5 DAYS 02/01/19 Respiratory Virus Panel (PCR) (CHRISTOPHER) - Final, Complete Respiratory Syncytial Virus 02/01/19 Blood Culture - Final, Complete NO GROWTH AFTER 5 DAYS Discharge Medications Scheduled Aspirin (Aspirin) 325 Mg Tab, 325 MG PO DAILY, (Reported) Atorvastatin Calcium (Lipitor) 10 Mg Tab, 10 MG PO DAILY, (Reported) Levothyroxine Sodium (Levothyroxine Sodium) 125 Mcg Tab, 125 MCG PO QAM, (Reported) Linaclotide (Linzess) 290 Mcg Cap, 290 MCG PO DAILY, (Reported) Methadone HCl (Methadone HCl) 10 Mg Tab, 20 MG PO Q6HP, (Reported) 10-20MG NEEDED Oxybutynin Chloride (Oxybutynin Chloride ER) 10 Mg Tab, 10 MG PO DAILY, (Reported) Paroxetine HCl (Paroxetine HCl) 40 Mg Tablet, 40 MG PO DAILY, (Reported) Prednisone (Prednisone) 10 Mg Tablet, 10 MG PO TAPER Take 4 tabs daily x 1 day, then 3 tabs daily x 3 days, then 2 tabs daily x 3 days, then 1 tab daily x 3 days and stop Tizanidine HCl (Tizanidine HCl) 4 Mg Tablet, 4 MG PO DAILY, (Reported) Trazodone HCl (Trazodone HCl) 100 Mg Tablet, 200 MG PO QHS, (Reported) Umeclidinium Yale (Incruse Ellipta) 62.5 Mcg Blst.w.dev, 1 PUFF INH DAILY, (Reported) Scheduled PRN Albuterol Sulfate (Ventolin Hfa) 108 Mcg/Act Aer, 2 PUFFS INH Q4H PRN for SOB/WHEEZING, (Reported) Clonazepam (Clonazepam) 0.5 Mg Tablet, 0.5 MG PO BID PRN for ANXIETY, (Reported) Ipratropium/Albuterol Sulfate (Iprat-Albut 0.5-3(2.5) mg/3 ml) 1 Eleazar Eleazar, 1 ELEAZAR INH Q2HP PRN for SOB/WHEEZING, (Reported) Oxycodone HCl (Oxycodone HCl) 5 Mg Tab, 1-2 TABS PO BID PRN for PAIN, (Reported) TAKES BETWEEN METHADONE DOSING FOR BREAKTHROUGH PAIN Promethazine HCl (Promethazine HCl) 25 Mg Tab, 25 MG PO DAILYPRN PRN for NAUSEA, (Reported) Allergies Coded Allergies: No Known Allergies (Unverified , 02/01/19) ATTENDING NOTE I have personally evaluated and examined the patient. Discussed with resident/student regarding plan of care and agree with the above assessment and plan. Patient continues to request to go home today, was able to titrate O2 down to 1- 2L but unable to wean off completely and patient remains hypoxic without oxygen. Suspect that she will need oxygen for a period of time until lung function recovers in setting of Pneumonia with underlying COPD. Nursing assessment walk test indicate 86% at rest and requires 2L NC to bring up to 91-92%. Lowest O2 upon 250 feet ambulation was 82%, average 84-85% and requires 2L O2 NC to recover back to 91% after 1 min 30 seconds. Will discharge patient with 2L continuous home O2 with portability. PETRA GUTIERREZ D.O. Feb 09, 2019 12:05 JANIS DIAMOND MD Feb 09, 2019 13:00
[2019-02-10] MEDS ORDERED: predniSONE 10 MG TAB PO SCH (09:00)
== END 2019-02-09 14:34 | disposition home or self-care (01) | DRG 133 ==
LOC: EDBD 10:10 → M ED 10:10 → M ED INP 14:31 → M MSPAV 15:40 → M ICU 02-02 08:24 → M PCU 02-03 06:18
PROVIDERS: ADMIT Internal Medicine; ATTEND Student in an Organized Health Care Education/Training Program
DX: J96.91 Respiratory failure, unspecified with hypoxia (principal); J12.1 Respiratory syncytial virus pneumonia; J44.1 Chronic obstructive pulmonary disease with (acute) exacerbation; F17.200 Nicotine dependence, unspecified, uncomplicated; E03.9 Hypothyroidism, unspecified; G89.29 Other chronic pain; Z86.73 Personal history of transient ischemic attack (TIA), and cerebral infarction without residual deficits; Z79.82 Long term (current) use of aspirin; Z79.899 Other long term (current) drug therapy

== ENCOUNTER → 2019-02-01 | Outpatient (CLI) | payer OTHER ==
[~2019-02-01] MED LIST changes: -PRED10TA2 PO
--- NOTE | 2019-02-01 10:36 | REP ---
CHEST, TWO VIEWS: Two views of the chest are performed and compared to prior studies most recent of which is 12/20/2017. There appears to be mild streaky infiltrate in the lingula. Mild underlying bibasilar interstitial fibrosis is noted. The heart is normal in size. Mediastinal silhouette is unremarkable and unchanged. There appears to be some degree of osteopenia. IMPRESSION: Mild streaky lingular infiltrate. Electronically Signed by Juliocesar Mcmillan MD 02/01/2019 07:54 P
== END ==
LOC: M WUC 09:31
PROVIDERS: ATTEND Physician Assistant
DX: J44.1 Chronic obstructive pulmonary disease with (acute) exacerbation (principal); R11.2 Nausea with vomiting, unspecified

== ENCOUNTER → 2019-03-02 | Outpatient (CLI) | payer OTHER ==
[~2019-03-02] MED LIST changes: +CLON0.5T2 PO; +INCR1INH INH; -OXYB10TA2 PO; +OXYB10TA23 PO; +PARO40TA2 PO; +PRED10TA2 PO; +TIZA4TAB4 PO; -TRAZ-163 PO; +TRAZ-257 PO
--- NOTE | 2019-03-03 03:26 | ECWPNPC ---
PATIENT NAME: LORRIE CHAVEZ : 1970 GENDER: FEMALE VISIT DATE: 03/02/2019 DISCHARGE DATE: 03/02/19 1541 VISIT LOCKED DATE TIME: PHYSICIAN: ANÍBAL LANDA RESOURCE: ANÍBAL LANDA REASON FOR APPOINTMENT 1. CHRONIC PAIN HISTORY OF PRESENT ILLNESS HISTORY OF PRESENT ILLNESS: HERE FOR F/U OF CHRONIC GENERALIZED BACK PAIN.RATING PAIN VAS 8-10/10.DIDNT GO TO NEUROLOGY PER OUR REFERRAL .STATES SHE DIDNT FEEL LIKE IT.I HAD SENT HER THERE DUE TO HER HX OF FREQUENT FALLING. REPORTS THAT SHE WAS HOSPITALIZED FOR PNEUMONIA LAST MONTH. REPORTING EPISODES OF FALLING X2 OVER THE PAST FEW MONTHS. INFORMED HER THAT I NEED HER TO BE EVALUATED BY NEUROLOGY. RATING PAIN VAS 9/10. PAIN THE PATIENT DESCRIBES THE PAIN... FALL RISK SCREENING: SCREENING :NO FALLS REPORTED IN THE LAST YEAR CURRENT MEDICATIONS TAKING VENTOLIN HFA 108 (90 BASE) MCG/ACT AEROSOL SOLUTION 2 PUFFS NEEDED INHALATION EVERY 4 HRS TAKING ALBUTEROL-IPRATROPIUM 1 DOSE 1 SOLUTION INHALED EVERY 2 HOURS NEEDED, NOTES: WHEN NEEDED TAKING ASPIRIN 325 MG TABLET 1 TABLET ORALLY ONCE A DAY TAKING ATORVASTATIN CALCIUM 10 MG TABLET 1 TABLET ORALLY ONCE A DAY TAKING SYNTHROID 125 MCG TABLET 1 TABLET ORALLY ONCE A DAY TAKING LINZESS 290 MCG CAPSULE 1 CAPSULE ORALLY ONCE A DAY TAKING OXYBUTYNIN CHLORIDE ER 10 MG TABLET EXTENDED RELEASE 24 HOUR 1 TABLET ORALLY ONCE A DAY TAKING KLONOPIN 1 MG TABLET 1 TABLET ORALLY DAILY PRN TAKING MUCINEX 600 MG TABLET EXTENDED RELEASE 12 HOUR 1 TABLET NEEDED ORALLY TWICE DAILY NEEDED TAKING UNISOM 25 MG TABLET 1 TABLET AT BEDTIME NEEDED ORALLY ONCE A DAY TAKING PAXIL 40 MG TABLET 1 TABLET IN THE MORNING ORALLY ONCE A DAY TAKING PROMETHAZINE HCL 25 MG TABLET 1 TABLET NEEDED ORALLY EVERY 12 HRS TAKING TRAZODONE HCL 100 MG TABLET 2 TABLET AT BEDTIME ORALLY ONCE A DAY TAKING MENTHOL (TOPICAL ANALGESIC) 7.5 % (ROLL) MISCELLANEOUS 1 APPLICATION TO AFFECTED AREA NEEDED EXTERNALLY THREE TIMES A DAY TAKING METHADONE HCL 10 MG TABLET 2 ORALLY 2 TAB Q8H MDD6 TAKING OXYCODONE HCL 5 MG TABLET 1 ORALLY Q6H PRN MDD4 TAKING TIZANIDINE HCL 4 MG TABLET 1 TABLET NEEDED ORALLY THREE TIMES A DAY IF NEEDED FOR MUSCLE SPASM PAIN IN NECK NOT-TAKING PROCHLORPERAZINE MALEATE 10 MG TABLET 1 TABLET ORALLY NEEDED ONCE PER DAY FOR NAUSEA #15 TAB SHOULD LAST 30 DAYS NOT-TAKING MELATONIN 3 MG TABLET 2 CAPSULE IN THE EVENING NEEDED WITH FOOD ORALLY ONCE A DAY MEDICATION LIST REVIEWED AND RECONCILED WITH THE PATIENT PAST MEDICAL HISTORY ASTROCYTOMA STROKES 2008 TIAS [id number] OSTEO ARTHRITIS (DEGENERATIVE) DDD FIBROMYALGIA [place] CARPAL SOHA HYPERTENSION ANXIETY/DEPRESSION NUMEROUS HEAD TRAUMAS BROKEN TEETH FLU-TYPE A MENINGITIS-TYPE B COPD ALLERGIES [id number]: MANIC BEHAVIOR - SIDE EFFECTS LYRICA: LOSS OF BALANCE - SIDE EFFECTS GABAPENTIN: LOSS OF BALANCE - SIDE EFFECTS BUSPAR: LOSS OF BALANCE - SIDE EFFECTS SURGICAL HISTORY OSTEO CHONDROMA 1980 LEFT KNEE REPAIR D&C PARTIAL CRANIOTOMY RECONSRTUCTION OF LEFT ANKLE HARDWARE REMOVED FROM LEFT ANKLE 08/13/15 UPPER TEETH REMOVAL 09/2018 FAMILY HISTORY FATHER: , DIAGNOSED WITH UNSPECIFIED HEART DISEASE, OTHER SPECIFIED CONDITIONS INFLUENCING HEALTH STATUS MOTHER: ALIVE, DIABETES, UNSPECIFIED CEREBRAL ARTERY OCCLUSION WITH CEREBRAL INFARCTION 3 SON(S) - HEALTHY. FATHER-PARKINSON\NMOM-DIABETIC DEPENDING ON HER WT\N1 SON AFIB. SOCIAL HISTORY GENERAL: TOBACCO USE ARE YOU A:FORMER SMOKER HOW LONG HAS IT BEEN SINCE YOU LAST SMOKED?< 1 MONTH EDUCATION LEVEL OF EDUCATION:NOT FINISHED HIGH SCHOOL GED LANGUAGE LANGUAGES SPOKEN:MALTESE DOMESTIC VIOLENCE DO YOU FEEL SAFE IN YOUR ENVIRONMENT?YES NEW PATIENT PAIN DIARY TODAY'S VISITNOTES RECREATIONAL DRUG USE DRUG USE?NO LEARNING BARRIERS / SPECIAL NEEDS CHANGE FROM LAST VISIT? PT STATES THAT SHE FELL AT HOME, GETTING OUT OF BED IN MIDDLE OF NIGHT, JAMMED NECK. BARRIERS TO LEARNING?YES COMMENTS HAS TROULBLE REMEMBER THINGS AT TIMES DUE TO NEIL TUMOR, STROKE AND TIA ALONG WITH MENINGITIS HEARING IMPAIRED?NO VISION IMPAIRED?YES COGNITIVELY IMPAIRED?YES HAS TROUBLE REMEMBERING THINGS AT TIMES STATED ABOVE :CORRECTIVE LENSES READINESS TO LEARN?YES LEARNING PREFERENCES?NO LEARNING CAPABILITIES PRESENT?YES EMOTIONAL BARRIERS?NO SPECIAL DEVICES?YES :CANE, WALKER, OTHER ASSISTANCE OF ANOTHER PERSON, NEEDED PRECISION ASSEMBLER BENCH NEEDED?NO PAIN CLINIC PFS, CLERGY, PUBLIC HEALTH REFERRALS PFS REFERRAL NEEDED?NO CLERGY REFERRAL NEEDED?NO PUBLIC HEALTH REFERRAL NEEDED?NO WAS THE PROVIDER NOTIFIED OF ANY PERTINENT INFO? N/A HAS THE PATIENT BEEN EDUCATED REGARDING HIS/HER PLAN OF CARE?YES HAS THE PATIENT BEEN EDUCATED REGARDING PAIN, THE RISK FOR PAIN, THE IMPORTANCE OF EFFECTIVE PAIN MANAGEMENT, AND THE PAIN ASSESSMENT PROCESS?YES LATEX QUESTIONNAIRE LATEX ALLERGY : HAVE YOU EVER DEVELOPED ANY TYPE OF REACTION AFTER HANDLING LATEX PRODUCTS SUCH RUBBER GLOVES, CONDOMS, DIAPHRAGMS, BALLOONS, SOCKS, OR UNDERWEAR?NO LATEX ALLERGY : HAVE YOU EVER DEVELOPED ANY TYPE OF REACTION DURING OR AFTER DENTAL APPOINTMENT, VAGINAL/RECTAL EXAMINATION, SURGICAL PROCEDURE, OR ANY OTHER EXPOSURE?NO DATE ASKED : 05/25/2018 LATEX RISK : HAVE YOU EVER HAD ANY DIFFICULTY BREATHING OR HIVES AFTER EATING OR HANDLING ANY FRUITS, OR VEGETABLES; SUCH KIWI, BANANAS, STONE FRUITS, OR CHESTNUTSNO LATEX RISK : DO YOU HAVE A PREVIOUS PERSONAL HISTORY OF MORE THAN NINE SURGERIES, SPINA BIFIDA, OR REPEATED CATHERIZATIONS? NO LATEX RISK : ARE YOU FREQUENTLY EXPOSED TO LATEX PRODUCTS IN YOUR OCCUPATION?NO CAFFEINE CAFFEINE USE?YES HOW OFTEN AND HOW MUCH? 1 POT OF COFFEE AND 6 SODA/DAY ADVANCE DIRECTIVE ADVANCE DIRECTIVE DISCUSSED WITH PATIENT:YES HCP - SHERITA SH[facility] [address] ALCOHOL SCREENING DID YOU HAVE A DRINK CONTAINING ALCOHOL IN THE PAST YEAR?NO POINTS0 INTERPRETATIONNEGATIVE 10/12/17 1150 REVIEWED WITH PT. ADREVIEWED WITH PT 11/12/17 1044 BVREVIEWED WITH PATIENT 12/10/17 1418 JS01/13/18 1354 REVIEWED WITH PT. ADREVIEWED WITH PATIENT 01/31/18 1412 JSREVIEWED WITH PT. 08/16/18 ADREVIEWED WITH PATIENT 04/19/18 1518 JSREVEIWED WITH PATIENT 05/25/18 1326 BVREVIEWED WITH PT 03/31/18 1417 BVREVIEWED WITH PATIENT 03/22/18 1515 LASREVIEWED WITH PATIENT 01/19/19 1449 JSREVIEWED WITH PATIENT 03/02/19 1500 BV. HOSPITALIZATION/MAJOR DIAGNOSTIC PROCEDURE MENINGITIS 1997 CVA 2008 SURGERIES PNEUMONIA PNEUMONIA, RSV 01/2019 REVIEW OF SYSTEMS REVIEWED BY: PROVIDER: ANÍBAL FLORES . CONSTITUTIONAL: ANY CHANGE IN YOUR MEDICAL CONDITION? NO . CHILLS NO . FEVER NO . INFECTION: DO YOU HAVE NEW INFECTIONS? NO . DO YOU HAVE HISTORY OF MRSA? NO . MUSCULOSKELETAL: ANY NEW PATTERNS OF PAIN OR NUMBNESS? PT STATES SHE HAS HAD INCREASING WEAKNESS IN OVERALL BODY OVER THE PAST COUPLE WEEKS . GASTROENTEROLOGY: ANY NEW CHANGE IN BOWEL CONTROL? NO . GENITOURINARY: ANY NEW CHANGE IN BLADDER CONTROL? NO . IS THERE A CHANCE YOU COULD BE ? NO . HEMATOLOGY/LYMPH: DO YOU TAKE ANY BLOOD THINNERS? (FOR EXAMPLE- COUMADIN, PLAVIX, AGGRENOX, PLATEL, PRADAXA, OR XARELTO) NO . WHEN WAS YOUR LAST DOSE? DATE: TIME: . NEUROLOGY: HAVE YOU FALLEN IN THE PAST 12 MONTHS? YES, PT STATES SHE HAS HAD TWO FALLS IN LAST 10 DAYS. STATES BOTH FALLS WERE DUE TO LOSS OF BALANCE AND WEAKNESS. SHE HAS BRUISING TO LEFT SHOULDER AND MINOR CUTS TO NOSE. . ANY NEW EXTREMITY NUMBNESS OR WEAKNESS? NO . CARDIOLOGY: DO YOU HAVE A PACEMAKER OR DEFIBRILLATOR? NO . RESPIRATORY: HAVE YOU BEEN SICK IN THE PAST WEEK? PT WAS HOSPITALIZED FOR 2 WEEKS IN JANUARY 2019 FOR PNEUMONIA AND RSV. STATES SHE WAS DISCHARGED ON 02/09/19 DENIES ANY SYMPTOMS THE PAST 2 WEEKS . INTEGUMENTARY: DO YOU HAVE ANY RASHES OR OPEN SORES? NO . ALLERGIC/IMMUNO: ARE YOU ALLERGIC TO IV DYE? NO . ANY NEW ALLERGIES? NO . PSYCHIATRIC: DO YOU HAVE THOUGHTS OF HURTING YOURSELF OR SOMEONE ELSE? NO . ARE YOU ABUSED, NEGLECTED, OR IN AN UNSAFE ENVIRONMENT? NO . ENDOCRINOLOGY: ARE YOU DIABETIC? NO . OTHER: DO YOU NEED ANY PRESCRIPTIONS? METHADONE, OXYCODONE . IF YES, PLEASE LIST: ____ . ANY NEW PROBLEMS WITH YOUR MEDICATIONS? NO . WHEN DID YOU LAST EAT? ____ . WHEN DID YOU LAST DRINK? ____ . WHAT DID YOU LAST DRINK? ____ . NAME OF PERSON DRIVING YOU HOME? ____ . DO YOU HAVE ANY OTHER QUESTIONS OR CONCERNS NO . VITAL SIGNS WT 166.7 LBS, HT 70 IN, BMI 23.92 INDEX, BP 119/75 MM HG, HR 98 /MIN, RR 16 /MIN, TEMP 99.2 F, OXYGEN SAT % 95%, NA INITIALS SC 15:01, REVIEWED BY: BV. EXAMINATION GENERAL EXAMINATION: GENERAL AWAKE,ALERT ,PLEASANT . PSYCH AFFECT NORMAL . LUNGS: LUNG MARTINEZ ARE CLEAR TO AUSCULTATION BILATERALLY. GOOD MOVEMENT OF AIR . HEART: S1, S2 IN A REGULAR RATE AND RHYTHM. NO SIGNIFICANT MURMURS, RUBS OR GALLOPS NOTED . ASSESSMENTS CENTRAL PAIN SYNDROME - G89.0 (PRIMARY) TREATMENT CENTRAL PAIN SYNDROME REFILL METHADONE HCL TABLET, 10 MG, 2, ORALLY, 2 TAB Q8H MDD6, 30 DAYS, 180, REFILLS 0 REFILL OXYCODONE HCL TABLET, 5 MG, 1, ORALLY, Q6H PRN MDD4, 30 DAYS, 120, REFILLS 0 NOTES: ISTOP REGISTRY REVIEWED AND DEMONSTRATES COMPLLIANCE. URINE TOX TODAY, RISKS OF NARCOTIC/OPIOD MEDICATIONS INCLUDES BUT IS NOT LIMITED TO RISK OF DEPENDANCE/DEVELOPMENT OF ADDICTION, MOOD DISTURBANCE AND DEPRESSION, OSTEOPOROSIS, HORMONAL AND LABIDAL CHANGES, RESPIRATORY DEPRESSION AND . PATIENT IS ADVISED NOT TO DRIVE OR DRINK ALCOHOL WHILE ON THESE MEDICATIONS. [facility]:HX OF CEREBRAL ANEURISM REPAIR SEVERAL YEARS AGO,CENTRAL PAIN SYNDROME,FREQUENT FALLS PROCEDURE CODES FA211 ESTABILISHED PATIENT [facility] CHARGE DISPOSITION & COMMUNICATION FOLLOW UP 2 MONTHS ELECTRONICALLY SIGNED BY SANDRA RED ON 03/02/2019 AT 03:43 PM EST DISCLAIMER : THIS IS A VISIT SUMMARY EXTRACTED FROM THE [facility] CHART. IT IS NOT A COPY OF THE [facility] [employer] PROGRESS NOTE. FANNIE
== END ==
LOC: M PAIN 14:30
PROVIDERS: ATTEND Nurse Practitioner Family
DX: G89.0 Central pain syndrome (principal)

== ENCOUNTER → 2019-10-09 | Outpatient (REF) | payer OTHER ==
[~2019-10-09] MED LIST changes: +OXYC-1 PO; -OXYC15TA76 PO
[2019-10-09 20:46] LABS: CHLAMYDIA DNA AMPLIFICATION NEGATIVE (NEGATIVE); GC DNA AMPLIFICATION NEGATIVE (NEGATIVE)
== END ==
LOC: M LAB REF 15:30
PROVIDERS: ATTEND Physician Assistant
DX: R30.0 Dysuria (principal)

== ENCOUNTER → 2019-11-01 | Outpatient (CLI) | payer OTHER | LOC: M PAIN 14:12 | PROVIDERS: ATTEND Nurse Practitioner Family | DX: M47.816 Spondylosis without myelopathy or radiculopathy, lumbar region (principal); Z96.643 Presence of artificial hip joint, bilateral; Z79.891 Long term (current) use of opiate analgesic ==

== ENCOUNTER → 2019-12-11 | Outpatient (CLI) | payer OTHER ==
--- NOTE | 2019-12-11 15:56 | REP ---
INDICATION: ACUTE HIP AND PELVIC PAIN; S/P INJURY. Bilateral hip study: COMPARISON: November 18, 2014 [facility].. TECHNIQUE: AP view of the pelvis and AP and frog-leg views of each hip are presented. Total of five views. FINDINGS: Bony pelvic ring is intact. Sacrum and SI joints are intact symphysis pubis is unremarkable. There is bilateral femoro-acetabular spurring consistent with bilateral hip joint osteoarthritis. This is mild. There is mild joint space narrowing superiorly and bilaterally. Findings appear to be essentially unchanged from the 2014 study. Femoral heads are smooth and rounded. Periarticular soft tissues remain unremarkable. IMPRESSION: Bilateral hip joint osteoarthritis. No acute bony abnormality. No fracture seen. <Electronically signed by Geoff Cole > 12/11/19 0998
== END ==
LOC: M RAD 13:45
PROVIDERS: ATTEND Nurse Practitioner Family
DX: M16.0 Bilateral primary osteoarthritis of hip (principal)

== ENCOUNTER → 2019-12-28 | Outpatient (CLI) | payer OTHER ==
--- NOTE | 2019-12-30 01:41 | ECWPNPC ---
PATIENT NAME: LORRIE CHAVEZ : 1970 GENDER: FEMALE VISIT DATE: 12/28/2019 DISCHARGE DATE: 12/28/19 1433 VISIT LOCKED DATE TIME: PHYSICIAN: ANÍBAL LANDA RESOURCE: ANÍBAL LANDA REASON FOR APPOINTMENT 1. MED MANAGEMENT HISTORY OF PRESENT ILLNESS GENERAL: PATIENT IS AGREEABLE TO TELEPHONE VISIT TODAY. SHE IS FEARFUL TO COME IN DUE TO INCREASING COVID 19 CASES IN THE AREA. X-RAY OF THE PELVIS AND BILATERAL HIP IS REVIEWED WITH PATIENT. SHOWING BILATERAL HIP JOINT OSTEOARTHRITIS. PATIENT CONTINUES TO REPORT SIGNIFICANT INCREASE IN RIGHT HIP PAIN OVER THE PAST 3 MONTHS. STATES IT FEELS THOUGH HER HIP JOINT IS COMING OUT. STATES SHE NEEDS TO USE A CANE FOR WALKING. REVIEWED MEDICATIONS. PATIENT FINDS MEDICATION SOMEWHAT EFFECTIVE AT REDUCING PAIN AND KEEPING HER FUNCTIONAL. -. FALL RISK SCREENING: SCREENING :ONE FALL WITHOUT INJURY IN THE PAST YEAR PAIN SCREENING: PATIENT HAS A COMPLAINT OF ACUTE OR CHRONIC PAIN :YES LOCATION OF PAIN:LOW BACK, RIGHT HIP INTENSITY OF PAIN (SCALE OF 1 TO 10):10 WHAT DOES YOUR PAIN FEEL LIKE:SHARP, SHOOTING DURATION:CONTINOUS, CONSTANT PAIN IS INCREASED BY:ACTIVITIES PAIN IS DECREASED BY:USE OF PAIN MEDICATIONS TREATMENT/MEDICATIONS USED TO MANAGE PAIN:OPIOIDS LEVEL OF RELIEF FROM PAIN TREATMENTS IN THE PAST:25% PAIN HAS INTERFERED WITH THE FOLLOWING:BATHING/DRESSING, WALKING ABILITY, HOUSEWORK, SLEEP, TRANSPORTATION, TOILETING NURSING NOTE: -. PAIN CENTER INTAKE QUESTIONS: DO YOU HAVE A HISTORY OF MRSA? :NO DO YOU TAKE A BLOOD THINNERS? :NO DO YOU HAVE ANY BLEEDING DISORDERS? :NO ANY NEW NUMBNESS OR WEAKNESS IN YOUR LEGS OR ARMS? :YES LEFT ARM AND LEG ANY PACEMAKER,DEFIBRILLATOR, OR DORSAL COLUMN STIMULATOR? :NO DO YOU HAVE ANY RASHES OR OPEN SORES? :NO ARE YOU ALLERGIC TO IV DYE? :NO ARE YOU DIABETIC? :NO ANY NEW PROBLEMS WITH YOUR MEDICATIONS? :NO HAVE YOU RECEIVED A VACCINE IN THE PAST 30 DAYS? :NO DO YOU PLAN TO RECEIVE A VACCINE IN THE NEXT 21 DAYS? :NO DO YOU NEED ANY PRESCRIPTION? :YES METHADONE, OXY, TIZANIDINE DO YOU TAKE ANY IMMUNOSUPPRESSIVE MEDICATIONS? :NO IS THERE A CHANCE YOU COULD BE ? :NO ARE YOU BREAST FEEDING? :NO CURRENT MEDICATIONS TAKING VENTOLIN HFA 108 (90 BASE) MCG/ACT AEROSOL SOLUTION 2 PUFFS NEEDED INHALATION EVERY 4 HRS TAKING ALBUTEROL-IPRATROPIUM 1 DOSE 1 SOLUTION INHALED EVERY 2 HOURS NEEDED, NOTES: WHEN NEEDED TAKING ASPIRIN 325 MG TABLET 1 TABLET ORALLY ONCE A DAY TAKING ATORVASTATIN CALCIUM 10 MG TABLET 1 TABLET ORALLY ONCE A DAY TAKING SYNTHROID 125 MCG TABLET 1 TABLET ORALLY ONCE A DAY TAKING LINZESS 290 MCG CAPSULE 1 CAPSULE ORALLY ONCE A DAY TAKING OXYBUTYNIN CHLORIDE ER 10 MG TABLET EXTENDED RELEASE 24 HOUR 1 TABLET ORALLY ONCE A DAY TAKING KLONOPIN 1 MG TABLET 1 TABLET ORALLY DAILY PRN TAKING MUCINEX 600 MG TABLET EXTENDED RELEASE 12 HOUR 1 TABLET NEEDED ORALLY TWICE DAILY NEEDED TAKING UNISOM 25 MG TABLET 1 TABLET AT BEDTIME NEEDED ORALLY ONCE A DAY TAKING PAXIL 40 MG TABLET 1 TABLET IN THE MORNING ORALLY ONCE A DAY TAKING PROMETHAZINE HCL 25 MG TABLET 1 TABLET NEEDED ORALLY EVERY 12 HRS TAKING TRAZODONE HCL 100 MG TABLET 2 TABLET AT BEDTIME ORALLY ONCE A DAY TAKING MENTHOL (TOPICAL ANALGESIC) 7.5 % (ROLL) MISCELLANEOUS 1 APPLICATION TO AFFECTED AREA NEEDED EXTERNALLY THREE TIMES A DAY TAKING OXYCODONE HCL 5 MG TABLET 1 ORALLY Q6H PRN MDD4 TAKING TIZANIDINE HCL 4 MG TABLET 1 TABLET NEEDED ORALLY THREE TIMES A DAY IF NEEDED FOR MUSCLE SPASM PAIN IN NECK TAKING METHADONE HCL 10 MG TABLET 2 ORALLY 2 TAB Q8H MDD6 NOT-TAKING PROCHLORPERAZINE MALEATE 10 MG TABLET 1 TABLET ORALLY NEEDED ONCE PER DAY FOR NAUSEA #15 TAB SHOULD LAST 30 DAYS NOT-TAKING MELATONIN 3 MG TABLET 2 CAPSULE IN THE EVENING NEEDED WITH FOOD ORALLY ONCE A DAY MEDICATION LIST REVIEWED AND RECONCILED WITH THE PATIENT PAST MEDICAL HISTORY ASTROCYTOMA STROKES 2008 TIAS [id number] OSTEO ARTHRITIS (DEGENERATIVE) DDD FIBROMYALGIA [place] CARPAL SOHA HYPERTENSION ANXIETY/DEPRESSION NUMEROUS HEAD TRAUMAS BROKEN TEETH FLU-TYPE A MENINGITIS-TYPE B COPD ALLERGIES VIIBRYD: MANIC BEHAVIOR - SIDE EFFECTS LYRICA: LOSS OF BALANCE - SIDE EFFECTS GABAPENTIN: LOSS OF BALANCE - SIDE EFFECTS BUSPAR: LOSS OF BALANCE - SIDE EFFECTS SURGICAL HISTORY OSTEO CHONDROMA 1981 LEFT KNEE REPAIR D&C PARTIAL CRANIOTOMY RECONSRTUCTION OF LEFT ANKLE HARDWARE REMOVED FROM LEFT ANKLE 08/13/15 UPPER TEETH REMOVAL 09/2018 FAMILY HISTORY FATHER: , DIAGNOSED WITH UNSPECIFIED HEART DISEASE, OTHER SPECIFIED CONDITIONS INFLUENCING HEALTH STATUS MOTHER: ALIVE, DIABETES, UNSPECIFIED CEREBRAL ARTERY OCCLUSION WITH CEREBRAL INFARCTION 3 SON(S) - HEALTHY. FATHER-PARKINSON\NMOM-DIABETIC DEPENDING ON HER WT\N1 SON AFIB. SOCIAL HISTORY GENERAL: TOBACCO USE ARE YOU A:FORMER SMOKER HOW LONG HAS IT BEEN SINCE YOU LAST SMOKED?< 1 MONTH LATEX QUESTIONNAIRE LATEX ALLERGY : HAVE YOU EVER DEVELOPED ANY TYPE OF REACTION AFTER HANDLING LATEX PRODUCTS SUCH RUBBER GLOVES, CONDOMS, DIAPHRAGMS, BALLOONS, SOCKS, OR UNDERWEAR?NO LATEX ALLERGY : HAVE YOU EVER DEVELOPED ANY TYPE OF REACTION DURING OR AFTER DENTAL APPOINTMENT, VAGINAL/RECTAL EXAMINATION, SURGICAL PROCEDURE, OR ANY OTHER EXPOSURE?NO LATEX RISK : HAVE YOU EVER HAD ANY DIFFICULTY BREATHING OR HIVES AFTER EATING OR HANDLING ANY FRUITS, OR VEGETABLES; SUCH KIWI, BANANAS, STONE FRUITS, OR CHESTNUTSNO LATEX RISK : DO YOU HAVE A PREVIOUS PERSONAL HISTORY OF MORE THAN NINE SURGERIES, SPINA BIFIDA, OR REPEATED CATHERIZATIONS? NO LATEX RISK : ARE YOU FREQUENTLY EXPOSED TO LATEX PRODUCTS IN YOUR OCCUPATION?NO DATE ASKED : 12/28/2019 ALCOHOL SCREENING DID YOU HAVE A DRINK CONTAINING ALCOHOL IN THE PAST YEAR?NO POINTS0 INTERPRETATIONNEGATIVE RECREATIONAL DRUG USE DRUG USE?NO CAFFEINE CAFFEINE USE?YES HOW OFTEN AND HOW MUCH? 1 POT OF COFFEE AND 6 SODA/DAY [id number] [place] [address] LANGUAGE LANGUAGES SPOKEN:[place] EDUCATION LEVEL OF EDUCATION:NOT FINISHED HIGH SCHOOL GED LEARNING BARRIERS / SPECIAL NEEDS CHANGE FROM LAST VISIT? PT STATES THAT SHE FELL AT HOME, GETTING OUT OF BED IN MIDDLE OF NIGHT, JAMMED NECK. BARRIERS TO LEARNING?YES COMMENTS HAS TROULBLE REMEMBER THINGS AT TIMES DUE TO NEIL TUMOR, STROKE AND TIA ALONG WITH MENINGITIS HEARING IMPAIRED?NO VISION IMPAIRED?YES COGNITIVELY IMPAIRED?YES HAS TROUBLE REMEMBERING THINGS AT TIMES STATED ABOVE :CORRECTIVE LENSES READINESS TO LEARN?YES LEARNING PREFERENCES?NO LEARNING CAPABILITIES PRESENT?YES EMOTIONAL BARRIERS?NO SPECIAL DEVICES?YES :CANE, WALKER, OTHER ASSISTANCE OF ANOTHER PERSON, NEEDED FLOORLEADER NEEDED?NO DOMESTIC VIOLENCE DO YOU FEEL SAFE IN YOUR ENVIRONMENT?YES TODAY'S VISITNOTES PAIN CLINIC PFS, CLERGY, PUBLIC HEALTH REFERRALS PFS REFERRAL NEEDED?NO CLERGY REFERRAL NEEDED?NO PUBLIC HEALTH REFERRAL NEEDED?NO WAS THE PROVIDER NOTIFIED OF ANY PERTINENT INFO? N/A HAS THE PATIENT BEEN EDUCATED REGARDING HIS/HER PLAN OF CARE?YES HAS THE PATIENT BEEN EDUCATED REGARDING PAIN, THE RISK FOR PAIN, THE IMPORTANCE OF EFFECTIVE PAIN MANAGEMENT, AND THE PAIN ASSESSMENT PROCESS?YES ADVANCE DIRECTIVE ADVANCE DIRECTIVE DISCUSSED WITH PATIENT:YES HCP - SHERITA SHARPE 10/12/17 1150 REVIEWED WITH PT. ADREVIEWED WITH PT 11/12/17 1044 BVREVIEWED WITH PATIENT 12/10/17 1418 JS01/13/18 1354 REVIEWED WITH PT. ADREVIEWED WITH PATIENT 01/31/18 1412 JSREVIEWED WITH PT. 08/16/18 ADREVIEWED WITH PATIENT 04/19/18 1518 JSREVEIWED WITH PATIENT 05/25/18 1326 BVREVIEWED WITH PT 03/31/18 1417 BVREVIEWED WITH PATIENT 03/22/18 1515 LASREVIEWED WITH PATIENT 01/19/19 1449 JSREVIEWED WITH PATIENT 03/02/19 1500 BV. HOSPITALIZATION/MAJOR DIAGNOSTIC PROCEDURE MENINGITIS 1996 CVA 2007 SURGERIES PNEUMONIA PNEUMONIA, RSV 01/2019 REVIEW OF SYSTEMS CONSTITUTIONAL: ANY RECENT FEVER NO . CHILLS NO . WEIGHT CHANGE OF UNKNOWN REASONS NO . GASTROENTEROLOGY: NEW UNEXPLAINABLE CHANGES IN BOWEL CONTROL NO . CONSTIPATION NO . GENITOURINARY: ANY NEW CHANGE IN BLADDER CONTROL? NO . NEUROLOGY: NEW ONSET DIZZINESS OR NEUROLOGICAL CHANGES NOT MENTIONED NO . NEW NUMBNESS OR PAIN PATTERNS NOT MENTIONED AND PERTINENT TO TODAY'S VISIT NO . CARDIOLOGY: NEW CHEST PRESSURE NO . NEW CHEST PAIN NO . RESPIRATORY: UNEXPLAINABLE COUGH NO . NEW SHORTNESS OF BREATH NO . ASSESSMENTS CENTRAL PAIN SYNDROME - G89.0 (PRIMARY) OTHER CHRONIC PAIN - G89.29 PAIN IN RIGHT HIP - M25.551 TREATMENT CENTRAL PAIN SYNDROME REFILL OXYCODONE HCL TABLET, 5 MG, 1, ORALLY, Q6H PRN MDD4, 30 DAYS, 120, REFILLS 0 REFILL METHADONE HCL TABLET, 10 MG, 2, ORALLY, 2 TAB Q8H MDD6, 30 DAYS, 180, REFILLS 0 [facility] MRI HIP WITHOUT [id number] NOTES: PATIENT IS ADVISED TO CONTINUE CURRENT CHRONIC PAIN MEDICATION. MRI OF THE RIGHT HIP WILL BE ORDERED DUE TO ONGOING RIGHT HIP PAIN DESPITE SPECIFIC PATHOLOGY NOTED IN RIGHT HIP/PELVIS X-RAY. TOTAL TIME SPENT DURING TELEPHONE VISIT WAS APPROXIMATELY 12 MINUTES. , ISTOP REGISTRY REVIEWED AND DEMONSTRATES COMPLLIANCE. RECENT URINE TOXICOLOGY REVIEWED. NO UNAUTHORIZED MEDICATIONS. NO ILLICIT SUBSTANCES AND PRESCRIBED MEDICATIONS WERE PRESENT. . OTHERS CLINICAL NOTES: 11/12/20 @ 1409 TELEPHONE ENCOUNTER BEGUN. EM. DISPOSITION & COMMUNICATION FOLLOW UP 2 MONTHS (REASON: IN CLINIC REVIEW MRI RIGHT HIP/MEDICATION MANAGEMENT) ELECTRONICALLY SIGNED BY SANDRA RED ON 12/29/2019 AT 03:25 PM EST DISCLAIMER : THIS IS A VISIT SUMMARY EXTRACTED FROM THE [facility] CHART. IT IS NOT A COPY OF THE [facility] PROGRESS NOTE. FANNIE
== END ==
LOC: M PAIN 14:30
PROVIDERS: ATTEND Nurse Practitioner Family
DX: G89.0 Central pain syndrome (principal); G89.29 Other chronic pain; M25.551 Pain in right hip; M79.7 Fibromyalgia; I10 Essential (primary) hypertension; J44.9 Chronic obstructive pulmonary disease, unspecified; Z86.73 Personal history of transient ischemic attack (TIA), and cerebral infarction without residual deficits; Z86.59 Personal history of other mental and behavioral disorders; Z87.891 Personal history of nicotine dependence; Z88.8 Allergy status to other drugs, medicaments and biological substances; Z79.82 Long term (current) use of aspirin; Z79.891 Long term (current) use of opiate analgesic; Z79.899 Other long term (current) drug therapy

== ENCOUNTER → 2020-02-27 | Outpatient (CLI) | payer OTHER | LOC: M PAIN 14:30 | PROVIDERS: ATTEND Nurse Practitioner Family | DX: G89.0 Central pain syndrome (principal); M54.5 Low back pain; M79.7 Fibromyalgia; J44.9 Chronic obstructive pulmonary disease, unspecified; F17.210 Nicotine dependence, cigarettes, uncomplicated; Z86.73 Personal history of transient ischemic attack (TIA), and cerebral infarction without residual deficits; Z86.59 Personal history of other mental and behavioral disorders; Z88.8 Allergy status to other drugs, medicaments and biological substances; Z79.82 Long term (current) use of aspirin; Z79.891 Long term (current) use of opiate analgesic; Z79.899 Other long term (current) drug therapy ==

== ENCOUNTER → 2020-04-29 | Outpatient (CLI) | payer OTHER ==
[~2020-04-29] MED LIST changes: -LISI-538 PO; +LISI10TA22 PO; -LISI10TA4 PO; +LISI20TA33 PO
--- NOTE | 2020-05-01 03:10 | ECWPNPC ---
PATIENT NAME: LORRIE CHAVEZ : 1970 GENDER: FEMALE VISIT DATE: 04/29/2020 DISCHARGE DATE: 04/29/20 1518 VISIT LOCKED DATE TIME: PHYSICIAN: ANÍBAL LNADA RESOURCE: ANÍBAL LANDA REASON FOR APPOINTMENT 1. REVIEW MRI/CHECK ON MEDICATION INCREASE HISTORY OF PRESENT ILLNESS GENERAL: HERE FOR FOLLOW-UP OF CHRONIC LOW BACK PAIN AND BILATERAL HIP PAIN. HISTORY OF POST STROKE SYNDROME. AT HER LAST VISIT WE ADDED PERCOCET 10/325 WITH INSTRUCTIONS TO TAKE 1 TABLET PERIODICALLY FOR SEVERE PAIN EPISODES. PATIENT FINDS MEDICATION HELPFUL. CONTINUES TO RATE PAIN LEVEL A 10/10 VAS MAINLY IN HER HIPS LEFT GREATER THAN RIGHT. SHE IS SCHEDULED TO SEE THE ORTHOPEDIC GROUP IN THE NEXT FEW WEEKS. -. FALL RISK SCREENING: SCREENING : NO FALLS REPORTED IN THE LAST YEAR. PAIN SCREENING: PATIENT HAS A COMPLAINT OF ACUTE OR CHRONIC PAIN :YES LOCATION OF PAIN:NECK, LEFT HIP, RIGHT HIP INTENSITY OF PAIN (SCALE OF 1 TO 10):10 WHAT DOES YOUR PAIN FEEL LIKE:ACHING, BURNING DURATION:CONTINOUS, CONSTANT, ALL DAY PAIN IS INCREASED BY:ACTIVITIES PAIN IS DECREASED BY:USE OF PAIN MEDICATIONS NURSING NOTE: -. PAIN CENTER INTAKE QUESTIONS: DO YOU HAVE A HISTORY OF MRSA? :NO DO YOU TAKE A BLOOD THINNERS? :YES DO YOU HAVE ANY BLEEDING DISORDERS? :NO ANY NEW NUMBNESS OR WEAKNESS IN YOUR LEGS OR ARMS? :NO ANY PACEMAKER,DEFIBRILLATOR, OR DORSAL COLUMN STIMULATOR? :NO DO YOU HAVE ANY RASHES OR OPEN SORES? :NO ARE YOU ALLERGIC TO IV DYE? :NO ARE YOU DIABETIC? :NO ANY NEW PROBLEMS WITH YOUR MEDICATIONS? :NO HAVE YOU RECEIVED A VACCINE IN THE PAST 30 DAYS? :NO DO YOU PLAN TO RECEIVE A VACCINE IN THE NEXT 21 DAYS? :NO DO YOU NEED ANY PRESCRIPTION? :NO DO YOU TAKE ANY IMMUNOSUPPRESSIVE MEDICATIONS? :NO IS THERE A CHANCE YOU COULD BE ? :NO ARE YOU BREAST FEEDING? :NO CURRENT MEDICATIONS TAKING VENTOLIN HFA 108 (90 BASE) MCG/ACT AEROSOL SOLUTION 2 PUFFS NEEDED INHALATION EVERY 4 HRS TAKING ALBUTEROL-IPRATROPIUM 1 DOSE 1 SOLUTION INHALED EVERY 2 HOURS NEEDED, NOTES: WHEN NEEDED TAKING ASPIRIN 325 MG TABLET 1 TABLET ORALLY ONCE A DAY TAKING ATORVASTATIN CALCIUM 10 MG TABLET 1 TABLET ORALLY ONCE A DAY TAKING SYNTHROID 125 MCG TABLET 1 TABLET ORALLY ONCE A DAY TAKING LINZESS 290 MCG CAPSULE 1 CAPSULE ORALLY ONCE A DAY TAKING OXYBUTYNIN CHLORIDE ER 10 MG TABLET EXTENDED RELEASE 24 HOUR 1 TABLET ORALLY ONCE A DAY TAKING KLONOPIN 1 MG TABLET 1 1/2 TABLET ORALLY DAILY THREE TIMES A DAY TAKING PAXIL 40 MG TABLET 1 TABLET IN THE MORNING ORALLY ONCE A DAY TAKING PROMETHAZINE HCL 25 MG TABLET 1 TABLET NEEDED ORALLY EVERY 12 HRS TAKING TRAZODONE HCL 300 MG TABLET 2 TABLET AT BEDTIME ORALLY ONCE A DAY TAKING MENTHOL (TOPICAL ANALGESIC) 7.5 % (ROLL) MISCELLANEOUS 1 APPLICATION TO AFFECTED AREA NEEDED EXTERNALLY THREE TIMES A DAY TAKING METHADONE HCL 10 MG TABLET 2 ORALLY 2 TAB Q8H MDD6 TAKING TIZANIDINE HCL 4 MG TABLET 1 TABLET NEEDED ORALLY THREE TIMES A DAY IF NEEDED FOR MUSCLE SPASM PAIN IN NECK TAKING PERCOCET 10-325 MG TABLET 1 TABLET NEEDED ORALLY EVERY 6 HOURS WHEN NECESSARY FOR PAIN MDD 4 NOT-TAKING UNISOM 25 MG TABLET 1 TABLET AT BEDTIME NEEDED ORALLY ONCE A DAY NOT-TAKING MUCINEX 600 MG TABLET EXTENDED RELEASE 12 HOUR 1 TABLET NEEDED ORALLY TWICE DAILY NEEDED NOT-TAKING PROCHLORPERAZINE MALEATE 10 MG TABLET 1 TABLET ORALLY NEEDED ONCE PER DAY FOR NAUSEA #15 TAB SHOULD LAST 30 DAYS NOT-TAKING MELATONIN 3 MG TABLET 2 CAPSULE IN THE EVENING NEEDED WITH FOOD ORALLY ONCE A DAY MEDICATION LIST REVIEWED AND RECONCILED WITH THE PATIENT PAST MEDICAL HISTORY ASTROCYTOMA STROKES 2008 TIAS [id number] OSTEO ARTHRITIS (DEGENERATIVE) DDD FIBROMYALGIA [place] CARPAL SOHA HYPERTENSION ANXIETY/DEPRESSION NUMEROUS HEAD TRAUMAS BROKEN TEETH FLU-TYPE A MENINGITIS-TYPE B COPD ALLERGIES VIIBRYD: MANIC BEHAVIOR - SIDE EFFECTS LYRICA: LOSS OF BALANCE - SIDE EFFECTS GABAPENTIN: LOSS OF BALANCE - SIDE EFFECTS BUSPAR: LOSS OF BALANCE - SIDE EFFECTS SOCIAL HISTORY GENERAL: TOBACCO USE ARE YOU A:CURRENT SMOKER HOW MANY CIGARETTES A DAY DO YOU SMOKE?6-10 LATEX QUESTIONNAIRE LATEX ALLERGY : HAVE YOU EVER DEVELOPED ANY TYPE OF REACTION AFTER HANDLING LATEX PRODUCTS SUCH RUBBER GLOVES, CONDOMS, DIAPHRAGMS, BALLOONS, SOCKS, OR UNDERWEAR?NO LATEX ALLERGY : HAVE YOU EVER DEVELOPED ANY TYPE OF REACTION DURING OR AFTER DENTAL APPOINTMENT, VAGINAL/RECTAL EXAMINATION, SURGICAL PROCEDURE, OR ANY OTHER EXPOSURE?NO LATEX RISK : HAVE YOU EVER HAD ANY DIFFICULTY BREATHING OR HIVES AFTER EATING OR HANDLING ANY FRUITS, OR VEGETABLES; SUCH KIWI, BANANAS, STONE FRUITS, OR CHESTNUTSNO LATEX RISK : DO YOU HAVE A PREVIOUS PERSONAL HISTORY OF MORE THAN NINE SURGERIES, SPINA BIFIDA, OR REPEATED CATHERIZATIONS? NO LATEX RISK : ARE YOU FREQUENTLY EXPOSED TO LATEX PRODUCTS IN YOUR OCCUPATION?NO DATE ASKED : 04/29/2020 ALCOHOL USE: NO. ALCOHOL SCREENING DID YOU HAVE A DRINK CONTAINING ALCOHOL IN THE PAST YEAR?NO POINTS0 INTERPRETATIONNEGATIVE RECREATIONAL DRUG USE DRUG USE?NO CAFFEINE CAFFEINE USE?YES HOW OFTEN AND HOW MUCH? 1 POT OF COFFEE AND 6 SODA/DAY [id number] [place] [id number] LANGUAGE LANGUAGES SPOKEN:DIVEHI EDUCATION LEVEL OF EDUCATION:NOT FINISHED HIGH SCHOOL GED LEARNING BARRIERS / SPECIAL NEEDS CHANGE FROM LAST VISIT?NO PT STATES THAT SHE FELL AT HOME, GETTING OUT OF BED IN MIDDLE OF NIGHT, JAMMED NECK. BARRIERS TO LEARNING?YES COMMENTS HAS TROULBLE REMEMBER THINGS AT TIMES DUE TO NEIL TUMOR, STROKE AND TIA ALONG WITH MENINGITIS HEARING IMPAIRED?NO VISION IMPAIRED?YES :CORRECTIVE LENSES COGNITIVELY IMPAIRED?YES HAS TROUBLE REMEMBERING THINGS AT TIMES STATED ABOVE READINESS TO LEARN?YES LEARNING PREFERENCES?NO LEARNING CAPABILITIES PRESENT?YES EMOTIONAL BARRIERS?NO SPECIAL DEVICES?YES :CANE, WALKER, OTHER ASSISTANCE OF ANOTHER PERSON, NEEDED DELINQUENT TAX COLLECTOR ASSISTANT NEEDED?NO DOMESTIC VIOLENCE DO YOU FEEL SAFE IN YOUR ENVIRONMENT?YES TODAY'S VISITNOTES - PFS REFERRAL NEEDED?NO CLERGY REFERRAL NEEDED?NO PUBLIC HEALTH REFERRAL NEEDED?NO WAS THE PROVIDER NOTIFIED OF ANY PERTINENT INFO? N/A HAS THE PATIENT BEEN EDUCATED REGARDING HIS/HER PLAN OF CARE?YES HAS THE PATIENT BEEN EDUCATED REGARDING PAIN, THE RISK FOR PAIN, THE IMPORTANCE OF EFFECTIVE PAIN MANAGEMENT, AND THE PAIN ASSESSMENT PROCESS?YES ADVANCE DIRECTIVE ADVANCE DIRECTIVE DISCUSSED WITH PATIENT:YES HCP - SHERITA SHARPE 10/12/17 1150 REVIEWED WITH PT. ADREVIEWED WITH PT 11/12/17 1044 BVREVIEWED WITH PATIENT 12/10/17 1418 JS01/13/18 1354 REVIEWED WITH PT. ADREVIEWED WITH PATIENT 01/31/18 1412 JSREVIEWED WITH PT. 08/16/18 ADREVIEWED WITH PATIENT 04/19/18 1518 JSREVEIWED WITH PATIENT 05/25/18 1326 BVREVIEWED WITH PT 03/31/18 1417 BVREVIEWED WITH PATIENT 03/22/18 1515 LASREVIEWED WITH PATIENT 01/19/19 1449 JSREVIEWED WITH PATIENT 03/02/19 1500 BV. REVIEW OF SYSTEMS CONSTITUTIONAL: ANY RECENT FEVER NO . CHILLS NO . WEIGHT CHANGE OF UNKNOWN REASONS NO . GASTROENTEROLOGY: NEW UNEXPLAINABLE CHANGES IN BOWEL CONTROL NO . CONSTIPATION NO . GENITOURINARY: ANY NEW CHANGE IN BLADDER CONTROL? NO . NEUROLOGY: NEW ONSET DIZZINESS OR NEUROLOGICAL CHANGES NOT MENTIONED NO . NEW NUMBNESS OR PAIN PATTERNS NOT MENTIONED AND PERTINENT TO TODAY'S VISIT NO . CARDIOLOGY: NEW CHEST PRESSURE NO . PATIENT DENIES NO . RESPIRATORY: UNEXPLAINABLE COUGH NO . NEW SHORTNESS OF BREATH NO . VITAL SIGNS WT 162.8 LBS, HT 70 IN, BMI 23.36 INDEX, BP 142/70 MM HG, HR 107 /MIN, RR 16 /MIN, TEMP 98.3 F, OXYGEN SAT % 95%, SAFE IN ENV? (Y/N) YES, NA INITIALS NC 14:39T.DRE ADHIKARI. EXAMINATION GENERAL EXAMINATION: GENERAL WEEPY,WHEELCHAIR DEPENDENT. PSYCH DEPRESSED. LUNGS:CLEAR TO AUSCULTATION BILATERALLY, NO WHEEZES, RHONCHI, RALES. HEART:NO MURMURS, REGULAR RATE AND RHYTHM. BACK:TENDER OVER L/S AXIS AND LUMBAR PARASPINALS. TENDERNESS NOTED OVER BILATERAL HIPS . ASSESSMENTS CENTRAL PAIN SYNDROME - G89.0 (PRIMARY) CHRONIC PRESCRIPTION OPIATE USE - Z79.899 TREATMENT CENTRAL PAIN SYNDROME CONTINUE METHADONE HCL TABLET, 10 MG, 2, ORALLY, 2 TAB Q8H MDD6 CONTINUE TIZANIDINE HCL TABLET, 4 MG, 1 TABLET NEEDED, ORALLY, THREE TIMES A DAY IF NEEDED FOR MUSCLE SPASM PAIN IN NECK CONTINUE PERCOCET TABLET, 10-325 MG, 1 TABLET NEEDED, ORALLY, EVERY 6 HOURS WHEN NECESSARY FOR PAIN MDD 4 NOTES: ISTOP REGISTRY REVIEWED AND DEMONSTRATES COMPLLIANCE. , RISKS OF NARCOTIC/OPIOD MEDICATIONS INCLUDES BUT IS NOT LIMITED TO RISK OF DEPENDANCE/DEVELOPMENT OF ADDICTION, MOOD DISTURBANCE AND DEPRESSION, OSTEOPOROSIS, HORMONAL AND LABIDAL CHANGES, RESPIRATORY DEPRESSION AND . PATIENT IS ADVISED NOT TO DRIVE OR DRINK ALCOHOL WHILE ON THESE MEDICATIONS. PROCEDURE CODES FA211 ESTABILISHED PATIENT [facility] FACILITY CHARGE DISPOSITION & COMMUNICATION FOLLOW UP 2 MONTHS (REASON: URINE TOX/VIEW MEDICATIONS/F/U ON ORTHOPEDIC EVALUATION) ELECTRONICALLY SIGNED BY ANÍBAL FLORES, SANDRA ON 04/30/2020 AT 11:35 AM EDT DISCLAIMER : THIS IS A VISIT SUMMARY EXTRACTED FROM THE [facility] CHART. IT IS NOT A COPY OF THE [facility] PROGRESS NOTE. FANNIE
== END ==
LOC: M PAIN 14:30
PROVIDERS: ATTEND Nurse Practitioner Family
DX: G89.0 Central pain syndrome (principal); G89.29 Other chronic pain; M79.7 Fibromyalgia; J44.9 Chronic obstructive pulmonary disease, unspecified; F17.210 Nicotine dependence, cigarettes, uncomplicated; Z86.73 Personal history of transient ischemic attack (TIA), and cerebral infarction without residual deficits; Z86.59 Personal history of other mental and behavioral disorders; Z88.8 Allergy status to other drugs, medicaments and biological substances; Z79.82 Long term (current) use of aspirin; Z79.891 Long term (current) use of opiate analgesic; Z79.899 Other long term (current) drug therapy

== ENCOUNTER → 2020-06-14 | Outpatient (CLI) | payer OTHER ==
--- NOTE | 2020-06-14 16:09 | REP ---
INDICATION: RT HIP PAIN / LT HIP PAIN ? AVN. COMPARISON: None TECHNIQUE: Axial T1 and T2. Sagittal T2. Coronal T1, fat suppressed proton density, fat suppressed T2 and STIR. FINDINGS: There is mild flattening of the femoral head superolaterally bilaterally. There is abnormal T2 prolongation in the femoral heads and femoral necks. Serpiginous low signal bands are seen in each femoral head particularly subchondral in location. There is a hip joint effusion seen bilaterally. There is bilateral femoral head marginal osteophytosis. The cortical and marrow signal seen throughout the imaged pelvis is within normal limits. There is no evidence of a mass or mass effect. Although not a hip MRI arthrogram there does appear to be bilateral labral degeneration. 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 <Electronically signed by Sarabjit Redd > 06/14/20 1778
== END ==
LOC: M RAD 14:20
PROVIDERS: ATTEND Orthopaedic Surgery
DX: M25.552 Pain in left hip (principal); M25.551 Pain in right hip

== ENCOUNTER → 2020-07-09 | Outpatient (CLI) | payer OTHER ==
--- NOTE | 2020-07-11 01:34 | ECWPNPC ---
PATIENT NAME: LORRIE CHAVEZ : 1970 GENDER: FEMALE VISIT DATE: 07/09/2020 DISCHARGE DATE: 07/09/20 1437 VISIT LOCKED DATE TIME: PHYSICIAN: ANÍBAL LANDA RESOURCE: ANÍBAL LANDA REASON FOR APPOINTMENT 1. URINE TOX/VIEW MEDICATIONS/F/U ON ORTHOPEDIC EVALUATION HISTORY OF PRESENT ILLNESS GENERAL: HERE FOR F/U OF CHRONIC PAIN AND MEDICATION MANAGEMENT.HAS SEEN ORTHOPEDICS PER OUR REFERRAL FOR CHRONIC HIP PAIN.STATES SHE HAS DIAGNOSIS OF AVASCULAR NECROSIS.STATES SHE HAS INJECTIONS SET UP IN INTERVENTIONAL RADIOLOGY SET UP BY [facility] [place].SHE IS NOT CLEAR TO WHAT SHE IS HAVING DONE.SHE IS WEEPY TODAY AND FEARFUL THAT SHE IS GOING TO BE WHEELCHAIR DEPENDENT.FINDS CURRENT CHRONIC PAIN MEDICATION HELPFUL BUT CONTINUES TO HAVE SIGNIFICANT DISABILITY DUE TO PAIN. -. FALL RISK SCREENING: SCREENING : NO FALLS REPORTED IN THE LAST YEAR. PAIN SCREENING: PATIENT HAS A COMPLAINT OF ACUTE OR CHRONIC PAIN :YES LOCATION OF PAIN:LOW BACK, LEFT HIP, RIGHT HIP INTENSITY OF PAIN (SCALE OF 1 TO 10):10 WHAT DOES YOUR PAIN FEEL LIKE:CONTINOUS, SHARP DURATION:CONTINOUS, CONSTANT, ALL DAY PAIN IS INCREASED BY:ACTIVITIES PAIN IS DECREASED BY:USE OF PAIN MEDICATIONS NURSING NOTE: -. PAIN CENTER INTAKE QUESTIONS: DO YOU HAVE A HISTORY OF MRSA? :NO DO YOU TAKE A BLOOD THINNERS? :YES ASPIRIN 325 MG DO YOU HAVE ANY BLEEDING DISORDERS? :NO ANY NEW NUMBNESS OR WEAKNESS IN YOUR LEGS OR ARMS? :NO ANY PACEMAKER,DEFIBRILLATOR, OR DORSAL COLUMN STIMULATOR? :NO DO YOU HAVE ANY RASHES OR OPEN SORES? :NO ARE YOU ALLERGIC TO IV DYE? :NO ARE YOU DIABETIC? :NO ANY NEW PROBLEMS WITH YOUR MEDICATIONS? :NO HAVE YOU RECEIVED A VACCINE IN THE PAST 30 DAYS? :NO DO YOU PLAN TO RECEIVE A VACCINE IN THE NEXT 21 DAYS? :NO DO YOU NEED ANY PRESCRIPTION? :NO DO YOU TAKE ANY IMMUNOSUPPRESSIVE MEDICATIONS? :NO IS THERE A CHANCE YOU COULD BE ? :NO ARE YOU BREAST FEEDING? :NO CURRENT MEDICATIONS TAKING VENTOLIN HFA 108 (90 BASE) MCG/ACT AEROSOL SOLUTION 2 PUFFS NEEDED INHALATION EVERY 4 HRS TAKING ALBUTEROL-IPRATROPIUM 1 DOSE 1 SOLUTION INHALED EVERY 2 HOURS NEEDED, NOTES: WHEN NEEDED TAKING ASPIRIN 325 MG TABLET 1 TABLET ORALLY ONCE A DAY TAKING ATORVASTATIN CALCIUM 10 MG TABLET 1 TABLET ORALLY ONCE A DAY TAKING SYNTHROID 125 MCG TABLET 1 TABLET ORALLY ONCE A DAY TAKING LINZESS 290 MCG CAPSULE 1 CAPSULE ORALLY ONCE A DAY TAKING KLONOPIN 1 MG TABLET 1 1/2 TABLET ORALLY DAILY THREE TIMES A DAY TAKING PAXIL 40 MG TABLET 1 TABLET IN THE MORNING ORALLY ONCE A DAY TAKING PROMETHAZINE HCL 25 MG TABLET 1 TABLET NEEDED ORALLY EVERY 12 HRS TAKING TRAZODONE HCL 300 MG TABLET 2 TABLET AT BEDTIME ORALLY ONCE A DAY TAKING MENTHOL (TOPICAL ANALGESIC) 7.5 % (ROLL) MISCELLANEOUS 1 APPLICATION TO AFFECTED AREA NEEDED EXTERNALLY THREE TIMES A DAY TAKING TIZANIDINE HCL 4 MG TABLET 1 TABLET NEEDED ORALLY THREE TIMES A DAY IF NEEDED FOR MUSCLE SPASM PAIN IN NECK TAKING PERCOCET 10-325 MG TABLET 1 TABLET NEEDED ORALLY EVERY 6 HOURS WHEN NECESSARY FOR PAIN MDD 4 TAKING METHADONE HCL 10 MG TABLET 2 ORALLY 2 TAB Q8H MDD6 NOT-TAKING OXYBUTYNIN CHLORIDE ER 10 MG TABLET EXTENDED RELEASE 24 HOUR 1 TABLET ORALLY ONCE A DAY NOT-TAKING UNISOM 25 MG TABLET 1 TABLET AT BEDTIME NEEDED ORALLY ONCE A DAY NOT-TAKING MUCINEX 600 MG TABLET EXTENDED RELEASE 12 HOUR 1 TABLET NEEDED ORALLY TWICE DAILY NEEDED NOT-TAKING PROCHLORPERAZINE MALEATE 10 MG TABLET 1 TABLET ORALLY NEEDED ONCE PER DAY FOR NAUSEA #15 TAB SHOULD LAST 30 DAYS NOT-TAKING MELATONIN 3 MG TABLET 2 CAPSULE IN THE EVENING NEEDED WITH FOOD ORALLY ONCE A DAY PAST MEDICAL HISTORY ASTROCYTOMA STROKES 2008 TIAS [id number] OSTEO ARTHRITIS (DEGENERATIVE) DDD FIBROMYALGIA [place] CARPAL SOHA HYPERTENSION ANXIETY/DEPRESSION NUMEROUS HEAD TRAUMAS BROKEN TEETH FLU-TYPE A MENINGITIS-TYPE B COPD ALLERGIES [id number]: MANIC BEHAVIOR - SIDE EFFECTS LYRICA: LOSS OF BALANCE - SIDE EFFECTS GABAPENTIN: LOSS OF BALANCE - SIDE EFFECTS BUSPAR: LOSS OF BALANCE - SIDE EFFECTS SOCIAL HISTORY GENERAL: TOBACCO USE ARE YOU A:CURRENT SMOKER ARE YOU INTERESTED IN QUITTING?NOT READY TO QUIT COUNSELED THE PATIENT ON SMOKING EFFECTS, EDUCATION [id number]/25/2021 HOW MANY CIGARETTES A DAY DO YOU SMOKE?6-10 HOW SOON AFTER YOU WAKE UP DO YOU SMOKE YOUR FIRST CIGARETTE?WITHIN 5 MIN LATEX QUESTIONNAIRE LATEX ALLERGY : HAVE YOU EVER DEVELOPED ANY TYPE OF REACTION AFTER HANDLING LATEX PRODUCTS SUCH RUBBER GLOVES, CONDOMS, DIAPHRAGMS, BALLOONS, SOCKS, OR UNDERWEAR?NO LATEX ALLERGY : HAVE YOU EVER DEVELOPED ANY TYPE OF REACTION DURING OR AFTER DENTAL APPOINTMENT, VAGINAL/RECTAL EXAMINATION, SURGICAL PROCEDURE, OR ANY OTHER EXPOSURE?NO LATEX RISK : HAVE YOU EVER HAD ANY DIFFICULTY BREATHING OR HIVES AFTER EATING OR HANDLING ANY FRUITS, OR VEGETABLES; SUCH KIWI, BANANAS, STONE FRUITS, OR CHESTNUTSNO LATEX RISK : DO YOU HAVE A PREVIOUS PERSONAL HISTORY OF MORE THAN NINE SURGERIES, SPINA BIFIDA, OR REPEATED CATHERIZATIONS? NO LATEX RISK : ARE YOU FREQUENTLY EXPOSED TO LATEX PRODUCTS IN YOUR OCCUPATION?NO DATE ASKED : 07/09/2020 ALCOHOL USE: NO. ALCOHOL SCREENING DID YOU HAVE A DRINK CONTAINING ALCOHOL IN THE PAST YEAR?NO POINTS0 INTERPRETATIONNEGATIVE RECREATIONAL DRUG USE DRUG USE?NO CAFFEINE CAFFEINE USE?YES HOW OFTEN AND HOW MUCH? 1 POT OF COFFEE AND 6 SODA/DAY [id number] [place] [address] LANGUAGE LANGUAGES SPOKEN:GIBRALTARIAN EDUCATION LEVEL OF EDUCATION:NOT FINISHED HIGH SCHOOL GED LEARNING BARRIERS / SPECIAL NEEDS CHANGE FROM LAST VISIT?NO PT STATES THAT SHE FELL AT HOME, GETTING OUT OF BED IN MIDDLE OF NIGHT, JAMMED NECK. BARRIERS TO LEARNING?YES COMMENTS HAS TROULBLE REMEMBER THINGS AT TIMES DUE TO NEIL TUMOR, STROKE AND TIA ALONG WITH MENINGITIS HEARING IMPAIRED?NO VISION IMPAIRED?YES :CORRECTIVE LENSES COGNITIVELY IMPAIRED?YES HAS TROUBLE REMEMBERING THINGS AT TIMES STATED ABOVE READINESS TO LEARN?YES LEARNING PREFERENCES?NO LEARNING CAPABILITIES PRESENT?YES EMOTIONAL BARRIERS?NO SPECIAL DEVICES?YES :CANE, WALKER, OTHER ASSISTANCE OF ANOTHER PERSON, NEEDED WASTEWATER TECHNICIAN NEEDED?NO DOMESTIC VIOLENCE DO YOU FEEL SAFE IN YOUR ENVIRONMENT?YES TODAY'S VISITNOTES - PFS REFERRAL NEEDED?NO CLERGY REFERRAL NEEDED?NO PUBLIC HEALTH REFERRAL NEEDED?NO WAS THE PROVIDER NOTIFIED OF ANY PERTINENT INFO? N/A HAS THE PATIENT BEEN EDUCATED REGARDING HIS/HER PLAN OF CARE?YES HAS THE PATIENT BEEN EDUCATED REGARDING PAIN, THE RISK FOR PAIN, THE IMPORTANCE OF EFFECTIVE PAIN MANAGEMENT, AND THE PAIN ASSESSMENT PROCESS?YES ADVANCE DIRECTIVE ADVANCE DIRECTIVE DISCUSSED WITH PATIENT:YES HCP - SHERITA SHARPE 10/12/17 1150 REVIEWED WITH PT. IRAIDAWED WITH PT 11/12/17 1044 BVREVIEWED WITH PATIENT 12/10/17 1418 JS01/13/18 1354 REVIEWED WITH PT. ADRALEXANDRAIEWED WITH PATIENT 01/31/18 1412 JSREVIEWED WITH PT. 08/16/18 ADREVIEWED WITH PATIENT 04/19/18 1518 JSREVEIWED WITH PATIENT 05/25/18 1326 BVREVIEWED WITH PT 03/31/18 1417 BVREVIEWED WITH PATIENT 03/22/18 1515 LASREVIEWED WITH PATIENT 01/19/19 1449 JSREVIEWED WITH PATIENT 03/02/19 1500 BV. REVIEW OF SYSTEMS CONSTITUTIONAL: ANY RECENT FEVER NO . CHILLS NO . WEIGHT CHANGE OF UNKNOWN REASONS NO . GASTROENTEROLOGY: NEW UNEXPLAINABLE CHANGES IN BOWEL CONTROL NO . CONSTIPATION NO . GENITOURINARY: ANY NEW CHANGE IN BLADDER CONTROL? NO . NEUROLOGY: NEW ONSET DIZZINESS OR NEUROLOGICAL CHANGES NOT MENTIONED NO . NEW NUMBNESS OR PAIN PATTERNS NOT MENTIONED AND PERTINENT TO TODAY'S VISIT NO . CARDIOLOGY: NEW CHEST PRESSURE NO . PATIENT DENIES NO . RESPIRATORY: UNEXPLAINABLE COUGH NO . NEW SHORTNESS OF BREATH NO . VITAL SIGNS WT 163 LBS, HT 70 IN, BMI 23.39 INDEX, BP 137/72 MM HG, HR 89 /MIN, RR 16 /MIN, TEMP 98 F, OXYGEN SAT % 91%, SAFE IN ENV? (Y/N) YEST.DRE ADHIKARI. EXAMINATION GENERAL EXAMINATION: GENERAL WEEPY,WHEELCHAIR DEPENDENT. PSYCH DEPRESSED. LUNGS:CLEAR TO AUSCULTATION BILATERALLY, NO WHEEZES, RHONCHI, RALES. HEART:NO MURMURS, REGULAR RATE AND RHYTHM. BACK:TENDER OVER L/S AXIS AND LUMBAR PARASPINALS. TENDERNESS NOTED OVER BILATERAL HIPS . 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 BRINGS IN MEDICATIONS WHICH IS APPROPRIATE FOR WHAT WAS DISPENSED. RECENT URINE TOXICOLOGY REVIEWED. NO UNAUTHORIZED MEDICATIONS. NO ILLICIT SUBSTANCES AND PRESCRIBED MEDICATIONS WERE PRESENT. PROCEDURE CODES FA211 ESTABILISHED PATIENT [facility] CHARGE DISPOSITION & COMMUNICATION FOLLOW UP 3 MONTHS (REASON: MED MGMNT/REVIEW UTOX) ELECTRONICALLY SIGNED BY SANDRA RED ON 07/10/2020 AT 02:35 PM EDT DISCLAIMER : THIS IS A VISIT SUMMARY EXTRACTED FROM THE [employer] CHART. IT IS NOT A COPY OF THE [employer] PROGRESS NOTE. FANNIE
== END ==
LOC: M PAIN 13:45
PROVIDERS: ATTEND Nurse Practitioner Family
DX: M54.40 Lumbago with sciatica, unspecified side (principal); G89.29 Other chronic pain; M79.7 Fibromyalgia; J44.9 Chronic obstructive pulmonary disease, unspecified; F17.210 Nicotine dependence, cigarettes, uncomplicated; Z86.73 Personal history of transient ischemic attack (TIA), and cerebral infarction without residual deficits; Z86.59 Personal history of other mental and behavioral disorders; Z88.8 Allergy status to other drugs, medicaments and biological substances; Z79.82 Long term (current) use of aspirin; Z79.891 Long term (current) use of opiate analgesic; Z79.899 Other long term (current) drug therapy

== ENCOUNTER → 2020-07-25 | Outpatient (CLI) | payer OTHER ==
[~2020-07-25] MED LIST changes: +ISOVUE-300 61% 50ML VIAL As Ordered ONE; +LIDOCAINE 1% MDV 20ML VIAL As Ordered ONE; +TRIAMCINOLONE ACETONIDE SUSP 40 MG/ML VIAL (J3301) As Ordered ONE
--- NOTE | 2020-07-26 18:38 | REP ---
INDICATION: IDIOPATHIC ASEPTIC NECROSIS OF RT FEMUR. COMPARISON: None. TECHNIQUE: The procedure was performed under the direct supervision of Dr. Mcmillan. The benefits and risks including but not limited to pain infection and bleeding and anaphylaxis were explained to the patient and informed consent was obtained. The right femoral neck was localized using fluoroscopic guidance. The skin was prepped and draped in a sterile fashion. 1% lidocaine was used as a local anesthetic. Using fluoroscopic guidance, and last image hold technology, a 22-gauge spinal needle was inserted and advanced to the femoral neck. 0.5 ml of Isovue-300 was injected to verify placement. Six ml of a solution containing 5 ml of 1% Xylocaine and 1 mL of Kenalog 40 mg was injected. The needle was then removed. The patient tolerated the procedure well and there were no immediate complications. Less than 6 seconds of fluoro time was utilized for this procedure. FINDINGS: None IMPRESSION: Fluoro guidance for right hip injection. <Electronically signed by Darwni Vines > 07/25/20 1636 <Electronically signed by Juliocesar Mcmillan > 07/26/20 8220
== END ==
LOC: M RADPRO 10:45
PROVIDERS: ATTEND Orthopaedic Surgery
DX: M87.051 Idiopathic aseptic necrosis of right femur (principal)
CPT/HCPCS: 20610; 77002; J3301; Q9967

== ENCOUNTER → 2020-09-20 | Outpatient (CLI) | payer OTHER ==
--- NOTE | 2020-09-20 16:25 | REP ---
INDICATION: LT HIP PAIN. COMPARISON: None. TECHNIQUE: The procedure was performed under the direct supervision of Dr. Mcmillan. The benefits and risks including but not limited to pain infection and bleeding and anaphylaxis were explained to the patient and informed consent was obtained. The left femoral neck was localized using fluoroscopic guidance. The skin was prepped and draped in a sterile fashion. 1% lidocaine was used as a local anesthetic. Using fluoroscopic guidance, and last image hold technology, a 22-gauge spinal needle was inserted and advanced to the femoral neck. 0.5 ml of Isovue-300 was injected to verify placement. Six ml of a solution containing 5 ml of 1% Xylocaine and 1 mL of Kenalog 40 mg was injected. The needle was then removed. The patient tolerated the procedure well and there were no immediate complications. Less than 6 seconds of fluoro time was utilized for this procedure. FINDINGS: None IMPRESSION: Fluoro guidance for left hip injection. <Electronically signed by Darwin Vines > 09/20/20 1613 <Electronically signed by Juliocesar Mcmillan > 09/20/20 1622
== END ==
LOC: M RADPRO 14:00
PROVIDERS: ATTEND Orthopaedic Surgery
DX: M25.552 Pain in left hip (principal)
CPT/HCPCS: 20610; 77002; J3301; Q9967

== ENCOUNTER → 2021-01-16 | Outpatient (CLI) | payer OTHER ==
[~2021-01-16] MED LIST changes: +METH-1177 PO; -METH10TA2 PO; +TIZA10TA PO; -TIZA4TAB4 PO; -TRIAMCINOLONE ACETONIDE SUSP 40 MG/ML VIAL (J3301) As Ordered ONE; +methylPREDNISolone 80MG/ML SUSP 1ML VIAL (J1040) As Ordered ONE
== END ==
LOC: M RADPRO 10:43
PROVIDERS: ATTEND Orthopaedic Surgery
DX: M16.0 Bilateral primary osteoarthritis of hip (principal); M79.604 Pain in right leg
CPT/HCPCS: 20610; 77002; J1040; Q9967

== ENCOUNTER → 2021-04-25 | Outpatient (CLI) | payer OTHER | LOC: M RADPRO 12:56 | PROVIDERS: ATTEND Orthopaedic Surgery | DX: M16.11 Unilateral primary osteoarthritis, right hip (principal) | CPT/HCPCS: 20610; 77002; J1040; Q9967 ==

== ENCOUNTER → 2021-06-26 | Outpatient (CLI) | payer OTHER | LOC: M RADPRO 10:29 | PROVIDERS: ATTEND Orthopaedic Surgery | DX: M16.11 Unilateral primary osteoarthritis, right hip (principal); M79.604 Pain in right leg; G89.29 Other chronic pain ==

== ENCOUNTER → 2021-09-22 | Outpatient (CLI) | payer OTHER ==
[~2021-09-22] MED LIST changes: -ISOVUE-300 61% 50ML VIAL As Ordered ONE; -LIDOCAINE 1% MDV 20ML VIAL As Ordered ONE; -methylPREDNISolone 80MG/ML SUSP 1ML VIAL (J1040) As Ordered ONE
[2021-09-22 13:27] LABS: BASO # 0.1 10^3/uL (0.0-0.2); BASO % 1.2 % (0.0-1.0); EOS # 0.2 10^3/uL (0.0-0.5); EOS % 2.4 % (0.0-3.0); HEMATOCRIT 42.3 % (36.0-47.0); LYMPH # 1.5 10^3/uL (1.5-5.0); LYMPH % 22.1 % (24.0-44.0); MEAN CORPUSCULAR HEMOGLOBIN 29.5 pg (27.0-33.0); MEAN CORPUSCULAR HGB CONC 33.1 g/dl (32.0-36.5); MEAN CORPUSCULAR VOLUME 89.2 fl (80.0-96.0); MONO # 0.5 10^3/uL (0.0-0.8); MONO % 6.9 % (2.0-8.0); NEUTROPHILS # 4.5 10^3/uL (1.5-8.5); NEUTROPHILS % 66.8 % (36.0-66.0); PLATELET COUNT, AUTOMATED 284 10^3/uL (150-450); RED BLOOD COUNT 4.74 10^6/uL (4.00-5.40); WHITE BLOOD COUNT 6.7 10^3/uL (4.0-10.0)
[2021-09-22 15:07] LABS: ALBUMIN 3.5 GM/DL (3.2-5.2); ALT/SGPT 17 U/L (12-78); BILIRUBIN,TOTAL 0.3 MG/DL (0.2-1.0); BLOOD UREA NITROGEN 12 MG/DL (7-18); CALCIUM LEVEL 9.4 MG/DL (8.5-10.1); CARBON DIOXIDE LEVEL 29 MEQ/L (21-32); CHLORIDE LEVEL 103 MEQ/L (98-107); CHOLESTEROL LEVEL 148 MG/DL (<200); CHOLESTEROL RISK RATIO 3.894 (<5); CREATININE FOR GFR 0.86 MG/DL (0.55-1.30); GLOMERULAR FILTRATION RATE > 60.0 (>51); GLUCOSE, FASTING 97 MG/DL (70-100); HDL CHOLESTEROL 38 MG/DL (>40); LDL CHOLESTEROL 94 MG/DL (<100); NON-HDL-C 110 MG/DL; POTASSIUM SERUM 3.2 MEQ/L (3.5-5.1); SODIUM LEVEL 141 MEQ/L (136-145); TOTAL PROTEIN 7.4 GM/DL (6.4-8.2); TRIGLYCERIDES LEVEL 82 MG/DL (<150)
== END ==
LOC: M LAB 12:12
PROVIDERS: ATTEND Nurse Practitioner Family
DX: Z00.01 Encounter for general adult medical examination with abnormal findings (principal)

== ENCOUNTER → 2021-10-17 | Outpatient (CLI) | payer OTHER ==
[~2021-10-17] MED LIST changes: +ISOVUE-300 61% 5ML SYRINGE As Ordered ONE; +LIDOCAINE 1% MDV 20ML VIAL As Ordered ONE; +methylPREDNISolone SUSP 40MG/ML 1ML VIAL (DEPO MEDROL) As Ordered ONE
== END ==
LOC: M RAD 13:13
PROVIDERS: ATTEND Orthopaedic Surgery
DX: M16.11 Unilateral primary osteoarthritis, right hip (principal); M25.552 Pain in left hip
CPT/HCPCS: 76000; J1030; Q9967

== ENCOUNTER → 2021-12-31 | Outpatient (CLI) | payer OTHER ==
[~2021-12-31] MED LIST changes: +ISOVUE-300 61% 50ML VIAL ONE; -ISOVUE-300 61% 5ML SYRINGE As Ordered ONE; -LIDOCAINE 1% MDV 20ML VIAL As Ordered ONE; +LIDOCAINE 1% MDV 20ML VIAL ONE; +methylPREDNISolone 80MG/ML SUSP 1ML VIAL (J1040) ONE; -methylPREDNISolone SUSP 40MG/ML 1ML VIAL (DEPO MEDROL) As Ordered ONE
== END ==
LOC: M PLAIMG 15:22
PROVIDERS: ATTEND Orthopaedic Surgery
DX: M25.552 Pain in left hip (principal); M16.11 Unilateral primary osteoarthritis, right hip
CPT/HCPCS: 20610; 76000; J1040

== ENCOUNTER → 2022-01-17 | Outpatient (CLI) | payer OTHER ==
[~2022-01-17] MED LIST changes: -ISOVUE-300 61% 50ML VIAL ONE; -LIDOCAINE 1% MDV 20ML VIAL ONE; -methylPREDNISolone 80MG/ML SUSP 1ML VIAL (J1040) ONE
[2022-01-17 12:03] LABS: BASO # 0.1 10^3/uL (0.0-0.2); EOS # 0.1 10^3/uL (0.0-0.5); HEMATOCRIT 39.1 % (36.0-47.0); HEMOGLOBIN 12.4 g/dl (12.0-15.5); LYMPH % 20.5 % (24.0-44.0); MEAN CORPUSCULAR HEMOGLOBIN 29.5 pg (27.0-33.0); MEAN CORPUSCULAR HGB CONC 31.7 g/dl (32.0-36.5); MEAN CORPUSCULAR VOLUME 92.9 fl (80.0-96.0); MONO # 0.3 10^3/uL (0.0-0.8); NEUTROPHILS # 3.5 10^3/uL (1.5-8.5); NEUTROPHILS % 69.3 % (36.0-66.0); PLATELET COUNT, AUTOMATED 158 10^3/uL (150-450); RED BLOOD COUNT 4.21 10^6/uL (4.00-5.40)
[2022-01-17 12:49] LABS: ALBUMIN 3.7 G/DL (3.2-5.2); ALKALINE PHOSPHATASE 44 U/L (46-116); ALT/SGPT 12 U/L (7.0-40); AST/SGOT 16 U/L (<34); BILIRUBIN,TOTAL 0.4 MG/DL (0.3-1.2); BLOOD UREA NITROGEN 11 MG/DL (9-23); CALCIUM LEVEL 9.4 MG/DL (8.5-10.1); CARBON DIOXIDE LEVEL 30 MMOL/L (20-31); CHLORIDE LEVEL 103 MMOL/L (98-107); CHOLESTEROL LEVEL 136 MG/DL (<200); CHOLESTEROL RISK RATIO 3.93 (<5); CREATININE FOR GFR 0.69 MG/DL (0.55-1.30); GLOMERULAR FILTRATION RATE > 60.0 (>51); GLUCOSE, FASTING 97 MG/DL (60-100); HDL CHOLESTEROL 34.6 MG/DL (>40); LDL CHOLESTEROL 80.2 MG/DL (<100); NON-HDL-C 101 MG/DL; POTASSIUM SERUM 3.8 MMOL/L (3.5-5.1); SODIUM LEVEL 137 MMOL/L (136-145); TOTAL PROTEIN 7.1 G/DL (5.7-8.2); TRIGLYCERIDES LEVEL 106 MG/DL (<150)
[2022-01-17 12:50] LABS: THYROID STIMULATING HORMONE 13.664 uIU/ML (0.55-4.78)
[2022-01-17 12:51] LABS: TOTAL 25(OH) VITAMIN D 12.1 NG/ML (20.0-100.0)
[2022-01-17 13:01] LABS: HEMOGLOBIN A1c 4.9 % (4.0-6.0)
== END ==
LOC: M RAD 11:38
PROVIDERS: ATTEND Nurse Practitioner Family
DX: Z00.01 Encounter for general adult medical examination with abnormal findings (principal); E78.1 Pure hyperglyceridemia; E03.9 Hypothyroidism, unspecified; E55.9 Vitamin D deficiency, unspecified; Z13.1 Encounter for screening for diabetes mellitus; Z79.899 Other long term (current) drug therapy

== ENCOUNTER → 2022-03-20 | Outpatient (CLI) | payer OTHER ==
[~2022-03-20] MED LIST changes: +**SFHN** LIDOCAINE 1% MDV 20ML VIAL ONE; +ISOVUE-300 61% 100ML VIAL ONE; +methylPREDNISolone 80MG/ML SUSP 1ML VIAL ONE
== END ==
LOC: M PLAIMG 14:07
PROVIDERS: ATTEND Orthopaedic Surgery
DX: M25.552 Pain in left hip (principal); M16.11 Unilateral primary osteoarthritis, right hip
CPT/HCPCS: 20610; 76000; J1040

== ENCOUNTER → 2022-07-01 | Outpatient (CLI) | payer OTHER ==
[~2022-07-01] MED LIST changes: -**SFHN** LIDOCAINE 1% MDV 20ML VIAL ONE; +LIDOCAINE 1% MDV 20ML VIAL ONE
== END ==
LOC: M PLAIMG 13:44
PROVIDERS: ATTEND Orthopaedic Surgery
DX: M16.0 Bilateral primary osteoarthritis of hip (principal)

== ENCOUNTER → 2022-08-25 | Outpatient (CLI) | payer OTHER ==
[~2022-08-25] MED LIST changes: +ISOVUE-300 61% 100ML VIAL As Ordered ONE; -ISOVUE-300 61% 100ML VIAL ONE; +LIDOCAINE 1% MDV 20ML VIAL As Ordered ONE; -LIDOCAINE 1% MDV 20ML VIAL ONE; +methylPREDNISolone 80MG/ML SUSP 1ML VIAL As Ordered ONE; -methylPREDNISolone 80MG/ML SUSP 1ML VIAL ONE
== END ==
LOC: M RAD 13:37
PROVIDERS: ATTEND Orthopaedic Surgery
DX: M16.0 Bilateral primary osteoarthritis of hip (principal)
CPT/HCPCS: 20610; 77002; J1040; Q9967

== ENCOUNTER → 2023-03-16 | Outpatient (CLI) | payer OTHER ==
[~2023-03-16] MED LIST changes: -ISOVUE-300 61% 100ML VIAL As Ordered ONE; -LIDOCAINE 1% MDV 20ML VIAL As Ordered ONE; -methylPREDNISolone 80MG/ML SUSP 1ML VIAL As Ordered ONE
== END ==
LOC: M RAD 10:10
PROVIDERS: ATTEND Orthopaedic Surgery
DX: M16.0 Bilateral primary osteoarthritis of hip (principal)

== ENCOUNTER → 2023-03-16 | Outpatient (CLI) | payer OTHER ==
[2023-03-16 11:45] LABS: HEMATOCRIT 54.1 % (36.0-47.0); HEMOGLOBIN 17.3 g/dl (12.0-15.5); MEAN CORPUSCULAR HEMOGLOBIN 28.5 pg (27.0-33.0); MEAN CORPUSCULAR VOLUME 89.3 fl (80.0-96.0); PLATELET COUNT, AUTOMATED 209 10^3/uL (150-450); RED BLOOD COUNT 6.06 10^6/uL (4.00-5.40); WHITE BLOOD COUNT 9.6 10^3/uL (4.0-10.0)
[2023-03-16 12:15] LABS: FREE T4 1.69 NG/DL (0.89-1.76)
[2023-03-16 12:16] LABS: THYROID STIMULATING HORMONE 0.365 uIU/ML (0.55-4.78)
[2023-03-16 12:17] LABS: TOTAL 25(OH) VITAMIN D 34.8 NG/ML (20.0-100.0)
[2023-03-16 12:19] LABS: ALBUMIN 3.8 G/DL (3.2-5.2); ALKALINE PHOSPHATASE 83 U/L (46-116); ALT/SGPT 10 U/L (7.0-40); AST/SGOT 11 U/L (<34); BILIRUBIN,TOTAL 0.7 MG/DL (0.3-1.2); BLOOD UREA NITROGEN 9 MG/DL (9-23); CALCIUM LEVEL 10.4 MG/DL (8.5-10.1); CARBON DIOXIDE LEVEL 30 MMOL/L (20-31); CHLORIDE LEVEL 102 MMOL/L (98-107); CHOLESTEROL LEVEL 189 MG/DL (<200); CREATININE FOR GFR 0.64 MG/DL (0.55-1.30); GLOMERULAR FILTRATION RATE > 60.0 (>51); GLUCOSE, FASTING 123 MG/DL (60-100); LDL CHOLESTEROL 124.4 MG/DL (<100); POTASSIUM SERUM 3.5 MMOL/L (3.5-5.1); SODIUM LEVEL 139 MMOL/L (136-145); TOTAL PROTEIN 8.2 G/DL (5.7-8.2); TRIGLYCERIDES LEVEL 163 MG/DL (<150)
== END ==
LOC: M LAB 10:08
PROVIDERS: ATTEND Registered Nurse
DX: E55.9 Vitamin D deficiency, unspecified (principal); E78.00 Pure hypercholesterolemia, unspecified; E89.0 Postprocedural hypothyroidism; N18.30 Chronic kidney disease, stage 3 unspecified; Z79.899 Other long term (current) drug therapy

== ENCOUNTER → 2023-03-23 | Outpatient (CLI) | payer OTHER ==
[~2023-03-23] MED LIST changes: +ISOVUE-370 76% 100ML VIAL ONE
== END ==
LOC: M PLAIMG 14:01
PROVIDERS: ATTEND Registered Nurse
DX: J01.30 Acute sphenoidal sinusitis, unspecified (principal); M54.2 Cervicalgia; J43.9 Emphysema, unspecified
CPT/HCPCS: 70491; Q9967

== ENCOUNTER → 2023-03-26 | Outpatient (CLI) | payer OTHER ==
[~2023-03-26] MED LIST changes: -ISOVUE-370 76% 100ML VIAL ONE
== END ==
LOC: M LAB 12:53
PROVIDERS: ATTEND Registered Nurse
DX: E83.52 Hypercalcemia (principal)

== ENCOUNTER → 2023-06-02 | Outpatient (CLI) | payer OTHER ==
[~2023-06-02] MED LIST changes: +ERGO500029; +ISOVUE-300 61% 100ML VIAL As Ordered ONE; -KLON1TAB PO; +KLON1TAB13 PO; +LEVO150T7; +LIDOCAINE 1% MDV 20ML VIAL As Ordered ONE; +LUMA10.5; +methylPREDNISolone 80MG/ML SUSP 1ML VIAL As Ordered ONE
== END ==
LOC: M RAD 14:20
PROVIDERS: ATTEND Orthopaedic Surgery
DX: M16.0 Bilateral primary osteoarthritis of hip (principal); M16.6 Other bilateral secondary osteoarthritis of hip
CPT/HCPCS: 20610; 77002; J1010; Q9967

== ENCOUNTER → 2023-08-25 | Outpatient (CLI) | payer OTHER | LOC: M RAD 12:30 | PROVIDERS: ATTEND Orthopaedic Surgery | DX: M16.6 Other bilateral secondary osteoarthritis of hip (principal) | CPT/HCPCS: 20610; 77002; J1010; Q9967 ==

== ENCOUNTER → 2023-10-12 | Outpatient (CLI) | payer OTHER ==
[~2023-10-12] MED LIST changes: -ISOVUE-300 61% 100ML VIAL As Ordered ONE; -LIDOCAINE 1% MDV 20ML VIAL As Ordered ONE; -methylPREDNISolone 80MG/ML SUSP 1ML VIAL As Ordered ONE
[2023-10-12 15:27] LABS: HEMATOCRIT 44.8 % (36.0-47.0); HEMOGLOBIN 14.3 g/dl (12.0-15.5); MEAN CORPUSCULAR HEMOGLOBIN 28.3 pg (27.0-33.0); MEAN CORPUSCULAR HGB CONC 31.9 g/dl (32.0-36.5); MEAN CORPUSCULAR VOLUME 88.7 fl (80.0-96.0); PLATELET COUNT, AUTOMATED 182 10^3/uL (150-450); RED BLOOD COUNT 5.05 10^6/uL (4.00-5.40); WHITE BLOOD COUNT 6.1 10^3/uL (4.0-10.0)
[2023-10-12 15:54] LABS: FREE T4 1.18 NG/DL (0.89-1.76)
[2023-10-12 15:55] LABS: ALBUMIN 3.1 G/DL (3.2-5.2); ALKALINE PHOSPHATASE 69 U/L (46-116); ALT/SGPT 10 U/L (7.0-40); AST/SGOT 10 U/L (<34); BILIRUBIN,TOTAL 0.4 MG/DL (0.3-1.2); BLOOD UREA NITROGEN 14 MG/DL (9-23); CALCIUM LEVEL 9.1 MG/DL (8.5-10.1); CARBON DIOXIDE LEVEL 34 MMOL/L (20-31); CHLORIDE LEVEL 105 MMOL/L (98-107); CHOLESTEROL LEVEL 170 MG/DL (<200); CHOLESTEROL RISK RATIO 5.43 (<5); CREATININE FOR GFR 0.58 MG/DL (0.55-1.30); GLOMERULAR FILTRATION RATE > 60.0 (>51); GLUCOSE, FASTING 91 MG/DL (60-100); HDL CHOLESTEROL 31.3 MG/DL (>40); LDL CHOLESTEROL 116.9 MG/DL (<100); NON-HDL-C 138.7 MG/DL; POTASSIUM SERUM 3.9 MMOL/L (3.5-5.1); SODIUM LEVEL 142 MMOL/L (136-145); TOTAL PROTEIN 6.7 G/DL (5.7-8.2); TRIGLYCERIDES LEVEL 109 MG/DL (<150)
[2023-10-12 15:57] LABS: TOTAL 25(OH) VITAMIN D 37.6 NG/ML (20.0-100.0)
== END ==
LOC: M RAD 14:30
PROVIDERS: ATTEND Registered Nurse
DX: R22.0 Localized swelling, mass and lump, head (principal); R00.2 Palpitations; E55.9 Vitamin D deficiency, unspecified; E78.00 Pure hypercholesterolemia, unspecified

== ENCOUNTER → 2023-11-17 | Outpatient (CLI) | payer OTHER ==
[~2023-11-17] MED LIST changes: +ISOVUE-300 61% 100ML VIAL As Ordered ONE; +LIDOCAINE 1% MDV 20ML VIAL As Ordered ONE; +methylPREDNISolone 80MG/ML SUSP 1ML VIAL As Ordered ONE
== END ==
LOC: M RAD 12:52
PROVIDERS: ATTEND Orthopaedic Surgery
DX: M16.6 Other bilateral secondary osteoarthritis of hip (principal); M25.551 Pain in right hip; M25.552 Pain in left hip
CPT/HCPCS: 20610; 77002; J1010; Q9967

== ENCOUNTER → 2024-02-17 | Outpatient (CLI) | payer OTHER | LOC: M RAD 12:41 | PROVIDERS: ATTEND Orthopaedic Surgery | DX: M16.6 Other bilateral secondary osteoarthritis of hip (principal) | CPT/HCPCS: 20610; 77002; J1010; Q9967 ==

== ENCOUNTER → 2024-04-11 | Outpatient (CLI) | payer OTHER | LOC: M RAD 14:21 | PROVIDERS: ATTEND Orthopaedic Surgery | DX: M16.6 Other bilateral secondary osteoarthritis of hip (principal) | CPT/HCPCS: 20610; 77002; J1010; Q9967 ==

== ENCOUNTER → 2024-06-12 | Outpatient (CLI) | payer OTHER ==
[~2024-06-12] MED LIST changes: -ISOVUE-300 61% 100ML VIAL As Ordered ONE; -LIDOCAINE 1% MDV 20ML VIAL As Ordered ONE; -methylPREDNISolone 80MG/ML SUSP 1ML VIAL As Ordered ONE
== END ==
LOC: M LAB 14:01
PROVIDERS: ATTEND Registered Nurse
DX: E87.6 Hypokalemia (principal)

== ENCOUNTER → 2024-12-02 | Outpatient (CLI) | payer OTHER ==
[~2024-12-02] MED LIST changes: +ISOVUE-300 61% 100 ML VIAL As Ordered ONE; +LIDOCAINE 1% MDV 20 ML VIAL As Ordered ONE; +methylPREDNISolone 80 MG/ML SUSP 1 ML VIAL As Ordered ONE
== END ==
LOC: M RAD 11:03
PROVIDERS: ATTEND Orthopaedic Surgery
DX: M16.6 Other bilateral secondary osteoarthritis of hip (principal)
CPT/HCPCS: 20610; 77002; J1010; Q9967